=== PATIENT | female | born 1955 ===

== ENCOUNTER → 2020-06-01 11:09 | Outpatient (BNVA) | payer MEDICARE, SELFPAY | PROVIDERS: PCP Internal Medicine; Referring Provider Internal Medicine; Visit Provider Dietitian, Registered ==

== ENCOUNTER → 2020-08-31 10:45 | Outpatient (BNVA) | payer MEDICARE, SELFPAY | PROVIDERS: PCP Internal Medicine; Visit Provider Dietitian, Registered | DX: E11.9 Type 2 diabetes mellitus without complications (principal) | CPT/HCPCS: 97803 ==

== ENCOUNTER 2023-12-11 11:26 | Outpatient (REF) | payer MEDICARE, SELFPAY ==
--- NOTE | ~2023-12-11 | MM_ITS ---
EXAMINATION: MM SCREENING DIGITAL BREAST TOMOSYNTHESIS, BILATERAL CLINICAL INFORMATION: Screening. Asymptomatic. COMPARISON: Mammography: This study is compared with prior exams dating back to 2020. TECHNIQUE: Digital breast tomosynthesis is performed in both the craniocaudal and mediolateral oblique views along with computer-aided detection (CAD). Synthesized 2D images are generated from the tomosynthesis. FINDINGS: The breasts are almost entirely fatty (ACR BI-RADS breast composition Category a). There are no significant masses, abnormal calcifications, or other abnormalities. MM/MM tomosynthesis screening BI IMPRESSION: No mammographic evidence of malignancy. ASSESSMENT: BI-RADS BI-RADS 1 - Negative RECOMMENDATION: Routine annual mammography screening. 1 year F/U This examination should not preclude the clinical evaluation of a suspicious palpable abnormality. This patient's information was entered into a reminder system with a target due date for their next mammogram.
== END 2023-12-11 11:27 | disposition home or self-care (01) ==
LOC: HO.MAMMO 11:26
PROVIDERS: Visit Provider Physician Assistant
DX: Z12.31 Encounter for screening mammogram for malignant neoplasm of breast (principal)
CPT/HCPCS: 77063; 77067

== ENCOUNTER → 2023-12-11 11:45 | Outpatient (BNV) | payer MEDICARE, SELFPAY | PROVIDERS: Visit Provider Radiology Diagnostic Radiology | DX: Z12.31 Encounter for screening mammogram for malignant neoplasm of breast (principal) | CPT/HCPCS: 77063; 77067 ==

== ENCOUNTER 2024-01-14 12:58 | Outpatient (AMB) | payer MEDICARE, SELFPAY ==
--- NOTE | 2024-01-14 13:07 | A.OFFPC_ITS ---
Vital Signs 01/14/24 13:19 Height 5 ft 1.61 in Weight 187 lb 2 oz BMI 34.7 BP 122/76 Blood Pressure Location Lt brachial Position Sitting Respiration 14 Pulse 72 Pulse Source Pulse Oximeter Temp 98.4 F Temp Source Oral Pulse Oximetry (%) 96 Oxygen Delivery Method Room Air Intake Visit Reasons: Diabetes followup Intake Note: New patient visit. Had a heart ultrasound at [place] and never got results. Needs refill on all medications. Lineman A Class Required: No Allergies penicillin V Allergy (Unknown, Verified 01/14/24 13:10) Unknown Penicillins [PENICILLINS] Allergy (Unknown, Verified 01/14/24 13:10) HIVES seafood Allergy (Unknown, Verified 01/14/24 13:10) Rash SEAFOOD Allergy (Severe, Uncoded 01/14/24 13:10) THROAT SWELLING AND HIVES flu vaccine Allergy (Unknown, Uncoded 01/14/24 13:10) Rash shellfish Allergy (Unknown, Uncoded 01/14/24 13:10) Unknown Medication List - Last Reconciled 01/14/24 by Christal Robison PA-C albuterol sulfate 90 mcg/actuation 2 puffs inhalation QID aspirin 81 mg PO DAILY blood sugar diagnostic (OneTouch Ultra Test strips) As directed blood-glucose meter (OneTouch Ultra2 Meter) As directed calcium carb,lactat-vitamin D3 200 mg-6.25 mcg (250 unit) tabs PO fluticasone propion-salmeterol 250-50 mcg/dose (Wixela Inhub) 1 ea inhalation BID lancets (OneTouch Delica Plus Lancet) As directed loratadine (Claritin) 10 mg PO DAILY meclizine 25 mg PO TID PRN meclizine 25 mg PO DAILY PRN metformin ER 500 mg PO TID simvastatin 20 mg PO BEDTIME valsartan 80 mg PO DAILY Tobacco use date assessed: 01/14/24 Fall risk assessment: No Falls in past year Last assessed Fall Risk: 01/14/24 Dental Screening Dental Screen Date: 01/14/24 HPI Diabetes followup HPI Details Patient is a 68-year-old female with a significant past medical history of type 2 diabetes, hypertension, hyperlipidemia, obesity, asthma, joint pains, fibromyalgia, PVD, rheumatoid lung, abnormal echo and vertigo presenting today to [facility] care. She is transferring from [place]. Lineman A Class: Genevieve Trena [id number] Endo: She is currently on metformin 500 mg 3 times a day. She was diagnosed with diabetes around 2019. She has had diabetic Education. She is followed with a manager servicing. Her A1c today 7. -She states most of her family has t2dm. -denies hyper/hypoglycemic events -last eye exam was 6 months ago and she states she has cataracts. -she is on an Arb and a statin. CV: Blood pressure today in the office is 122/76. She is currently on valsartan 80 mg. Cholesterol is managed with simvastatin 20 mg. She had an echo Pulm: has a hx of asthma but recent PFTs from apr 2022 (scanned in) were normal. Mammogram: UTD, November 2023 Colonoscopy: due this year Bone density: overdue Pap: needs new referral to [facility] Family History (Updated 07/30/22 @ 16:37 by Maisha Chavez RN) Mother Asthma Anemia Diabetes HTN (hypertension) Glaucoma Father Stroke Sister Diabetes HTN (hypertension) Asthma Myocardial infarct Stroke Brother Diabetes Glaucoma Asthma Social History (Updated 07/30/22 @ 16:34 by Maisha Chavez RN) Housing: House Alcohol intake: never Patient Tobacco Use Status: Never used Tobacco e-Cigarette/Vaping Use: Never Used service: No Current occupational status: retired Cognitive needs: No Hearing needs: No Vision needs: Yes (cataracts) Physical exam (Primary Care) Vital Signs: Last Vital Signs Temp 98.4 F 01/14/24 13:19 Pulse 72 01/14/24 13:19 Resp 14 01/14/24 13:19 BP 122/76 01/14/24 13:19 Pulse Ox 96 01/14/24 13:19 Oxygen Delivery Method Room Air 01/14/24 13:19 BMI result Body Mass Index 34.7 Tobacco/Smoking Status: Tobacco use Status Tobacco use date assessed 01/14/24 01/14/24 13:22 Patient Tobacco Use Status Never used Tobacco 01/14/24 13:09 e-Cigarette/Vaping Use Never Used 01/14/24 13:09 Const Orientation/consciousness: patient oriented x3 HENMT Ears: hearing grossly normal bilaterally Neck Thyroid: Thyroid normal Lymphatic: no lymphadenopathy noted Resp Auscultation: clear to auscultation bilaterally Cardio Rate: regular rate Rhythm: regular rhythm Heart sounds: S1 normal heart sound present and S2 normal heart sound present GI Inspection: Yes normal to inspection Palpation (GI): Soft to palpation and Other GI palpation findings present (nontender, no cva tenderness) Auscultation: normoactive bowel sounds Rectal Exam - Female: deferred Skin General skin exam: no rashes or lesions noted Neuro General: patient oriented x3, gait normal and no focal motor deficits Assessment and Plan Assessment & Plan (1) T2DM (type 2 diabetes mellitus): Code(s): E11.9 - Type 2 diabetes mellitus without complications Plan: Currently controlled. Continue current regimen. Testing supplies ordered. (2) Hypertension: Code(s): I10 - Essential (primary) hypertension Plan: Blood pressure WNL. Continue current regimen (3) Hyperlipidemia: Code(s): E78.5 - Hyperlipidemia, unspecified Plan: Refilled simvastatin today. Continue this. Lipids and LFTs ordered. (4) PVD (peripheral vascular disease): Code(s): I73.9 - Peripheral vascular disease, unspecified Plan: following [facility] Dempsey (5) Murmur: Code(s): R01.1 - Cardiac murmur, unspecified Plan: States she had an echo and was supposed to see cardiology because it was abnormal. We will refer to Cardiology Plan Referral to children's aide Bone density ordered Labs ordered Referral to GI Orders: Orders TSH reflex Free T4 Today E11.9 - Type 2 diabetes mellitus without complications, E78.5 - Hyperlipidemia, unspecified, I10 - Essential (primary) hypertension Microalbumin, Random (w Creat) Today E11.9 - Type 2 diabetes mellitus without complications, E78.5 - Hyperlipidemia, unspecified, I10 - Essential (primary) hypertension XR DEXA axial skeleton Today Z13.820 - Encounter for screening for osteoporosis B Type Natriuretic Peptide Today I73.9 - Peripheral vascular disease, unspecified, R01.1 - Cardiac murmur, unspecified Comprehensive [place]. Panel Fast Today E11.9 - Type 2 diabetes mellitus without complications, E78.5 - Hyperlipidemia, unspecified, I10 - Essential (primary) hypertension Complete Blood Count Auto Diff Today E11.9 - Type 2 diabetes mellitus without complications, E78.5 - Hyperlipidemia, unspecified, I10 - Essential (primary) hypertension Lipid Panel Today E11.9 - Type 2 diabetes mellitus without complications, E78.5 - Hyperlipidemia, unspecified, I10 - Essential (primary) hypertension Referrals Gastroenterology Referral Z12.11 - Encounter for screening for malignant neoplasm of colon BIOMETRY TEACHER Referral Z12.89 - Encounter for screening for malignant neoplasm of other sites Cardiology Referral I10 - Essential (primary) hypertension, R01.1 - Cardiac murmur, unspecified Medications: New simvastatin 20 mg PO BEDTIME 90 tabs 3RF Changed From blood sugar diagnostic (OneTouch Ultra Test strips) As directed 10 ea To blood sugar diagnostic (OneTouch Ultra Test strips) Use daily As directed to check blood glucose 100 ea 3RF Coding Level of Care Code New Pt Level 4 (87088) Complex EM visit Add On G2211 Diagnoses T2DM (type 2 diabetes mellitus) E11.9 Hypertension I10 Hyperlipidemia E78.5 PVD (peripheral vascular disease) I73.9 Murmur R01.1
[2024-01-14 13:19] VITALS: BP 122/76; PULSE 72; RESP 14; TEMP 36.9; O2SAT 96; BMI 34.7
== END 2024-01-14 13:58 | disposition home or self-care (01) ==
PROVIDERS: Visit Provider Physician Assistant
DX: E11.9 Type 2 diabetes mellitus without complications (principal); I10 Essential (primary) hypertension; E78.5 Hyperlipidemia, unspecified; I73.9 Peripheral vascular disease, unspecified; R01.1 Cardiac murmur, unspecified

== ENCOUNTER → 2024-01-14 12:58 | Outpatient (BNVA) | payer MEDICARE, SELFPAY | PROVIDERS: Visit Provider Physician Assistant | DX: E11.9 Type 2 diabetes mellitus without complications (principal); E78.5 Hyperlipidemia, unspecified; I10 Essential (primary) hypertension; I73.9 Peripheral vascular disease, unspecified; R01.1 Cardiac murmur, unspecified | CPT/HCPCS: 83036; 99202 ==

== ENCOUNTER 2024-01-21 10:37 | Outpatient (REF) | payer MEDICARE, SELFPAY ==
[2024-01-21 10:59] LABS: MANUAL DIFF FLAG NO
[2024-01-21 12:24] LABS: Basophils Absolute Auto 0.1 X10*3/uL (0.0-0.2); Basophils Percent Auto 1.5 % (0-2); Eosinophils Absolute Auto 0.1 X10*3/uL (0.0-0.4); Eosinophils Percent Auto 3.3 % (0-4); Hematocrit 36.6 % (37.0-47.0); Imm Gran Abs Auto 0.02 X10*3/uL (0.00-0.03); Imm Gran Pct Auto 0.5 % (0.0-0.4); Lymphocytes Absolute Auto 1.2 X10*3/uL (1.2-4.9); Lymphocytes Percent Auto 30.3 % (20-40); Mean Corpuscular HGB Conc 30.1 g/dl (31.0-35.0); Mean Corpuscular Hemoglobin 23.3 pg (27.0-33.0); Mean Corpuscular Volume 77.5 fL (80.0-98.0); Mean Platelet Volume 9.8 fL (9.4-12.3); Monocytes Absolute Auto 0.3 X10*3/uL (0.1-1.2); Neutrophils Absolute Auto 2.3 x10*3/uL (2.0-8.3); Neutrophils Percent Auto 57.4 % (45-73); Platelet Count 276 X10*3/uL (160-400); Red Blood Count 4.72 X10*6/uL (4.20-5.50); Red Cell Distribution Width 15.2 % (11.0-16.0)
[2024-01-21 12:55] LABS: B Type Natriuretic Peptide 51 pg/mL (<100)
[2024-01-21 12:59] LABS: Alanine Aminotransferase 14 U/L (0-31); Alkaline Phosphatase 55 U/L (39-117); Anion Gap 11 (12-20); Aspartate Amino Transferase 15 U/L (5-31); Bilirubin Total 0.5 mg/dL (0.0-1.0); Blood Urea Nitrogen 13 mg/dL (9-16); Calcium 9.6 mg/dL (8.4-10.2); Carbon Dioxide 29 mmol/L (22-29); Chloride 106 mmol/L (96-108); Cholesterol 209 mg/dL (<200); Estimated Glomerular Filt Rate > 60; Glucose Fasting 124 mg/dL (60-99); HDL Cholesterol 71 mg/dL (>40); LDL Cholesterol Calculated 122 mg/dL (<100); Sodium 142 mmol/L (135-145); Triglycerides 80 mg/dL (<150)
[2024-01-21 13:00] LABS: Creatinine Urine 60.37 mg/dL; Microalbumin Urine < 5.0 mg/L
[2024-01-21 13:17] LABS: TSH reflex Free T4 4.63 uIU/mL (0.32-4.0)
[2024-01-21 13:54] LABS: Free T4 (Free Thyroxine) 0.77 ng/dL (0.71-1.85)
== END 2024-01-21 10:38 | disposition home or self-care (01) ==
LOC: HO.LAB 10:37
PROVIDERS: PCP Physician Assistant; Visit Provider Physician Assistant
DX: R01.1 Cardiac murmur, unspecified (principal); E78.5 Hyperlipidemia, unspecified; I10 Essential (primary) hypertension; E11.9 Type 2 diabetes mellitus without complications; I73.9 Peripheral vascular disease, unspecified
CPT/HCPCS: 36415; 80053; 80061; 82570; 83880; 84439; 84443; 85025

== ENCOUNTER 2024-01-27 14:24 | Outpatient (AMB) | payer MEDICARE, SELFPAY ==
--- NOTE | 2024-01-27 14:50 | MHC.OFFVIS ---
Intake Visit Reasons: telehealth follow up on labs Allergies penicillin V Allergy (Unknown, Verified 01/14/24 13:10) Unknown Penicillins [PENICILLINS] Allergy (Unknown, Verified 01/14/24 13:10) HIVES seafood Allergy (Unknown, Verified 01/14/24 13:10) Rash SEAFOOD Allergy (Severe, Uncoded 01/14/24 13:10) THROAT SWELLING AND HIVES flu vaccine Allergy (Unknown, Uncoded 01/14/24 13:10) Rash shellfish Allergy (Unknown, Uncoded 01/14/24 13:10) Unknown Medication List - Last Reconciled 01/27/24 by Christal Robison PA-C albuterol sulfate 90 mcg/actuation 2 puffs inhalation QID aspirin 81 mg PO DAILY blood sugar diagnostic ([employer] Ultra Test strips) Use daily As directed to check blood glucose blood-glucose meter (NovaTorque Ultra2 Meter) As directed calcium carb,lactat-vitamin D3 200 mg-6.25 mcg (250 unit) tabs PO fluticasone propion-salmeterol 250-50 mcg/dose (Wixela Inhub) 1 ea inhalation BID lancets ([employer] Delica Plus Lancet) As directed levothyroxine 25 mcg PO DAILY loratadine (Claritin) 10 mg PO DAILY meclizine 25 mg PO TID PRN meclizine 25 mg PO DAILY PRN metformin ER 500 mg PO TID simvastatin 20 mg PO BEDTIME valsartan 80 mg PO DAILY HPI HPI telehealth follow up on labs: Details: Patient is a 68-year-old female with a significant past medical history of type 2 diabetes, hypertension, hyperlipidemia, obesity, asthma, joint pains, fibromyalgia, PVD, rheumatoid lung, abnormal echo and vertigo Endo: She is currently on metformin 500 mg 3 times a day. She was diagnosed with diabetes around 2019. She has had diabetic Education. She is followed with a finance consultant. Her A1c today 7. Her recent TSH was elevated. She states her brother has hypothyroid. She does feel tired and would like to treat this. -She states most of her family has t2dm. -denies hyper/hypoglycemic events -last eye exam was 6 months ago and she states she has cataracts. -she is on an Arb and a statin. CV: Blood pressure is well controlled. She is currently on valsartan 80 mg. Cholesterol is managed with simvastatin 20 mg. Her last lipids were elevated and she states she was not taking the simvastatin. She had an echo Pulm: has a hx of asthma but recent PFTs from apr 2022 (scanned in) were normal. Mammogram: UTD, November 2023 Colonoscopy: due this year Bone density: overdue Pap: needs new referral to [facility] Family History (Updated 07/30/22 @ 16:37 by Maisha Chavez RN) Mother Asthma Anemia Diabetes HTN (hypertension) Glaucoma Father Stroke Sister Diabetes HTN (hypertension) Asthma Myocardial infarct Stroke Brother Diabetes Glaucoma Asthma Social History (Updated 07/30/22 @ 16:34 by Maisha Chavez RN) Housing: House Alcohol intake: never Patient Tobacco Use Status: Never used Tobacco e-Cigarette/Vaping Use: Never Used service: No Current occupational status: retired Cognitive needs: No Hearing needs: No Vision needs: Yes (cataracts) Telehealth Telehealth Telehealth Platform: Telephone Location of provider rendering services: practice address Location of patient: address on file Patient Identification confirmed using: Name, : Yes Telehealth method: voice only Patient verbally consented to treatment: Yes Patient verbally consented to billing insurance company: Yes Patient informed of any privacy concerns related to visit: Yes Minutes spent on Phone/Video with Pt.: 17 Results Reviewed Results Reviewed: Laboratory Tests 01/21/24 01/21/24 10:57 10:58 WBC 4.0 L Hgb 11.0 L Hct 36.6 L MCV 77.5 L MCH 23.3 L MCHC 30.1 L Plt Count 276 Sodium 142 Potassium 4.0 Chloride 106 Carbon Dioxide 29 Anion Gap 11 L BUN 13 Creatinine 0.82 Estimated GFR > 60 AST 15 ALT 14 Alkaline Phosphatase 55 B-Natriuretic Peptide 51 Triglycerides 80 Cholesterol 209 H LDL Cholesterol, Calc 122 H HDL Cholesterol 71 TSH 4.63 H Free T4 0.77 Urine Creatinine 60.37 Assessment & Plan Assessment & Plan (1) Anemia: Code(s): D64.9 - Anemia, unspecified Category: Medical Plan: has been referred to GI. will recheck cbc, iron and b12 (2) Hypothyroid: Code(s): E03.9 - Hypothyroidism, unspecified Category: Medical Plan: will start levothyroxine. discussed risks and benefits and adverse effects. will recheck tsh in 6 weeks. (3) Hyperlipidemia: Code(s): E78.5 - Hyperlipidemia, unspecified Category: Medical Plan: will start taking simvastatin again. States she is going to be better with her diet. Orders: Orders Vitamin B12 and Folate Today D64.9 - Anemia, unspecified Complete Blood Count Auto Diff Today D64.9 - Anemia, unspecified IRON PROFILE Today D64.9 - Anemia, unspecified Ferritin Today D64.9 - Anemia, unspecified TSH reflex Free T4 6 Weeks E03.9 - Hypothyroidism, unspecified Medications: New levothyroxine 25 mcg PO DAILY 90 tabs 3RF Coding Level of Care Code Est Pt Level 3 (04937) Diagnoses Anemia D64.9 Hypothyroid E03.9 Hyperlipidemia E78.5
== END 2024-01-27 15:06 | disposition home or self-care (01) ==
LOC: HO.HMCFM 14:24
PROVIDERS: PCP Physician Assistant; Visit Provider Physician Assistant
DX: D64.9 Anemia, unspecified (principal); E03.9 Hypothyroidism, unspecified; E78.5 Hyperlipidemia, unspecified

== ENCOUNTER → 2024-01-27 14:24 | Outpatient (BNVA) | payer MEDICARE, SELFPAY | PROVIDERS: PCP Physician Assistant; Visit Provider Physician Assistant | DX: D64.9 Anemia, unspecified (principal); E03.9 Hypothyroidism, unspecified; E78.5 Hyperlipidemia, unspecified | CPT/HCPCS: 99212 ==

== ENCOUNTER 2024-02-09 08:56 | Outpatient (REF) | payer MEDICARE, SELFPAY ==
[2024-02-09 09:13] LABS: MANUAL DIFF FLAG NO
[2024-02-09 09:27] LABS: Basophils Absolute Auto 0.1 X10*3/uL (0.0-0.2); Basophils Percent Auto 1.6 % (0-2); Eosinophils Absolute Auto 0.2 X10*3/uL (0.0-0.4); Eosinophils Percent Auto 4.8 % (0-4); Hematocrit 35.7 % (37.0-47.0); Hemoglobin 10.8 g/dl (12.0-16.0); Imm Gran Abs Auto 0.04 X10*3/uL (0.00-0.03); Imm Gran Pct Auto 0.8 % (0.0-0.4); Lymphocytes Absolute Auto 1.5 X10*3/uL (1.2-4.9); Mean Corpuscular HGB Conc 30.3 g/dl (31.0-35.0); Mean Corpuscular Hemoglobin 23.4 pg (27.0-33.0); Mean Corpuscular Volume 77.4 fL (80.0-98.0); Mean Platelet Volume 9.2 fL (9.4-12.3); Monocytes Absolute Auto 0.5 X10*3/uL (0.1-1.2); Monocytes Percent Auto 10.5 % (2-11); Neutrophils Absolute Auto 2.7 x10*3/uL (2.0-8.3); Neutrophils Percent Auto 53.3 % (45-73); Platelet Count 260 X10*3/uL (160-400); Red Blood Count 4.61 X10*6/uL (4.20-5.50)
[2024-02-09 10:20] LABS: Iron 58 mcg/dL (30-160); Percent Iron Saturation 22 % (15-50); Total Iron Binding Capacity 261 mcg/dL (228-428); Unsaturated Iron Binding 203 ug/dL
[2024-02-09 10:36] LABS: Ferritin 207 ng/mL (10-250); TSH reflex Free T4 7.34 uIU/mL (0.32-4.0)
[2024-02-09 10:48] LABS: Folate 11.5 ng/mL (> or = 4.0); Vitamin B12 573 pg/mL (200-900)
[2024-02-09 11:32] LABS: Free T4 (Free Thyroxine) 0.89 ng/dL (0.71-1.85)
== END 2024-02-09 08:57 | disposition home or self-care (01) ==
LOC: HO.LAB 08:56
PROVIDERS: PCP Physician Assistant; Visit Provider Physician Assistant
DX: D64.9 Anemia, unspecified (principal); E03.9 Hypothyroidism, unspecified
CPT/HCPCS: 36415; 82607; 82728; 82746; 83540; 84439; 84443; 85025

== ENCOUNTER 2024-02-10 10:23 | Outpatient (AMB) | payer MEDICARE, SELFPAY ==
--- NOTE | 2024-02-10 10:29 | A.OFFVIS_ITS ---
Vital Signs 02/10/24 10:30 Height 5 ft 6 in Weight 184 lb BMI 29.7 BP 128/70 Blood Pressure Location Lt brachial Position Sitting Pulse 84 Pulse Source Pulse Oximeter Pulse Oximetry (%) 98 Oxygen Delivery Method Room Air Intake Visit Reasons: Asthma Waiter/Waitress Required: No Allergies penicillin V Allergy (Unknown, Verified 02/10/24 10:33) Unknown Penicillins [PENICILLINS] Allergy (Unknown, Verified 02/10/24 10:33) HIVES seafood Allergy (Unknown, Verified 02/10/24 10:33) Rash SEAFOOD Allergy (Severe, Uncoded 02/10/24 10:33) THROAT SWELLING AND HIVES flu vaccine Allergy (Unknown, Uncoded 02/10/24 10:33) Rash shellfish Allergy (Unknown, Uncoded 02/10/24 10:33) Unknown HPI Comments Details: The patient is here for pulmonary evaluation. The patient is a 68 year with a history of asthma in addition to underlying interstitial lung disease. Apparently back in [address] scan of the chest that was done at [facility]. It demonstrated areas of ground-glass opacities. The patient is referred to Pulmonary. She underwent pulmonary function studies demonstrating a restrictive ventilatory defect consistent with restrictive lung disease. She was placed on respiratory inhalers. The patient also was found to have a positive RA and because of the pneumonitis and ongoing joint discomfort she was sent to a reinsurance analyst. I do not have all those results. At this time the patient does complaint of dyspnea on exertion. [id number] severity. She also has a cough. She at this point stopped using the Wixela and is only been using her rescue inhaler. She does get partial relief from it. At this point I do believe that she needs additional medications to improve her respiratory symptoms. On exam the patient does have diminished breath sounds. She has a murmur. She was referred to Cardiology for that murmur recently. Will go ahead and request additional blood work to assess him pneumonitis and also repeat CT scans to assess the level of the interstitial lung disease. [facility] Medical History (Updated 02/10/24 @ 18:32 by Victor Hugo Love MD) Chronic restrictive lung disease Pneumonitis Family History (Updated 07/30/22 @ 16:37 by Maisha Chavez RN) Mother Asthma Anemia Diabetes HTN (hypertension) Glaucoma Father Stroke Sister Diabetes HTN (hypertension) Asthma Myocardial infarct Stroke Brother Diabetes Glaucoma Asthma Social History (Updated 07/30/22 @ 16:34 by Maisha Chavez RN) Housing: House Alcohol intake: never Patient Tobacco Use Status: Never used Tobacco e-Cigarette/Vaping Use: Never Used service: No Current occupational status: retired Cognitive needs: No Hearing needs: No Vision needs: Yes (cataracts) Review of Systems Const Reports body aches, Denies fever(s) and Denies headache(s) Eyes Reports no additional complaints ENT Denies headache(s) Card Denies chest pain and Reports dyspnea on exertion Resp Reports cough, Reports dyspnea on exertion and Denies wheezing GI Reports no additional complaints Musc Reports myalgias and Reports arthralgias Skin/Breast Denies rash Neuro Denies headache(s) [place]/Lymph Reports no additional complaints Aller/Immun Denies wheezing Physical Exam Vital Signs: Last Vital Signs Pulse 84 02/10/24 10:30 BP 128/70 02/10/24 10:30 Pulse Ox 98 02/10/24 10:30 Oxygen Delivery Method Room Air 02/10/24 10:30 BMI result Body Mass Index 29.7 Const General: comfortable HEENT Head: Yes normocephalic Neck Neck: Yes supple Chest Chest palpation & inspection: normal inspection of the chest Resp Effort & Inspection: normal respiratory effort Auscultation: diminished lung sounds Cardio Heart sounds: S1 normal heart sound present, S2 normal heart sound present and Murmur heart sound present systolic II/ GI Palpation (GI): Soft to palpation Skin General skin exam: no rashes or lesions noted Extrem General: Yes no clubbing, cyanosis or edema Assessment & Plan Assessment & Plan (1) Pneumonitis: Code(s): J98.4 - Other disorders of lung Category: Medical (2) Asthma: Code(s): J45.909 - Unspecified asthma, uncomplicated Category: Medical Qualifiers: Asthma severity: moderate Asthma persistence: persistent Asthma complication type: uncomplicated Qualified Code(s): J45.40 - Moderate persistent asthma, uncomplicated (3) Chronic restrictive lung disease: Code(s): J98.4 - Other disorders of lung Category: Medical Plan start Breztri ALMA as needed PFTs CT chest bloodwork F/U 2-3 months Orders: Orders Basic Metabolic Panel Today J98.4 - Other disorders of lung SARABJIT Reflex Titer and Pattern Today J98.4 - Other disorders of lung Hypersensitive Pneumonitis Prf Today J98.4 - Other disorders of lung, R91.8 - Other nonspecific abnormal finding of lung field Cyclic Citrullinated Peptide Today J98.4 - Other disorders of lung CT chest wo IV con Today J98.4 - Other disorders of lung Complete Blood Count Auto Diff Today J98.4 - Other disorders of lung Immunoglobulin E Today J98.4 - Other disorders of lung Resp Allergy Profile Region I Today J98.4 - Other disorders of lung, R91.1 - Solitary pulmonary nodule Erythrocyte Sedimentation Rate Today J98.4 - Other disorders of lung Medications: New ttfhbymczt-esbiovhi-clymxlijnq 160-9-4.8 mcg/actuation (Breztri Aerosphere) 2 inhalations inhalation BID 10.7 grams 6RF 30 days albuterol-budesonide 90-80 mcg/actuation (Airsupra) 2 inhalations inhalation BID PRN 10.7 grams 11RF shortness of breath 30 days Coding Level of Care Code New Pt Level 4 (79629) Diagnoses Pneumonitis J98.4 Moderate persistent asthma without complication J45.40 Asthma severity: moderate Asthma persistence: persistent Asthma complication type: uncomplicated Chronic restrictive lung disease J98.4 Time Spent (min) 35
[2024-02-10 10:30] VITALS: BP 128/70; PULSE 84; O2SAT 98; BMI 29.7
== END 2024-02-10 11:07 | disposition home or self-care (01) ==
PROVIDERS: PCP Internal Medicine; Visit Provider Hospitalist
DX: J98.4 Other disorders of lung (principal); J45.40 Moderate persistent asthma, uncomplicated
CPT/HCPCS: 99204

== ENCOUNTER → 2024-02-10 10:23 | Outpatient (BNVA) | payer MEDICARE, SELFPAY | PROVIDERS: PCP Internal Medicine; Visit Provider Hospitalist | DX: J45.40 Moderate persistent asthma, uncomplicated (principal); J98.4 Other disorders of lung | CPT/HCPCS: 99202 ==

== ENCOUNTER 2024-02-11 10:51 | Outpatient (AMB) | payer MEDICARE, SELFPAY ==
--- NOTE | 2024-02-11 11:15 | A.OFFPC_ITS ---
Vital Signs 02/11/24 11:18 Height 5 ft 6 in Weight 191 lb BMI 30.8 BP 128/82 Blood Pressure Location Rt brachial Position Sitting Respiration 14 Pulse 71 Pulse Source Pulse Oximeter Pulse Oximetry (%) 96 Oxygen Delivery Method Room Air Intake Visit Reasons: 1 Month Intake Note: One month follow up. Allergies penicillin V Allergy (Unknown, Verified 02/11/24 11:18) Unknown Penicillins [PENICILLINS] Allergy (Unknown, Verified 02/11/24 11:18) HIVES seafood Allergy (Unknown, Verified 02/11/24 11:18) Rash SEAFOOD Allergy (Severe, Uncoded 02/11/24 11:18) THROAT SWELLING AND HIVES flu vaccine Allergy (Unknown, Uncoded 02/11/24 11:18) Rash shellfish Allergy (Unknown, Uncoded 02/11/24 11:18) Unknown Medication List - Last Reconciled 02/11/24 by Christal Robison PA-C albuterol sulfate 90 mcg/actuation 2 puffs inhalation QID albuterol-budesonide 90-80 mcg/actuation (Airsupra) 2 inhalations inhalation BID PRN 30 days aspirin 81 mg PO DAILY blood sugar diagnostic ([employer] Ultra Test strips) Use daily As directed to check blood glucose blood-glucose meter ([employer] Ultra2 Meter) As directed twkckxanot-qlgnrhav-shqqukqxgm 160-9-4.8 mcg/actuation (Breztri Aerosphere) 2 inhalations inhalation BID 30 days calcium carb,lactat-vitamin D3 200 mg-6.25 mcg (250 unit) tabs PO fluticasone propion-salmeterol 250-50 mcg/dose (Wixela Inhub) 1 ea inhalation BID lancets (Sush.ioTouch Delica Plus Lancet) As directed levothyroxine 25 mcg PO DAILY loratadine (Claritin) 10 mg PO DAILY meclizine 25 mg PO DAILY PRN metformin ER 500 mg PO TID simvastatin 20 mg PO BEDTIME valsartan 80 mg PO DAILY Tobacco use date assessed: 01/14/24 Dental Screening Dental Screen Date: 01/14/24 HPI 1 Month HPI Details Patient is a 68-year-old female with a significant past medical history of type 2 diabetes, hypertension, hyperlipidemia, obesity, asthma, joint pains, fibromyalgia, PVD, rheumatoid lung, abnormal echo and vertigo Endo: She is currently on metformin 500 mg 3 times a day. States that she needs a new glucometer. She was diagnosed with diabetes around 2020. She has had diabetic Education. She is followed with a inpatient coder. Her A1c today 7. Her recent TSH was elevated. She was started on levothyroxine and states that she is tolerating this well. -She states most of her family has t2dm. -denies hyper/hypoglycemic events -last eye exam was 6 months ago and she states she has cataracts. -she is on an Arb and a statin. CV: Blood pressure is well controlled. She is currently on valsartan 80 mg. Cholesterol is managed with simvastatin 20 mg. Her last lipids were elevated and she states she was not taking the simvastatin. She has booked with Cardiology for her murmur and history of abnormal echo from [place]. Pulm: has a hx of asthma but recent PFTs from apr 2022 (scanned in) were normal. Followed with pulmonology. Heme: Persistent anemia. States that she has a history of this in the past needed iron but has not been on any supplements. Overdue colonoscopy. Mammogram: UTD, November 2023 Colonoscopy: due this year-was referred Bone density: Not due until 2024 upon review from [place] records. Pap: Was referred [facility] Medical History (Updated 02/11/24 @ 11:53 by Christal Robison PA-C) Chronic restrictive lung disease Pneumonitis Family History (Updated 07/30/22 @ 16:37 by Maisha Chavez RN) Mother Asthma Anemia Diabetes HTN (hypertension) Glaucoma Father Stroke Sister Diabetes HTN (hypertension) Asthma Myocardial infarct Stroke Brother Diabetes Glaucoma Asthma Social History (Updated 07/30/22 @ 16:34 by Maisha Chavez RN) Housing: House Alcohol intake: never Patient Tobacco Use Status: Never used Tobacco e-Cigarette/Vaping Use: Never Used service: No Current occupational status: retired Cognitive needs: No Hearing needs: No Vision needs: Yes (cataracts) Questionnaire PHQ-9 Over the last 2 weeks, how often have you been bothered by any of the following problems? 1. Little interest or pleasure in doing things: nearly every day 2. Feeling down, depressed, or hopeless: nearly every day 3. Trouble falling or staying asleep, or sleeping too much: not at all 4. Feeling tired or having little energy: several days 5. Poor appetite or overeating: several days 6. Feeling bad about yourself - or that you are a failure or have let yourself or your family down: not at all 7. Trouble concentrating on things, such as reading the newspaper or watching television: not at all 8. Moving or speaking so slowly that other people could have noticed. Or the opposite - being so fidgety or restless that you have been moving around a lot more than usual: several days 9. Thoughts that you would be better off or of hurting yourself in some way: not at all Total score: 9 Source: Developed by Drs. Jamin Hillman, Latonya Boone, Jasvir Zuniga and colleagues, with an educational federico from [employer]. Thrive Questionnaire I am a: Patient What is your living situation today?: I have a steady place to live Within the past 12 months, did the food you bought not last and you didn't have the money to get more?: Never true Within the past 12 months, did you worry whether your food would run out before you got money to buy more?: I choose not to answer this question Do you have trouble paying for medicines?: No Do you have trouble getting transportation to medical appointments?: No Do you have trouble paying your heating and electricity bill?: No Do you have trouble taking care of your child, family member or friend?: No Do you have trouble with day-to-day activities such as bathing, preparing meals, shopping, managing finances, etc.?: No Are you currently unemployed and looking for a job?: No Are you interested in more education?: No Please select the resources that you would like help with: None Currently or been in a relationship where the following occur: No concerns reported THRIVE Score: 0 AUDIT C Alcohol Use Questionnaire (AUDIT-C) 1. How often do you have a drink containing alcohol?: Never Total Score: 0 DEA-7 AMB Questionnaire DEA-7 Feeling nervous, anxious, or on edge: 0 = Not at all Not being able to stop or control worryin = Not at all Worrying too much about different things: 0 = Not at all Trouble relaxin = Not at all Being so restless that it is hard to sit still: 0 = Not at all Becoming easily annoyed or irritable: 0 = Not at all Feeling afraid as if something awful might happen: 0 = Not at all Total DEA-7 score (0-4 normal; 5-9 mild; 10-14 moderate; 15-21 severe): 0 Source: Developed by Drs. Jamin Hillman, Latonya Boone, Jasvir Zuniga and colleagues, with an educational federico from [employer]. Physical exam (Primary Care) Vital Signs: Last Vital Signs Pulse 71 02/11/24 11:18 Resp 14 02/11/24 11:18 BP 128/82 02/11/24 11:18 Pulse Ox 96 02/11/24 11:18 Oxygen Delivery Method Room Air 02/11/24 11:18 BMI result Body Mass Index 30.8 Tobacco/Smoking Status: Tobacco use Status Tobacco use date assessed 01/14/24 02/11/24 11:20 Patient Tobacco Use Status Never used Tobacco 02/11/24 11:20 e-Cigarette/Vaping Use Never Used 02/11/24 11:20 PHQ-9: PHQ-9 Score PHQ-9: Total score 9 02/11/24 11:20 Currently or been in a relationship where the following occur: No concerns reported Const Orientation/consciousness: patient oriented x3 HENMT Ears: hearing grossly normal bilaterally Neck Thyroid: Thyroid normal Lymphatic: no lymphadenopathy noted Resp Auscultation: clear to auscultation bilaterally Cardio Rate: regular rate Rhythm: regular rhythm Heart sounds: S1 normal heart sound present and S2 normal heart sound present GI Inspection: Yes normal to inspection Palpation (GI): Soft to palpation and Other GI palpation findings present (nontender, no cva tenderness) Auscultation: normoactive bowel sounds Rectal Exam - Female: deferred Skin General skin exam: no rashes or lesions noted Neuro General: patient oriented x3, gait normal and no focal motor deficits Results Reviewed Results Reviewed: Laboratory Tests 02/09/24 09:12 WBC 5.0 RBC 4.61 Hgb 10.8 L Hct 35.7 L Iron 58 TIBC 261 % Saturation 22 Unsat Iron Binding 203 Ferritin 207 Vitamin B12 573 Folate 11.5 Coding Level of Care Code Est Pt Level 4 (14205) Complex EM visit Add On G2211 Diagnoses Anemia, unspecified type D64.9 Anemia type: unspecified type Hypothyroid E03.9 Type 2 diabetes mellitus without complication, without long-term current use of insulin E11.9 Diabetes mellitus senior care insulin use: without senior care use Diabetes mellitus complication status: without complication Assessment & Plan Assessment & Plan (1) Anemia: Code(s): D64.9 - Anemia, unspecified Category: Medical Qualifiers: Anemia type: unspecified type Qualified Code(s): D64.9 - Anemia, unspecified Plan: Referral to Hematology (2) Hypothyroid: Code(s): E03.9 - Hypothyroidism, unspecified Category: Medical Plan: Continue levothyroxine. We will recheck in 6 weeks. (3) T2DM (type 2 diabetes mellitus): Code(s): E11.9 - Type 2 diabetes mellitus without complications Category: Medical Qualifiers: Diabetes mellitus assessment rn insulin use: without senior care use Diabetes mellitus complication status: without complication Qualified Code(s): E11.9 - Type 2 diabetes mellitus without complications Plan: Continue metformin. We will start Trulicity. We discussed risks and benefits and adverse effects of this medication including nausea, vomiting, increased risk of pancreatitis. Testing supplies ordered. Follow up in 3 months. Sooner if needed. Patient understands and agrees with the plan. Orders: Orders TSH reflex Free T4 6 Weeks E03.9 - Hypothyroidism, unspecified Referrals Hematology & Oncology Referral D64.9 - Anemia, unspecified Medications: New valsartan 80 mg PO DAILY 90 tabs 3RF loratadine (Claritin) 10 mg PO DAILY 90 tabs 3RF dulaglutide (Trulicity) 0.75 mg (0.5 mL) subcut QWEEK 2 mL 4RF Changed From blood-glucose meter (OneTouch Ultra2 Meter) As directed 1 ea diabetes mellitus To blood-glucose meter (OneTouch Ultra2 Meter) Use daily As directed 1 ea 0RF diabetes mellitus From metformin ER 500 mg PO TID To metformin ER 500 mg PO TID 90 days 270 tabs 1RF
[2024-02-11 11:18] VITALS: BP 128/82; PULSE 71; RESP 14; O2SAT 96; BMI 30.8
== END 2024-02-11 11:43 | disposition home or self-care (01) ==
PROVIDERS: Visit Provider Physician Assistant
DX: D64.9 Anemia, unspecified (principal); E03.9 Hypothyroidism, unspecified; E11.9 Type 2 diabetes mellitus without complications

== ENCOUNTER → 2024-02-11 10:51 | Outpatient (BNVA) | payer MEDICARE, SELFPAY | PROVIDERS: Visit Provider Physician Assistant | DX: D64.9 Anemia, unspecified (principal); E03.9 Hypothyroidism, unspecified; E11.9 Type 2 diabetes mellitus without complications; Z79.84 Long term (current) use of oral hypoglycemic drugs; Z79.899 Other long term (current) drug therapy | CPT/HCPCS: 96127; 99212 ==

== ENCOUNTER 2024-02-16 14:22 | Outpatient (AMB) | payer MEDICARE, SELFPAY ==
[2024-02-16 14:24] VITALS: BMI 30.8
--- NOTE | 2024-02-16 14:24 | A.OFFVIS_ITS ---
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 She was originally a [facility] patient. She is changed providers secondary to insurance changes. She had been worked up and treated in the past. She had a venous ablation back in 2013. She had been routinely surveilled in terms of her arterial status. At the current time she complains of some cramping and discomfort in bilateral lower extremities left more so the right. She reports she can walk about a block with no significant difficulties. She does have occasional random cramping which she does not associated with ambulation. She now presents for routine vascular evaluation. She was seen by [facility] [place] back on 04/13/2023. Of note she is a nonsmoker but is a diabetic. She is being maintained on an aspirin and statin. Patient reports prior left small saphenous vein EVLT 2013 Patient denies any history of DVT/ PE. Patient denies any history of phlebitis. Trial of compression includes - [id number] They now present for vascular evaluation regarding their varicose veins. FORMERLY [facility], [facility] Medical History Chronic restrictive lung disease Pneumonitis Family History Mother Asthma Anemia Diabetes HTN (hypertension) Glaucoma Father Stroke Sister Diabetes HTN (hypertension) Asthma Myocardial infarct Stroke Brother Diabetes Glaucoma Asthma Social History Housing: House Alcohol intake: never Patient Tobacco Use Status: Never used Tobacco e-Cigarette/Vaping Use: Never Used service: No Current occupational status: retired Cognitive needs: No Hearing needs: No Vision needs: Yes (cataracts) Review of Systems Const All systems reviewed & are unremarkable except as noted in HPI and below Reports no additional complaints ENT Reports Normal hearing present Card Denies chest pain, Denies chest pain at rest, Denies chest pain with activity and Denies pedal edema Resp Denies cough GI Denies abdominal pain Musc Denies abnormal gait, Denies muscle cramps and Denies radiating pain into limb Skin/Breast Denies skin ulcer and Denies wounds Neuro Reports Normal hearing present and Denies abnormal gait Psych Reports no additional complaints Physical Exam Vital Signs: BMI result Body Mass Index 30.8 Const General: cooperative, healthy appearing and comfortable Orientation/consciousness: oriented to person, oriented to place and oriented to time HEENT Head: Yes normal to inspection Neck Neck: Yes normal visual inspection Carotids: no bruits Chest Chest palpation & inspection: normal inspection of the chest Resp Effort & Inspection: normal respiratory effort and able to speak in complete sentences Auscultation: clear to auscultation bilaterally, no crackles, no rales, no rhonchi and no wheezes Cardio Other: Palpable bilateral dorsalis pedis pulses Rate: regular rate Rhythm: regular rhythm Heart sounds: S1 normal heart sound present and S2 normal heart sound present Bruits: no carotid bruits Peripheral pulses: Peripheral pulses 2+ throughout GI Inspection: Yes normal to inspection Skin Wounds: no wounds Hair: normal Neuro General: oriented to person, oriented to place and oriented to time Cranial nerves: Yes CN's II-XII intact bilaterally and Yes Normal hearing present Cognition (Neuro): normal cognition Motor exam (neuro): 5/5 motor strength present throughout Extrem Other: venous exam: No significant superficial varicosities or spider telangiectasias, minimal edema General: No clubbing, No cyanosis and No edema Psych Appearance: grossly normal Mental Status: mental status grossly normal Speech and movement: Normal speech and movement present Results Reviewed Results Reviewed: Written reports of testing from [facility] demonstrates: Arterial testing 03/13/2023 demonstrates ILA on the right of 0.89 and on the left of 0.72 Venous insufficiency testing dated 08/08/2021 was negative for any additional reflux. Assessment & Plan Assessment & Plan (1) PAD (peripheral artery disease): Code(s): I73.9 - Peripheral vascular disease, unspecified Category: Medical Plan: At the current time I do not believe she has any significant arterial vascular disease. She does have palpable pulses and is able to walk about a block with no significant difficulty. In addition her cramping is not associated with ambulation. We did discuss routine risk factor modification. We will further work her up for her venous disease. Thank you for allowing us to assist in her care. (2) Varicose veins of left lower extremity with inflammation: Comment: 2013 - left small saphenous vein EVLT Code(s): I83.12 - Varicose veins of left lower extremity with inflammation Category: Medical Plan: Patient does have prior history of venous insufficiency. She does have some swelling and discomfort. There are also some visible or varicosities. I have taken the liberty of ordering repeat venous insufficiency testing as the last 1 I could see was done back in 2021. She will follow up with us after testing. Thank you for allowing us to assist in her care. There are any questions or concerns please do not hesitate to contact us Orders: Orders US venous duplex LE BI 1 Week I83.12 - Varicose veins of left lower extremity with inflammation Coding Level of Care Code New Pt Level 4 (06052) Complex EM visit Add On G2211 Diagnoses PAD (peripheral artery disease) I73.9 Varicose veins of left lower extremity with inflammation I83.12
== END 2024-02-16 14:45 | disposition home or self-care (01) ==
PROVIDERS: PCP Internal Medicine; Visit Provider Surgery Vascular Surgery
DX: I73.9 Peripheral vascular disease, unspecified (principal); I83.12 Varicose veins of left lower extremity with inflammation
CPT/HCPCS: 99204; G2211

== ENCOUNTER → 2024-02-16 14:22 | Outpatient (BNVA) | payer MEDICARE, SELFPAY | PROVIDERS: PCP Internal Medicine; Visit Provider Surgery Vascular Surgery | DX: I73.9 Peripheral vascular disease, unspecified (principal); I83.12 Varicose veins of left lower extremity with inflammation; E11.9 Type 2 diabetes mellitus without complications | CPT/HCPCS: 99202 ==

== ENCOUNTER 2024-02-24 10:24 | Outpatient (REF) | payer MEDICARE, SELFPAY ==
--- NOTE | ~2024-02-24 | US_ITS ---
EXAMINATION: US LOWER EXTREMITY VENOUS (REFLUX EXAM), BILATERAL CLINICAL INDICATION: Chronic venous insufficiency with lower extremity varicose veins with inflammation COMPARISON: None. TECHNIQUE: Color flow triplex imaging and compression Doppler was performed to evaluate both the deep and the superficial systems bilaterally. To evaluate the superficial system, the examination was performed in the upright position. Color-flow Doppler ultrasound and compression ultrasound were utilized. In addition, maneuvers were utilized to demonstrate reflux. FINDINGS: 1. DEEP VENOUS ULTRASOUND OF THE RIGHT LOWER EXTREMITY: Common Femoral Vein: Compressible, normal respiratory variation and augmented flow. Femoral Vein: Compressible, normal color flow and augmentation. Popliteal Vein: Compressible, normal augmentation. Deep Reflux: There is no evidence of reflux in the deep system in either the common femoral vein, superficial femoral or the popliteal vein. There is no evidence of a Martinez's cyst. 2. SUPERFICIAL ULTRASOUND WITH DOPPLER OF RIGHT LOWER EXTREMITY: GREAT SAPHENOUS VEIN: Saphenofemoral Junction: 0.8 cm; Reflux: 0 ms Proximal Thigh: 0.5 cm; Reflux: 0 ms Mid Thigh: 0.4 cm; Reflux: 0 ms Above Knee: 0.3 cm; Reflux: 0 ms At Knee: 0.2 cm; Reflux: 2956 ms Below Knee: 0.1 cm; Reflux: 1296 ms Mid Calf: 0.1 cm; Reflux: 0 ms Ankle: 0.1 cm; Reflux: 3124 ms DUPLICATED MEDIAL GREAT SAPHENOUS VEIN: Diameter: None imaged Reflux: NA DUPLICATED LATERAL GREAT SAPHENOUS VEIN: Diameter: None imaged Reflux: NA SMALL SAPHENOUS VEIN: Saphenopopliteal Junction: 0.2 cm; Reflux: 0 ms Proximal: 0.1 cm; Reflux: 0 ms Distal: 0.2 cm; Reflux: 0 ms VEIN OF GIACOMINI: Size: 0.4 cm Reflux: None PERFORATORS: Location: None significant Size: NA Reflux: NA VARICOSITIES: Location: None significant Size: NA Reflux: NA 3. DEEP VENOUS ULTRASOUND OF THE LEFT LOWER EXTREMITY: Common Femoral Vein: Compressible, normal respiratory variation and augmented flow. Femoral Vein: Compressible, normal color flow and augmentation. Popliteal Vein: Compressible, normal augmentation. Deep Reflux: There is no evidence of reflux in the deep system in either the common femoral vein, superficial femoral or the popliteal vein. There is no evidence of a Martinez's cyst. 4. SUPERFICIAL ULTRASOUND WITH DOPPLER OF LEFT LOWER EXTREMITY: GREAT SAPHENOUS VEIN: Saphenofemoral Junction: 0.8 cm; Reflux: 0 ms Proximal Thigh: 0.5 cm; Reflux: 0 ms Mid Thigh: 0.3 cm; Reflux: 0 ms Above Knee: 0.2 cm; Reflux: 0 ms At Knee: 0.2 cm; Reflux: 0 ms Below Knee: 0.2 cm; Reflux: 0 ms Mid Calf: 0.1 cm; Reflux: 0 ms Ankle: 0.1 cm; Reflux: 0 ms DUPLICATED MEDIAL GREAT SAPHENOUS VEIN: Diameter: 0.5 cm Reflux: None DUPLICATED LATERAL GREAT SAPHENOUS VEIN: Diameter: None imaged Reflux: NA SMALL SAPHENOUS VEIN: Saphenopopliteal Junction: 0.2 cm; Reflux: 0 ms Mid: 0.1 cm; occluded Distal: 0.1 cm; Reflux: 0 ms VEIN OF GIACOMINI: Size: NA Reflux: NA PERFORATORS: Location: Mid calf Size: 0.4 cm Reflux: None VARICOSITIES: Location: None significant Size: NA Reflux: NA US/US venous duplex LE BI IMPRESSION: 1. Right: Focal reflux in the great saphenous vein at the level of the knee and ankle. No significant reflux in the small saphenous vein. 2. Left: No significant reflux in the great saphenous vein. The small saphenous vein is occluded in the mid calf. Electronically signed by: Paxton Caldwell MD 03/09/2024 03:19 PM [facility]
== END 2024-02-24 10:25 | disposition home or self-care (01) ==
LOC: HO.US 10:24
PROVIDERS: PCP Physician Assistant; Visit Provider Surgery Vascular Surgery
DX: I83.12 Varicose veins of left lower extremity with inflammation (principal)
CPT/HCPCS: 93970

== ENCOUNTER 2024-03-07 08:36 | Outpatient (REF) | payer MEDICARE, SELFPAY ==
[2024-03-07 09:10] LABS: MANUAL DIFF FLAG NO
[2024-03-07 09:49] LABS: Basophils Absolute Auto 0.1 X10*3/uL (0.0-0.2); Basophils Percent Auto 1.5 % (0-2); Eosinophils Absolute Auto 0.2 X10*3/uL (0.0-0.4); Eosinophils Percent Auto 4.2 % (0-4); Hematocrit 34.1 % (37.0-47.0); Hemoglobin 10.6 g/dl (12.0-16.0); Imm Gran Abs Auto 0.02 X10*3/uL (0.00-0.03); Imm Gran Pct Auto 0.4 % (0.0-0.4); Lymphocytes Absolute Auto 1.6 X10*3/uL (1.2-4.9); Lymphocytes Percent Auto 34.4 % (20-40); Mean Corpuscular HGB Conc 31.1 g/dl (31.0-35.0); Mean Corpuscular Hemoglobin 23.6 pg (27.0-33.0); Mean Corpuscular Volume 75.8 fL (80.0-98.0); Mean Platelet Volume 9.4 fL (9.4-12.3); Monocytes Absolute Auto 0.3 X10*3/uL (0.1-1.2); Monocytes Percent Auto 7.5 % (2-11); Neutrophils Absolute Auto 2.4 x10*3/uL (2.0-8.3); Platelet Count 261 X10*3/uL (160-400); Red Cell Distribution Width 14.4 % (11.0-16.0); White Blood Count 4.6 X10*3/uL (4.8-10.8)
[2024-03-07 10:27] LABS: Erythrocyte Sedimentation Rate 20 MM/HR (0-20)
[2024-03-07 10:28] LABS: Anion Gap 10 (12-20); Blood Urea Nitrogen 10 mg/dL (9-16); Calcium 8.9 mg/dL (8.4-10.2); Carbon Dioxide 29 mmol/L (22-29); Chloride 106 mmol/L (96-108); Estimated Glomerular Filt Rate > 60; Glucose Random 103 mg/dL (60-115); Potassium 3.9 mmol/L (3.3-5.1); Sodium 141 mmol/L (135-145)
[2024-03-08 19:53] LABS: Cyclic Citrullinated Peptide <16 UNITS
[2024-03-09 01:28] LABS: Class Alternaria alternata 0; Class Aspergillus fumigatus 0; Class Bermuda Grass 0; Class Birch 0; Class Cat Dander 2; Class Cladosporium herbarum 0; Class Cockroach 2; Class Common Ragweed 0; Class Cottonwood 0; Class Derm. pterony 2; Class Dermatophagoides farinae 2; Class Dog Dander 0/1; Class Elm 0; Class Maple Box Elder 0; Class Mountain Cedar 1; Class Mouse Urine Protein 0; Class Mugwort 0/1; Class Oak 0/1; Class Penicillium crysogenum 0; Class Rough Pigweed 0/1; Class Sheep Sorrel 0; Class Sycamore 0; Class Timothy Grass 0/1; Class Walnut Tree 0/1; Class White Ash 0; Class White Mulberry 0; D001 IgE D pteronyssinus 1.14 kU/L; D002 - IgE D farinae 1.57 kU/L; E005 - IgE Dog Dander 0.14 kU/L; E072-IgE Mouse Urine <0.10 kU/L; G002 IgE Bermuda Grass <0.10 kU/L; G006 - IgE Timothy Grass 0.12 kU/L; I006-IgE Cockroach, German 1.57 kU/L; Immunoglobulin E 229 kU/L (<OR=114); M001 IgE Penicillium chrysogen <0.10 kU/L; M002 - IgE Cladosporium herbar <0.10 kU/L; M003 - IgE Aspergillus fumigat <0.10 kU/L; M006 - IgE Alternaria alternat <0.10 kU/L; T001 IgE Maple/Box Elder <0.10 kU/L; T003 IgE Common Silver Birch <0.10 kU/L; T006 - IgE Cedar, Mountain 0.49 kU/L; T007 - IgE Oak, White 0.17 kU/L; T008 IgE Elm, American <0.10 kU/L; T010 - IgE Walnut 0.18 kU/L; T011 - IgE Maple Leaf Sycamore <0.10 kU/L; T014 - IgE Cottonwood <0.10 kU/L; T015 - IgE Ash, White <0.10 kU/L; T070 - IgE White Mulberry <0.10 kU/L; W001 - IgE Ragweed, Short <0.10 kU/L; W006 - IgE Mugwort 0.16 kU/L; W014 IgE Pigweed, Common 0.27 kU/L; W018 IgE Sheep Sorrel <0.10 kU/L
[2024-03-11 11:48] LABS: Anti Nuclear Antibody Screen POSITIVE (NEGATIVE); Anti Nuclear Antibody Titer 1:40 titer
[2024-03-29 11:54] LABS: Asperg fumigatus Precip Abs NEGATIVE; Micropoly faeni Abs NEGATIVE
[2024-03-29 11:55] LABS: Pigeon serum Abs NEGATIVE; Thermo candidus Abs NEGATIVE; Thermoa vulgaris #1 NEGATIVE
[2024-03-29 11:56] LABS: Saccharo pora viridis Abs NEGATIVE
== END 2024-03-07 08:37 | disposition home or self-care (01) ==
LOC: HO.LAB 08:36
PROVIDERS: PCP Physician Assistant; Visit Provider Hospitalist
DX: J98.4 Other disorders of lung (principal); R91.1 Solitary pulmonary nodule; R91.8 Other nonspecific abnormal finding of lung field; Z91.09 Other allergy status, other than to drugs and biological substances
CPT/HCPCS: 36415; 80048; 82785; 85025; 85652; 86003; 86038; 86039; 86200; 86331; 86606; 86609

== ENCOUNTER 2024-03-08 13:47 | Outpatient (AMB) | payer MEDICARE, SELFPAY ==
[2024-03-08 13:56] VITALS: BP 136/74; BMI 30.8
--- NOTE | 2024-03-08 13:56 | MHC.OFFVIS ---
Vital Signs 03/08/24 13:56 Height 5 ft 6 in Weight 191 lb BMI 30.8 BP 136/74 Blood Pressure Location Rt brachial Position Sitting Intake Visit Reasons: follow up s/p 02/24/24 Intake Note: Viv is a 68 year old female who presents to the office today for a follow up s/p US 02/24/24. Pt states she is overall feeling well. Pt states she notices her legs getting tired after walking short distances. Allergies penicillin V Allergy (Unknown, Verified 03/08/24 13:57) Unknown Penicillins [PENICILLINS] Allergy (Unknown, Verified 03/08/24 13:57) HIVES seafood Allergy (Unknown, Verified 03/08/24 13:57) Rash SEAFOOD Allergy (Severe, Uncoded 03/08/24 13:57) THROAT SWELLING AND HIVES flu vaccine Allergy (Unknown, Uncoded 03/08/24 13:57) Rash shellfish Allergy (Unknown, Uncoded 03/08/24 13:57) Unknown HPI HPI follow up s/p 02/24/24: Details: Very pleasant 68-year-old female presents for follow-up regarding venous disease. She had some lower extremity swelling and was originally treated by us back in 2013. She complains of some lower extremity swelling. She now presents for follow-up with venous insufficiency testing. 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 She now presents for routine follow-up. [facility] Medical History Chronic restrictive lung disease Pneumonitis Family History Mother Asthma Anemia Diabetes HTN (hypertension) Glaucoma Father Stroke Sister Diabetes HTN (hypertension) Asthma Myocardial infarct Stroke Brother Diabetes Glaucoma Asthma Social History Housing: House Alcohol intake: never Patient Tobacco Use Status: Never used Tobacco e-Cigarette/Vaping Use: Never Used service: No Current occupational status: retired Cognitive needs: No Hearing needs: No Vision needs: Yes (cataracts) Review of Systems Const All systems reviewed & are unremarkable except as noted in HPI and below Reports no additional complaints ENT Reports Normal hearing present Card Denies chest pain, Denies chest pain at rest, Denies chest pain with activity and Denies pedal edema Resp Denies cough GI Denies abdominal pain Musc Denies abnormal gait, Denies muscle cramps and Denies radiating pain into limb Skin/Breast Denies skin ulcer and Denies wounds Neuro Reports Normal hearing present and Denies abnormal gait Psych Reports no additional complaints Physical Exam Vital Signs: Last Vital Signs BP 136/74 03/08/24 13:56 BMI result Body Mass Index 30.8 Const General: cooperative, healthy appearing and comfortable Orientation/consciousness: oriented to person, oriented to place and oriented to time HEENT Head: Yes normal to inspection Neck Neck: Yes normal visual inspection Carotids: no bruits Chest Chest palpation & inspection: normal inspection of the chest Resp Effort & Inspection: normal respiratory effort and able to speak in complete sentences Auscultation: clear to auscultation bilaterally, no crackles, no rales, no rhonchi and no wheezes Cardio Rate: regular rate Rhythm: regular rhythm Heart sounds: S1 normal heart sound present and S2 normal heart sound present Bruits: no carotid bruits Peripheral pulses: Peripheral pulses 2+ throughout GI Inspection: Yes normal to inspection Skin Wounds: no wounds Hair: normal Neuro General: oriented to person, oriented to place and oriented to time Cranial nerves: Yes CN's II-XII intact bilaterally and Yes Normal hearing present Cognition (Neuro): normal cognition Motor exam (neuro): 5/5 motor strength present throughout Extrem Other: venous exam: +1 edema General: No clubbing, No cyanosis and Yes edema Psych Appearance: grossly normal Mental Status: mental status grossly normal Speech and movement: Normal speech and movement present Results Reviewed Results Reviewed: Brief summary of venous insufficiency testing is as follows: right great saphenous vein: Focally positive at calf but vein small in caliber right small saphenous vein: negative right accessory vein: none present left great saphenous vein: negative left small saphenous vein: negative left accessory vein: none present Please note there is no evidence of any venous aneurysms or significant tortuosity Assessment & Plan Assessment & Plan (1) Varicose veins of left lower extremity with inflammation: Comment: 2013 - left small saphenous vein EVLT Code(s): I83.12 - Varicose veins of left lower extremity with inflammation Category: Medical Plan: In short patient is negative for any significant venous insufficiency. I did have an extensive discussion with her regarding conservative measures including compression elevation and exercise. We also did give her some compression stockings that had been done needed to us. She will follow up with us on an as-needed basis. Thank you for allowing us to assist in her care. If there are any questions or concerns please do not hesitate to contact us. Coding Level of Care Code Est Pt Level 4 (39138) Diagnoses Varicose veins of left lower extremity with inflammation I83.12
== END 2024-03-08 14:25 | disposition home or self-care (01) ==
PROVIDERS: PCP Physician Assistant; Visit Provider Surgery Vascular Surgery
DX: I83.12 Varicose veins of left lower extremity with inflammation (principal)
CPT/HCPCS: 99214

== ENCOUNTER → 2024-03-08 13:47 | Outpatient (BNVA) | payer MEDICARE, SELFPAY | PROVIDERS: PCP Physician Assistant; Visit Provider Surgery Vascular Surgery | DX: I83.12 Varicose veins of left lower extremity with inflammation (principal) | CPT/HCPCS: 99212 ==

== ENCOUNTER 2024-03-18 14:52 | Outpatient (REF) | payer MEDICARE, SELFPAY ==
--- NOTE | ~2024-03-18 | CT_ITS ---
EXAMINATION: CT CHEST WITHOUT CONTRAST CLINICAL INFORMATION: Pneumonitis. COMPARISON: None available. TECHNIQUE: Multidetector volumetric CT imaging of the chest was done. Axial MIP volume rendering provided. Sagittal and coronal reformatted images were obtained. This CT examination was performed using dose optimization techniques as appropriate, variously including the following: *Automated exposure control *Adjustment of mA and/or kV according to patient size (this includes techniques or standardized protocols for targeted exams where dose is matched to indication/reason for exam; i.e. extremities or head) *Use of iterative reconstruction technique DLP: 159 mGy-cm FINDINGS: LUNGS: No suspicious pulmonary nodule. No subpleural reticular changes or interlobular septal thickening. No groundglass opacities or bronchiectasis. Central airways are patent. MEDIASTINUM: Imaged thyroid gland is unremarkable. No mediastinal or hilar lymphadenopathy. Great vessels are of normal caliber. Heart size is normal. No pericardial effusion. CORONARY ARTERY CALCIFICATION: Moderate. PLEURA: No pleural effusion. AXILLA: No axillary lymphadenopathy. UPPER ABDOMEN: Small hiatal hernia. Status post cholecystectomy. OSSEOUS STRUCTURES: No destructive bone lesions. CT/CT chest wo IV con IMPRESSION: No suspicious pulmonary nodule. No acute intrathoracic abnormality. Fleischner guidelines were followed. Electronically signed by: Quinten Gaytan MD 03/21/2024 11:29 AM JAMIE
== END 2024-03-18 14:53 | disposition home or self-care (01) ==
LOC: HO.CT 14:52
PROVIDERS: PCP Physician Assistant; Visit Provider Hospitalist
DX: J98.4 Other disorders of lung (principal)
CPT/HCPCS: 71250

== ENCOUNTER 2024-03-23 09:28 | Outpatient (REF) | payer MEDICARE, SELFPAY ==
[2024-03-23 11:46] LABS: TSH reflex Free T4 3.89 uIU/mL (0.32-4.0)
[2024-03-25 13:42] LABS: Immunoglobulin E 233 kU/L (<OR=114)
== END 2024-03-23 09:29 | disposition home or self-care (01) ==
LOC: HO.LAB 09:28
PROVIDERS: Hospitalist; PCP Physician Assistant; Visit Provider Physician Assistant
DX: J98.4 Other disorders of lung (principal); E03.9 Hypothyroidism, unspecified
CPT/HCPCS: 36415; 82785; 84443

== ENCOUNTER 2024-03-31 10:19 | Outpatient (AMB) | payer MEDICARE, SELFPAY ==
--- NOTE | 2024-03-31 10:41 | A.OFFVIS_ITS ---
Vital Signs 03/31/24 10:42 Height 5 ft 6 in Weight 194 lb 0.108 oz BMI 31.3 BP 118/72 Blood Pressure Location Rt brachial Position Sitting Pulse 79 Pulse Source Pulse Oximeter Pulse Oximetry (%) 98 Oxygen Delivery Method Room Air Intake Visit Reasons: asthma Allergies cinnamon Allergy (Intermediate, Verified 03/31/24 10:46) Swelling penicillin V Allergy (Unknown, Verified 03/31/24 10:45) Unknown Penicillins [PENICILLINS] Allergy (Unknown, Verified 03/31/24 10:45) HIVES seafood Allergy (Unknown, Verified 03/31/24 10:45) Rash SEAFOOD Allergy (Severe, Uncoded 03/31/24 10:45) THROAT SWELLING AND HIVES flu vaccine Allergy (Unknown, Uncoded 03/31/24 10:45) Rash shellfish Allergy (Unknown, Uncoded 03/31/24 10:45) Unknown HPI Comments Details: The patient is a 68 year with a history of asthma in addition to underlying interstitial lung disease. Apparently back in [address] scan of the chest that was done at [facility]. It demonstrated areas of ground-glass opacities. The patient is referred to Pulmonary. She underwent pulmonary function studies demonstrating a restrictive ventilatory defect consistent with restrictive lung disease. She was placed on respiratory inhalers. 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 I do not have all those results. At this time the patient does complaint of dyspnea on exertion. Fvis-no-afjvphva severity. She also has a cough. She at this point stopped using the Wixela and is only been using her rescue inhaler. She does get partial relief from it. At this point I do believe that she needs additional medications to improve her respiratory symptoms. On exam the patient does have diminished breath sounds. She has a murmur. She was referred to Cardiology for that murmur recently. Will go ahead and request additional blood work to assess him pneumonitis and also repeat CT scans to assess the level of the interstitial lung disease. 03/31/2024 the patient is here for a pulmonary follow-up visit. Overall she is doing okay. She did take the rescue inhaler. However, his expensive. She meantime as the rescue inhaler. She has been using that couple times a week. She feels that is sufficient for now. She did have a CT scan of the chest which we personally reviewed. Her lung windows are reassuring without any evidence of any interstitial lung disease or pneumonitis. Dyspnea symptoms have improved. The patient does have blood work done. Also has significant anemia. The patient will follow-up with Hematology regarding the anemia. She has a trip coming [place]. [facility] Medical History Chronic restrictive lung disease Pneumonitis Family History Mother Asthma Anemia Diabetes HTN (hypertension) Glaucoma Father Stroke Sister Diabetes HTN (hypertension) Asthma Myocardial infarct Stroke Brother Diabetes Glaucoma Asthma Social History Housing: House Alcohol intake: never Patient Tobacco Use Status: Never used Tobacco e-Cigarette/Vaping Use: Never Used service: No Current occupational status: retired Cognitive needs: No Hearing needs: No Vision needs: Yes (cataracts) Review of Systems Const Denies fever(s) and Denies headache(s) Eyes Reports no additional complaints ENT Denies headache(s) Card Denies chest pain and Reports dyspnea on exertion Resp Reports cough, Reports dyspnea on exertion and Denies wheezing GI Reports no additional complaints Musc Reports myalgias and Reports arthralgias Skin/Breast Denies rash Neuro Denies headache(s) Vernon/Lymph Reports no additional complaints Aller/Immun Denies wheezing Physical Exam Vital Signs: Last Vital Signs Pulse 79 03/31/24 10:42 BP 118/72 03/31/24 10:42 Pulse Ox 98 03/31/24 10:42 Oxygen Delivery Method Room Air 03/31/24 10:42 BMI result Body Mass Index 31.3 Const General: comfortable HEENT Head: Yes normocephalic Neck Neck: Yes supple Chest Chest palpation & inspection: normal inspection of the chest Resp Effort & Inspection: normal respiratory effort Auscultation: diminished lung sounds Cardio Heart sounds: S1 normal heart sound present, S2 normal heart sound present and Murmur heart sound present systolic II/ GI Palpation (GI): Soft to palpation Skin General skin exam: no rashes or lesions noted Extrem General: Yes no clubbing, cyanosis or edema Results Reviewed Results Reviewed: [address] [address] [address] Scan Report Signed Patient: Viv Pham I MR#: [id number] : 1955 Acct:[id number] Age/Sex: 68 / F ADM Date: 03/18/24 Loc: .CT Attending Dr: Victor Hugo Love MD Ordering Physician: Victor Hugo Love MD Date of Service: 03/18/24 Procedure(s): CT chest wo IV con Accession Number(s): [id number] cc: Christal Robison; Victor Hugo Love MD~ EXAMINATION: CT CHEST WITHOUT CONTRAST CLINICAL INFORMATION: Pneumonitis. COMPARISON: None available. TECHNIQUE: Multidetector volumetric CT imaging of the chest was done. Axial MIP volume rendering provided. Sagittal and coronal reformatted images were obtained. This CT examination was performed using dose optimization techniques as appropriate, variously including the following: *Automated exposure control *Adjustment of mA and/or kV according to patient size (this includes techniques or standardized protocols for targeted exams where dose is matched to indication/reason for exam; i.e. extremities or head) *Use of iterative reconstruction technique DLP: 159 mGy-cm FINDINGS: LUNGS: No suspicious pulmonary nodule. No subpleural reticular changes or interlobular septal thickening. No groundglass opacities or bronchiectasis. Central airways are patent. MEDIASTINUM: Imaged thyroid gland is unremarkable. No mediastinal or hilar lymphadenopathy. Great vessels are of normal caliber. Heart size is normal. No pericardial effusion. CORONARY ARTERY CALCIFICATION: Moderate. PLEURA: No pleural effusion. AXILLA: No axillary lymphadenopathy. UPPER ABDOMEN: Small hiatal hernia. Status post cholecystectomy. OSSEOUS STRUCTURES: No destructive bone lesions. CT/CT chest wo IV con IMPRESSION: No suspicious pulmonary nodule. No acute intrathoracic abnormality. Fleischner guidelines were followed. Electronically signed by: Quinten Gaytan MD 03/21/2024 11:29 AM [facility] Dictated By: Nadeen Gaytan MD Signed By: <Electronically signed by Nadeen Gaytan MD in OV> 03/21/24 1304 DD/ 1454 TD/TT: 03/18/24 1510 Slot Manager: Assessment & Plan Assessment & Plan (1) Pneumonitis: Code(s): J98.4 - Other disorders of lung Category: Medical (2) Asthma: Code(s): J45.909 - Unspecified asthma, uncomplicated Category: Medical Qualifiers: Asthma complication type: uncomplicated Asthma persistence: persistent Asthma severity: moderate Qualified Code(s): J45.40 - Moderate persistent asthma, uncomplicated (3) Chronic restrictive lung disease: Code(s): J98.4 - Other disorders of lung Category: Medical (4) Anemia: Code(s): D64.9 - Anemia, unspecified Category: Medical Qualifiers: Anemia type: unspecified type Qualified Code(s): D64.9 - Anemia, unspecified Plan CT chest reassuring stop Breztri for now ALMA as needed F/U with Hematology F/U 6 months Coding Level of Care Code Est Pt Level 4 (83442) Diagnoses Pneumonitis J98.4 Moderate persistent asthma without complication J45.40 Asthma complication type: uncomplicated Asthma persistence: persistent Asthma severity: moderate Chronic restrictive lung disease J98.4 Anemia, unspecified type D64.9 Anemia type: unspecified type Time Spent (min) 17
[2024-03-31 10:42] VITALS: BP 118/72; PULSE 79; O2SAT 98; BMI 31.3
--- OUTSIDE RECORDS SUMMARY | 2024-04-06 01:33 | XMS_ITS ---
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 Generated for Printi ng/Faxing/eTransmitting on:?04/06/2024 01:33 AM EST
--- OUTSIDE RECORDS SUMMARY | 2024-04-06 01:33 | XMS_ITS | Patient Health Record ---
Author Organization [facility] Address [address] [place] [address] Care Team Providers Care Floorwalker Name Role Phone Christal Robison Primary Care Provider Kurt Cunha [phone] Allergies Allergen (clinical drug ingredient) Drug/Non Drug Allergy documented on EMR Reaction Allergy Type Onset Date Status cinnamon bark Cinnamon Unknown Drug Allergy Act raven Shrimp Flavor Unknown Drug Allergy Act raven Latex Latex Unknown Allergy Active Penicillin Unknown Drug Allergy Active Reason For Referral No Information Social History Tobacco Use: Social History Observation Description Date Details (start date - stop date) Never Smoker NA - NA Tobacco use other than smoking: Question Answer Notes Are you an other tobacco user? No Tobacco Control (Standard) Question Answer Notes Tobacco use: Nonsmoker Additional Findings: Tobacco non-user Current no nsmoker AUDIT-C (Standard) Question Answer Notes Did you have a drink containing alcohol in the p ast year? No Points 0 Interpretation Negative Encounters Encounter Location Date Provider Diagnosis [facility] [address] [place] [address] 03/30/2024 Kurt Rodriguez Plan Of Treatment Next Appt Details Provider Name:Kurt Rodriguez, 04/14/2024 10:30:00 AM, [address] [facility], [place], [address], Insurance Providers Payer Name Payer Address Payer Phone Subscriber Number Group Number Insured Name Patient Relationship to Insured Coverage Start Date Coverage End Date [facility]-[address] [address] [address] [place] [address] [id number] Viv Pham Self - patient is the insured Medical (General) History Medical History History ICD Code Anemia asthma Diabetic High Blood Pressure thyroid Surgical History Surgery Date(Month/Year) 1981/1983/1986
== END 2024-03-31 11:15 | disposition home or self-care (01) ==
PROVIDERS: PCP Physician Assistant; Visit Provider Hospitalist
DX: J98.4 Other disorders of lung (principal); J45.40 Moderate persistent asthma, uncomplicated; D64.9 Anemia, unspecified
CPT/HCPCS: 99214

== ENCOUNTER → 2024-03-31 10:19 | Outpatient (BNVA) | payer MEDICARE, SELFPAY | PROVIDERS: PCP Physician Assistant; Visit Provider Hospitalist | DX: J45.40 Moderate persistent asthma, uncomplicated (principal); J98.4 Other disorders of lung; D64.9 Anemia, unspecified; Z79.899 Other long term (current) drug therapy | CPT/HCPCS: 99212 ==

== ENCOUNTER → 2024-04-01 13:13 | Outpatient (BNV) | payer MEDICARE, SELFPAY | PROVIDERS: PCP Physician Assistant; Referring Provider Physician Assistant; Visit Provider Internal Medicine | DX: D50.9 Iron deficiency anemia, unspecified (principal) | CPT/HCPCS: 99204 ==

== ENCOUNTER 2024-04-07 10:37 | Outpatient (REF) | payer MEDICARE, SELFPAY ==
--- OUTSIDE RECORDS SUMMARY | 2024-04-07 10:42 | XMS_ITS ---
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 Generated for Printi ng/Faxing/eTransmitting on:?04/07/2024 10:41 AM EST
--- OUTSIDE RECORDS SUMMARY | 2024-04-07 10:42 | XMS_ITS | Patient Health Record ---
Author Organization [facility] Address [address] [place] [address] Care Team Providers Care Baker Bench Name Role Phone Christal Robison Primary Care Provider Kurt Cunha [phone] Allergies Allergen (clinical drug ingredient) Drug/Non Drug [...] Negative Encounters Encounter Location Date Provider Diagnosis [facility] [address] [place] [address] 03/30/2024 Kurt Rodriguez Plan Of Treatment Next Appt Details Provider Name:Kurt Rodriguez, 04/14/2024 10:30:00 AM, [address] [facility], [place], [address], Insurance Providers Payer Name Payer Address Payer Phone Subscriber Number Group Number Insured Name Patient Relationship to Insured Coverage Start Date Coverage End Date [facility]-[id number] [address] [address] [place] [address] [phone] [id number] Viv Pham Self - patient is the insured Medical (General) History Medical History History ICD Code Anemia asthma Diabetic High Blood Pressure thyroid Surgical History Surgery Date(Month/Year) 1981/1983/1986
[2024-04-07 12:03] LABS: Immature Retic Fraction 20.1 % (3.0-15.9); Retic HGB Equivalent 25.8 pg (30.0-35.0); Reticulocyte Percent 1.8 % (0.5-1.8)
[2024-04-07 12:10] LABS: Lactate Dehydrogenase 206 U/L (122-220)
[2024-04-07 12:12] LABS: Haptoglobin 124 mg/dL (63-273)
[2024-04-07 12:57] LABS: Folate 14.1 ng/mL (> or = 4.0); Vitamin B12 632 pg/mL (200-900)
[2024-04-09 18:47] LABS: Copper, plasma 93 mcg/dL (70-175)
[2024-04-11 23:32] LABS: IgA 123 mg/dL (70-320); IgG 1079 mg/dL (600-1540); IgM 73 mg/dL (50-300)
== END 2024-04-07 10:38 | disposition home or self-care (01) ==
LOC: HO.LAB 10:37
PROVIDERS: PCP Physician Assistant; Visit Provider Internal Medicine
DX: D64.9 Anemia, unspecified (principal)
CPT/HCPCS: 36415; 82525; 82607; 82746; 82784; 83010; 83615; 85045; 86334

== ENCOUNTER 2024-04-22 09:24 | Outpatient (REF) | payer MEDICARE, SELFPAY ==
--- OUTSIDE RECORDS SUMMARY | 2024-04-22 13:24 | XMS_ITS ---
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 Generated for Printi ng/Faalmag/eTransmitting on:?04/22/2024 01:23 PM EST
--- OUTSIDE RECORDS SUMMARY | 2024-04-22 13:24 | XMS_ITS ---
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 Name Role Phone Ricki Christal Primary Care Provider Kurt Cunha [phone] Allergies Allergen (clinical drug ingredient) Drug/Non Drug Allergy documented on EMR Reaction Allergy Type Onset Date Status cinnamon bark Cinnamon Unknown Drug Allergy Act raven Shrimp Flavor Unknown Drug Allergy Act raven Latex Latex Unknown Allergy Active Penicillin Unknown Drug Allergy Active REASON FOR VISIT At Risk Footcare, Painful Nail(s) aggravated by shoes and causing difficulty standing/walking Medications Medication SIG (Take, Route, Frequency, Duration) Notes Start Date End Date Status Levothyroxine Sodium Active Breztri Aerosphere N ot-Taking Trulicity 0.75 MG/0.5ML as directed Subcutaneous Active Simvastatin Active metFORMIN HCl Active Loratadine Active Albuterol Active Valsartan Active Meclizine HCl Active Social History Tobacco Use: Social History Observation [...] ast year? No Points 0 Interpretation Negative Problems Problem Type SNOMED Code ICD Code Onset Dates Problem Status W/U Status Risk Notes Problem Type 2 diabetes mellitus with peripheral angiopathy (847039016) Type 2 diabetes mellitus with diabetic peripheral angiopathy without gangrene (E11.51) Active confirmed Q7(A), Q8(2B), Q9(1B,2C) Vital Signs Height 5ft 6in in 04/14/2024 Weight 191 lbs 04/14/2024 BMI 30.82 kg/m2 04/14/2024 Blood pressure systolic 120 mm Hg 04/14/20 24 Blood pressure diastolic 62 mm Hg 024 Procedures Procedure Date Ordered Date Performed Result Body Sit e 94782-ODBQDIP NAIL, 1-5 04/14/2024 N/A D3385-SROWKFPS DYSTROPHIC NAILS ANY # 04/14/2024 N/A Encounters Encounter Location Date Provider Diagnosis [facility] [address] 04/14/2024 Kurt Rodriguez Type 2 diabetes mellitus with diabetic peripheral angiopathy without gangrene E11.51 ; Tinea unguium B35.1 ; Pain in right toe(s) M79.674 and Pain in left toe(s) M79.675 Assessments Encounter Date Diagnosis (ICD Code) Assessment Notes Treatment Notes Treatment Clinical Notes Section Notes 04/14/2024 Type 2 diabetes mellitus with diabetic peripheral angiopathy without gangrene (ICD-10 - E11.51) Q7(A), Q8(2B), Q9(1B,2C) 04/14/2024 Tinea unguium (ICD-10 - B35.1) 04/14/2024 Pain in right toe(s) (ICD-10 - M79.674) 04/14/2024 Pain in left toe(s) (ICD-10 - M79.675) Plan Of Treatment Pending Test Test Name Order Date 24501-TXCPPZB NAIL, 1-5 04/14/2024 G7938-BPEWXASM DYSTROPHIC NAILS ANY # Next Appt Details Follow Up: 3 Months, Reason: Provider Name:Kurt Rodriguez, 07/14/2024 11:00:00 AM, [address] [facility], [place], [address], Procedure Notes * Category Sub-Category Detail Notes Debride Nails 1-5 Procedure: Due to the cli nical pathology outlined in the exam findings, performance of this nail treatment is medically necessary as its management by an unskilled/untrained nonprofessional would put this patients foot and overall health at risk. Therefore, debridement to affected nail(s), as described in exam TA, T5 was performed exclusively by the physician of record to reduce/remove overall nail length, girth, thickness, subungual debris, and necrotic tissue, by manual and/or electrical means through the use of a nail nipper and/or dremel stylegrinder, to a more viable healthy nail plate or bed tissue 5 nails or fewer in number. Silver nitrate was used for any petechial bleeding as necessary. Definitive antifungal treatment options, both pharmaceutical and surgical, have been reviewed and discussed with the patient. The patient solely prefers the use of intermittent/as needed professional debridement services for their nail condition and understands that additional periodic treatments may be required as necessary to maintain effective symptomatic relief - 56273 Nail Reduction Nail Reduction (-27) Trimming o f all dystrophic nails - Due to the at risk nature of the patients medical condition as documented in the exam findings, performance of this nail treatment is medically necessary as its management by an unskilled/untrained nonprofessional would put this patients foot and overall health at risk. Therefore, the dystrophic nails, in locations as stated and described in the exam 2-5 digits B/L were debrided by the phisician of record to reduce/remove overall nail length and girth, by manual and electrical means with use of a nail nipper and/or dremel, to more viable healthy nail plate or bed tissue - G0127 Q8 Progress Notes * Viv LOCKWOOD LDOB:1955 (68 yo F)Acc No.[id number]:04/14/2024 Progress Notes Patient:?Viv LOCKWOOD L Provider:?Kurt Rodriguez D.P.M. :1955???Age:68 Y???Sex:Female D ate:04/14/2024 [address] [place] Pcp:Christal Robison Subjective: * Chief Complaints: * ???At Risk FootcarePainful N ail(s) aggravated by shoes and causing difficulty standing/walking * HPI: ???At Risk footcare:?Pt States Last PCP Visit:?Date?12/09/2023 ???Painful Nails:?Nature:?aching, tender, dull.?Location:?Hallux B/L.?Duration:?1 year or more.?Onset/Cause:?unknown.?Course:?worse.?Aggravated by:?shoegear causing difficulty standing/walking.?Treatments:?Debridement by Dr Minor.?Severity/Quality:?Moderate.? * ROS:?General/Constitutional:?Nausea?denies.?Vomiting?denies.?Hunger Thirst?denies.?Loss appetite?denies.?Chills?denies.?Fatigue?denies.?Fever?denies.?Night Sweats?denies.?Unexplained weight loss?denies.?Unexplained weight gain?denies.?HEENTM:?Dentures?denies.?Dizziness?denies.?Glasses/contacts?admits.?Retinopathy?den ies.?Blurred/double vision?denies.?TMJ?denies.?Discharge/drainage?denies.?Implants?denies.?Sore throat?denies.?Dental implants?denies.?Hard of hearing ?denies.?Difficulty chewing/swallowing/speaking?denies.?Nose bleeds?denies.?Sore mouth?denies.?Respiratory:?On O xygen?denies.?Pneumonia/pleurisy?denies.?Bronchitis?denies.?Emphysema?denies.?Co ughing?denies.?Cough blood?denies.?Shortness of breath?denies.?Wheezing?denies.?Cardiovascular:?Pacemaker?denies.?MVP?denies.?WPW?denies.?CHF?denies.?Heart attack?denies.?Septal defect?denies.?Rapid beat?denies.?Chest pain ?denies.?Atrial Fib.?denies.?Murmur/Palpitations?denies.?Gastrointestinal:?Hemorrhoids?denies.?Stomach/Abdominal pain?denies.?Dark blood stool?denies.?Irritable bowel ?denies.?Constipation?denies.?Diarrhea?denies.?Hematology:?Swelling?admits.?Clots?denies.?Varicose Veins?denies.?Bruising?denies.?Bleeding problem?denies.?Genitourinary:?Blood urine?denies.?Frequent/Painfu/urination/bladder control?denies.?Kidney stones?denies.?Infection (UTI)?denies.?Nephropathy?denies.?sex trans dis (STD)?denies.?Prostate?denies.?Musculoskeletal:?Hammertoes?denies.?Bunions?denies.?Back Pain?denies.?Muscle Cramps/ Resting?admits.?Muscle cramps / walking?denies.?Generalized aches and pains?denies.?Weakness?denies.?Integ.:?Escoto?denies.?Scars?denies.?Corns/calluses?denies.?Ingrown nails?denies.?Painful nails?admits.?Open Sores?denies.?Rashes?denies.?Neurologic:?Difficulty sleeping?denies.?Brain disorder?denies.?Numbness?admits.?Balance t rouble?denies.?Confusion?denies.?Fainting/blackouts?denies.?Tingling?admits.?Loki mors?denies.? * Medical History:? * Surgical History:? 1981/1983/1986 * Hospitalization/Major Diagno stic Procedure:?Denies Past Hospitalization * Family History:?Mother: dece ased.?Father: .?Daughter(s): diagnosed with Diabetic - NIDDM, Unspecified essential hypertension, Family history of arthritis.? * Social History:?Tobacco Use:?Tobacco use other than smoking?Are you an other tobacco user??No ?Tobacco Control (Standard)?Tobacco use:?Nonsmoker ?Additional Findings: Tobacco non-user?Current nonsmoker ???Drugs/Alcohol:?Drugs?Have you used drugs other than those for medical reasons in the past 12 months??No ???Miscellaneous:?Caffeine: yes. ?Children: yes, 3. ?Exercise: no. ?Marital status: . ?Occupation: Retired. ???Drug/Alcohol:?AUDIT-C (Standard)?Did you have a drink containing alcohol in the past year??No ?Points?0 ?Interpretation?Negative * Medications:?TakingTrulicity 0.75 MG/0.5ML Solution Auto-injector as directed Subcutaneous metFORMIN HCl Simvastatin Valsartan Albuterol Meclizine HCl Loratadine Levothyroxine Sodium Taking Trulicity 0.75 MG/0.5ML Solution Auto-injector as directed Subcutaneous Taking metFORMIN HCl Taking Simvastatin Taking Valsartan Taking Albuterol Taking Meclizine HCl Taking Loratadine Taking Levothyroxine Sodium Not-Taking/PRNBreztri Aerosphere Medication List reviewed and reconciled with the patientNot-Taking/PRN Breztri Aerosphere Medication List reviewed and reconciled with the patient * Allergies:?PenicillinShrimp FlavorLatexCinnamonyes[Allergies Verified] Objective: * Vitals:?Ht: 5ft 6in, Wt:191, BMI:30.82, Shoe size: 11-10.5, BP:120/62mm Hg, BS: 134, Ht-cm: 167.64 cm, Wt-k.64 kg. * ???Past Orders: ???Lab:HEMOGLOBIN A1C (GLYCO HEMOGLOBIN) (Order Date - 01/19/2024) (Collection Date & Time - 01/19/2024 10:49 AM) ? Value Reference Range ?TOTAL HEMOGLOBIN (HGBA1C) 7.0 * Examination: ???Ophthalmology Referral: ?DIABETES EYE EXAM?Vascular: ?DP PULSES (B):? 0/4, B/L.?PT PULSES (B):? 0/4, B/L.?CAPILLARY FILL TIME:? delayed, all digits, B/L.?TROPHIC CONDITION-TEXTURE/ELASTICITY/TURGOR/HAIR GROWTH (B):? decreased, fragile, thin, shiny, with sparse to absent hair growth, B/L.?TEMPERTURE GRADIENT (C):? decreased, cool to cool, proximal to distal, B/L.?PIGMENTATION:?normal, B/L.?EDEMA (C):?absent, B/L.?CLAUDICATION (C):?denies, B/L.?REST PAIN:?denies, B/L.?PARESTHESIA (C):?absent, B/L.?BURNING (C):?absent, B/L.?Nails: ?NAILS are:?Elongated, overgrown, dystrophic, lytic, greater than 3mm thick, discolored and friable with crumbly malodorous subungual debris, with pain on palpation hallux B/L, all other nails not described with characteristics as possessing mycosis are elongated, overgrown, and dystrophic 2-5 digits B/L.?Neurological: ?SENSORY:?Neurological exam reveals intact sensorium, pain sensation normal, vibration sensation intact, pinprick sensation is normal in the lower extremities, 5.07 monofilament test performed at plantar aspects of 5 varied sites per foot shows sensation, normal, B/L, Pt denies, anesthesia, burning, paresthesia, tingling, B/L.?Orthopedic: ?MUSCLE STRENGTH:?5/5 all groups in a symmetrical fashion, B/L.?General Examination: ?GENERAL APPEARANCE:?Reveals a pleasant, alert, well nourished, well- developed, well hydrated individual, who demonstrates proper attention to hygiene/body habitus, and is in no acute distress, Pt serves as own historian for office visit today.?ORIENTED:?person, place, and time.? Assessment: * Assessment: 1.?Type 2 diabetes mellitus with diabetic peripheral angiopathy without gangrene - E11.51 (Primary)???Notes :Q7(A), Q8(2B), Q9(1B,2C)???2.?Tinea unguium - B35.1???3.?Pain in right toe(s) - M79.674???4.?Pain in left toe(s) - M79.675??? Plan: * Treatment: 2.?Tinea unguium?Procedure: 34498-YVBNOBP NAIL, 1-5 * Procedures:?Debride Nails 1-5:?Procedure:?Due to the clinical pathology outlined in the exam findings, performance of this nail treatment is medically necessary as its management by an unskilled/untrained nonprofessional would put this patients foot and overall health at risk. Therefore, debridement to affected nail(s), as described in exam TA, T5?was performed exclusively by the physician of record to reduce/remove overall nail length, girth, thickness, subungual debris, and necrotic tissue, by manual and/or electrical means through the use of a nail nipper and/or dremel stylegrinder, to a more viable healthy nail plate or bed tissue 5 nails or fewer in number. Silver nitrate was used for any petechial bleeding as necessary. Definitive antifungal treatment options, both pharmaceutical and surgical, have been reviewed and discussed with the patient. The patient solely prefers the use of intermittent/as needed professional debridement services for their nail condition and understands that additional periodic treatments may be required as necessary to maintain effective symptomatic relief - 25942.?Nail Reduction:?Nail Reduction?(-27) Trimming of all dystrophic nails - Due to the at risk nature of the patients medical condition as documented in the exam findings, performance of this nail treatment is medically necessary as its management by an unskilled/untrained nonprofessional would put this patients foot and overall health at risk. Therefore, the dystrophic nails, in locations as stated and described in the exam 2-5 digits B/L were debrided by the phisician of record to reduce/remove overall nail length and girth, by manual and electrical means with use of a nail nipper and/or dremel, to more viable healthy nail plate or bed tissue - G0127 Q8.? * Procedure Codes:?07394 DEBRI DE NAIL, 1-5, Modifiers: XS G0127 TRIMMING DYSTROPHIC NAILS ANY #, Modifiers: XS , Q8 * Preventive Medicine:? ??Counseling:?Discussion:?-03: Office or other outpatient visit for the evaluation and management of a new patient, which required a medically appropriate history and/or examination and LOW level of DECISION MAKING for: 1 STABLE ACUTE UNCOMPLICATED PROBLEM, 2 OR MORE MINOR PROBLEMS, OR 1 STABLE CHRONIC PROBLEM, THAT POSE(S) A LOW RISK FOR MORBIDITY/MORTALITY. The visit on the day of the encounter encompassed interpreting the data and educating the patient as to the nature of their condition, treatment options available according to their individual PMH, meds, allergies, and overall health/living conditions, as well as any potential risks or complications that may occur from a failure to adhere to, and participate in, the recommended course of therapy. The discussion included a complete verbal, and/or written explanation of the examination results, any x-rays taken, the proposed diagnosis, and outline of the treatment plan. A schedule for future care needs was also explained. The patient verbalized an understanding of the instructions at this time and agreed to be an active participant in their treatment. If the patient should think of any questions or concerns after the visit, I have encouraged the patient to call the office.?Diabetic Footcare:?The patient was advised against future self nail/callus care due to inherent risks for infection, loss of limb/life given diabetes, peripheral vascular disease.? * Follow Up:?3 Months * Images: * Sign off status: Completed true * Provider:?Kurt Rodriguez D.P.M. Date:?03/27 Generated for Geraldoi charlie/Yajaira/eTransmitting on:?04/22/2024 01:23 PM EST History and Physical Notes * HPI (History of Present Illness) Category Sub-Category Detail Notes Category Not es Painful Nails Aggravated by: shoegear causing difficulty standing/walking Onset/Cause: unknown Course: worse Duration: 1 year or more Location: Hallux B/L Nature: aching, tender, dull Treatments: Debridement by Dr Ryann dodd Severity/Quality: Moderate At Risk footcare Pt States Last PCP Visit: Date: Examination Category Sub-Category Detail Notes Category Not es Neurological SENSORY: Neurological exa m reveals intact sensorium, pain sensation normal, vibration sensation intact, pinprick sensation is normal in the lower extremities, 5.07 monofilament test performed at plantar aspects of 5 varied sites per foot shows sensation, normal, B/L, Pt denies, anesthesia, burning, paresthesia, tingling, B/L Orthopedic MUSCLE STRENGTH: 5/5 all groups in a symmetrical fashion, B/L General Examination GENERAL APPEARANCE: Reveals a pleasant, alert, well nourished, well-developed, well hydrated individual, who demonstrates proper attention to hygiene/body habitus, and is in no acute distress, Pt serves as own historian for office visit today ORIENTED: person, place, and t elsy Ophthalmology Referral DIABETES EYE EXAM Procedure Perform ed:: Yes ?Date of Exam Performed: 02/01/2024 Diabetic Retinopathy Screening:: Yes Findings of Diabetic Eye Exam:: no retin opathy Vascular DP PULSES (B): 0/4, B/L PT PULSES (B): 0/4, B/L CAPILLARY FILL TIME: delayed, all digits , B/L TEMPERTURE GRADIENT (C): decreased, cool to cool, proximal to distal, B/L TROPHIC CONDITION-TEXTURE/ELASTICITY/TURGOR/HAIR GROWTH (B): decreased, fragile, thin, shiny, with sp arse to absent hair growth, B/L EDEMA (C): absent, B/L ELEV. PALOR: CLAUDICATION (C): denies, B/L REST PAIN: denies, B/L PIGMENTATION: normal, B/L PARESTHESIA (C): absent, B/L BURNING (C): absent, B/L Nails NAILS are: Elongated, overg rown, dystrophic, lytic, greater than 3mm thick, discolored and friable with crumbly malodorous subungual debris, with pain on palpation hallux B/L, all other nails not described with characteristics as possessing mycosis are elongated, overgrown, and dystrophic 2-5 digits B/L
--- OUTSIDE RECORDS SUMMARY | 2024-04-22 13:24 | XMS_ITS | Patient Health Record ---
Author Organization [facility] Address [address] [place] [address] Care Team Providers Care Attorney Recruiter Name Role Phone Christal Robison Primary Care Provider Kurt Cunha [phone] Allergies Allergen (clinical drug ingredient) Drug/Non Drug Allergy documented on EMR Reaction Allergy Type Onset Date Status cinnamon bark Cinnamon Unknown Drug Allergy Act raven Shrimp Flavor Unknown Drug Allergy Act raven Latex Latex Unknown Allergy Active Penicillin Unknown Drug Allergy Active Results Component Value Reference Range Notes HEMOGLOBIN A1C (GLYCOHEMOGLO BIN) Reviewed date:04/14/2024 10:51:10 AM Interpretation: Performing Lab: Notes/Report: TOTAL HEMOGLOBIN (HGBA1C) 7.0 Reason For Referral No Information Medications Medication SIG (Take, Route, Frequency, Duration) Notes Start Date End Date Status Levothyroxine Sodium Active Loratadine Active Breztri Aerosphere N ot-Taking Trulicity 0.75 MG/0.5ML as directed Subcutaneous Active Simvastatin Active metFORMIN HCl Active Albuterol Active Valsartan Active Meclizine HCl [...] Type 2 diabetes mellitus with peripheral angiopathy (585523821) Type 2 diabetes mellitus with diabetic peripheral angiopathy without gangrene (E11.51) Active confirmed Q7(A), Q8(2B), Q9(1B,2C) Vital Signs Blood pressure diastolic 62 mm Hg 04/14/2024 Height 5ft 6in in 04/14/2024 Blood pressure systolic 120 mm Hg 04/14/2024 Weight 191 lbs 04/14/2024 BMI 30.82 kg/m2 04/14/2024 Procedures Procedure Date Ordered Date Performed Result Body Sit e 71026-GHDAENC NAIL, 1-5 04/14/2024 N/A C5918-LZVVJTHA DYSTROPHIC NAILS ANY # 04/14/2024 N/A Encounters Encounter Location Date [facility] [address] [place] [address] 04/14/2024 Kurt Rodriguez Type 2 diabetes mellitus with diabetic peripheral angiopathy without gangrene E11.51 ; Tinea unguium B35.1 ; Pain in right toe(s) M79.674 and Pain in left toe(s) M79.675 [facility] [address] [place] [address] 03/30/2024 Kurt Rodriguez Assessments Encounter Date Diagnosis (ICD Code) Assessment Notes Treatment Notes Treatment Clinical Notes Section Notes 04/14/2024 Type 2 diabetes mellitus with diabetic peripheral angiopathy without gangrene (ICD-10 - E11.51) Q7(A), Q8(2B), Q9(1B,2C) 04/14/2024 Tinea unguium (ICD-10 - B35.1) 04/14/2024 Pain in right toe(s) (ICD-10 - M79.674) 04/14/2024 Pain in left toe(s) (ICD-10 - M79.675) Plan Of Treatment Pending Test Test Name Order Date 35421-YEZRKGM NAIL, 1-5 04/14/2024 B0838-IELBCOTN DYSTROPHIC NAILS ANY # Next Appt Details Provider Name:Kurt Rodriguez, 07/14/2024 11:00:00 AM, [address], [place], [address], Insurance Providers Payer Name Payer Address Payer Phone Subscriber Number Group Number Insured Name Patient Relationship to Insured Coverage Start Date Coverage End Date [facility] [id number] [address] [address] [place] [address] [id number] Viv Pham Self - patient is the insured Medical (General) History Medical History History ICD Code Anemia asthma Diabetic High Blood Pressure thyroid Surgical History Surgery Date(Month/Year) 1981/1983/1986
[2024-04-22 13:55] LABS: Influenza A PCR NEGATIVE (Negative); Influenza B PCR NEGATIVE (Negative); Resp Syncy Virus RNA Qual PCR POSITIVE (Negative); SARS COV2 PCR INHOUSE NEGATIVE (Negative)
== END 2024-04-22 09:25 | disposition home or self-care (01) ==
LOC: HO.LNP 09:24
PROVIDERS: PCP Physician Assistant; Visit Provider Physician Assistant
DX: J40 Bronchitis, not specified as acute or chronic (principal); B97.4 Respiratory syncytial virus as the cause of diseases classified elsewhere
CPT/HCPCS: 0241U; 99212

== ENCOUNTER 2024-04-22 09:24 | Outpatient (AMB) | payer MEDICARE, SELFPAY ==
--- NOTE | 2024-04-22 11:08 | AM.OFFWIN_ITS ---
Intake Vital Signs 04/22/24 11:16 Weight 86.636 kg BP 110/74 Blood Pressure Location Lt brachial Position Sitting Pulse 92 Pulse Source Pulse Oximeter Temp 98.9 F Temp Source Oral Pulse Oximetry (%) 98 Oxygen Delivery Method Room Air Intake Visit Reasons: EP-severe cough, headaches Intake Note: Patient here for cough and head aches that started Thursday. Patient Tobacco Use Status: Never used Tobacco Allergies cinnamon Allergy (Intermediate, Verified 04/22/24 11:16) Swelling penicillin V Allergy (Unknown, Verified 04/22/24 11:16) Unknown Penicillins [PENICILLINS] Allergy (Unknown, Verified 04/22/24 11:16) HIVES seafood Allergy (Unknown, Verified 04/22/24 11:16) Rash SEAFOOD Allergy (Severe, Uncoded 04/01/24 13:23) THROAT SWELLING AND HIVES flu vaccine Allergy (Unknown, Uncoded 04/01/24 13:23) Rash shellfish Allergy (Unknown, Uncoded 04/01/24 13:23) Unknown Do you need a note to return to daycare/school/sports/work: No HPI HPI Comments History of Present Illness Details 1127 68 year old female hx of hypothyroid, an emia, pvd, lung disease, HLD, HTN, DM presenting w/ fatigue, malaise, myalgias, productive cough, headache, weakness X 6-7 days worsening. No sick contacts. Denies CP, sob, nausea, vomiting, abd pain, vision changes, dizziness, weakness. No head trauma. NIHSS-0 PE diminished bs b/l w/ expiratory wheezing b/l Hx and pe concerning for viral illness vs bronchitits ( most likley due to length of sx ). Unlikley pna, pe, acs, ARDS. Plan- atbx, prednisione, viral testing. [facility] Medical History Chronic restrictive lung disease Pneumonitis Family History Mother Asthma Anemia Diabetes HTN (hypertension) Glaucoma Father Stroke Sister Diabetes HTN (hypertension) Asthma Myocardial infarct Stroke Brother Diabetes Glaucoma Asthma Social History (Updated 04/01/24 @ 13:30 by Deejay Rose) Household Members: Spouse and Family Housing: House Alcohol intake: never Patient Tobacco Use Status: Never used Tobacco e-Cigarette/Vaping Use: Never Used service: No Current occupational status: retired Gender identity: Female Cognitive needs: No Hearing needs: No Vision needs: Yes (cataracts) Review of Systems Const All systems reviewed & are unremarkable except as noted in HPI and below Physical Exam Vital Signs: Last Vital Signs Temp 98.9 F 04/22/24 11:16 Pulse 92 04/22/24 11:16 BP 110/74 04/22/24 11:16 Pulse Ox 98 04/22/24 11:16 Oxygen Delivery Method Room Air 04/22/24 11:16 vss Appearance: Alert.? Oriented X3.? No acute distress.? Head: Normocephalic, atraumatic, no step-offs or deformities Eyes: Pupils equal, round and reactive to light.? CVS: Normal heart rate and rhythm.? Pulses normal.? Respiratory: No respiratory distress.? Breath sounds diminished b/l w/ expiratory wheezing .? Abdomen: Soft and nontender.? Skin: Skin warm and dry.? Normal skin color.? Normal skin turgor.? Extremities: No lower extremity edema.? No calf ttp. 5/5 strength to bilateral upper and lower extremities Back: No midline tenderness, no C-spine tenderness, full range of motion, no CVA tenderness bilaterally Neuro: Oriented X 3.? No motor deficit.? No sensory deficit. CN 2-12 intact Assessment & Plan Assessment & Plan (1) Viral infection: Code(s): B34.9 - Viral infection, unspecified (2) Bronchitis: Code(s): J40 - Bronchitis, not specified as acute or chronic Plan Take your medications as prescribed. If you were prescribed antibiotics today, it is important that you take your medication to their entirety, do not skip any doses, do not finish them early. Follow-up with your primary care provider this week. Return to the emergency department with new or worsening symptoms. In case of emergency call 911 Orders: Orders SARS-CoV2/FLU/RSV Today B34.9 - Viral infection, unspecified Medications: New albuterol sulfate 90 mcg/actuation 2 puffs inhalation Q6H PRN 6.7 grams 0RF shortness of breath or wheezing benzonatate 100 mg PO BID PRN 14 caps 0RF cough doxycycline hyclate 100 mg PO BID 14 caps 0RF 7 days prednisone 40 mg (2 x 20 mg) PO DAILY 10 tabs 0RF 5 days Coding Level of Care Code Est Pt Level 3 (65275) Diagnoses Viral infection B34.9 Bronchitis J40
[2024-04-22 11:16] VITALS: BP 110/74; PULSE 92; TEMP 37.2; O2SAT 98
== END 2024-04-22 12:01 | disposition home or self-care (01) ==
PROVIDERS: PCP Physician Assistant; Visit Provider Physician Assistant
DX: B34.9 Viral infection, unspecified (principal); J40 Bronchitis, not specified as acute or chronic

== ENCOUNTER 2024-05-25 10:48 | Outpatient (AMB) | payer MEDICARE, SELFPAY ==
[2024-05-25 10:53] VITALS: BP 144/62; PULSE 74; O2SAT 96; BMI 30.9
--- NOTE | 2024-05-25 10:53 | MHC.OFFVIS ---
Vital Signs 05/25/24 10:53 Height 5 ft 6 in Weight 191 lb 5.78 oz BMI 30.9 BP 144/62 H Blood Pressure Location Rt brachial Pulse 74 Pulse Source Pulse Oximeter Pulse Oximetry (%) 96 Oxygen Delivery Method Room Air Intake Visit Reasons: Colonoscopy Screening Intake Note: NEW PATIENT for recall 3rd colo screening. Prior hx of colo/egd? 2014 via [facility] Chief Complaint; Operations Supervisor Required: Yes Operations Supervisor Services: Operations Supervisor Offered & Declined Operations Supervisor Name: Ebony Meeks Information Interpreted: clinical only Accompanied by: Self / Same As Patient Allergies seafood Allergy (Severe, Verified 05/25/24 11:14) Anaphylaxis cinnamon Allergy (Intermediate, Verified 05/25/24 11:14) Swelling Penicillins [PENICILLINS] Allergy (Unknown, Verified 05/25/24 11:14) HIVES flu vaccine Allergy (Unknown, Uncoded 05/25/24 11:14) Rash HPI HPI Colonoscopy Screening: Details: 68 year old? female with past medical history of diabetes, hypercholesteremia, hypertension, hypothyroidism is here today for pre colonoscopy screening.? Patient was sent to us by her PCP.? Last colonoscopy in 2013. Patient denies any gastrointestinal symptoms in the past or at present.? Denies any personal or family history of gastrointestinal disease, colon polyps, or CRC.? Denies history of difficulty with sedation or anesthesia in the past.? Negative for history of sleep apnea.? Denies any history of cardiac, renal, pulmonary, or hepatic disease.?? No history of infectious? diseases like hepatitis A, B, C, HIV or tuberculosis.? [facility] is not on any [facility]agulation [facility] Medical History Chronic restrictive lung disease Pneumonitis Surgical History H/O colonoscopy (~2013) Family History Mother Asthma Anemia Diabetes HTN (hypertension) Glaucoma Father Stroke Sister Diabetes HTN (hypertension) Asthma Myocardial infarct Stroke Breast cancer Brother Diabetes Glaucoma Asthma Cancer Social History Household Members: Spouse and Family Housing: House Alcohol intake: never Patient Tobacco Use Status: Never used Tobacco e-Cigarette/Vaping Use: Never Used service: No Current occupational status: retired Gender identity: Female Cognitive needs: No Hearing needs: No Vision needs: Yes (cataracts) Review of Systems Const Denies weight gain and Denies weight loss ENT Reports no additional complaints, Denies dysphagia and Denies odynophagia Card Reports no additional complaints Resp Reports no additional complaints GI Denies abdominal pain, Denies belching, Denies melena, Denies bloating, Denies change in bowel habits, Denies dysphagia, Denies excessive flatus, Denies dyspepsia, Denies heartburn, Denies diarrhea, Denies loose stools, Denies nausea, Denies odynophagia and Denies vomiting Musc Reports no additional complaints Neuro Reports no additional complaints Psych Reports no additional complaints Endo Reports no additional complaints Physical Exam Vital Signs: Last Vital Signs Pulse 74 05/25/24 10:53 BP 144/62 H 05/25/24 10:53 Pulse Ox 96 05/25/24 10:53 Oxygen Delivery Method Room Air 05/25/24 10:53 BMI result Body Mass Index 30.9 Const General: healthy appearing and no acute distress Nutritional Appearance: well nourished and obese Orientation/consciousness: patient oriented x3 Resp Effort & Inspection: normal respiratory effort, able to speak in complete sentences, no tracheal deviation and symmetric chest movement Auscultation: clear to auscultation bilaterally Cardio Rate: regular rate GI Inspection: Yes normal to inspection, No distended and Yes obesity Palpation (GI): Soft to palpation, not firm, nontender and No hepatosplenomegaly present Auscultation: normal bowel sounds General: Yes no CVA tenderness Back/Spine/Pelvis Back: no CVA tenderness Skin General skin exam: elasticity normal, turgor normal and dry skin Neuro General: patient oriented x3 Psych Appearance: grossly normal Mental Status: mental status grossly normal Assessment & Plan Assessment & Plan (1) Screen for colon cancer: Code(s): Z12.11 - Encounter for screening for malignant neoplasm of colon Plan Patient denies any GI, cardiac or respiratory symptoms.? Denies any issues with anesthesia in the past.? Denies any history of sleep apnea.? No history infectious diseases in the past or present.? Not on any anticoagulation therapy.? No family or personal history of colon cancer or polyps.? Patient denies melena, hematochezia, unintentional weight loss or ribbon like stools.? Discussed at length the pre-procedure,? prep, diet & medications as well as what to expect prior, during and after the procedure.?? Stressed the importance of good bowel prep.? Patient was on Trulicity, however she states that she is no longer going to take it because it is too expensive. Patient will speak to her PCP about different option. Recommended the use of Vaseline or Calmoseptine OTC & baby wipes with bowel movements to promote comfort.? ?Patient verbalizes understanding and agrees to plan of care.? She was given the opportunity to ask questions and all questions answered.? We will see her after the procedure.? Medications: New bisacodyl (Dulcolax (bisacodyl)) take 4 tabs at noon the day before your colonoscopy 20 mg (4 x 5 mg) PO ONCE 4 tabs 0RF 1 day Z12.11 - Encounter for screening for malignant neoplasm of colon polyethylene glycol 3350 (Miralax) As directed by gastroenterology department at [facility] 238 grams PO ONCE 238 grams 0RF Z12.11 - Encounter for screening for malignant neoplasm of colon Discontinued benzonatate Discontinued Reason: Patient Completed Course 100 mg PO BID PRN 14 caps 0RF cough doxycycline hyclate Discontinued Reason: Patient Completed Course 100 mg PO BID 7 days 14 caps 0RF prednisone Discontinued Reason: Patient Completed Course 40 mg (2 x 20 mg) PO DAILY 5 days 10 tabs 0RF Coding Level of Care Code New Pt Level 3 (82763) Diagnoses Screen for colon cancer Z12.11 Time Spent (min) 40 Comment 30 minutes spent with patient and additional 10 minutes spent reviewing her records
--- OUTSIDE RECORDS SUMMARY | 2024-05-25 12:54 | XMS_ITS | Clinical Summary ---
Author Organization [employer] Address [address] [facility] 7t [place] [address] Care Team Providers Care Radio Frequency Design Engineer Name Role Phone Unavailable Primary Care Provider Unavailabl e Allergies Active Allergy Reactions Criticality Noted Date Comments Influenza Virus Vaccine 11/20/2023 Latex 06/30/2017 Penicillin G 06/30/2017 Shellfish-Derived Products Rash Low 3 Medications albuterol (ProAir HFA) 108 (90 Base) MCG/ACT inhaler Inhale 2 puffs every 4 (four) hours. Active amitriptyline (Elavil) 25 MG tablet Take 1 tablet by mouth at bed time. Active aspirin 81 MG EC tablet Take 1 tablet by mouth at bed time. Active Calcium Carbonate-Vitam in D 600-5 MG-MCG capsule Activ e candesartan (Atacand) 4 MG tablet Take 1 tablet by mouth every 12 (twelve) hours. Active Diclofenac Sodium 1 % gel apply (2G) by topical route 4 times every day to the affected area(s) Active loratadine (Claritin) 10 MG tablet Take 1 tablet by mouth at bed time. Active meclizine (Antivert) 25 MG tablet Take 1 tablet by mouth every 8 (eight) hours. Active metFORMIN (Glucophage) 500 MG tablet Take 1 tablet by mouth every 12 (twelve) hours. Active simvastatin (Zocor) 10 MG tablet Take 1 tablet by mouth at bed time. Active valsartan (Diovan) 80 MG tablet Take 1 tablet by mouth in the morning. 11/23/2023 Active Active Problems Problem Noted Date Diagnosed Date Arthralgia of multiple joints 12/06/2023 Overview (12/15/2023): Last Assessment & Plan: She has arthralgias in multiple areas without warm or swollen joints. Her pain is worse with prolonged activity more consistent with osteoarthritis. She does not appear to have rheumatoid arthritis. I will send her for additional labs to reevaluate the rheumatoid factor and the CCP. She can continue with Tylenol 650 mg as needed. History of periodontal disease 05/29/2023 Localized secondary occlusal trauma 12/10/2022 Localized gingival recession 11/19/2022 Excessive attrition of teeth, limited to enamel 11/18/2022 Periodontal disease 05/21/2022 Dental calculus 05/21/2022 Social History Tobacco Use Types Packs/Day Years Used Date Smoking Tobacco: Never Passive Smoke Exposure: Never Smokeless Tobacco: Never Tobacco Cessation:Counseling Given: Not Answered Alcohol Use Standard Drinks/Week Comments Never 0 (1 standard drink = 0.6 oz pur e alcohol) Comments Unknown Sex and Gender Information Value Date Recorded Sex Assigned at Female 02/24/2022 10:33 AM EDT Legal Sex Female 10:33 AM EDT Gender Identity Female 02/24/2022 10:33 AM EDT Sexual Orientation Straight 02/24/2022 10 :33 AM EDT Last Filed Vital Signs Vital Sign Reading Time Taken Comments Blood Pressure 136/82 01/07/2024 10:10 AM EDT Pulse 69 01/07/2024 10:10 AM EDT Temperature - - Respiratory Rate - - Oxygen Saturation - - Inhaled Oxygen Concentration - - Weight - - Height - - Body Mass Index - - Plan of Treatment Upcoming Encounters Date Type Department Care Team (Late st Contact Info) Description 06/22/2024 1:00 PM EST Office Visit [facility] [address] [place] [address] Jeanette Piedra [address] [place] [address] Health Maintenance Due Date Last Done Comments CT Colonography 1955 Colonoscopy 1955 Colorectal Cancer Screening 1954 Depression Screening 1955 FIT DNA/Cologuard 1954 FIT 1955 FOBT 1955 SDOH Screening 1955 Sigmoidoscopy 1954 Alcohol/Substance Use Screening 1966 Hepatitis C Screening 1972 Mammogram 1994 Zoster Vaccines (2 of 3) 06/20/2015 04/25/2015 Pneumococcal Vaccine: 50+ Years (2 of 2 - PCV) 11/29/2021 11/29/2020, 03/30/2014 COVID-19 Vaccine (4 - 2023-2 5 season) 2023 05/22/2021, 09/05/2020, 08/08/2020 Influenza Vaccine (#1) 2023 Dental Oral Exam 06/17/2024 12/15/2023, 05/29/2023, 11/18/2022 Dental Prophylaxis 06/20/2024 12/18/2023, 05/29/2023, 11/19/2022 Dental X-Ray: Bitewings 12/15/2024 12/15/19, 05/29/2023, 11/18/2022 Tobacco Screening 01/06/2025 01/07/2024 Dental X-Ray: Full Mouth 05/30/2026 024, 06/30/2017 RSV Patients and Patients Aged 60 years or older (1 - 1-dose 75+ series) 2029 DTaP/Tdap/Td Vaccines (3 - T d or Tdap) 10/06/2032 10/06/2022, 10/04/2012, 06/06/2005 Hepatitis B Vaccines Completed 03/30/2001, 11/06/2000, 10/07/2000 Hepatitis A Vaccines Aged Out 05/02/2019 No long er eligible based on patient's age to complete this topic HIB Vaccines Aged Out No longer eligi ble based on patient's age to complete this topic HPV Vaccines Aged Out No longer eligi ble based on patient's age to complete this topic IPV Vaccines Aged Out No longer eligi ble based on patient's age to complete this topic Meningococcal Vaccine Aged Out No abdoul sandra eligible based on patient's age to complete this topic RSV under 20 months Aged Out No longe r eligible based on patient's age to complete this topic Rotavirus Vaccines Aged Out No longer eligible based on patient's age to complete this topic Procedures Procedure Name Priority Date/Time Associated Diagnosis Comments PROPHYLAXIS - ADULT Routine 12/18/2023 1 :00 PM EDT Dental calculus BITEWINGS - 4 RADIOGRAPHIC IMAGES Routine 12/15/2023 1:30 PM EDT Encounter for dental examination Dental caries Dental plaque PERIODIC ORAL EVALUATION - ESTABLISHED PATIENT Routine 12/15/2023 1:30 PM EDT Encounter for dental examination Dental caries Dental plaque DIAGNOSTIC - DIAGNOSTIC IMAGING - INTRAORAL - COMPREHENSIVE SERIES OF RADIOGRAPHIC IMAGES Routine 05/29/2023 1:00 PM EST History of periodontal disease Localized gingival recession Encounter for dental examination from Last 3 Months or Most Recently Relevant to Health Maintenance Insurance DENTAL - [facility] PPO
--- OUTSIDE RECORDS SUMMARY | 2024-05-25 12:54 | XMS_ITS | Patient Health Record ---
Author Organization [facility] Address [address] [place] [address] Care Team Providers Care Manager Voice Name Role Phone Christal Robison Primary Care Provider Kurt Cunha [phone] Allergies Allergen (clinical drug ingredient) Drug/Non Drug [...] Type 2 diabetes mellitus with peripheral angiopathy (651100947) Type 2 diabetes mellitus with diabetic peripheral angiopathy without gangrene (E11.51) Active confirmed Q7(A), Q8(2B), Q9(1B,2C) Vital Signs Blood pressure diastolic 62 mm Hg 04/14/2024 Height 5ft 6in in 04/14/2024 Blood pressure systolic 120 mm Hg 04/14/2024 Weight 191 lbs 04/14/2024 BMI 30.82 kg/m2 04/14/2024 Procedures Procedure Date Ordered Date Performed Result Body Sit e 65431-UBUOGYT NAIL, 1-5 04/14/2024 N/A [id number]-[id number] DYSTROPHIC NAILS ANY # 04/14/2024 N/A Encounters Encounter Location Date [facility] [address] [place] [address] 04/14/2024 Kurt Rodriguez Type 2 diabetes mellitus with diabetic peripheral angiopathy without gangrene E11.51 ; Tinea unguium B35.1 ; Pain in right toe(s) M79.674 and Pain in left toe(s) M79.675 [facility] [address] [place] [address] 03/30/2024 Kurt Rodriguez Assessments Encounter Date Diagnosis [...] Treatment Pending Test Test Name Order Date 64280-PGJPFGI NAIL, 1-5 04/14/2024 [id number] DYSTROPHIC NAILS ANY # Next Appt Details Provider Name:Kurt Rodriguez, 07/14/2024 11:00:00 AM, [address], [place], [address], Insurance Providers Payer Name Payer Address Payer Phone Subscriber Number Group Number Insured Name Patient Relationship to Insured Coverage Start Date Coverage End Date [facility] [id number] [address] [address] [place] [address] [id number] Viv Pham Self - patient is the insured Medical (General) History Medical History History ICD Code Anemia asthma Diabetic High Blood Pressure thyroid Surgical History Surgery Date(Month/Year) 1981/1983/1986
--- OUTSIDE RECORDS SUMMARY | 2024-05-25 12:55 | XMS_ITS | Encounter Summary ---
Author Organization [employer] Address [address] [facility] [address]t [place] [address] Care Team Providers Care Supervisor Fishing Name Role Phone Unavailable Primary Care Provider Unavailabl e Encounter Details Date Type Department Care Team (Latest Contact Info) Description 02/12/2022 Abstract [facility] CONVERSIONS Dental, Provider, DDS Social History Tobacco Use Types Packs/Day Years Used Date Smoking Tobacco: Never Assessed Comments Unknown Sex and Gender Information Value Date Recorded Sex Assigned at Female 02/24/2022 10:33 AM EDT Legal Sex Female 10:33 AM EDT Gender Identity Female 02/24/2022 10:33 AM EDT Sexual Orientation Straight 02/24/2022 10 :33 AM EDT documented as of this encounter Plan of Treatment Upcoming Encounters Date Type Department Care Team (Late st Contact Info) Description 06/22/2024 1:00 PM EST Office Visit [facility]ULT [facility] [address] [place] [address] Jeanette Piedra [address] [place] [address] documented as of this encounter Visit Diagnoses Not on filedocumented in this encounter
--- OUTSIDE RECORDS SUMMARY | 2024-05-25 12:55 | XMS_ITS | Encounter Summary ---
Author Organization [employer] [facility] Address [address] [place] [address] 7t [place] [address] Care Team Providers Care Restaurant Crew Member Name Role Phone Unavailable Primary Care Provider Unavailabl e Reason for Referral * Consultation - Closed Specialty Diagnoses / Procedures Referred By Radha james Referred To Contact Dentistry Diagnoses completed Procedures LR PERIODONTAL SCALING AND ROOT PLANING - 1 TO 3 TEETH PER [facility] [address] [place] [address] Phone: tel: fax: [facility] [address] [place] [address] Phone: tel: fax: Referral ID Status Reason Start Date Expiration Date Visits Re quested Visits Authorized [id number] Closed 03/26/2022 09/22/2022 1 1 * Consultation - Closed Specialty Diagnoses / Procedures Referred By Radha james Referred To Contact Dentistry Diagnoses completed Procedures UR PERIODONTAL SCALING AND ROOT PLANING - 1 TO 3 TEETH PER [facility] [address] [place] [address] Phone: tel: fax: [facility] [address] [place] [address] Phone: tel: fax: Referral ID Status Reason Start Date Expiration Date Visits Re quested Visits Authorized [id number] Closed 03/26/2022 09/22/2022 1 1 Encounter Details Date Type Department Care Team (Late st Contact Info) Description 03/26/2022 Abstract [facility] [address] [place] [address] Dental, Provider, DDS Social History Tobacco Use [...] Description 06/22/2024 1:00 PM EST Office Visit [facility] [address] [place] [address] Jeanette Piedra [address] [place] [address] documented as of this encounter Procedures Procedure Name Priority Date/Time Associated Diagnosis Comments 28 B(V) COMPOSITE FILLING Routine 03/26/2022 12:00 AM EST 29 B(V) COMPOSITE FILLING Routine 03/26/2022 12:00 AM EST 24 F(V) COMPOSITE FILLING Routine 03/26/2022 12:00 AM EST 21 B(V) COMPOSITE FILLING Routine 03/26/2022 12:00 AM EST 20 B(V) COMPOSITE FILLING Routine 03/26/2022 12:00 AM EST 11 F(V) COMPOSITE FILLING Routine 03/26/2022 12:00 AM EST 6 F(V) COMPOSITE FILLING Routine 12:00 AM EST 5 B(V) COMPOSITE FILLING Routine 12:00 AM EST 4 B(V) COMPOSITE FILLING Routine 12:00 AM EST 3 B(V) COMPOSITE FILLING Routine 12:00 AM EST 31 O AMALGAM FILLING Routine 03/26/2022 12:00 AM EST 18 O AMALGAM FILLING Routine 03/26/2022 12:00 AM EST 19 O AMALGAM FILLING Routine 03/26/2022 12:00 AM EST 20 MO AMALGAM FILLING Routine 03/26/2022 12:00 AM EST 13 MO AMALGAM FILLING Routine 03/26/2022 12:00 AM EST 30 O AMALGAM FILLING Routine 03/26/2022 12:00 AM EST 32 EXTRACTION Routine 03/26/2022 12:00 AM EST 17 EXTRACTION Routine 03/26/2022 12:00 AM EST 16 EXTRACTION Routine 03/26/2022 12:00 AM EST 12 EXTRACTION Routine 03/26/2022 12:00 AM EST 1 EXTRACTION Routine 03/26/2022 12:00 AM EST 8 ROOT CANAL Routine 03/26/2022 12:00 AM EST 8 PFM CROWN Routine 03/26/2022 12:00 AM EST documented in this encounter Visit Diagnoses Not on filedocumented in this encounter
--- OUTSIDE RECORDS SUMMARY | 2024-05-25 12:55 | XMS_ITS ---
Author Organization [facility] Address [address] [place] [address] Care Team Providers Care Sports Health Club Membership Advisors Name Role Phone Christal Robison Primary Care Provider Kurt Cunha [phone] REASON FOR VISIT [employer] CARET[employer] [facility]WK Entered Encounters Encounter Location Date Provider Diagnosis [facility] [address] [place] [address] 03/30/2024 Kurt Rodriguez Plan Of Treatment Next Appt Details Provider Name:Kurt Rodriguez, 07/14/2024 11:00:00 AM, [address] [facility], [place], [address], Progress Notes * Viv LOCKWOOD LDOB:1955 (68 yo F)Acc No.[id number]:03/30/2024 Patient:?Viv LOCKWOOD :1955???Age:68 Y???Sex:Female Address:[place] [address] * true * Date:? Generated for Printi ng/Faxing/eTransmitting on:?05/25/2024 12:54 PM EST
--- OUTSIDE RECORDS SUMMARY | 2024-05-25 12:55 | XMS_ITS | Encounter Summary ---
Author Organization [employer] Address [address] [place] [address] Care Team Providers Care Childcare Teacher Name Role Phone Unavailable Primary Care Provider Unavailabl e Encounter Details Date Type Department Care Team (Latest Contact Info) Description 11/22/2018 Abstract [facility] CONVERSIONS Dental, Provider, DDS Social History [...] Description 06/22/2024 1:00 PM EST Office Visit [facility]ULT [facility] [address] [place] [address] Jeanette Piedra [address] [place] [address] documented as of this encounter Visit Diagnoses Not on filedocumented in this encounter
--- OUTSIDE RECORDS SUMMARY | 2024-05-25 12:55 | XMS_ITS ---
Author Organization [facility] Address [address] [facility] [address] Care Team Providers Care Business Management Analyst Name Role Phone Ricki Christal Primary Care Provider Kurt Cunha [phone] Allergies Allergen (clinical drug ingredient) Drug/Non Drug [...] Type 2 diabetes mellitus with peripheral angiopathy (348946849) Type 2 diabetes mellitus with diabetic peripheral angiopathy without gangrene (E11.51) Active confirmed Q7(A), Q8(2B), Q9(1B,2C) Vital Signs Height 5ft 6in in 04/14/2024 Weight 191 lbs 04/14/2024 BMI 30.82 kg/m2 04/14/2024 Blood pressure systolic 120 mm Hg 04/14/20 24 Blood pressure diastolic 62 mm Hg 024 Procedures Procedure Date Ordered Date Performed Result Body Sit e 10938-NJZQEFV NAIL, 1-5 04/14/2024 N/A [id number] DYSTROPHIC NAILS ANY # 04/14/2024 N/A Encounters Encounter Location Date Provider Diagnosis [facility] [address] 04/14/2024 Kurt Rodriguez Type 2 diabetes mellitus [...] Treatment Pending Test Test Name Order Date [id number] NAIL, 1-5 04/14/2024 [id number] DYSTROPHIC NAILS ANY # Next Appt Details Follow Up: 3 Months, Reason: Provider Name:Kurt Rodriguez, 07/14/2024 11:00:00 AM, [address] [facility], [place], [address], Procedure Notes * Category Sub-Category Detail Notes [...] necessary to maintain effective symptomatic relief - 72096 Nail Reduction Nail Reduction (-27) Trimming o [...] * Viv LOCKWOOD LDOB:1955 (68 yo F)Acc No.[id number]:04/14/2024 Progress Notes Patient:?Viv LOCKWOOD L Provider:?Kurt Rodriguez D.P.M. :1955???Age:68 Y???Sex:Female D ate:04/14/2024 [address]: [address] [place], [place] Pcp:Christal Robison Subjective: * Chief Complaints: * [...] - M79.675??? Plan: * Treatment: 2.?Tinea unguium?Procedure: 22033-UFJSDHW NAIL, 1-5 * Procedures:?Debride Nails 1-5:?Procedure:?Due to [...] necessary to maintain effective symptomatic relief - 22414.?Nail Reduction:?Nail Reduction?(-27) Trimming of all dystrophic nails [...] bed tissue - G0127 Q8.? * Procedure Codes:?53064 DEBRI DE NAIL, 1-5, Modifiers: XS G0127 [...] Rodriguez D.P.M. Date:?03/27 Generated for Geraldoi charlie/Yajaira/eTransmitting on:?05/25/2024 12:55 PM EST History and Physical Notes * [...]
== END 2024-05-25 11:39 | disposition home or self-care (01) ==
PROVIDERS: PCP Physician Assistant; Visit Provider Nurse Practitioner Family
DX: Z01.818 Encounter for other preprocedural examination (principal); Z12.11 Encounter for screening for malignant neoplasm of colon
CPT/HCPCS: 99024

== ENCOUNTER → 2024-05-25 10:48 | Outpatient (BNVA) | payer MEDICARE, SELFPAY | PROVIDERS: PCP Physician Assistant; Visit Provider Nurse Practitioner Family | DX: Z01.818 Encounter for other preprocedural examination (principal) | CPT/HCPCS: 99212 ==

== ENCOUNTER 2024-05-26 12:41 | Outpatient (AMB) | payer MEDICARE, SELFPAY ==
--- NOTE | 2024-05-26 12:47 | MHC.PC.OV ---
Vital Signs 05/26/24 12:48 Height 5 ft 6 in Weight 198 lb BMI 32.0 BP 118/74 Blood Pressure Location Rt brachial Position Sitting Respiration 14 Pulse 72 Pulse Source Pulse Oximeter Pulse Oximetry (%) 98 Oxygen Delivery Method Room Air Intake Visit Reasons: dm, htn Allergies seafood Allergy (Severe, Verified 05/25/24 11:14) Anaphylaxis cinnamon Allergy (Intermediate, Verified 05/25/24 11:14) Swelling Penicillins [PENICILLINS] Allergy (Unknown, Verified 05/25/24 11:14) HIVES flu vaccine Allergy (Unknown, Uncoded 05/25/24 11:14) Rash Medication List - Last Reconciled 05/26/24 by Christal Robison PA-C albuterol-budesonide 90-80 mcg/actuation (Airsupra) 2 inhalations inhalation BID PRN 30 days bisacodyl (Dulcolax (bisacodyl)) 20 mg (4 x 5 mg) PO ONCE 1 day blood sugar diagnostic (Bazaarvoiceuch Ultra Test strips) Use daily As directed to check blood glucose blood-glucose meter (Bazaarvoiceuch Ultra2 Meter) Use daily As directed fsbmitlwth-isfkecup-mahvquawhv 160-9-4.8 mcg/actuation (Breztri Aerosphere) 2 inhalations inhalation BID 30 days calcium carb,lactat-vitamin D3 200 mg-6.25 mcg (250 unit) 200 tabs PO DAILY fluticasone propion-salmeterol 250-50 mcg/dose (Wixela Inhub) 1 ea inhalation BID lancets (uShipTouch Delica Plus Lancet) As directed levalbuterol tartrate 45 mcg/actuation 1 puff inhalation Q6H levothyroxine 25 mcg PO DAILY loratadine (Claritin) 10 mg PO DAILY metformin ER 1,000 mg (2 x 500 mg) PO BID 90 days polyethylene glycol 3350 (Miralax) 238 grams PO ONCE simvastatin 20 mg PO BEDTIME valsartan 80 mg PO DAILY Tobacco use date assessed: 01/14/24 Dental Screening Dental Screen Date: 01/14/24 HPI dm, htn HPI Details Patient is a 68-year-old female with a significant past medical history of type 2 diabetes, hypertension, hyperlipidemia, obesity, asthma, joint pains, fibromyalgia, PVD, rheumatoid lung, abnormal echo and vertigo Endo: She is currently on metformin 500 mg 3 times a day. States that she needs a new glucometer. She was diagnosed with diabetes around 2019. She has had diabetic Education. 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 Her A1c today 7. Her recent TSH was normal. Doing well with the levothyroxine. -She states most of her family has t2dm. -denies hyper/hypoglycemic events -last eye exam was 6 months ago and she states she has cataracts. -she is on an Arb and a statin. CV: Blood pressure is well controlled. She is currently on valsartan 80 mg. Cholesterol is managed with simvastatin 20 mg. Her last lipids were elevated and she states she was not taking the simvastatin she has since restarted this. She has booked with Cardiology for her murmur and history of abnormal echo from [facility]. Pulm: has a hx of asthma but recent PFTs from apr 2022 (scanned in) were normal. Followed with pulmonology. Heme: Persistent anemia. Following with Hematology.. Overdue colonoscopy but is scheduled. Mammogram: NYD, November 2023 Colonoscopy: due this year-was referred Bone density: Not due until 2024 upon review from [facility] records. Pap: [facility] Medical History Chronic restrictive lung disease Pneumonitis Surgical History H/O colonoscopy (~2013) Family History Mother Asthma Anemia Diabetes HTN (hypertension) Glaucoma Father Stroke Sister Diabetes HTN (hypertension) Asthma Myocardial infarct Stroke Breast cancer Brother Diabetes Glaucoma Asthma Cancer Social History Household Members: Spouse and Family Housing: House Alcohol intake: never Patient Tobacco Use Status: Never used Tobacco e-Cigarette/Vaping Use: Never Used service: No Current occupational status: retired Gender identity: Female Cognitive needs: No Hearing needs: No Vision needs: Yes (cataracts) Questionnaire PHQ-9 Over the last 2 weeks, how often have you been bothered by any of the following problems? 1. Little interest or pleasure in doing things: not at all 3. Trouble falling or staying asleep, or sleeping too much: not at all 4. Feeling tired or having little energy: not at all 5. Poor appetite or overeating: not at all 6. Feeling bad about yourself - or that you are a failure or have let yourself or your family down: not at all 7. Trouble concentrating on things, such as reading the newspaper or watching television: not at all 8. Moving or speaking so slowly that other people could have noticed. Or the opposite - being so fidgety or restless that you have been moving around a lot more than usual: not at all 9. Thoughts that you would be better off or of hurting yourself in some way: not at all Source: Developed by Drs. Jamin Hillman, Latonya Boone, Jasvir Zuniga and colleagues, with an educational federico from [employer]. Thrive Questionnaire Date Thrive assessed: 05/26/24 I am a: Patient What is your living situation today?: I have a steady place to live THRIVE Score: 0 Physical exam (Primary Care) Vital Signs: Last Vital Signs Pulse 72 05/26/24 12:48 Resp 14 05/26/24 12:48 BP 118/74 05/26/24 12:48 Pulse Ox 98 05/26/24 12:48 Oxygen Delivery Method Room Air 05/26/24 12:48 BMI result Body Mass Index 32.0 Tobacco/Smoking Status: Tobacco use Status Tobacco use date assessed 01/14/24 05/26/24 12:53 Patient Tobacco Use Status Never used Tobacco 05/26/24 12:53 e-Cigarette/Vaping Use Never Used 05/26/24 12:53 Thrive Assessment: Date of Thrive Assessment Date Thrive assessed 05/26/24 05/26/24 12:53 Const Orientation/consciousness: patient oriented x3 HENMT Ears: hearing grossly normal bilaterally Neck Thyroid: Thyroid normal Lymphatic: no lymphadenopathy noted Resp Auscultation: clear to auscultation bilaterally Cardio Rate: regular rate Rhythm: regular rhythm Heart sounds: S1 normal heart sound present and S2 normal heart sound present GI Inspection: Yes normal to inspection Palpation (GI): Soft to palpation and Other GI palpation findings present (nontender, no cva tenderness) Auscultation: normoactive bowel sounds Rectal Exam - Female: deferred Skin General skin exam: no rashes or lesions noted Neuro General: patient oriented x3, gait normal and no focal motor deficits Results Reviewed Results Reviewed: Laboratory Tests 01/14/24 01/21/24 03/07/24 16:37 10:58 09:07 Sodium 141 Potassium 3.9 Chloride 106 Carbon Dioxide 29 Anion Gap 10 L BUN 10 Creatinine 0.72 Estimated GFR > 60 Random Glucose 103 Hgb A1c (Clinic) 7.0 H Triglycerides 80 Cholesterol 209 H LDL Cholesterol, Calc 122 H HDL Cholesterol 71 TSH 03/23/24 09:54 Sodium Potassium Chloride Carbon Dioxide Anion Gap BUN Creatinine Estimated GFR Random Glucose Hgb A1c (Clinic) Triglycerides Cholesterol LDL Cholesterol, Calc HDL Cholesterol TSH 3.89 Coding Level of Care Code Est Pt Level 4 (79666) Complex EM visit Add On G2211 Diagnoses Type 2 diabetes mellitus without complication, without long-term current use of insulin E11.9 Diabetes mellitus terminal operations manager insulin use: without usp use Diabetes mellitus complication status: without complication Hypertension I10 Hyperlipidemia E78.5 Anemia, unspecified type D64.9 Anemia type: unspecified type Hypothyroid E03.9 Assessment & Plan Assessment & Plan (1) T2DM (type 2 diabetes mellitus): Code(s): E11.9 - Type 2 diabetes mellitus without complications Category: Medical Qualifiers: Diabetes mellitus terminal operations manager insulin use: without terminal operations manager use Diabetes mellitus complication status: without complication Qualified Code(s): E11.9 - Type 2 diabetes mellitus without complications Plan: Continue current regimen. States that blood sugars are normal around 120. Diabetic labs ordered today. Does not want to take any additional medications for this in his really motivated to work on weight loss and exercise. (2) Hypertension: Code(s): I10 - Essential (primary) hypertension Category: Medical Plan: WNL. Continue current regimen (3) Hyperlipidemia: Code(s): E78.5 - Hyperlipidemia, unspecified Category: Medical Plan: On simvastatin 20 mg. We will check lipids and LFTs. (4) Anemia: Code(s): D64.9 - Anemia, unspecified Category: Medical Qualifiers: Anemia type: unspecified type Qualified Code(s): D64.9 - Anemia, unspecified Plan: Following with Heme-Onc (5) Hypothyroid: Code(s): E03.9 - Hypothyroidism, unspecified Category: Medical Plan: Last TSH WNL. Continue levothyroxine. We will monitor. Orders: Orders Comprehensive [place]. Panel Fast Today D64.9 - Anemia, unspecified, E03.9 - Hypothyroidism, unspecified, E11.9 - Type 2 diabetes mellitus without complications, E78.5 - Hyperlipidemia, unspecified, I10 - Essential (primary) hypertension Lipid Panel Today D64.9 - Anemia, unspecified, E03.9 - Hypothyroidism, unspecified, E11.9 - Type 2 diabetes mellitus without complications, E78.5 - Hyperlipidemia, unspecified, I10 - Essential (primary) hypertension TSH reflex Free T4 Today D64.9 - Anemia, unspecified, E03.9 - Hypothyroidism, unspecified, E11.9 - Type 2 diabetes mellitus without complications, E78.5 - Hyperlipidemia, unspecified, I10 - Essential (primary) hypertension Microalbumin, Random (w Creat) Today D64.9 - Anemia, unspecified, E03.9 - Hypothyroidism, unspecified, E11.9 - Type 2 diabetes mellitus without complications, E78.5 - Hyperlipidemia, unspecified, I10 - Essential (primary) hypertension
[2024-05-26 12:48] VITALS: BP 118/74; PULSE 72; RESP 14; O2SAT 98; BMI 32.0
--- OUTSIDE RECORDS SUMMARY | 2024-05-26 16:29 | XMS_ITS | Clinical Summary ---
Author Organization [employer] Address [address] [facility] 7t [place] [address] Care Team Providers Care General Ledger Accountant Name Role Phone Unavailable Primary Care Provider [...] 11/18/2022 Periodontal disease 05/21/2022 Dental calculus 05/21/2022 Encounters Date Type Department Care Team Description 05/25/2024 Telephone [facility] MEDICINE [address], [place] [phone] Federico Daniels MD from Last 3 Months Social History Tobacco Use Types Packs/Day Years [...] Description 06/22/2024 1:00 PM EST Office Visit [facility] ADULT DENTAL [address], [place] [phone] Dorothea, Jeanette [address] [place] [address] Health Maintenance Due Date Last Done Comments [...] 12/18/2023, 05/29/2023, 11/19/2022 Dental X-Ray: [facility] 12/15/2024 12/15/19 24, 05/29/2023, 11/18/2022 Tobacco Screening 01/06/2025 01/07/2024 Dental [...] Relevant to Health Maintenance Insurance DENTAL - [facility] [place] [address]
--- OUTSIDE RECORDS SUMMARY | 2024-05-26 16:29 | XMS_ITS | Patient Health Record ---
Author Organization [facility] Address [address] [facility] [place] [address] Care Team Providers Care Booster Plant Operator Name Role Phone Christal Robison Primary Care Provider Kurt Cunha [phone] Allergies Allergen (clinical drug ingredient) Drug/Non Drug [...] Type 2 diabetes mellitus with peripheral angiopathy ([id number]) Type 2 diabetes mellitus with diabetic peripheral angiopathy without gangrene (E11.51) Active confirmed Q7(A), Q8(2B), Q9(1B,2C) Vital Signs Blood pressure diastolic 62 mm Hg 04/14/2024 Height 5ft 6in in 04/14/2024 Blood pressure systolic 120 mm Hg 04/14/2024 Weight 191 lbs 04/14/2024 BMI 30.82 kg/m2 04/14/2024 Procedures Procedure Date Ordered Date Performed Result Body Sit e 40918-JUXTDMW NAIL, 1-5 04/14/2024 N/A [id number] DYSTROPHIC NAILS ANY # 04/14/2024 N/A Encounters Encounter Location Date Provider [facility] [address] [place] [address] 04/14/2024 Kurt Rodriguez Type 2 diabetes mellitus with diabetic peripheral angiopathy without gangrene E11.51 ; Tinea unguium B35.1 ; Pain in right toe(s) M79.674 and Pain in left toe(s) M79.675 [facility] [address] [place] [address] 03/30/2024 Kurt Rodriguez Assessments Encounter Date Diagnosis [...] Treatment Pending Test Test Name Order Date 71629-NRCFVPM NAIL, 1-5 04/14/2024 [id number] DYSTROPHIC NAILS ANY # Next Appt Details Provider Name:Kurt Rodriguez, 07/14/2024 11:00:00 AM, [address], [place], [address], Insurance Providers Payer Name Payer Address Payer Phone Subscriber Number Group Number Insured Name Patient Relationship to Insured Coverage Start Date Coverage End Date [facility] [id number] [address] [address] [place] [address] [id number] Viv Pham Self - patient is the insured Medical (General) History Medical History History ICD Code Anemia asthma Diabetic High Blood Pressure thyroid Surgical History Surgery Date(Month/Year) 1981/1983/1986
--- OUTSIDE RECORDS SUMMARY | 2024-05-26 16:30 | XMS_ITS | Encounter Summary ---
Author Organization [employer] Address [address] [facility] 7t [place] [address] Care Team Providers Care Welder 2Nd Shift Name Role Phone Unavailable Primary Care Provider Unavailabl e Encounter Details Date Type Department Care Team (Latest Contact Info) Description 02/12/2022 Abstract [facility] CONVERSIONS Dental, Provider, DDS Social History [...] Description 06/22/2024 1:00 PM EST Office Visit [facility] ADULT DENTAL [address] [place] [address] Jeanette Piedra [address] [place] [address] documented as of this encounter Visit Diagnoses Not on filedocumented in this encounter
--- OUTSIDE RECORDS SUMMARY | 2024-05-26 16:30 | XMS_ITS ---
Author Organization [facility] Address [address] [place] [address] Care Team Providers Care Fire Coordinator Name Role Phone Christal Robison Primary Care Provider Kurt Cunha [phone] REASON FOR VISIT LEADED GLASS INSTALLER PPWK Entered Encounters Encounter Location Date Provider Diagnosis [facility] [address] [place] [address] 03/30/2024 Kurt Rodriguez Plan Of Treatment Next Appt Details Provider Name:Kurt Rodriguez, 07/14/2024 11:00:00 AM, [address] [facility], [place], [address], Progress Notes * Viv LOCKWOOD LDOB:1955 (68 yo F)Acc No.[id number]:03/30/2024 Patient:?Viv LOCKWOOD :1955???Age:68 Y???Sex:Female Address:[place] [address] * true * Date:? Generated for Printi ng/Faxing/eTransmitting on:?05/26/2024 04:29 PM EST
--- OUTSIDE RECORDS SUMMARY | 2024-05-26 16:30 | XMS_ITS ---
Author Organization [facility] Address [address] [place] [address] Care Team Providers Care Oven Heater Helper Name Role Phone Ricki Christal Primary Care Provider Kurt Cunha [phone] Allergies Allergen (clinical drug ingredient) Drug/Non Drug [...] Type 2 diabetes mellitus with peripheral angiopathy ([id number]) Type 2 diabetes mellitus with diabetic peripheral angiopathy without gangrene (E11.51) Active confirmed Q7(A), Q8(2B), Q9(1B,2C) Vital Signs Height 5ft 6in in 04/14/2024 Weight 191 lbs 04/14/2024 BMI 30.82 kg/m2 04/14/2024 Blood pressure systolic 120 mm Hg 04/14/20 24 Blood pressure diastolic 62 mm Hg 024 Procedures Procedure Date Ordered Date Performed Result Body Sit e 83170-FVFQMHS NAIL, 1-5 04/14/2024 N/A [id number] DYSTROPHIC NAILS ANY # 04/14/2024 N/A Encounters Encounter Location Date Provider Diagnosis [facility] [address] 04/14/2024 Kurt Rodriguez Type 2 diabetes mellitus [...] Treatment Pending Test Test Name Order Date 26530-WHAVGOW NAIL, 1-5 04/14/2024 [id number] DYSTROPHIC NAILS ANY # Next Appt Details Follow Up: 3 Months, Reason: Provider Name:Kurt Rodriguez, 07/14/2024 11:00:00 AM, [address] [facility], [place], [address], Procedure Notes * Category Sub-Category Detail Notes [...] necessary to maintain effective symptomatic relief - 43302 Nail Reduction Nail Reduction (-27) Trimming o [...] * Viv LOCKWOOD LDOB:1955 (68 yo F)Acc No.[id number]:04/14/2024 Progress Notes Patient:?Viv LOCKWOOD L Provider:?Kurt Rodriguez D.P.M. :1955???Age:68 Y???Sex:Female D ate:04/14/2024 [address]: [address] [place] [place] Pcp:Christal Robison Subjective: * Chief Complaints: * [...] - M79.675??? Plan: * Treatment: 2.?Tinea unguium?Procedure: 73174-HXLXBDK NAIL, 1-5 * Procedures:?Debride Nails 1-5:?Procedure:?Due to [...] necessary to maintain effective symptomatic relief - 73771.?Nail Reduction:?Nail Reduction?(-27) Trimming of all dystrophic nails [...] bed tissue - G0127 Q8.? * Procedure Codes:?17953 DEBRI DE NAIL, 1-5, Modifiers: XS G0127 [...] Rodriguez D.P.M. Date:?03/27 Generated for Geraldoi charlie/Yajaira/eTransmitting on:?05/26/2024 04:29 PM EST History and Physical Notes * [...]
--- OUTSIDE RECORDS SUMMARY | 2024-05-26 16:30 | XMS_ITS | Encounter Summary ---
Author Organization [employer] Address [address] [facility] 7t [place] [address] Care Team Providers Care House Director Name Role Phone Unavailable Primary Care Provider Unavailabl e Encounter Details Date Type Department Care Team (Late Contact Info) Description 05/25/2024 Telephone [facility] MEDICINE [address] [place] [address] Federico Daniels MD [address] [place] [address] Social History Tobacco Use Types Packs/Day Years Used Date Smoking Tobacco: Never Passive Smoke Exposure: Never Smokeless Tobacco: Never Alcohol Use Standard Drinks/Week Comments Never 0 (1 standard drink = 0.6 oz pur e alcohol) Comments Unknown Sex and Gender Information Value Date Recorded Sex Assigned at Female 02/24/2022 10:33 AM EDT Legal Sex Female 10:33 AM EDT Gender Identity Female 02/24/2022 10:33 AM EDT Sexual Orientation Straight 02/24/2022 10 :33 AM EDT documented as of this encounter Miscellaneous Notes * Telephone Encounter - Iwona Santiago - 05/25/2024 2:55 PM EST Outgoing call to patient to book SUPERVISOR GELATIN PLANT appt. No Answer. Left Message. documented in this encounter Plan of Treatment Upcoming Encounters Date Type Department Care Team ([facility] Contact Info) Description 06/22/2024 1:00 PM EST Office Visit [facility] ADULT DENTAL [address] [place] [address] Jeanette Piedra [address] [place] [address] documented as of this encounter Visit Diagnoses Not on filedocumented in this encounter
--- OUTSIDE RECORDS SUMMARY | 2024-05-26 16:30 | XMS_ITS | Encounter Summary ---
Author Organization [employer] Address [address] [facility] 7t [place] [address] Care Team Providers Care Labor Training Manager Name Role Phone Unavailable Primary Care Provider Unavailabl e Encounter Details Date Type Department Care Team (Latest Contact Info) Description 11/22/2018 Abstract [facility] CONVERSIONS Dental, Provider, DDS Social History Tobacco [...] Description 06/22/2024 1:00 PM EST Office Visit [facility] ADULT DENTAL [address] [place] [address] Jeanette Piedra [address] [place] [address] documented as of this encounter Visit Diagnoses Not on filedocumented in this encounter
--- OUTSIDE RECORDS SUMMARY | 2024-05-26 16:30 | XMS_ITS | Encounter Summary ---
Author Organization [facility] Address [address] [place] [address] 7t [place] [address] Care Team Providers Care Emr Implementation Specialist Name Role Phone Unavailable Primary Care Provider Unavailabl e Reason for Referral * Consultation - Closed Specialty Diagnoses / Procedures Referred By Radha james Referred To Contact Dentistry Diagnoses completed Procedures LR PERIODONTAL SCALING AND ROOT PLANING - 1 TO 3 TEETH PER QUADRANT [facility] ADULT DENTAL [address] [place] [address] Phone: tel: fax: [facility] ADULT DENTAL [address] [place] [address] Phone: tel: fax: Referral ID Status Reason Start Date Expiration Date Visits Re quested Visits Authorized [id number] Closed 03/26/2022 09/22/2022 1 1 * Consultation - Closed Specialty Diagnoses / Procedures Referred By Radha james Referred To Contact Dentistry Diagnoses completed Procedures UR PERIODONTAL SCALING AND ROOT PLANING - 1 TO 3 TEETH PER [facility] ADULT DENTAL [address] [place] [address] Phone: tel: fax: [facility] ADULT DENTAL [address] [place] [address] Phone: tel: fax: Referral ID Status Reason Start Date Expiration Date Visits Re quested Visits Authorized [id number] Closed 03/26/2022 09/22/2022 1 1 Encounter Details Date Type Department Care Team (Late st Contact Info) Description 03/26/2022 Abstract [facility] ADULT DENTAL [address] [place] [address] Dental, Provider, DDS Social History Tobacco Use [...] Description 06/22/2024 1:00 PM EST Office Visit [facility] ADULT DENTAL [address] [place] [address] Jeanette Piedra [address] [place] [address] documented as of this encounter Procedures Procedure [...]
== END 2024-05-26 13:12 | disposition home or self-care (01) ==
PROVIDERS: PCP Physician Assistant; Visit Provider Physician Assistant
DX: E11.9 Type 2 diabetes mellitus without complications (principal); I10 Essential (primary) hypertension; E78.5 Hyperlipidemia, unspecified; D64.9 Anemia, unspecified; E03.9 Hypothyroidism, unspecified

== ENCOUNTER → 2024-05-26 12:41 | Outpatient (BNVA) | payer MEDICARE, SELFPAY | PROVIDERS: PCP Physician Assistant; Visit Provider Physician Assistant | DX: E11.9 Type 2 diabetes mellitus without complications (principal); I10 Essential (primary) hypertension; E78.5 Hyperlipidemia, unspecified; D64.9 Anemia, unspecified; E03.9 Hypothyroidism, unspecified | CPT/HCPCS: 99212 ==

== ENCOUNTER 2024-05-27 10:05 | Outpatient (REF) | payer MEDICARE, SELFPAY ==
--- OUTSIDE RECORDS SUMMARY | 2024-05-27 10:47 | XMS_ITS | Clinical Summary ---
Author Organization [employer] Address [address] [facility] 7t [place] [address] Care Team Providers Care Spotlight Operator Name Role Phone Unavailable Primary Care Provider [...] Type Department Care Team Description 05/25/2024 Telephone [facility] MEDICINE [address] [place], [place] [phone] Federico Daniels MD from Last 3 Months [...] Description 06/22/2024 1:00 PM EST Office Visit [facility] ADULT DENTAL [address] [place], [place] [phone] Dorothea, Jeanette [address] [place] [address] Health Maintenance Due Date Last Done Comments [...] Health Maintenance Insurance DENTAL - [facility] [place] [id number]
--- OUTSIDE RECORDS SUMMARY | 2024-05-27 10:47 | XMS_ITS | Encounter Summary ---
Author Organization [employer] Address [address] [facility] 7t [place] [address] Care Team Providers Care Sexual Assault Social Worker Name Role Phone Unavailable Primary Care Provider Unavailabl e Encounter Details Date Type Department Care Team (Latest Contact Info) Description 11/22/2018 Abstract [facility] CONVERSIONS Dental, Provider, DDS Social History [...] Description 06/22/2024 1:00 PM EST Office Visit [facility] ADULT DENTAL [address] [place] [address] Jeanette Piedra [address] [place] [address] documented as of this encounter Visit Diagnoses Not on filedocumented in this encounter
--- OUTSIDE RECORDS SUMMARY | 2024-05-27 10:47 | XMS_ITS | Encounter Summary ---
Author Organization [employer] Address [address] [facility] 7t [place] [address] Care Team Providers Care Broadcast Technician Name Role Phone Unavailable Primary Care Provider Unavailabl e Encounter Details Date Type Department Care Team (Late Contact Info) Description 05/25/2024 Telephone [facility] MEDICINE [address] [place] [address] Federico Daniels MD [address] [place] [address] Social History Tobacco Use Types Packs/Day Years [...] EST Outgoing call to patient to book SECOND GRADE TEACHER appt. No Answer. Left Message. documented in this encounter Plan of Treatment Upcoming Encounters Date Type Department Care Team ([facility] Contact Info) Description 06/22/2024 1:00 PM EST Office Visit [facility] ADULT DENTAL [address] [place] [address] Jeanette Piedra [address] [place] [address] documented as of this encounter Visit Diagnoses Not on filedocumented in this encounter
--- OUTSIDE RECORDS SUMMARY | 2024-05-27 10:48 | XMS_ITS | Encounter Summary ---
Author Organization [employer] Address [address] [facility] 7t [place] [address] Care Team Providers Care Sales And Customer Relations Rep Name Role Phone Unavailable Primary Care Provider Unavailabl e Encounter Details Date Type Department Care Team (Latest Contact Info) Description 02/12/2022 Abstract [facility] CONVERSIONS Dental, Provider, DDS Social History Tobacco [...] Description 06/22/2024 1:00 PM EST Office Visit [facility] ADULT DENTAL [address] [place] [address] Jeanette Piedra [address] [place] [address] documented as of this encounter Visit Diagnoses Not on filedocumented in this encounter
--- OUTSIDE RECORDS SUMMARY | 2024-05-27 10:48 | XMS_ITS | Encounter Summary ---
Author Organization [facility] Address [address] [place] [address] [address] [place] [address] Care Team Providers Care Director Of Sales Support Name Role Phone Unavailable Primary Care Provider Unavailabl e Reason for Referral * Consultation - Closed Specialty Diagnoses / Procedures Referred By Radha james Referred To Contact Dentistry Diagnoses completed Procedures LR PERIODONTAL SCALING AND ROOT PLANING - 1 TO 3 TEETH PER [facility] [address] [place] [address] Phone: tel: fax: [facility] [address] [place] [address] Phone: tel: fax: Referral ID Status Reason Start Date Expiration Date Visits Re quested Visits Authorized [id number] Closed 03/26/2022 09/22/2022 1 1 * Consultation - Closed Specialty Diagnoses / Procedures Referred By Radha james Referred To Contact Dentistry Diagnoses completed Procedures UR PERIODONTAL SCALING AND ROOT PLANING - 1 TO 3 TEETH PER [facility] [address] [place] [address] Phone: tel: fax: [facility] [address] [place] [address] Phone: tel: fax: Referral ID Status Reason Start Date Expiration Date Visits Re quested Visits Authorized [id number] Closed 03/26/2022 09/22/2022 1 1 Encounter Details Date Type Department Care Team (Late st Contact Info) Description 03/26/2022 Abstract [facility] [address] [place] [address] Dental, Provider, DDS Social History Tobacco Use [...] [facility] [address] [place] [address] Jeanette Piedra [address] [place] [address] documented as of this encounter Procedures Procedure [...]
[2024-05-27 11:20] LABS: Alanine Aminotransferase 17 U/L (0-31); Albumin Level 4.2 g/dL (3.5-5.0); Alkaline Phosphatase 52 U/L (39-117); Anion Gap 10 (12-20); Aspartate Amino Transferase 21 U/L (5-31); Bilirubin Total 0.7 mg/dL (0.0-1.0); Blood Urea Nitrogen 19 mg/dL (9-16); Carbon Dioxide 30 mmol/L (22-29); Chloride 105 mmol/L (96-108); Cholesterol 168 mg/dL (<200); Estimated Glomerular Filt Rate > 60; Glucose Fasting 104 mg/dL (60-99); HDL Cholesterol 63 mg/dL (>40); LDL Cholesterol Calculated 88 mg/dL (<100); Sodium 141 mmol/L (135-145); Total Protein 7.4 g/dL (6.5-8.0); Triglycerides 85 mg/dL (<150)
[2024-05-27 11:26] LABS: TSH reflex Free T4 3.81 uIU/mL (0.32-4.0)
[2024-05-27 11:27] LABS: Creatinine Urine 42.38 mg/dL; Microalbumin Urine < 5.0 mg/L
== END 2024-05-27 10:06 | disposition home or self-care (01) ==
LOC: HO.LAB 10:05
PROVIDERS: PCP Physician Assistant; Visit Provider Physician Assistant
DX: E11.9 Type 2 diabetes mellitus without complications (principal); I10 Essential (primary) hypertension; E78.5 Hyperlipidemia, unspecified; E03.9 Hypothyroidism, unspecified; D64.9 Anemia, unspecified
CPT/HCPCS: 36415; 80053; 80061; 82043; 82570; 84443

== ENCOUNTER 2024-06-07 10:38 | Outpatient (AMB) | payer MEDICARE, SELFPAY ==
[2024-06-07 10:46] VITALS: BP 154/60; PULSE 77; BMI 31.2
--- NOTE | 2024-06-07 10:46 | MHC.OFFVIS ---
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 Packing Line Operator Required: Yes Packing Line Operator Services: Packing Line Operator Present Packing Line Operator Name: Tim [id number] Accompanied by: Self / Same As Patient Allergies seafood Allergy (Severe, Verified 05/25/24 11:14) Anaphylaxis cinnamon Allergy (Intermediate, Verified 05/25/24 11:14) Swelling Penicillins [PENICILLINS] Allergy (Unknown, Verified 05/25/24 11:14) HIVES flu vaccine Allergy (Unknown, Uncoded 05/25/24 11:14) Rash Medication List - Last Reconciled 06/07/24 by Peter Salmon MD albuterol-budesonide 90-80 mcg/actuation (Airsupra) 2 inhalations inhalation BID PRN 30 days bisacodyl (Dulcolax (bisacodyl)) 20 mg (4 x 5 mg) PO ONCE 1 day blood sugar diagnostic ([employer] Ultra Test strips) Use daily As directed to check blood glucose blood-glucose meter ([employer] Ultra2 Meter) Use daily As directed kgrqyxkfqh-yakvnldr-psioloymaa 160-9-4.8 mcg/actuation (Breztri Aerosphere) 2 inhalations inhalation BID 30 days calcium carb,lactat-vitamin D3 200 mg-6.25 mcg (250 unit) 200 tabs PO DAILY lancets (OneTouch Delica Plus Lancet) As directed levalbuterol tartrate 45 mcg/actuation 1 puff inhalation Q6H levothyroxine 25 mcg PO DAILY loratadine (Claritin) 10 mg PO DAILY meclizine 25 mg PO DAILY PRN metformin ER 1,500 mg PO ONCE polyethylene glycol 3350 (Miralax) 238 grams PO ONCE simvastatin 20 mg PO BEDTIME valsartan 80 mg PO DAILY HPI Comments Details: Ada is here for consultation regarding a cardiac murmur. Multiple cardiovascular risk factors including diabetes, hypertension, dyslipidemia. She states she is fairly active without any limitations and does not get any symptoms like chest pains. She had an echocardiogram at [facility] last year and that had reported moderate diastolic dysfunction and aortic sclerosis. No hemodynamically significant valve disease. PFSH Medical History Chronic restrictive lung disease Pneumonitis Surgical History H/O colonoscopy (~2013) Family History Mother Asthma Anemia Diabetes HTN (hypertension) Glaucoma Father Stroke Sister Diabetes HTN (hypertension) Asthma Myocardial infarct Stroke Breast cancer Brother Diabetes Glaucoma Asthma Cancer Social History Household Members: Spouse and Family Housing: House Alcohol intake: never Patient Tobacco Use Status: Never used Tobacco e-Cigarette/Vaping Use: Never Used service: No Current occupational status: retired Gender identity: Female Cognitive needs: No Hearing needs: No Vision needs: Yes (cataracts) Review of Systems Const Denies chills, Denies daytime sleepiness, Denies fatigue, Denies fever(s), Denies poor appetite, Denies snoring, Denies stops breathing during sleep, Denies weakness, Denies weight gain and Denies weight loss Eyes Denies loss of vision ENT Denies dizziness and Denies hearing loss Card Denies chest pain, Denies irregular heart rhythm, Denies claudication, Denies leg edema, Denies lightheadedness, Denies palpitations, Denies dyspnea on exertion and Denies orthopnea Resp Denies cough, Denies excessive phlegm production, Denies dyspnea on exertion, Denies snoring and Denies wheezing GI Denies abdominal pain, Denies hematochezia, Denies change in bowel habits, Denies nausea and Denies vomiting Denies urinary frequency and Denies dysuria Musc Denies arthralgias, Denies muscle weakness, Denies numbness and Denies other Skin/Breast Denies nail changes and Denies rash Neuro Denies Abnormal speech present, Denies dizziness, Denies loss of vision, Denies memory loss, Denies numbness and Denies weakness Psych Denies depression and Denies memory loss Endo Denies fatigue and Denies palpitations [place]/Lymph Denies easy bruising Aller/Immun Denies wheezing Physical Exam Vital Signs: Last Vital Signs Pulse 77 06/07/24 10:46 BP 154/60 H 06/07/24 10:46 BMI result Body Mass Index 31.2 Const General: comfortable and no acute distress Orientation/consciousness: patient oriented x3 HEENT Other: Unremarkable Head: Yes normal to inspection Neck Neck: Yes normal visual inspection Chest Chest palpation & inspection: normal inspection of the chest Resp Auscultation: clear to auscultation bilaterally Cardio Palpation: normal PMI Heart sounds: S1 normal heart sound present, S2 normal heart sound present, no gallops, Murmur heart sound present systolic II/ and at the right sternal border and no rubs GI Palpation (GI): Soft to palpation Back/Spine/Pelvis Other: unremarkable Skin General skin exam: no rashes or lesions noted Neuro General: patient oriented x3 Speech: No Abnormal speech present Extrem General: Yes normal to inspection Psych Mental Status: mental status grossly normal Office Procedures EKG Details: EKG with underlying sinus rhythm at 77/Min; no significant ST-T changes and otherwise unremarkable[place] [id number], Complete Assessment & Plan Assessment & Plan (1) Atherosclerotic cardiovascular disease: Code(s): I25.10 - Atherosclerotic heart disease of [place] coronary artery without angina pectoris Category: Medical (2) Diastolic dysfunction: Code(s): I51.89 - Other ill-defined heart diseases Category: Medical (3) Aortic valve sclerosis: Code(s): I35.8 - Other nonrheumatic aortic valve disorders Category: Medical (4) T2DM (type 2 diabetes mellitus): Code(s): E11.9 - Type 2 diabetes mellitus without complications Category: Medical Qualifiers: Diabetes mellitus nursing home insulin use: without nursing home use Diabetes mellitus complication status: without complication Qualified Code(s): E11.9 - Type 2 diabetes mellitus without complications (5) Hypertension: Code(s): I10 - Essential (primary) hypertension Category: Medical (6) Hyperlipidemia: Code(s): E78.5 - Hyperlipidemia, unspecified Category: Medical Plan Pertinent data reviewed. Echocardiogram from [id number] 55-60%. Moderate diastolic dysfunction. Mild left atrial dilatation. Aortic valve sclerosis but no stenosis. Thickened mitral leaflets. Chest CT scan shows moderate coronary artery calcification. Overall, multiple cardiovascular risk factors, coronary calcification on CT scan, diastolic dysfunction and valvular sclerosis but no significant stenosis. Obtain exercise myocardial perfusion imaging study to assess ischemic burden. If this is unremarkable, then mainly aggressive risk factor modification. With regard to the valvular findings, recheck echo in 1 year. Plan discussed with patient and she agrees. Orders: Orders CA stress test Today Peter Salmon MD I25.10 - Atherosclerotic heart disease of [place] coronary artery without angina pectoris, R07.2 - Precordial pain NM cardiolite stress test Today Peter Salmon MD I25.10 - Atherosclerotic heart disease of [place] coronary artery without angina pectoris, R07.2 - Precordial pain CA echo transthoracic complete Today Peter Salmon MD I35.0 - Nonrheumatic aortic (valve) stenosis Medications: Changed From metformin ER 1,000 mg (2 x 500 mg) PO BID 90 days 360 tabs 1RF To metformin ER 1,500 mg PO ONCE Damian Rodas PA-C Coding Level of Care Code New Pt Level 4 (38958) Diagnoses Atherosclerotic cardiovascular disease I25.10 Diastolic dysfunction I51.89 Aortic valve sclerosis I35.8 Type 2 diabetes mellitus without complication, without long-term current use of insulin E11.9 Diabetes mellitus nursing home insulin use: without nursing home use Diabetes mellitus complication status: without complication Hypertension I10 Hyperlipidemia E78.5 CPT Codes EKG - CPT: 95760-Tnpqejxhesjyhylpt, Complete ([id number])
== END 2024-06-07 11:18 | disposition home or self-care (01) ==
PROVIDERS: PCP Physician Assistant; Visit Provider Internal Medicine
DX: I25.10 Atherosclerotic heart disease of native coronary artery without angina pectoris (principal); I51.89 Other ill-defined heart diseases; I35.8 Other nonrheumatic aortic valve disorders; E11.9 Type 2 diabetes mellitus without complications; I10 Essential (primary) hypertension; E78.5 Hyperlipidemia, unspecified
CPT/HCPCS: 93010; 99204

== ENCOUNTER → 2024-06-07 10:38 | Outpatient (BNVA) | payer MEDICARE, SELFPAY | PROVIDERS: PCP Physician Assistant; Visit Provider Internal Medicine | DX: I25.10 Atherosclerotic heart disease of native coronary artery without angina pectoris (principal); I35.8 Other nonrheumatic aortic valve disorders; I51.89 Other ill-defined heart diseases; I10 Essential (primary) hypertension; E78.5 Hyperlipidemia, unspecified; E11.9 Type 2 diabetes mellitus without complications | CPT/HCPCS: 93005; 99202 ==

== ENCOUNTER 2024-06-16 09:35 | Day surgery (SDC) | payer MEDICARE, SELFPAY ==
--- NOTE | 2024-06-16 10:51 | P.HPSUR_ITS ---
Pre-Procedural Eval Section A - 24 Hr Update-Section A only Date of Service: 06/16/24 Section B - Complete if H&P > 30 days Chief Complaint: Encounter for screening for malignant neoplasm of Relevant Family History (Specify if Yes): No Relevant Social History: None Present Medications: see Short Stay Collaborative assessment Medical History: Significant History (ronic restrictive lung disease Pneumonit is) History of Previous Operations: Relevant previous surgery/procedure and date(s) (H/O colonoscopy (~2013)) Allergies: Allergies Allergy/AdvReac Type Severity Reaction Status Date / Time seafood Allergy Severe Anaphylaxis Verified 06/16/24 10:19 cinnamon Allergy Intermediate Swelling Verified 06/16/24 10:19 latex Allergy Intermediate Rash Verified 06/16/24 10:19 Penicillins [PENICILLINS] Allergy Unknown HIVES Verified 06/16/24 10:19 flu vaccine Allergy Unknown Rash, skin Uncoded 06/16/24 10:20 peeling Ch Review of Systems Sugical H&P ROS: Negative: Constitution, Cardiovascular, Respiratory, Neurological, Psychiatric, Hem-Onc, Allergic/Immunologic, Gastrointestinal, Genitourinary, Musculoskeletal, Integumentary, Endocrine and Eyes/Ears/Nose/Throat Exam Surgical H&P Exam: Normal: HEENT, Normal: Heart, Normal: Lungs, Normal: Extremities, Normal: Abdomen, Normal: Skin and Normal: Neurological Plan Diagnosis/Plan: Unchanged I have reviewed the history and physical and performed a pertinent physical examination on my patient. No changes have occurred unless specified. Time Spent With Patient Time: Total time managing care of this patient today ____ minutes.
[2024-06-16 10:53] VITALS: BP 128/48; PULSE 79; RESP 16; TEMP 36.7; O2SAT 100
[2024-06-16 10:54] LABS: Glucose, Whole Blood 121 mg/dL (60-115)
--- NOTE | 2024-06-16 11:04 | HO.ANESPROP2 ---
HPI - Anesthesia Eval Consult details Narrative: for colonoscopy [facility] Active Problems Active Problems: All Active Problems Atherosclerotic cardiovascular disease (Acute) Aortic valve sclerosis (Acute) Diastolic dysfunction (Acute) Varicose veins of left lower extremity with inflammation (Acute) Chronic restrictive lung disease (Acute) Pneumonitis (Acute) Hypothyroid (Acute) Anemia (Chronic) Murmur (Acute) PVD (peripheral vascular disease) (Acute) Asthma (Acute) Right shoulder tendinitis (Acute) Obesity (Acute) Nonspecific reaction to tuberculin skin test without active tuberculosis (Acute) Low back pain (Acute) Allergic rhinitis (Acute) Hyperlipidemia (Acute) Hypertension (Acute) Fibromyalgia (Acute) BPPV (benign paroxysmal positional vertigo) (Acute) Primary osteoarthritis of left shoulder (Acute) Disuse syndrome of extremity (Acute) Pelvic pain (Acute) T2DM (type 2 diabetes mellitus) (Acute) Past Medical History Medical History Chronic restrictive lung disease Pneumonitis Narrative: Pt denies chest pain or SOB. Echo from [facility] fairly unremarkable per Jeanine Mariano. Family History Family History Mother Asthma Anemia Diabetes HTN (hypertension) Glaucoma Father Stroke Sister Diabetes HTN (hypertension) Asthma Myocardial infarct Stroke Breast cancer Brother Diabetes Glaucoma Asthma Cancer Family history of problems with anesthesia: No Surgical History Surgical History H/O colonoscopy (~2013) History of Problems with Anesthesia: No Social History Social History Household Members: Spouse and Family Housing: House Alcohol intake: never Patient Tobacco Use Status: Never used Tobacco e-Cigarette/Vaping Use: Never Used Use of substances other than those prescribed or required for medical reasons: No Advance Directives: No Advance Directives Information Provided: Yes service: No Current occupational status: retired Gender identity: Female Cognitive needs: No Hearing needs: No Vision needs: Yes (cataracts) Meds Allergies Allergy/AdvReac Type Severity Reaction Status Date / Time seafood Allergy Severe Anaphylaxis Verified 06/16/24 10:19 cinnamon Allergy Intermediate Swelling Verified 06/16/24 10:19 latex Allergy Intermediate Rash Verified 06/16/24 10:19 Penicillins [PENICILLINS] Allergy Unknown HIVES Verified 06/16/24 10:19 flu vaccine Allergy Unknown Rash, skin Uncoded 06/16/24 10:20 peeling Active Medications: Current Medications Lactated Ringer's (Lr) 1,000 mls @ 100 mls/hr IVCONT .Q10H JUDITH Home Medications ?Medication ?Instructions ?Recorded ?Confirmed ?Last Taken ?Type lancets 33 gauge (OneTouch Delica #100 ea 07/30/22 06/16/24 Unknown History Plus Lancet) calcium carb and lactate 200 200 tab PO DAILY 01/14/24 06/16/24 Unknown History mg-vitamin D3 6.25 mcg (250 unit) tablet levalbuterol tartrate 45 1 puff inhalation Q6H 05/25/24 06/16/24 Unknown History mcg/actuation aerosol inhaler meclizine 25 mg tablet 25 mg PO DAILY PRN Vertigo 06/07/24 06/16/24 Unknown History metformin 500 mg tablet,extended 1,500 mg PO ONCE 06/07/24 06/16/24 Unknown History release 24 hr Exam Height,Weight and Vital Signs: Height 5 ft 6 in Weight 84.368 kg Last Vital Signs Temp 98.0 F 06/16/24 10:53 Pulse 79 06/16/24 10:53 Resp 16 06/16/24 10:53 BP 128/48 L 06/16/24 10:53 Pulse Ox 100 06/16/24 10:53 O2 Del Method Room Air 06/16/24 10:53 Pertinent Lab Results Pertinent Lab Results: Laboratory Tests 06/16/24 10:48 POC Glucose 121 H Airway Mallampati Class: II TM Dist: <=3cm Neck ROM: Full Loose/Missing/Broken Teeth: No Heart: ok Lungs: ok Assessment and Plan Assessment Anesthesia Assessment: Anesthesia Plan Discussed and Chart Reviewed Final Anesthetic Review Family History of Problems with Anesthesia: No History of Problems with Anesthesia: No NPO: Yes ASA Class: III Final Preanesthetic Review: No Changes in Pt Med Stat, Meds/Allgs Chart Reviewed, Consent Obtained/Reviewed and Anes Risks/Benef Reviewed Patient Risk: Intermediate Procedure Risk: Low Anesthetic Plan Anesthetic Plan: MAC: and Agree w/ Assess. and Plan Disposition: Standard PACU
--- NOTE | 2024-06-16 11:24 | PC.NURSE ---
Upon intake, pt noted to be in bigeminy. Brought to the attention of head anesthesiologist, Dr. Varner, who advised to alert Dr. Yeboah and bolus patient if not contraindicated. No hx CHF or renal issues. IV started and bolus initiated. Reported off to OR nurse Luke Snow and Dr. Yeboah regarding pts rhythm.
--- NOTE | 2024-06-16 11:44 | P.OPN-COLO_ITS ---
Colonoscopy Operative Note Operative Note Date of Service: 06/16/24 Narrative: Operative Information Procedure Description: Colonoscopy Indication: screening Anesthesia: MAC COLONOSCOPY Instrument: Olympus variable stiffness pediatric scope 190L Colonoscopy Monitoring: Vital signs and clinical assessment, continuous EKG monitoring, Pulse oximetry, Carbon Dioxide monitoring and blood pressure monitoring were done throughout the procedure. Colon withdrawal time was 7 minutes. Procedure: The patient was placed in the left lateral decubitis position and pre-procedure medications were administered. After a digital rectal examination of the ano-rectum, the video colonoscope was inserted into the rectum and advanced through the colon to the cecum/TI. The colonoscope was slowly withdrawn in a retrograde panoramic fashion and the colon mucosa was carefully examined including a retroflexed view of the rectum. Findings and interventions are described below. Procedure Difficulty: moderate, looping, pressure applied Findings: Terminal Ileum-normal Cecum:normal Ascending Colon:8 mm sessile polyp removed with cold snare, not retrieved Transverse Colon - 8 mm sessile polyp removed with cold snare Descending Colon:normal Sigmoid Colon: normal Rectum: Retroflexion with small internal hemorrhoids seen, grade I Anorectum - normal Intervention: cold snare Colon preparation: [place] Bowel Preparation Scale Right colon; 2 Transverse colon: 2 Left colon; 2 (0 = Unprepared colon segment with mucosa not seen due to solid stool that cannot be cleared. 1 = Portion of mucosa of the colon segment seen, but other areas of the colon segment not well seen due to staining, residual stool and/or opaque liquid. 2 = Minor amount of residual staining, small fragments of stool and/or opaque liquid, but mucosa of colon segment seen well. 3 = Entire mucosa of colon segment seen well with no residual staining, small fragments of stool or opaque liquid) Impression and Post Procedure Diagnosis: colon polyps internal hemorrhoids Plan: High fiber diet leaflet Avoid straining at stool, epsom salts and sitz bath, anusol supps or cream Repeat Colonoscopy in 5 years or earlier if clinically indicated Above findings were reviewed with the patient and relevant handouts were provided if indicated.
[2024-06-16 11:51] VITALS: BP 126/59; PULSE 70; RESP 20; TEMP 36.9; O2SAT 94
[2024-06-16 12:08] VITALS: BP 134/60; PULSE 75; RESP 20; TEMP 36.7; O2SAT 99
== END 2024-06-16 12:34 | disposition home or self-care (01) ==
PROVIDERS: PCP Physician Assistant; Visit Provider Internal Medicine Gastroenterology
PROC: 0DJD8ZZ Inspection of Lower Intestinal Tract, Via Natural or Artificial Opening Endoscopic (ICD-10-PCS; CPT 45378; principal; 2024-06-16 12:20)
DX: Z12.11 Encounter for screening for malignant neoplasm of colon (principal); D12.3 Benign neoplasm of transverse colon; K64.0 First degree hemorrhoids; K56.2 Volvulus; E11.9 Type 2 diabetes mellitus without complications; I10 Essential (primary) hypertension; E78.00 Pure hypercholesterolemia, unspecified; E03.9 Hypothyroidism, unspecified; Z79.02 Long term (current) use of antithrombotics/antiplatelets; Z79.84 Long term (current) use of oral hypoglycemic drugs; Z79.899 Other long term (current) drug therapy
CPT/HCPCS: 45385; 82947; 88305; J2003; J2704

== ENCOUNTER → 2024-06-16 09:35 | Outpatient (BNV) | payer MEDICARE, SELFPAY | PROVIDERS: PCP Physician Assistant; Visit Provider Internal Medicine Gastroenterology | DX: Z12.11 Encounter for screening for malignant neoplasm of colon (principal); D12.3 Benign neoplasm of transverse colon; K64.0 First degree hemorrhoids | CPT/HCPCS: 45385 ==

== ENCOUNTER 2024-06-28 13:37 | Outpatient (AMB) | payer MEDICARE, SELFPAY ==
--- NOTE | 2024-06-28 13:38 | A.OFFVIS_ITS ---
Vital Signs 06/28/24 13:50 Height 5 ft 6 in Weight 188 lb 11.451 oz BMI 30.5 BP 120/60 Blood Pressure Location Rt brachial Position Sitting Pulse 86 Pulse Source Pulse Oximeter Pulse Oximetry (%) 96 Oxygen Delivery Method Room Air Intake Visit Reasons: s/p colo Goodrich Intake Note: EST PATIENT FOR s/p FUV. Chief Complaint; Pt denies any GI specific concerns; however, she does have a concern regarding new onset of headaches since colo. Pt states that they are generalized and do not affect any one area, typically worse in the mornings and late at night. 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 Denies any issues with anesthesia in the past.? Denies any history of sleep apnea.? No history infectious diseases in the past or present.? Not on any anticoagulation therapy.? No family or personal history of colon cancer or polyps.? Patient denies melena, hematochezia, unintentional weight loss or ribbon like stools.? Discussed at length the pre-procedure,? prep, diet & medications as well as what to expect prior, during and after the procedure.?? Stressed the importance of good bowel prep.? Patient was on Trulicity, however she states that she is no longer going to take it because it is too expensive. Patient will speak to her PCP about different option. Recommended the use of Vaseline or Calmoseptine OTC & baby wipes with bowel movements to promote comfort.? ?Patient verbalizes understanding and agrees to plan of care.? She was given the opportunity to ask questions and all questions answered.? We will see her after the procedure.? Medications New bisacodyl (Dulcolax (bisacodyl)) take 4 tabs at noon the day before your colonoscopy 20 mg (4 x 5 mg) PO ONCE 4 tabs 0RF 1 day Z12.11 polyethylene glycol 3350 (Miralax) As directed by gastroenterology department at [facility] 238 grams PO ONCE 238 grams 0RF Z12.11 Discontinued benzonatate Discontinued Reason: Patient Completed Course 100 mg PO BID PRN 14 caps 0RF cough doxycycline hyclate Discontinued Reason: Patient Completed Course 100 mg PO BID 7 days 14 caps 0RF prednisone Discontinued Reason: Patient Completed Course 40 mg (2 x 20 mg) PO DAILY 5 days 10 tabs 0RF COLONOSCOPY Findings: Terminal Ileum-normal Cecum:normal Ascending Colon:8 mm sessile polyp removed with cold snare, not retrieved Transverse Colon - 8 mm sessile polyp removed with cold snare Descending Colon:normal Sigmoid Colon: normal Rectum: Retroflexion with small internal hemorrhoids seen, grade I Anorectum - normal Intervention: cold snare Colon preparation: Bradshaw Bowel Preparation Scale Right colon; 2 Transverse colon: 2 Left colon; 2 (0 = Unprepared colon segment with mucosa not seen due to solid stool that cannot be cleared. 1 = Portion of mucosa of the colon segment seen, but other areas of the colon segment not well seen due to staining, residual stool and/or opaque liquid. 2 = Minor amount of residual staining, small fragments of stool and/or opaque liquid, but mucosa of colon segment seen well. 3 = Entire mucosa of colon segment seen well with no residual staining, small fragments of stool or opaque liquid) Impression and Post Procedure Diagnosis: colon polyps internal hemorrhoids Plan: High fiber diet leaflet Avoid straining at stool, epsom salts and sitz bath, anusol supps or cream Repeat Colonoscopy in 5 years or earlier if clinically indicated PATHOLOGY RESULTS Diagnosis Colon, transverse, polypectomy: Tubular adenoma; negative for high-grade dysplasia or carcinoma TODAY'S VISIT Patient is here today for follow-up and to discuss colonoscopy results. Patient denies any ill effects from the prep, anesthesia or procedure itself. Patient does reports to have headaches that started after the procedure. Patient admits that she is not drinking enough water. Reports that she is moving her bowels well without any issues. One tubular adenoma found without high-grade dysplasia or carcinoma. Internal hemorrhoids found as well. Patient reports that she is feeling fairly well. Denies melena, hematochezia, unintentional weight loss or ribbon like stools. Colonoscopy recommended in 5 years, sooner if clinically necessary. [facility] Medical History Chronic restrictive lung disease Pneumonitis Surgical History H/O colonoscopy (~2013) Family History Mother Asthma Anemia Diabetes HTN (hypertension) Glaucoma Father Stroke Sister Diabetes HTN (hypertension) Asthma Myocardial infarct Stroke Breast cancer Brother Diabetes Glaucoma Asthma Cancer Social History Household Members: Spouse and Family Housing: House Alcohol intake: never Patient Tobacco Use Status: Never used Tobacco e-Cigarette/Vaping Use: Never Used service: No Current occupational status: retired Gender identity: Female Cognitive needs: No Hearing needs: No Vision needs: Yes (cataracts) Review of Systems Const Denies weight gain and Denies weight loss ENT Reports no additional complaints, Denies dysphagia and Denies odynophagia Card Reports no additional complaints Resp Reports no additional complaints GI Denies abdominal pain, Denies belching, Denies melena, Denies bloating, Denies change in bowel habits, Denies dysphagia, Denies excessive flatus, Denies dyspepsia, Denies heartburn, Denies diarrhea, Denies loose stools, Denies nausea, Denies odynophagia and Denies vomiting Musc Reports no additional complaints Neuro Reports no additional complaints Psych Reports no additional complaints Endo Reports no additional complaints Physical Exam Vital Signs: Last Vital Signs Pulse 86 06/28/24 13:50 BP 120/60 06/28/24 13:50 Pulse Ox 96 06/28/24 13:50 Oxygen Delivery Method Room Air 06/28/24 13:50 BMI result Body Mass Index 30.5 Const General: healthy appearing and no acute distress Nutritional Appearance: well nourished and obese Orientation/consciousness: patient oriented x3 Resp Effort & Inspection: normal respiratory effort, able to speak in complete sentences, no tracheal deviation and symmetric chest movement Auscultation: clear to auscultation bilaterally Cardio Rate: regular rate GI Inspection: Yes normal to inspection, No distended and Yes obesity Palpation (GI): Soft to palpation, not firm, nontender and No hepatosplenomegaly present Auscultation: normal bowel sounds General: Yes no CVA tenderness Back/Spine/Pelvis Back: no CVA tenderness Skin General skin exam: elasticity normal, turgor normal and dry skin Neuro General: patient oriented x3 Psych Appearance: grossly normal Mental Status: mental status grossly normal Assessment & Plan Assessment & Plan (1) Status post colonoscopy: Code(s): Z98.890 - Other specified postprocedural states (2) Hemorrhoids without complication: Code(s): K64.9 - Unspecified hemorrhoids (3) Tubular adenoma of colon: Code(s): D12.6 - Benign neoplasm of colon, unspecified Plan Patient reports occasional burning after bowel movements. Diagnosed with internal hemorrhoids. Will send a script for Proctosol. Patient reports that she is moving her bowels well and feels like she empties completely. Recommendation was made for patient to try high-fiber diet. May take obhj-gva-bmbvkkj fiber supplements with pre and probiotics. Patient reports headache after colonoscopy. Patient was encouraged to increase fluid intake. Follow-up in 3 months to re-evaluate. Patient is agreeable to current plan of care and verbalizes understanding of instructions. She was given the opportunity to ask questions and all questions answered. Thank you for allowing me to participate in her care Medications: New hydrocortisone 2.5% (Proctosol HC) 1 appl TN BID-QID PRN 30 grams 2RF hemorrhoids K64.9 - Unspecified hemorrhoids Coding Level of Care Code Est Pt Level 3 (61822) Diagnoses Status post colonoscopy Z98.890 Hemorrhoids without complication K64.9 Tubular adenoma of colon D12.6 Time Spent (min) 30 Comment 20 minutes spent with patient and additional 15 minutes spent reviewing her records
[2024-06-28 13:50] VITALS: BP 120/60; PULSE 86; O2SAT 96; BMI 30.5
--- OUTSIDE RECORDS SUMMARY | 2024-06-28 17:08 | XMS_ITS | Clinical Summary ---
Author Organization [employer] Address [address] [place] [address] Care Team Providers Care Ferryboat Pilot Name Role Phone Unavailable Primary Care Provider [...] by mouth in the morning. 11/23/2023 Active benzonatate (Tessalon) 100 MG capsule TAKE 1 CAPSULE BY MOUTH TWICE DAILY NEEDED FOR COUGH 04/22/2024 Active Breztri Aerosphere 160-9-4.8 MCG/ACT aerosol Inhale 2 puffs 2 times daily. 02/10/2024 Active levothyroxine (Synthroid, Levoxyl) 25 MCG tablet Take 1 tablet by mouth Once per day. 04/22/2024 Active Active Problems Problem Noted Date Diagnosed [...] Encounters Date Type Department Care Team Description 06/22/2024 1:00 PM EST Office Visit [facility] ADULT DENTAL [address], [place] [phone] Jeanette Piedra Dental plaque (Primary Dx) 05/25/2024 Telephone [facility] MEDICINE [address], [place] [phone] Federico Daniels MD from Last 3 Months [...] Sign Reading Time Taken Comments Blood Pressure 138/80 06/22/2024 1:08 PM EST Pulse 69 01/07/2024 10:10 AM EDT Temperature - - Respiratory Rate - - Oxygen Saturation - - Inhaled Oxygen Concentration - - Weight - - Height - - Body Mass Index - - Plan of Treatment Upcoming Encounters Date Type Department Care Team (Zan st Contact Info) Description 12/28/2024 1:00 PM EDT Office Visit [facility] ADULT DENTAL [address] [place] [address] Dorothea, Jeanette [address] [place] [address] Health Maintenance Due Date Last Done Comments CT Colonography 1955 Colonoscopy 1955 Colorectal Cancer Screening 1955 Depression Screening 1955 FIT DNA/Cologuard 1955 FIT 1955 FOBT 1955 Lipid Panel 1955 SDOH Screening 1955 Sigmoidoscopy 1954 Alcohol/Substance Use Screening 1966 Hepatitis C Screening 1972 Mammogram 1994 Zoster Vaccines (2 of 3) 06/20/2015 04/25/2015 Pneumococcal Vaccine: 50+ Years (2 of 2 - PCV) 11/29/2021 11/29/2020, 03/30/2014 COVID-19 Vaccine ( - season) 2023 05/22/2021, 09/05/2020, 08/08/2020 Influenza Vaccine (#1) 2023 Dental Oral Exam 06/17/2024 12/15/2023, 05/2023, 11/18/2022 Dental X-Ray: Bitewings 12/15/2024 12/15/19 24, 05/29/2023, 11/18/2022 Dental Prophylaxis 12/21/2024 06/22/2024, 0 12/18/2023, 05/29/2023, Additional history exists Tobacco Screening 06/22/2025 06/22/2024 Dental X-Ray: Full Mouth 05/30/2026 05/29/2023, 03/0 09/2017 RSV Patients and Patients Aged 60 years or older (1 - 1-dose 75+ series) 2029 DTaP/Tdap/Td Vaccines (3 - Td or Tdap) 10/06/2032 10/06/2022, 10/04/2012, 06/06/2005 Hepatitis [...] Procedure Name Priority Date/Time Associated Diagnosis Comments ORAL HYGIENE INSTRUCTIONS Routine 06/22/2024 1:00 PM EST Dental plaque PROPHYLAXIS - ADULT Routine 06/22/2024 1 :00 PM EST Dental plaque BITEWINGS - 4 RADIOGRAPHIC IMAGES Routine 12/15/2023 1:30 PM EDT Encounter for dental examination Dental caries Dental plaque PERIODIC ORAL EVALUATION - ESTABLISHED PATIENT Routine 12/15/2023 1:30 PM EDT Encounter for dental examination Dental caries Dental plaque INTRAORAL - COMPLETE SERIES OF RADIOGRAPHIC IMAGES Routine 05/29/2023 1:00 PM EST History of periodontal disease Localized gingival recession Encounter for dental examination from Last 3 Months or Most Recently Relevant to Health Maintenance Insurance DENTAL - [facility] [place] [address]
--- OUTSIDE RECORDS SUMMARY | 2024-06-28 17:08 | XMS_ITS | Patient Health Record ---
Author Organization [facility] Address [address] [place] [address] Care Team Providers Care Computer Analyst Supervisor Name Role Phone Christal Robison Primary Care Provider Kurt Cunha [phone] Allergies Allergen (clinical drug ingredient) Drug/Non Drug [...] Type 2 diabetes mellitus with peripheral angiopathy ([id number]) Type 2 diabetes mellitus with diabetic peripheral angiopathy without gangrene (E11.51) Active confirmed Q7(A), Q8(2B), Q9(1B,2C) Vital Signs Blood pressure diastolic 62 mm Hg 04/14/2024 Height 5ft 6in in 04/14/2024 Blood pressure systolic 120 mm Hg 04/14/2024 Weight 191 lbs 04/14/2024 BMI 30.82 kg/m2 04/14/2024 Procedures Procedure Date Ordered Date Performed Result Body Sit e 66792-LGHRMAA NAIL, 1-5 04/14/2024 N/A B9326-KENLMPUC DYSTROPHIC NAILS ANY # 04/14/2024 N/A Encounters Encounter Location Date [facility] [address] [place] [address] 04/14/2024 Kurt Rodriguez Type 2 diabetes mellitus with diabetic peripheral angiopathy without gangrene E11.51 ; Tinea unguium B35.1 ; Pain in right toe(s) M79.674 and Pain in left toe(s) M79.675 [facility] [address] [place] [address] 03/30/2024 Kurt Rodriguez Assessments Encounter Date Diagnosis [...] Treatment Pending Test Test Name Order Date [id number]-[id number] NAIL, 1-5 04/14/2024 X0117-LDOBLDRY DYSTROPHIC NAILS ANY # Next Appt Details Provider Name:Kurt Rodriguez, 07/14/2024 11:00:00 AM, [address], [place], [address], Insurance Providers Payer Name Payer Address Payer Phone Subscriber Number Group Number Insured Name Patient Relationship to Insured Coverage Start Date Coverage End Date [facility] re-[id number] [address] [address] [place] [address] [id number] Viv Pham Self - patient is the insured Medical (General) History Medical History History ICD Code Anemia asthma Diabetic High Blood Pressure thyroid Surgical History Surgery Date(Month/Year) 1981/1983/1986
--- OUTSIDE RECORDS SUMMARY | 2024-06-28 17:09 | XMS_ITS | Encounter Summary ---
Author Organization [employer] [facility] Address [address] [place] [address] 7t [place] [address] Care Team Providers Care Marine Fitter Name Role Phone Unavailable Primary Care Provider Unavailabl e Reason for Referral * Consultation - Closed Specialty Diagnoses / Procedures Referred By Radha james Referred To Contact Dentistry Diagnoses completed Procedures LR PERIODONTAL SCALING AND ROOT PLANING - 1 TO 3 TEETH PER QUADRANT [facility] ADULT D[facility] [address] [place] [address] Phone: tel: fax: [facility] [address] [place] [address] Phone: tel: fax: Referral ID Status Reason Start Date Expiration Date Visits Re quested Visits Authorized [id number] Closed 03/26/2022 09/22/2022 1 1 * Consultation - Closed Specialty Diagnoses / Procedures Referred By Radha james Referred To Contact Dentistry Diagnoses completed Procedures UR PERIODONTAL SCALING AND ROOT PLANING - 1 TO 3 TEETH PER QUADRANT [facility] [address] [place] [address] Phone: tel: fax: [facility] [address] [place] [address] Phone: tel: fax: Referral ID Status Reason Start Date Expiration Date Visits Re quested Visits Authorized [id number] Closed 03/26/2022 09/22/2022 1 1 Encounter Details Date Type Department Care Team (Late st Contact Info) Description 03/26/2022 Abstract [facility] ADULT DENTAL [address] [place] [address] Dental, Provider, DDS Social History Tobacco Use [...] Encounters Date Type Department Care Team (Late Contact Info) Description 12/28/2024 1:00 PM EDT Office Visit [facility] ADULT DENTAL [address] [place] [address] Jeanette Piedra [address] [place] [address] documented as of this encounter Procedures Procedure [...]
--- OUTSIDE RECORDS SUMMARY | 2024-06-28 17:09 | XMS_ITS | Encounter Summary ---
Author Organization [employer] Address [address] [place] [address] 7t [place] [address] Care Team Providers Care Brilliandeer Lopper Name Role Phone Unavailable Primary Care Provider Unavailabl e Reason for Visit * Reason Comments Routine Cleaning Encounter Details Date Type Department Care Team (Late st Contact Info) Description 06/22/2024 1:00 PM EST Office Visit [facility] ADULT DENTAL [address] [place] [address] Jeanette Piedra [address] [place] [address] Dental plaque (Primary Dx) Social History Tobacco Use Types Packs/Day Years [...] AM EDT documented as of this encounter Last Filed Vital Signs Vital Sign Reading Time Taken Comments Blood Pressure 138/80 06/22/2024 1:08 PM EST Pulse - - Temperature - - Respiratory Rate - - Oxygen Saturation - - Inhaled Oxygen Concentration - - Weight - - Height - - Body Mass Index - - documented in this encounter Progress Notes * Jeanette Dorothea - 06/22/2024 1:00 PM EST 1 pm appoint for prophy Patient ID: Viv Pham is a 68 y.o. female. Time Out: Timeout Date: 06/22/24, Timeout Time: 1312 (prophy) Location: [facility] Tooth: Maxilla and Mandible Procedure: Prophylaxis Verified the above with patient, dyer assistant, and provider. Confirmed via patient's chart, intraorally and by radiographs. Supervisor Sewing Department: not applicable Medical Hx: Vitals: Blood pressure 138/80. Medications, Med Hx reviewed with patient and updated in chart Treatment Provided Dental procedures in this visit D1110 - PROPHYLAXIS - ADULT (Completed) Service provider: Jeanette Piedra Billing provider: Steffi Gary DDS D1330 - ORAL HYGIENE INSTRUCTIONS (Completed) Service provider: Jeanette Piedra Billing provider: Steffi Gary DDS Instruments Used: Ultrasonic Scalers and Prophy angle Fluoride: N/A Oral Cancer Screening: No lesions Head/Neck Exam: No Lesions Calculus: trace Plaque: Light Stain: Light Bleeding: trace Gingiva: Recession- localized and pink/magenta OH: Good Perio Chart: not due yet Oral hygiene instructions provided to patient including brushing technique and flossing. Recommendations: [place] two times daily, modified maxwell technique, Floss daily, Electric toothbrush, Soft bristle toothbrush, [place] Tongue, Anti-sensitivity toothpaste Recall Frequency: 6 mo NV: 6 months for P. Exam, x-rays, perio chart, prophy. Hygienist: Jeanette Piedra RDH * Steffi Gary DDS - 06/22/2024 1:00 PM EST I have reviewed the documentation and dental procedures made by the rendering provider, Jeanette Piedra RDH , and approve their chart entries for this visit. Steffi Gary DDS documented in this encounter Plan of Treatment Upcoming Encounters Date Type Department Care Team (Late st Contact Info) Description 12/28/2024 1:00 PM EDT Office Visit [facility] ADULT DENTAL [address] [place] [address] [place] [address] Scheduled Orders Name Type Priority Associated Diagnoses Orde r Schedule PERIODIC ORAL EVALUATION - ESTABLISHED PATIENT Dental Routine 1 Occurren tao starting 06/22/2024 BITEWINGS - 4 RADIOGRAPHIC IMAGES Dental Routine 1 Occurrence s starting 06/22/2024 INTRAORAL - PERIAPICAL FIRST RADIOGRAPHIC IMAGE Dental Routine 1 Occur rences starting 06/22/2024 INTRAORAL - PERIAPICAL EACH ADDITIONAL RADIOGRAPHIC IMAGE Dental Routine 1 Occurrences starting 06/22/2024 PROPHYLAXIS - ADULT Dental Routine 1 Occ urrences starting 06/22/2024 documented as of this encounter Procedures Procedure Name Priority Date/Time Associated Diagnosis Comments PROPHYLAXIS - ADULT Routine 06/22/2024 1 :00 PM EST Dental plaque ORAL HYGIENE INSTRUCTIONS Routine 2024 1:00 PM EST Dental plaque documented in this encounter Visit Diagnoses Diagnosis Dental plaque- Primary Accretions on teeth documented in this encounter
--- OUTSIDE RECORDS SUMMARY | 2024-06-28 17:09 | XMS_ITS | Encounter Summary ---
Author Organization [employer] Address [address] 7[address] [place] [address] Care Team Providers Care Internal Controls Consultant Name Role Phone Unavailable Primary Care Provider Unavailabl e Encounter Details Date Type Department Care Team (Latest Contact Info) Description 11/22/[address] [facility] CONVERSIONS Dental, Provider, DDS Social History Tobacco [...] Description 12/28/2024 1:00 PM EDT Office Visit [facility] ADULT DENTAL [address] [place] [address] Jeanette Piedra [address] [place] [address] documented as of this encounter Visit Diagnoses Not on filedocumented in this encounter
--- OUTSIDE RECORDS SUMMARY | 2024-06-28 17:09 | XMS_ITS | Encounter Summary ---
Author Organization [employer] Address [address] 7t [place] [address] Care Team Providers Care Pallet Stone Inserter Name Role Phone Unavailable Primary Care Provider Unavailabl e Encounter Details Date Type Department Care Team (Latest Contact Info) Description 02/12/2022 Abstract [facility] CONVERSIONS Dental, Provider, DDS Social History [...] Description 12/28/2024 1:00 PM EDT Office Visit [facility] ADULT DENTAL [address] [place] [address] Jeanette Piedra [address] [place] [address] documented as of this encounter Visit Diagnoses Not on filedocumented in this encounter
--- OUTSIDE RECORDS SUMMARY | 2024-06-28 17:09 | XMS_ITS ---
Author Organization [facility] Address [address] [place] [address] Care Team Providers Care Gastroenterology Teacher Name Role Phone Ricki Christal Primary Care Provider Kurt Cunha [phone] Allergies Allergen (clinical drug ingredient) Drug/Non Drug [...] Type 2 diabetes mellitus with peripheral angiopathy ([id number]) Type 2 diabetes mellitus with diabetic peripheral angiopathy without gangrene (E11.51) Active confirmed Q7(A), Q8(2B), Q9(1B,2C) Vital Signs Height 5ft 6in in 04/14/2024 Weight 191 lbs 04/14/2024 BMI 30.82 kg/m2 04/14/2024 Blood pressure systolic 120 mm Hg 04/14/20 24 Blood pressure diastolic 62 mm Hg 024 Procedures Procedure Date Ordered Date Performed Result Body Sit e 04594-HZYCMBB NAIL, 1-5 04/14/2024 N/A B9902-[id number] DYSTROPHIC NAILS ANY # 04/14/2024 N/A Encounters Encounter Location Date Provider Diagnosis [facility] [address] 04/14/2024 Kurt Rodriguez Type 2 diabetes mellitus [...] Treatment Pending Test Test Name Order Date [id number]-[id number] NAIL, 1-5 04/14/2024 [id number] DYSTROPHIC NAILS ANY # Next Appt Details Follow Up: 3 Months, Reason: Provider Name:Kurt Rodriguez, 07/14/2024 11:00:00 AM, [address], [place], [address], Procedure Notes * Category Sub-Category Detail Notes [...] necessary to maintain effective symptomatic relief - 09225 Nail Reduction Nail Reduction (-27) Trimming o [...] * Viv LOCKWOOD LDOB:1955 (68 yo F)Acc No.[id number]:04/14/2024 Progress Notes Patient:?Viv LOCKWOOD L Provider:?Kurt Rodriguez D.P.M. :1955???Age:68 Y???Sex:Female D ate:04/14/2024 [address] [place] [place] Pcp:Christal Robison Subjective: * Chief Complaints: * [...] 7.0 * Examination: ???Ophthalmology Referral: ?DIABETES EYE EXAM?Procedure Performed:?Yes ?Date of Exam Performed?02/01/2024 ?Diabetic Retinopathy Screening:?Yes ?Findings of Diabetic Eye Exam:?no retinopathy?Vascular: ?DP PULSES (B):? 0/4, B/L.?PT PULSES (B):? [...] - M79.675??? Plan: * Treatment: 2.?Tinea unguium?Procedure: 16296-PXZRWVJ NAIL, 1-5 * Procedures:?Debride Nails 1-5:?Procedure:?Due to [...] necessary to maintain effective symptomatic relief - 84520.?Nail Reduction:?Nail Reduction?(-27) Trimming of all dystrophic nails [...] bed tissue - G0127 Q8.? * Procedure Codes:?05018 DEBRI DE NAIL, 1-5, Modifiers: XS G0127 [...] * Provider:?Kurt Rodriguez D.P.M. Date:?03/27 Generated for Jeannette guerra/Yajaira/Nereyda on:?06/28/2024 05:08 PM EST History and Physical Notes * [...]
--- OUTSIDE RECORDS SUMMARY | 2024-06-28 17:09 | XMS_ITS ---
Author Organization [facility] Address [address] [place] [address] Care Team Providers Care Launch Commander [employer] Name Role Phone Christal Robison Primary Care Provider Kurt Cunha [phone] REASON FOR VISIT SPED TEACHER PPWK Entered Encounters Encounter Location Date Provider Diagnosis [facility] [address] [place] [address] 03/30/2024 Kurt Rodriguez Plan Of Treatment Next Appt Details Provider Name:Kurt Rodriguez, 07/14/2024 11:00:00 AM, [address] [facility], [place], [place], [address], Progress Notes * Viv LOCKWOOD LDOB:1955 (68 yo F)Acc No.[id number]:03/30/2024 Patient:?Viv LOCKWOOD :1955???Age:68 Y???Sex:Female Address:[place] [address] * true * Date:? Generated for Printi ng/Faalmag/eTransmitting on:?06/28/2024 05:08 PM EST
== END 2024-06-28 14:17 | disposition home or self-care (01) ==
PROVIDERS: PCP Physician Assistant; Visit Provider Nurse Practitioner Family
DX: Z98.890 Other specified postprocedural states (principal); K64.9 Unspecified hemorrhoids; D12.6 Benign neoplasm of colon, unspecified
CPT/HCPCS: 99213

== ENCOUNTER → 2024-06-28 13:37 | Outpatient (BNVA) | payer MEDICARE, SELFPAY | PROVIDERS: PCP Physician Assistant; Visit Provider Nurse Practitioner Family | DX: K64.9 Unspecified hemorrhoids (principal); D12.6 Benign neoplasm of colon, unspecified; Z98.890 Other specified postprocedural states | CPT/HCPCS: 99212 ==

== ENCOUNTER → 2024-07-08 09:40 | Outpatient (REF) | payer MEDICARE, SELFPAY ==
--- NOTE | 2024-07-08 09:43 | CA_ITS ---
Transthoracic Echocardiogram Patient (Last, First, Middle): Viv Pham I Gender: Female Date of : 1955 Age: 68 Procedure Date: 07/08/2024 Procedure Type: Transthoracic Echocardiogram Location: OP Height: 167.64 cm Weight: 87.54 kg BSA: 1.97 m2 Heart Rate: 73 bpm BP: 130 / 60 mmHg Doll Wig Maker Rooted Hair: SB Referring MD: Peter Salmon MD Symptoms: I35.0 - Nonrheumatic aortic (valve) stenosis Study Quality: Adequate ECG Rhythm: Sinus Conclusions: - The left ventricular systolic function is normal. The calculated ejection fraction is 64% by biplane method. - Aortic valve sclerosis without any significant stenosis. Findings Left Ventricle Normal left ventricular cavity size. There is mildly increased left ventricular wall thickness. The left ventricular systolic function is normal. The calculated ejection fraction is 64% by biplane method. There is no evidence of regional wall motion abnormalities. Evidence suggests grade I (mild) diastolic dysfunction. Right Ventricle Mildly increased right ventricular cavity size. There is normal right ventricular systolic function. Atria Both atria are normal in size. Aortic Valve There is a normal trileaflet aortic valve. There is mild calcification of the aortic valve. There is no aortic valve stenosis. There is no aortic valve regurgitation. No significant aortic stenosis. Mitral Valve The mitral valve appears normal. There is trace mitral valve regurgitation. There is no mitral valve stenosis. Pulmonic Valve The pulmonic valve is likely normal. Tricuspid Valve There is no tricuspid valve regurgitation. Tricuspid regurgitation envelope is inadequate for calculation of right ventricular systolic pressure. Great Vessels The asc aorta is normal in size. Venous The inferior vena cava is normal in size and collapses greater than 50% with inspiration. Pericardium/Pleural There is a trivial pericardial effusion. Prior Study Comparison No prior study available for comparison. Measurements 2D Linear Measurements IVSd: 1.16 0.6-0.9/0.6-1.0 cm LVIDd: 4.33 3.9-5.3/4.2-5.9 cm LVIDd Index: 2.20 2.4-3.2/2.2-3.1 cm/m2 LVIDs: 2.12 2.0-3.6 cm LVPWd: 1.11 0.7-1.1 cm LA Diam: 3.70 2.7-3.8/3.0-4.0 cm LAIDs Index: 1.88 1.5-2.3 cm/m2 LV Mass: 214.57 67-162/88-224 g LV Mass Index: 108.92 43-95/49-115 g/m2 LVOT Diam: 2.00 3.0+(-)1.3 cm 2D Systolic Function EF 4C: 64.20 >55% EF 2C: 63.50 >55% EF BiP: 63.80 >55% Mitral Valve MV VTI: 0.19 MV Pk Kem: 0.91 MV Mn Kem: 0.53 MV Pk Grad: 3.00 MV Mn Grad: 1.00 MV Pk E: 0.82 MV PK A: 0.99 MV Decel Time: 212.00 E/A: 0.80 E'Lateral: 4.57 E'Medial: 3.70 E/E' Med: 22.10 E/E' Lat: 17.90 PHT: 62.00 MVA PHT: 3.55 MVA Planim: 4.71 MVA Continuity: 3.67 Decel Sterling: 3.85 Aortic Valve AoV Pk Kem: 1.70 AoV Mn Kem: 1.20 AoV VTI: 0.37 AoV Pk Grad: 12.00 Aov Mn Grad: 6.00 KIMMY Cont.VTI: 1.89 LVOT LVOT Pk Kem: 0.94 LVOT Mn Kem: 0.67 LVOT VTI: 0.22 LVOT Pk Grad: 4.00 LVOT Mn Grad: 2.00 LVOT Diam: 2.00 LVOT Area: 3.14 Diastolic Function MV Pk E: 0.82 MV Pk A: 0.99 E/A: 0.80 E'Medial: 3.70 E/E' Med: 22.10 E' Laterial: 4.57 E/E' Lat: 17.90 Right Ventricle TAPSE (mm): 18.90 TVS' Kem: 11.70 Tricuspid Valve RA Press: 3.00 Great Vessels Aorta Sinus of Valsalva: 3.20 2.0-3.5 cm Ao Asc: 3.40 2.1-3.4 cm Pulmonary Veins Pulm Vein S/D 1.30 Pulmonary Valve PV Pk Kem: 0.89 Peak PV Grad: 3.00 Updated in Other Vendor System with Status of Final Peter Salmon MD electronically signed on 07/09/2024 12:16:05 PM with status of Final
--- OUTSIDE RECORDS SUMMARY | 2024-07-08 10:37 | XMS_ITS | Encounter Summary ---
Author Organization [employer] Address [address] [place] [address] 7t [place] [address] Care Team Providers Care Carpet Inspector Name Role Phone Unavailable Primary Care Provider Unavailabl e Reason for Visit * Reason Comments Routine Cleaning Encounter Details Date Type Department Care Team (Late st Contact Info) Description 06/22/2024 1:00 PM EST Office Visit [facility] ADULT DENTAL [address] [place] [address] Jeanette Piedra [address] [place] [address] Dental plaque (Primary Dx) Social History Tobacco [...] Date: 06/22/24, Timeout Time: 1312 (prophy) Location: [facility] Tooth: Maxilla and Mandible Procedure: Prophylaxis Verified the above with patient, assistant track coach, and provider. Confirmed via patient's chart, intraorally and by radiographs. Elementary Classroom Teacher: not applicable Medical Hx: Vitals: Blood pressure [...] patient including brushing technique and flossing. Recommendations: [place] two times daily, modified maxwell technique, Floss daily, Electric toothbrush, Soft bristle toothbrush, [place] Tongue, Anti-sensitivity toothpaste Recall Frequency: 6 mo [...] Description 12/28/2024 1:00 PM EDT Office Visit [facility] ADULT DENTAL [address] [place] [address] [place] [address] Scheduled Orders Name Type Priority Associated Diagnoses [...]
--- OUTSIDE RECORDS SUMMARY | 2024-07-08 10:37 | XMS_ITS | Clinical Summary ---
Author Organization [employer] Address [address] [facility] 7t [place] [address] Care Team Providers Care Well Testing Operator Name Role Phone Unavailable Primary Care [...] Description 06/22/2024 1:00 PM EST Office Visit [facility] ADULT DENTAL [address] [place], [place] [phone] Jeanette Piedra Dental plaque (Primary Dx) 05/25/2024 Telephone [facility] MEDICINE [address] [place], [place] [phone] Federico Daniels MD from Last 3 Months [...] Description 12/28/2024 1:00 PM EDT Office Visit [facility] ADULT DENTAL [address] [place] [address] [place], Jeanette [address] [place] [address] Health Maintenance Due Date Last Done Comments [...] 11/29/2021 11/29/2020, 03/30/2014 COVID-19 Vaccine (4 - season) 2023 05/22/2021, 09/05/2020, 08/08/2020 Influenza [...] Relevant to Health Maintenance Insurance DENTAL - [facility] PPO
--- OUTSIDE RECORDS SUMMARY | 2024-07-08 10:37 | XMS_ITS ---
Author Organization [facility] Address [address] [place] [address] Care Team Providers Care Abattoir Manager Name Role Phone Christal Robison Primary Care Provider Kurt Cunha [phone] REASON FOR VISIT RESIDENTIAL LEASING AGENT PPWK Entered Encounters Encounter Location Date Provider Diagnosis [facility] [address] [place] [address] 03/30/2024 Kurt Rodriguez Plan Of Treatment Next Appt Details Provider Name:Kurt Rodriguez, 07/14/2024 11:00:00 AM, [address] [facility], [place], [address], Progress Notes * Viv LOCKWOOD LDOB:1955 (68 yo F)Acc No.[id number]:03/30/2024 Patient:?Viv LOCKWOOD :1955???Age:68 Y???Sex:Female Address:[place] [address] * true * Date:? Generated for Printi ng/Faxing/eTransmitting on:?07/08/2024 10:37 AM EDT
--- OUTSIDE RECORDS SUMMARY | 2024-07-08 10:37 | XMS_ITS | Patient Health Record ---
Author Organization [facility] Address [address] [place] [address] Care Team Providers Care Plastic Parts Fabricator Name Role Phone Christal Robison Primary Care Provider Kurt Cunha [phone] Allergies Allergen (clinical drug ingredient) Drug/Non Drug [...] Type 2 diabetes mellitus with peripheral angiopathy (719964566) Type 2 diabetes mellitus with diabetic peripheral angiopathy without gangrene (E11.51) Active confirmed Q7(A), Q8(2B), Q9(1B,2C) Vital Signs Blood pressure diastolic 62 mm Hg 04/14/2024 Height 5ft 6in in 04/14/2024 Blood pressure systolic 120 mm Hg 04/14/2024 Weight 191 lbs 04/14/2024 BMI 30.82 kg/m2 04/14/2024 Procedures Procedure Date Ordered Date Performed Result Body Sit e 68270-CWYCEKT NAIL, 1-5 04/14/2024 N/A D5518-[id number] DYSTROPHIC NAILS ANY # 04/14/2024 N/A Encounters Encounter Location Date [facility] [address] [place] [address] 04/14/2024 Kurt Rodriguez Type 2 diabetes mellitus with diabetic peripheral angiopathy without gangrene E11.51 ; Tinea unguium B35.1 ; Pain in right toe(s) M79.674 and Pain in left toe(s) M79.[address] [facility] [address] [place] [address] 03/30/2024 Kurt Rodriguez Assessments Encounter Date Diagnosis [...] Treatment Pending Test Test Name Order Date 41286-BYHYLRH NAIL, 1-5 04/14/2024 X8502-[id number] DYSTROPHIC NAILS ANY # Next Appt Details Provider Name:Kurt Rodriguez, 07/14/2024 11:00:00 AM, [address], [place], [address], Insurance Providers Payer Name Payer Address Payer Phone Subscriber Number Group Number Insured Name Patient Relationship to Insured Coverage Start Date Coverage End Date [employer] [facility] [id number] [address] [address] [place] [address] [id number] Viv Pham Self - patient is the insured Medical (General) History Medical History History ICD Code Anemia asthma Diabetic High Blood Pressure thyroid Surgical History Surgery Date(Month/Year) 1981/1983/1986
--- OUTSIDE RECORDS SUMMARY | 2024-07-08 10:38 | XMS_ITS ---
Author Organization [facility] Address [address] [place] [address] Care Team Providers Care Choke Setter Name Role Phone Ricki Christal Primary Care Provider Kurt Cunha [phone] Allergies Allergen (clinical drug ingredient) Drug/Non Drug [...] Type 2 diabetes mellitus with peripheral angiopathy (050591201) Type 2 diabetes mellitus with diabetic peripheral angiopathy without gangrene (E11.51) Active confirmed Q7(A), Q8(2B), Q9(1B,2C) Vital Signs Height 5ft 6in in 04/14/2024 Weight 191 lbs 04/14/2024 BMI 30.82 kg/m2 04/14/2024 Blood pressure systolic 120 mm Hg 04/14/20 24 Blood pressure diastolic 62 mm Hg 024 Procedures Procedure Date Ordered Date Performed Result Body Sit e 00886-CZUBCCT NAIL, 1-5 04/14/2024 N/A A1777-JCWKZKIP DYSTROPHIC NAILS ANY # 04/14/2024 N/A Encounters Encounter Location Date Provider Diagnosis [facility] [address] 04/14/2024 Kurt Rodriguez Type 2 diabetes mellitus [...] Treatment Pending Test Test Name Order Date [id number]-[id number] NAIL, 1-5 04/14/2024 [id number] DYSTROPHIC NAILS ANY # Next Appt Details Follow Up: 3 Months, Reason: Provider Name:Kurt Rodriguez, 07/14/2024 11:00:00 AM, [address] [facility], [place], [address], Procedure Notes * Category Sub-Category Detail Notes [...] necessary to maintain effective symptomatic relief - 87501 Nail Reduction Nail Reduction (-27) Trimming o [...] * Viv LOCKWOOD LDOB:1955 (68 yo F)Acc No.[id number]:04/14/2024 Progress Notes Patient:?Viv LOCKWOOD L Provider:?Kurt Rodriguez D.P.M. :1955???Age:68 Y???Sex:Female D ate:04/14/2024 [address]: [address] [place] Pcp:Christal Robison Subjective: * Chief Complaints: * [...] - M79.675??? Plan: * Treatment: 2.?Tinea unguium?Procedure: 19922-WYEBCEG NAIL, 1-5 * Procedures:?Debride Nails 1-5:?Procedure:?Due to [...] necessary to maintain effective symptomatic relief - 62528.?Nail Reduction:?Nail Reduction?(-27) Trimming of all dystrophic nails [...] bed tissue - G0127 Q8.? * Procedure Codes:?72352 DEBRI DE NAIL, 1-5, Modifiers: XS G0127 [...] Rodriguez D.P.M. Date:?03/27 Generated for Jeannette guerra/Yajaira/Nereyda on:?07/08/2024 10:37 AM EDT History and Physical Notes * HPI (History [...]
--- OUTSIDE RECORDS SUMMARY | 2024-07-08 10:38 | XMS_ITS | Encounter Summary ---
Author Organization [employer] Address [address] [facility] 7t [place] [address] Care Team Providers Care Retail Sales Manager Name Role Phone Unavailable Primary Care Provider Unavailabl e Encounter Details Date Type Department Care Team (Latest Contact Info) Description 11/22/2018 Abstract [facility] CONVERSIONS Dental, Provider, DDS Social History [...] Description 12/28/2024 1:00 PM EDT Office Visit [facility] ADULT DENTAL [address] [place] [address] Jeanette Piedra [address] [place] [address] documented as of this encounter Visit Diagnoses Not on filedocumented in this encounter
--- OUTSIDE RECORDS SUMMARY | 2024-07-08 10:38 | XMS_ITS | Encounter Summary ---
Author Organization [employer] Address [address] [facility] 7t [place] [address] Care Team Providers Care Property Insurance Claims Examiner Name Role Phone Unavailable Primary Care Provider Unavailabl e Encounter Details Date Type Department Care Team (Latest Contact Info) Description 02/12/2022 Abstract [facility] CONVERSIONS Dental, Provider, DDS Social History [...] Description 12/28/2024 1:00 PM EDT Office Visit [facility] ADULT DENTAL [address] [place] [address] Jeanette Piedra [address] [place] [address] documented as of this encounter Visit Diagnoses Not on filedocumented in this encounter
--- OUTSIDE RECORDS SUMMARY | 2024-07-08 10:38 | XMS_ITS | Encounter Summary ---
Author Organization [employer] [facility] Address [address] [place] [address] [address] [place] [address] Care Team Providers Care Dock Loader Name Role Phone Unavailable Primary Care Provider Unavailabl e Reason for Referral * Consultation - Closed Specialty Diagnoses / Procedures Referred By Radha james Referred To Contact Dentistry Diagnoses completed Procedures LR PERIODONTAL SCALING AND ROOT PLANING - 1 TO 3 TEETH PER QUADRANT [facility] ADULT DENT[facility] [address] [place] [address] Phone: tel: fax: [facility] [address] [place] [address] Phone: tel: fax: Referral ID Status Reason Start Date Expiration Date Visits Re quested Visits Authorized [id number] Closed 03/26/2022 09/22/2022 1 1 * Consultation - Closed Specialty Diagnoses / Procedures Referred By Radha james Referred To Contact Dentistry Diagnoses completed Procedures UR PERIODONTAL SCALING AND ROOT PLANING - 1 TO 3 TEETH PER [facility] [address] [place] [address] Phone: tel: fax: [facility] [address] [place] [address] Phone: tel: fax: Referral ID Status Reason Start Date Expiration Date Visits Re quested Visits Authorized [id number] Closed 03/26/2022 09/22/2022 1 1 Encounter Details Date Type Department Care Team (Late st Contact Info) Description 03/26/2022 Abstract [facility] ADULT DENTAL [address] [place] [address] Dental, Provider, DDS Social History Tobacco Use [...] Description 12/28/2024 1:00 PM EDT Office Visit [facility] ADULT DENT[facility] [address] [place] [address] Jeanette Piedra [address] [place] [address] documented as of this encounter Procedures Procedure [...]
== END ==
LOC: HO.CARD 09:40
PROVIDERS: PCP Physician Assistant; Visit Provider Internal Medicine
DX: I35.0 Nonrheumatic aortic (valve) stenosis (principal)
CPT/HCPCS: 93306

== ENCOUNTER → 2024-07-08 09:43 | Outpatient (BNV) | payer MEDICARE, SELFPAY | PROVIDERS: PCP Physician Assistant; Visit Provider Internal Medicine | DX: I35.8 Other nonrheumatic aortic valve disorders (principal); I42.8 Other cardiomyopathies | CPT/HCPCS: 93306 ==

== ENCOUNTER → 2024-07-27 14:47 | Outpatient (BNVA) | payer MEDICARE, SELFPAY | PROVIDERS: PCP Physician Assistant; Visit Provider Advanced Practice Midwife ==

== ENCOUNTER 2024-09-08 10:54 | Outpatient (AMB) | payer MEDICARE, SELFPAY ==
--- NOTE | 2024-09-08 11:03 | A.OFFPC_ITS ---
Vital Signs 09/08/24 11:10 Height 5 ft 6 in Weight 190 lb BMI 30.7 BP 130/74 Blood Pressure Location Lt brachial Position Sitting Respiration 14 Pulse 72 Pulse Source Pulse Oximeter Pulse Oximetry (%) 97 Oxygen Delivery Method Room Air Intake Visit Reasons: dm and lab - see comments Intake Note: Follow up Allergies seafood Allergy (Severe, Verified 09/08/24 11:08) Anaphylaxis cinnamon Allergy (Intermediate, Verified 09/08/24 11:08) Swelling latex Allergy (Intermediate, Verified 09/08/24 11:08) Rash Penicillins [PENICILLINS] Allergy (Unknown, Verified 09/08/24 11:08) HIVES flu vaccine Allergy (Unknown, Uncoded 09/08/24 11:08) Rash, skin peeling Tobacco use date assessed: 09/08/24 Fall risk assessment: No Falls in past year Last assessed Fall Risk: 09/08/24 Dental Screening Dental Screen Date: 09/08/24 Did you have a dental visit in the last 12 months?: Yes Did you have a dental problem in the last 6 months where you did not have access to dental care?: No Was dental information given to patient?: Patient has dentist HPI dm and lab - see comments HPI Details Patient is a 68-year-old female with a significant past medical history of type 2 diabetes, hypertension, hyperlipidemia, obesity, asthma, joint pains, fibromyalgia, PVD, rheumatoid lung Endo: She is currently on metformin 500 mg 3 times a day. States that she needs a new glucometer. She was diagnosed with diabetes around 2019. She has had diabetic Education. She is followed with a medical chemist. Her last A1c was 7. Her recent TSH was normal. Doing well with the levothyroxine. -She states most of her family has t2dm. -denies hyper/hypoglycemic events -up-to-date with eye exams -she is on an Arb and a statin. CV: Blood pressure is well controlled. She is currently on valsartan 80 mg. Cholesterol is managed with simvastatin 20 mg. Stress test booked 09/16 Echo- just done Pulm: has a hx of asthma but recent PFTs from apr 2022 (scanned in) were normal. Followed with pulmonology and has an appointment 09/21. Heme: Persistent anemia. Following with Hematology. Mammogram: UTD, November 2023 Colonoscopy: UTD 2025, Repeat Colonoscopy in 5 years or earlier if clinically indicated Bone density: Not due until 2025 upon review from [facility] records. Pap: [facility] Medical History Chronic restrictive lung disease Pneumonitis Surgical History Hx of section Hx of cholecystectomy H/O colonoscopy (~2013) Family History Mother Asthma Anemia Diabetes HTN (hypertension) Glaucoma Father Stroke Sister Diabetes HTN (hypertension) Asthma Myocardial infarct Stroke Breast cancer Brother Diabetes Glaucoma Asthma Cancer Social History (Updated 09/08/24 @ 11:10 by Corrine Walker CMA) Household Members: Spouse and Family Housing: House Alcohol intake: never Patient Tobacco Use Status: Never used Tobacco e-Cigarette/Vaping Use: Never Used service: No Current occupational status: retired Gender identity: Female Cognitive needs: No Hearing needs: No Vision needs: Yes (cataracts) Questionnaire PHQ-9 Over the last 2 weeks, how often have you been bothered by any of the following problems? 1. Little interest or pleasure in doing things: not at all 2. Feeling down, depressed, or hopeless: not at all 3. Trouble falling or staying asleep, or sleeping too much: not at all 4. Feeling tired or having little energy: not at all 5. Poor appetite or overeating: not at all 6. Feeling bad about yourself - or that you are a failure or have let yourself or your family down: not at all 7. Trouble concentrating on things, such as reading the newspaper or watching television: not at all 8. Moving or speaking so slowly that other people could have noticed. Or the opposite - being so fidgety or restless that you have been moving around a lot more than usual: not at all 9. Thoughts that you would be better off or of hurting yourself in some way: not at all Total score: 0 Depression Screening Interpretation: Negative Depression Screening Done: Yes 87026 - PHQ-9 Billing: Yes Source: Developed by Drs. Jamin Hillman, Latonya Boone, Jasvir Zuniga and colleagues, with an educational federico from [employer]. Thrive Questionnaire Date Thrive assessed: 05/26/24 Within the past 12 months, did the food you bought not last and you didn't have the money to get more?: Never true Within the past 12 months, did you worry whether your food would run out before you got money to buy more?: Never true Do you have trouble paying for medicines?: No Do you have trouble getting transportation to medical appointments?: No Do you have trouble paying your heating and electricity bill?: No Do you have trouble taking care of your child, family member or friend?: No Do you have trouble with day-to-day activities such as bathing, preparing meals, shopping, managing finances, etc.?: No Are you currently unemployed and looking for a job?: No Are you interested in more education?: No Please select the resources that you would like help with: None Currently or been in a relationship where the following occur: No concerns reported THRIVE Score: 0 AUDIT C Alcohol Use Questionnaire (AUDIT-C) 1. How often do you have a drink containing alcohol?: Never Total Score: 0 DEA-7 AMB Questionnaire DEA-7 Date DEA - 7 assessed: 09/08/24 Feeling nervous, anxious, or on edge: 0 = Not at all Not being able to stop or control worryin = Not at all Worrying too much about different things: 0 = Not at all Trouble relaxin = Not at all Being so restless that it is hard to sit still: 0 = Not at all Becoming easily annoyed or irritable: 0 = Not at all Feeling afraid as if something awful might happen: 0 = Not at all Total DEA-7 score (0-4 normal; 5-9 mild; 10-14 moderate; 15-21 severe): 0 Source: Developed by Drs. Jamin Hillman, Latonya Boone, Jasvir Zuniga and colleagues, with an educational federico from [employer]. DEA-7 Assessment Billing DEA-7 Assessment Tool: DEA-7 Assessment 92233 Physical exam (Primary Care) Vital Signs: Last Vital Signs Pulse 72 09/08/24 11:10 Resp 14 09/08/24 11:10 BP 130/74 09/08/24 11:10 Pulse Ox 97 09/08/24 11:10 Oxygen Delivery Method Room Air 09/08/24 11:10 BMI result Body Mass Index 30.7 Tobacco/Smoking Status: Tobacco use Status Tobacco use date assessed 09/08/24 09/08/24 11:20 Patient Tobacco Use Status Never used Tobacco 09/08/24 11:10 e-Cigarette/Vaping Use Never Used 09/08/24 11:10 PHQ-9: PHQ-9 Score PHQ-9: Total score 0 09/08/24 11:22 Depression Screening Interpretation: Negative Thrive Assessment: Date of Thrive Assessment Date Thrive assessed 05/26/24 09/08/24 11:05 Currently or been in a relationship where the following occur: No concerns reported Const Orientation/consciousness: patient oriented x3 HENMT Ears: hearing grossly normal bilaterally Neck Thyroid: Thyroid normal Lymphatic: no lymphadenopathy noted Resp Auscultation: clear to auscultation bilaterally Cardio Rate: regular rate Rhythm: regular rhythm Heart sounds: S1 normal heart sound present and S2 normal heart sound present GI Inspection: Yes normal to inspection Palpation (GI): Soft to palpation and Other GI palpation findings present (nontender, no cva tenderness) Auscultation: normoactive bowel sounds Rectal Exam - Female: deferred Skin General skin exam: no rashes or lesions noted Neuro General: patient oriented x3, gait normal and no focal motor deficits Results Reviewed Results Reviewed: Laboratory Tests 05/27/24 05/27/24 06/16/24 10:11 10:16 10:48 Sodium 141 Potassium 4.0 Chloride 105 Carbon Dioxide 30 H Anion Gap 10 L BUN 19 H Creatinine 0.74 Estimated GFR > 60 POC Glucose 121 H Calcium 10.0 D Total Bilirubin 0.7 AST 21 ALT 17 Alkaline Phosphatase 52 Total Protein 7.4 Albumin 4.2 Triglycerides 85 Cholesterol 168 LDL Cholesterol, Calc 88 HDL Cholesterol 63 TSH 3.81 Urine Creatinine 42.38 Urine Microalbumin < 5.0 Microalb/Creat Ratio TNP Conclusions: - The left ventricular systolic function is normal. The calculated ejection fraction is 64% by biplane method. - Aortic valve sclerosis without any significant stenosis. Coding Level of Care Code Est Pt Level 4 (38445) Complex EM visit Add On G2211 Diagnoses Type 2 diabetes mellitus without complication, without long-term current use of insulin E11.9 Diabetes mellitus complication status: without complication Diabetes mellitus half-way insulin use: without half-way use Hypertension I10 Hyperlipidemia E78.5 Additional Codes DEA-7 Assessment Billing - DEA-7 Assessment Tool: DEA-7 Assessment 18969 ([id number]) PHQ-9 - 47474 - PHQ-9 Billing: Yes ([id number]) Assessment & Plan Assessment & Plan (1) T2DM (type 2 diabetes mellitus): Code(s): E11.9 - Type 2 diabetes mellitus without complications Category: Medical Qualifiers: Diabetes mellitus complication status: without complication Diabetes mellitus emt intermediate insulin use: without emt intermediate use Qualified Code(s): E11.9 - Type 2 diabetes mellitus without complications Plan: continue current plan labs ordered (2) Hypertension: Code(s): I10 - Essential (primary) hypertension Category: Medical Plan: wnl continue current plan (3) Hyperlipidemia: Code(s): E78.5 - Hyperlipidemia, unspecified Category: Medical Plan: continue simvastatin Plan labs today Orders: Orders Complete Blood Count Auto Diff Today E11.9 - Type 2 diabetes mellitus without complications, E78.5 - Hyperlipidemia, unspecified, I10 - Essential (primary) hypertension Hemoglobin A1c Today E11.9 - Type 2 diabetes mellitus without complications, E78.5 - Hyperlipidemia, unspecified, I10 - Essential (primary) hypertension, R73.01 - Impaired fasting glucose Comprehensive Met. Panel Today E11.9 - Type 2 diabetes mellitus without compl ications, E78.5 - Hyperlipidemia, unspecified, I10 - Essential (primary) hypertension Microalbumin, Random (w Creat) Today E11.9 - Type 2 diabetes mellitus without complications, E78.5 - Hyperlipidemia, unspecified, I10 - Essential (primary) hypertension Vitamin B12 and Folate Today E11.9 - Type 2 diabetes mellitus without complications, E78.5 - Hyperlipidemia, unspecified, I10 - Essential (primary) hypertension Magnesium Today E11.9 - Type 2 diabetes mellitus without complications, E78.5 - Hyperlipidemia, unspecified, I10 - Essential (primary) hypertension IRON PROFILE Today E11.9 - Type 2 diabetes mellitus without complications, E78.5 - Hyperlipidemia, unspecified, I10 - Essential (primary) hypertension TSH reflex Free T4 Today E11.9 - Type 2 diabetes mellitus without complications, E78.5 - Hyperlipidemia, unspecified, I10 - Essential (primary) hypertension Lipid Panel Today E78.5 - Hyperlipidemia, unspecified
[2024-09-08 11:10] VITALS: BP 130/74; PULSE 72; RESP 14; O2SAT 97; BMI 30.7
--- OUTSIDE RECORDS SUMMARY | 2024-09-08 12:03 | XMS_ITS ---
[facility] Organization [facility] jos[facility] manuel [place] Address [address] [address] Care Team Providers Care Technology Internship Name Role Phone Christal Robison Primary Care Provider Martha Cevallos Unavailable [phone] Kurt Rodriguez Unavailable [phone] Allergies Allergen (clinical drug ingredient) Drug/Non Drug [...] Duration) Notes Start Date End Date Status Breztri Aerosphere N ot-Taking Levothyroxine Sodium Active Trulicity 0.75 MG/0.5ML as directed Subcutaneous Active metFORMIN HCl Active Simvastatin Active Albuterol Active Meclizine HCl Active Loratadine Active Valsartan Active Social History Tobacco Use: Social History [...] ast year? No Points 0 Interpretation Negative Vital Signs Height 5ft 6in in 07/14/2024 Weight 195 lbs 07/14/2024 BMI 31.47 kg/m2 07/14/2024 Blood pressure systolic 120 mm Hg 07/15/19 25 Blood pressure diastolic 62 mm Hg 025 Procedures Procedure Date Ordered Date Performed Result Body Sit e 95454-VWDYKUO NAIL, 1-5 07/14/2024 N/A M4117-MZDAEAHS DYSTROPHIC NAILS ANY # 07/14/2024 N/A Encounters Encounter Location Date [facility] [address] [place] [address] 07/14/2024 Kurt Rodriguez Tinea unguium B35.1 ; Pain in right toe(s) M79.674 ; Pain in left toe(s) M79.675 and Type 2 diabetes mellitus with diabetic peripheral angiopathy without gangrene E11.51 Assessments Encounter Date Diagnosis (ICD Code) Assessment Notes Treatment Notes Treatment Clinical Notes Section Notes 07/14/2024 Tinea unguium (ICD-10 - B35.1) 07/14/2024 Pain in right toe(s) (ICD-10 - M79.674) 07/14/2024 Pain in left toe(s) (ICD-10 - M79.675) 07/14/2024 Type 2 diabetes mellitus with diabetic peripheral angiopathy without gangrene (ICD-10 - E11.51) Q7(A), Q8(2B), Q9(1B,2C) Plan Of Treatment Pending Test Test Name Order Date [id number] NAIL, 1-07/14/2024 S0678-[id number] DYSTROPHIC NAILS ANY # Next Appt Details Follow Up: 3 Months, Reason: Provider Name:Martha manzanares, 10/13/2024 11:00:00 AM, [address] [facility], [place], [address], Procedure Notes * Category Sub-Category Detail Notes [...] necessary to maintain effective symptomatic relief - 55757 Nail Reduction Nail Reduction (-27) Trimming o [...] as stated and described in the exam T1, T2, T3, T4, T6, T7, T8, T9, were debrided by the phisician of record to reduce/remove overall nail length and girth, by manual and electrical means with use of a nail nipper and/or dremel, to more viable healthy nail plate or bed tissue - G0127 Q8 Progress Notes * Viv LOCKWOOD LDOB:1955 (68 yo F)Acc No.[id number]:07/14/2024 Progress Note Patient:?Viv LOCKWOOD Provider:?Kurt Rodriguez D.P.M. :1955???Age:68 Y???Sex:Female D ate:07/14/2024 Address: [place], [place] Pcp:Christal Robison Subjective: * Chief Complaints: * ???At Risk FootcarePainful N ail(s) aggravated by shoes and causing difficulty standing/walking * HPI: ???At Risk footcare:?Pt States Last PCP Visit:?Date?05/11/2024 * ROS:?General/Constitutional:?Nausea?denies.?Vomiting?denies.?Hunger Thirst?denies.?Loss appetite?denies.?Chills?denies.?Fatigue?denies.?Fever?denies.?Night Sweats?denies.?Unexplained weight loss?denies.?Unexplained [...] Surgical History:? 1981/1983/1986 * Hospitalization/Major Diagno stic Procedure:?coloscopy 2024 * Family History:?Mother: dece ased.?Father: .?Daughter(s): diagnosed [...] FlavorLatexCinnamonyes[Allergies Verified] Objective: * Vitals:?Ht: 5ft 6in, Wt:195, BMI:31.47, Shoe size: 11-10.5, BP:120/62mm Hg, BS: 150, Ht-cm: 167.64 cm, Wt-k.45 kg. * ???Past Orders: ???Lab:HEMOGLOBIN A1C (GLYCO HEMOGLOBIN) (Order Date - 05/11/2024) (Collection Date & Time - 05/11/2024 10:53 AM) ? Value Reference Range ?HEMOGLOBIN A1C % (HH) 7.0 * Examination: ???Ophthalmology Referral: ?DIABETES EYE [...] malodorous subungual debris, with pain on palpation TA, T5, all other nails not described with characteristics as possessing mycosis are elongated, overgrown, and dystrophic, T1, T2, T3, T4, T6, T7, T8, T9.?Neurological: ?SENSORY:?Neurological exam reveals intact sensorium, pain sensation normal, vibration sensation intact, pinprick sensation is normal in the lower extremities, 5.07 monofilament test performed at plantar aspects of 5 varied sites per foot shows sensation, normal, B/L, Pt denies, anesthesia, burning, paresthesia, tingling, B/L.?Orthopedic: ?MUSCLE STRENGTH:?5/5 all groups in a symmetrical fashion, B/L.?FOOTWEAR:?Shoe gear were inspected and noted to be worn, but in good condition giving proper support at the present time.?General Examination: ?GENERAL APPEARANCE:?Reveals a pleasant, alert, well nourished, well- developed, well hydrated individual, who demonstrates proper attention to hygiene/body habitus, and is in no acute distress, Pt serves as own historian for office visit today.?ORIENTED:?person, place, and time.?FOOT EXAM:?Lower Extremity Neurological Exam performed:?Yes ?Visual exam of foot performed:?Yes ?Date?07/14/2024 ?Sensory testing performed:?sensations normal ?Sensory and motor testing performed:?sensations and strength normal ?Pedal pulse taking performed:?absent ?Footwear Evaluation?Footwear Evaluation performed:?Yes??? Assessment: * Assessment: 1.?Tinea unguium - B35.1 (Pr imary)???2.?Pain in right toe(s) - M79.674???3.?Pain in left toe(s) - M79.675???4.?Type 2 diabetes mellitus with diabetic peripheral angiopathy without gangrene - E11.51???Notes :Q7(A), Q8(2B), Q9(1B,2C)??? Plan: * Treatment: 2.?Type 2 diabetes mellitus with diabetic peripheral angiopathy without gangrene?Procedure: T0001-ZXGOLUYV DYSTROPHIC NAILS ANY # * Procedures:?Debride Nails 1-5:?Procedure:?Due to the clinical [...] necessary to maintain effective symptomatic relief - 69652.?Nail Reduction:?Nail Reduction?(-27) Trimming of all dystrophic nails - Due to the at risk nature of the patients medical condition as documented in the exam findings, performance of this nail treatment is medically necessary as its management by an unskilled/untrained nonprofessional would put this patients foot and overall health at risk. Therefore, the dystrophic nails, in locations as stated and described in the exam T1, T2, T3, T4, T6, T7, T8, T9, were debrided by the phisician of record to reduce/remove overall nail length and girth, by manual and electrical means with use of a nail nipper and/or dremel, to more viable healthy nail plate or bed tissue - G0127 Q8.? * Procedure Codes:?17301 ROHINIAdrian DIAZ NAIL, 1-5, Modifiers: XS G0127 TRIMMING DYSTROPHIC NAILS ANY #, Modifiers: XS , Q8 * Preventive Medicine:? ??Counseling:?Diabetic Footcare:?The patient was advised against future self nail/callus care due to inherent risks for infection, loss of limb/life given diabetic, peripheral vascular disease.? * Follow Up:?3 Months * Images: * Sign off status: Completed true * Provider:?Kurt Rodriguez D.P.M. Date:?06/26 Generated for Jeannette guerra/Yajaira/Nereyda on:?09/08/2024 12:03 PM EDT History and Physical Notes * HPI (History of Present Illness) Category Sub-Category Detail Notes Category Not es At Risk footcare Pt States Last PCP Visit: Date: 01/15/202 5 Examination Category Sub-Category Detail Notes Category Not es Neurological SENSORY: Neurological exa m reveals intact sensorium, pain sensation normal, vibration sensation intact, pinprick sensation is normal in the lower extremities, 5.07 monofilament test performed at plantar aspects of 5 varied sites per foot shows sensation, normal, B/L, Pt denies, anesthesia, burning, paresthesia, tingling, B/L Orthopedic FOOTWEAR EVALUATION: Shoe gear w ere inspected and noted to be worn, but in good condition giving proper support at the present time MUSCLE STRENGTH: 5/5 all groups in a symmetrical fashion, B/L General Examination GENERAL APPEARANCE: Reveals a pleasant, alert, well nourished, well-developed, well hydrated individual, who demonstrates proper attention to hygiene/body habitus, and is in no acute distress, Pt serves as own historian for office visit today FOOT EXAM: Lower Extremity Neurological Exa m performed:: Yes Visual exam of foot performed:: Yes Date: 07/14/2024 Sensory testing performed:: sensations n ormal Sensory and motor testing performed:: se nsations and strength normal Pedal pulse taking performed:: absent ORIENTED: person, place, and t elsy Footwear Evaluation Footwear Evaluation performe d:: Yes Ophthalmology Referral DIABETES EYE EXAM Procedure Perform [...] malodorous subungual debris, with pain on palpation TA, T5, all other nails not described with characteristics as possessing mycosis are elongated, overgrown, and dystrophic, T1, T2, T3, T4, T6, T7, T8, T9
--- OUTSIDE RECORDS SUMMARY | 2024-09-08 12:03 | XMS_ITS | Patient Health Record ---
Author Organization [facility] Address [address] [facility] [place] [address] Care Team Providers Care Clinical Review Specialist Name Role Phone Christal Robison Primary Care Provider Martha Cevallos Unavailable [phone] Kurt Rodriguez Unavailable [phone] Allergies Allergen (clinical drug ingredient) Drug/Non Drug Allergy documented on EMR Reaction Allergy Type Onset Date Status cinnamon bark Cinnamon Unknown Drug Allergy Act raven Shrimp Flavor Unknown Drug Allergy Act raven Latex Latex Unknown Allergy Active Penicillin Unknown Drug Allergy Active Results Component Value Reference Range Notes HEMOGLOBIN A1C (GLYCOHEMOGLO BIN) Reviewed date:07/14/2024 10:54:28 AM Interpretation: Performing Lab: Notes/Report: HEMOGLOBIN A1C % (HH) 7.0 HEMOGLOBIN A1C (GLYCOHEMOGLO BIN) Reviewed date:04/14/2024 10:51:10 AM Interpretation: Performing Lab: Notes/Report: TOTAL HEMOGLOBIN (HGBA1C) 7.0 Reason For Referral No Information Medications Medication SIG (Take, Route, Frequency, Duration) Notes Start Date End Date Status Breztri Aerosphere N ot-Taking Albuterol Active Meclizine HCl Active Loratadine Active Levothyroxine Sodium Active Trulicity 0.75 MG/0.5ML as directed Subcutaneous Active metFORMIN HCl Active Simvastatin Active Valsartan Active Social History Tobacco Use: [...] Type 2 diabetes mellitus with peripheral angiopathy ([id number]) Type 2 diabetes mellitus with diabetic peripheral angiopathy without gangrene (E11.51) Active confirmed Q7(A), Q8(2B), Q9(1B,2C) Vital Signs Blood pressure diastolic 62 mm Hg 07/14/2024 Height 5ft 6in in 07/14/2024 Blood pressure systolic 120 mm Hg 07/14/2024 Weight 195 lbs 07/14/2024 BMI 31.47 kg/m2 07/14/2024 Procedures Procedure Date Ordered Date Performed Result Body Sit e 95910-DCMDYFZ NAIL, 1-04/14/2024 N/A M9405-ZYTKQDEX DYSTROPHIC NAILS ANY # 04/14/2024 N/A 21519-PYQWCHM NAIL, 1-07/14/2024 N/A U0414-[id number] DYSTROPHIC NAILS ANY # 07/14/2024 N/A Encounters Encounter Location Date Provider [facility] [address] 04/14/2024 Kurt Rodriguez Type 2 diabetes mellitus with diabetic peripheral angiopathy without gangrene E11.51 ; Tinea unguium B35.1 ; Pain in right toe(s) M79.674 and Pain in left toe(s) M79.[address] [address] 07/14/2024 Kurt Rodriguez Tinea unguium B35.1 ; Pain in right toe(s) M79.674 ; Pain in left toe(s) M79.675 and Type 2 diabetes mellitus with diabetic peripheral angiopathy without gangrene E11.51 [facility] [address] [place] [address] 03/30/2024 Kurt Rodriguez Assessments Encounter Date Diagnosis (ICD Code) Assessment Notes Treatment Notes Treatment Clinical Notes Section Notes 04/14/2024 Type 2 diabetes mellitus with diabetic peripheral angiopathy without gangrene (ICD-10 - E11.51) Q7(A), Q8(2B), Q9(1B,2C) 04/14/2024 Tinea unguium (ICD-10 - B35.1) 07/14/2024 Tinea unguium (ICD-10 - B35.1) 07/14/2024 Pain in right toe(s) (ICD-10 - M79.674) 07/14/2024 Pain in left toe(s) (ICD-10 - M79.675) 04/14/2024 Pain in right toe(s) (ICD-10 - M79.674) 07/14/2024 Type 2 diabetes mellitus with diabetic peripheral angiopathy without gangrene (ICD-10 - E11.51) Q7(A), Q8(2B), Q9(1B,2C) 04/14/2024 Pain in left toe(s) (ICD-10 - M79.675) Plan Of Treatment Pending Test Test Name Order Date [id number] NAIL, 1-5 04/14/2024 13478-[id number] NAIL, 1-5 07/14/2024 B8131-CZOQOINN DYSTROPHIC NAILS ANY # K9196-[id number] DYSTROPHIC NAILS ANY # Next Appt Details Provider Name:Martha manzanares, 10/13/2024 11:00:00 AM, [address] [facility], [place], [address], Insurance Providers Payer Name Payer Address Payer Phone Subscriber Number Group Number Insured Name Patient Relationship to Insured Coverage Start Date Coverage End Date [employer] [id number] [address] [address] [place] [address] [phone] [id number] Viv Pham Self - patient is the insured Medical (General) History Medical History History ICD Code Anemia asthma Diabetic High Blood Pressure thyroid Surgical History Surgery Date(Month/Year) 1981/1983/1986 Hospitalization History Reason Date(Month/Year) coloscopy 2024
--- OUTSIDE RECORDS SUMMARY | 2024-09-08 12:03 | XMS_ITS | Clinical Summary ---
Author Organization [employer] Address [address] [facility] 7t [place] [address] Care Team Providers Care Rn Midwife Name Role Phone Unavailable Primary Care Provider [...] Description 06/22/2024 1:00 PM EST Office Visit [facility] [address] [place] [address] Jeanette Piedra Dental plaque (Primary Dx) from Last 3 Months Social History Tobacco [...] Description 12/28/2024 1:00 PM EDT Office Visit [facility] [address] [place] [address] Jeanette Piedra [address] [place] [address] Health Maintenance Due Date Last Done Comments [...] 06/22/2024 Dental X-Ray: Full Mouth 05/30/2026 05/29/2023, 09/2017 RSV Patients and Patients Aged 60 [...] patient's age to complete this topic Meningococcal B Vaccine Aged Out No l onger eligible based on patient's age to complete [...] Relevant to Health Maintenance Insurance DENTAL - [facility] [place] [address]
--- OUTSIDE RECORDS SUMMARY | 2024-09-08 12:04 | XMS_ITS | Encounter Summary ---
Author Organization [employer] Address [address] [facility] 7[address] [place] [address] Care Team Providers Care Program Attendant Name Role Phone Unavailable Primary Care Provider Unavailabl e Encounter Details Date Type Department Care Team (Latest Contact Info) Description 11/22/2018 Abstract [facility] Dental, Provider, DDS Social History [...] Description 12/28/2024 1:00 PM EDT Office Visit [facility] [address] [place] [address] Jeanette Piedra [address] [place] [address] documented as of this encounter Visit Diagnoses Not on filedocumented in this encounter
--- OUTSIDE RECORDS SUMMARY | 2024-09-08 12:04 | XMS_ITS | Clinical Summary ---
Author Organization [address] [place] [address] [place] [phone] Phone Care Team Providers Care Marketing Finance Manager Name Role Phone Marianela Parks MD Primary Care Prov ider Allergies Active Allergy Reactions Criticality Noted Date Comments Cinnamon Swelling,Wheezing High 09/07/2023 Flu Virus Vaccine Tv 2014- (18 Yr And Up),Recomb 03/25/2006 pt states she gets very sick Latex High 09/07/2023 Other Reaction(s): Rash/Dermatitis Other Wheezing High 05/04/2012 1.Seasonal 2. SEAFOOD: Other Reaction(s): Rash/Dermatitis Penicillin G Potassium 04/08/2005 Other Reaction(s): Hives/Urticaria Shellfish Containing Products Wheezing High 09/07/2023 Shellfish Allergy: Other Reaction(s): Rash/Dermatitis Medications metFORMIN XR (GLUCOPHAGE-XR ) 500 mg 24 hr tablet TAKE 3 TABLETS BY MOUTH DAILY 11/09/19 Active lancets (OneTouch Delica Plus Lancet) 33 gauge 1 Units by Subconjunctival route daily. USE TO CHECK BLOOD SUGAR EVERY DAY 08/10/19 Active OneTouch Ultra Test test strip USE TO CHECK BLOOD SUGAR EVERY DAY 08/10/19 Active meclizine (ANTIVERT) 25 mg tablet Take 1 Tablet by mouth 2 times daily as needed (vertigo). 08/10/19 24 Active valsartan (DIOVAN) 80 mg tablet Take 1 Tablet by mouth daily. 03/20/20 Active simvastatin (ZOCOR) 20 mg tablet Take 1 Tablet by mouth at bedtime for 180 days. 03/20/20 Active loratadine (CLARITIN) 10 mg tablet Take 1 Tablet by mouth daily. 03/20/20 23 Active blood-glucose meter kit Use to check blood sugar once daily 03/12/20 22 Active albuterol HFA (PROAIR HFA ; PROVENTIL HFA ; VENTOLIN HFA) 90 mcg/actuation inhaler Inhale 2 Puffs into the lungs 4 times daily as needed for Cough, Wheezing or Shortness of Breath. 07/04/19 22 Active acetaminophen (TYLENOL) 500 mg tablet Take 1 Tab by mouth every 6 hours as needed for Pain for up to 10 days. 05/31/19 21 Active UNABLE TO FIND Blood Glucose Calibration (OT ULTRA/FASTTK CNTRL SOLN) Solution: Use as needed 02/03/20 17 Active MULTIVITAMIN ORAL 1 tablet daily Activ e calcium carbonate/marina min D3 (CALCIUM 600 + D,3, ORAL) CALCIUM 600 + D OR: 1 tablet daily - Oral Active Active Problems Problem Noted Date Diagnosed Date PAD (peripheral artery disease) ([facility] V24) Pelvic pain 02/18/2021 Overview (01/25/2024): Last Assessment & Plan: I explained to Ada that her pain as described sounds more MSK to me given worsned with lifting or prolonged sitting and not really in the LLQ, but rather in the mid left adbaomen and radiating to her back. She has chronic back pain and fibromyalgia, which could be contributing. I explained there is no evidence of Developmental Training Counselor pathology from her CT scan either. I recommended she take anti-inflammatory medication such as ibuprofen for pain and to help her discomfort resolve with time. If not improving, I recommended she return to her PCP. She voiced understanding and agreed. Arm pain 05/24/2020 Overview (01/25/2024): Last Assessment & Plan: Encouraged patient to follow-up with PCP. 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 ([facility] V24, [facility] V28) 11/02/2019 Overview (01/25/2024): Burning sensation in feet see 10/31/2019 note BPPV (benign paroxysmal positional vertigo) 06/26 Fibromyalgia 07/04/2016 Essential hypertension 02/22/2013 Hyperlipidemia 06/23/2012 Overview (01/25/2024): High total chol, LDL <160, HDL >60 Allergic rhinitis 03/01/2012 Low back pain 03/17/2011 Pain in joint, shoulder region 07/21/2005 Nonspecific reaction to tube rculin skin test without active tuberculosis 07/21/2005 Overview (01/25/2024): IMO update Obesity 07/21/2005 Asthma 04/08/2005 Encounters Date Type Department Care Team Description 09/05/2024 Telephone [facility] [address] [place] [address] Marianela Parks MD Referral (Called patient to book new patient visit with the echocardiography radiology technologist. Patient stated she is no longer a [facility] patient and is now established with a echocardiography radiology technologist at [facility] due to her insurance. Christy Dwyer) from Last 3 Months Immunizations Name Administration Dates Next Due Hepatitis A Adult (Havrix; V aqta) 19yo and older 05/02/2019 Hepatitis B (Tewiiic-Z-Tuthz , Recombivax HB-Adult) 19yo and older 03/30/2001,11/06/2000,10/07/2000 Pneumococcal conjugate 20 va lent (Prevnar 20, PCV 20) 2mo and older 10/06/2022 Pneumococcal polysaccharide 23 valent (Pneumovax 23) 2yo and older 12/08/2020,03/30/2014 Td Tetanus diptheria (Tdvax) 7yo and older 06/06 Tdap Tetanus diptheria acell ular pertussis (Boostrix; Adacel) 7yo and older 10/06/2022,10/04/2012 Zoster Live 04/25/2015 Surgical History Surgery Date Site/Laterality Comments TUBAL LIGATION PROCEDURE: HISTORICAL TUBAL LIGATION CHOLECYSTECTOMY PROCEDURE: HISTORICAL CHOLECYSTECTOMY SECTION PROCEDURE: HISTORICAL COLONOSCOPY 10/21/2002 PROCEDURE: HISTORICAL COLONOSCOPY; COMMENT: normal OTHER SURGICAL HISTORY PROCEDURE: DUAL ENERGY X-RAY ABSORPTIOMETRY; COMMENT: Normal bone density 11/30 COLONOSCOPY 09/21/2013 PROCEDURE: HISTORICAL COLONOSCOPY; COMMENT: Normal screening examination. 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 07/21/2005 DX:Tube rculin test reaction Hypertension 02/22/2013 DX:Hypertension Controlled type 2 diabetes m ellitus without complication, without long-term current use of insulin ([facility] V24, [facility] V28) 02/02/2017 DX:Controlled type 2 diabet es mellitus without complication, without long-term current use of insulin ([facility]) PAD (peripheral artery disea se) ([facility] V24) 09/10/2023 DX:PAD (peripheral artery di sease) ([facility]) Family History Medical History Relation Name Comments No Known Problems Aunt Diabetes Brother 1 Glaucoma Brother 1 Asthma Brother 2 Stroke Father No Known Problems Maternal Grandfather No Known Problems Maternal Grandmother Anemia Mother Asthma Mother Diabetes Mother Glaucoma Mother Hypertension Mother No Known Problems Other No Known Problems Paternal Grandfather No Known Problems Paternal Grandmother Diabetes Sister 1 Hypertension Sister 2 Asthma Sister 3 Heart attack Sister 4 age 69 Stroke Sister 5 age 71 Other: ? brain aneurysm Sister 6 No Known Problems Uncle Autoimmune disease Neg Hx Blindness Neg Hx Breast cancer Neg Hx Cancer of Small Bowel Neg Hx Cataracts Neg Hx Colon cancer Neg Hx Kidney cancer Neg Hx Lung cancer Neg Hx Macular degeneration Neg Hx Ovarian cancer Neg Hx Pancreatic cancer Neg Hx Strabismus Neg Hx Uterine cancer Neg Hx Relation Name Status Comments Aunt Brother 1 Brother 2 Father ??? 11 sibs 1 d eceased from asthma Maternal Grandfather Maternal Grandmother Mother (Age 80's) asthma Other Paternal Grandfather Paternal Grandmother Sister 1 Sister 2 Sister 3 Sister 4 Sister 5 Sister 6 Uncle Social History Tobacco Use Types Packs/Day Years Used Date Smoking Tobacco: Never Smokeless Tobacco: Never Alcohol Use Standard Drinks/Week Comments No 0 (1 standard drink = 0.6 oz pur e alcohol) Comments Unknown Sex and Gender Information Value Date Recorded Sex Assigned at Not on file Legal Sex Female 1:45 AM EST Gender Identity Not on file Sexual Orientation Not on file Obstetrics History Last Filed Vital Signs Vital Sign Reading Time Taken Comments Blood Pressure 126/68 10/12/2023 1:13 PM EDT Pulse 76 10/12/2023 1:13 PM EDT Temperature - - Respiratory Rate - - Oxygen Saturation - - Inhaled Oxygen Concentration - - Weight 84.7 kg (186 lb 12.8 oz) 10/12/2023 1:13 PM EDT Height 167.6 cm (5' 6 ) 10/12/2023 1:13 PM EDT Body Mass Index 30.15 10/12/2023 1:13 PM EDT Plan of Treatment Health Maintenance Due Date Last Done Comments Diabetes: Annual Foot Exam 1964 RSV Immunization Adult Patients (1 - Risk 60-74 years 1-dose series) 2014 Zoster Vaccines (2 of 3) 06/20/2015 04/25/2015 Falls Risk Assessment 04/05/2022 Medicare Annual Wellness Visit 04/05/2022 Social Influencers of Health Screening 04/05/2022 Colorectal Cancer Screening: Colonoscopy 09/22/2023 09/21/2013 COVID-19 Vaccine ( season) 2023 05/22/2021, 09/05/2020, 08/08/2020 Diabetes: Blood Sugar Control Test (HGBA1C) 01/13/2024 07/13/2023 Diabetes: Annual Urine Albumin-Creatinine Ratio (uACR) 01/21/2024 01/20/2023 Diabetes: Annual Retina Eye Exam 02/13/2024 02/12/2023 Depression Screening 05/19/2024 05/19/2023 Breast Cancer Screening 12/01/2024 12/02/19 23, 11/29/2021, 11/27/2020, Additional history exists Diabetes: Annual GFR (Glomerular Filtration Rate) 12/03/2024 12/04/2023, 07/13/2023 Hypertension/CHF/CAD Annual BMP Blood Test 12/03/2024 12/04/2023, 07/13/2023 Influenza Vaccine (Season Ended) 2024 Cholesterol Screening (Lipid Panel) 07/12/2028 07/13/2023 DTaP,Tdap,and Td Vaccines (4 - Td or Tdap) 10/06/2032 10/06/2022, 10/04/2012, 06/06/2005 Osteoporosis Screening (Bone Density Screening) 01/01/2033 01/01/2023, 09/07/2020 Hepatitis B Vaccines Completed 03/30/2001, 11/06/2000, 10/07/2000 Hepatitis C Screening Completed 06/08/2008 Hepatitis A Vaccines Aged Out 05/02/2019 No long er eligible based on patient's age to complete this topic Pneumococcal Vaccine: 50+ Years Completed 10/06/2022, 12/08/2020, 03/30/2014 HIB Vaccines Aged Out No longer eligi ble based on patient's age to complete this topic HPV Vaccines Aged Out No longer eligi ble based on patient's age to complete this topic IPV Vaccines Aged Out No longer eligi ble based on patient's age to complete this topic MMR Vaccines Aged Out No longer eligi ble based on patient's age to complete this topic Meningococcal ACWY Vaccine Aged Out N o longer eligible based on patient's age to complete this topic Meningococcal B Vaccine Aged Out No l onger eligible based on patient's age to complete this topic RSV Immunization Patients Under 20 months Aged Out No longer eligible based on patient's age to complete this topic Varicella Vaccines Aged Out No longer eligible based on patient's age to complete this topic Procedures Procedure Name Priority Date/Time Associated Diagnosis Comments ANNUAL BMP BLOOD TEST Routine 07/13/2023 HEMOGLOBIN A1C Routine 07/13/2023 LIPID PANEL Routine 07/13/2023 DEPRESSION SCREENING Routine 05/19/2023 DIABETES EYE EXAM Routine 02/12/2023 URINE ALBUMIN CREATININE RATIO Routine 01/20/2023 DXA BONE DENSITY STUDY 1+ SITS AXIAL SKEL Routine 01/01/2023 10:18 AM EDT Encounter for screening for osteoporosis SCREENING MAMMOGRAPHY BI 2-VIEW BREAST INC CAD Routine 12/01/2022 2:55 PM EDT Encounter for screening mammogram for malignant neoplasm of breast HEPATITIS C SCREENING Routine 06/08/2008 from Last 3 Months or Most Recently Relevant to Health Maintenance Results * Annual BMP Blood Test (07/13/2023) [facility] Annual BMP Blood Test Abstracted Result [facility] Provider HEALTH MAINTENANCE Final Result * (ABNORMAL) Hemoglobin A1c (07/13/2023) [facility] Hemoglobin A1C 6.8(A) <=6.5 % Blood Venous blood specimen / Unknown Result [facility] Provider LAB BLOOD ORDERABLES Maira l Result * Lipid panel (07/13/2023) [facility] LDL/HDL Ratio 2 0 - 4 Triglycerides 72 0 - 150 mg/dL Cholesterol 170 0 - 200 mg/dL HDL 76 >=40 mg/dL LDL Cholesterol 80 0 - 100 mg/dL Blood Venous blood specimen / Unknown Result [facility] Provider LAB BLOOD ORDERABLES Maira l Result * Depression Screening (05/19/2023) [facility] Depression Screening Abstracted Result [facility] Provider HEALTH MAINTENANCE Final Result * Diabetes Eye Exam (02/12/2023) [facility] Diabetes: Annual Retina Eye Exam Abstracted Result [facility] Provider HEALTH MAINTENANCE Final Result * Urine Albumin Creatinine Ratio (01/20/2023) [facility] Urine Albumin Creatinine Ratio Abstracted Result [facility] Provider HEALTH MAINTENANCE Final Result * DXA BONE DENSITY STUDY 1+ SITS AXIAL SKEL (01/01/2023 10:18 AM EDT) Anatomical Region Laterality Modality Bone Densitometr y 10/06/2022 11:3 9 AM EDT Narrative 01/01/2023 6:53 PM EDT BONE DENSITY SCAN (DEXA) ? FINDINGS: Lumbar Spine T-score is 0.4. ?? (SD relative to 20-29 y/o adult) Z-score is 2.4. ??(SD relative to age matched peers) This is considered normal by WHO criteria. Left Hip T-score is -0.8. Z-score is 0.7. This is considered normal by WHO criteria. Comparison: 09/07/2020. ??No statistically significant change in bone mineral density. Lateral survey view of the thoracolumbar spine shows no significant compression deformities. IMPRESSION: IMPRESSION: Normal bone mineral density by WHO criteria. The [facility] Department of Internal Medicine recommends using National Osteoporosis Foundation (NOF) guidelines in treatment decisions related to osteoporosis. NOF guidelines suggest considering treatment for postmenopausal women and men aged 50 or older presenting with the following: History of hip or vertebral fracture. T-score = -2.5 (DXA) at the femoral neck, total hip, or spine, after appropriate evaluation to exclude secondary causes. Low bone mass (T-score between -1.0 and -2.5 at the femoral neck or spine) AND a 10-year probability of a hip fracture = 3% OR a 10-year probability of a major osteoporosis-related fracture = 20% based on the [place]-adapted WHO algorithm Please note that all treatment decisions require clinical judgment and consideration of individual patient factors, including patient preferences, co-morbidities, previous drug use, risk factors not captured in the FRAX model (e.g., frailty, falls, vitamin D deficiency, increased bone turnover, interval significant decline in bone density) and possible under- or over-estimation of fracture risk by FRAX. Optional alternative screening schedule based on dmitri Tadeo., [facility] May 15, 2011 for patients with osteopenia (based on hip BMD T-score) is as follows: * ??advanced osteopenia (T scores -2.00 to -2.49), BMD testing every year * ??moderate osteopenia (T scores -1.50 to -1.99), BMD testing every 5 years mild osteopenia or normal BMD (T scores -1.50 and higher), BMD testing every 15 years Procedure Note Ange Pierce MD - 06/02/2023 BONE DENSITY SCAN (DEXA) FINDINGS: Lumbar Spine T-score is 0.4. (SD relative to 20-29 y/o adult) Z-score is 2.4. (SD relative to age matched peers) This is considered normal by WHO criteria. Left Hip T-score is -0.8. Z-score is 0.7. This is considered normal by WHO criteria. Comparison: 09/07/2020. No statistically significant change in bonemineral density. Lateral survey view of the thoracolumbar spine shows no significantcompression deformities. IMPRESSION: IMPRESSION: Normal bone mineral density by WHO criteria. The [facility] Department of Internal Medicine recommendsusing National Osteoporosis Foundation (NOF) guidelines in treatment decisions related toosteoporosis. NOF guidelines suggest considering treatment for postmenopausal women and menaged 50 or older presenting with the following: History of hip or vertebral fracture. T-score = -2.5 (DXA) at the femoral neck, total hip, or spine, afterappropriate evaluation to exclude secondary causes. Low bone mass (T-score between -1.0 and -2.5 at the femoral neck or spine)AND a 10-year probability of a hip fracture = 3% OR a 10-year probability of a majorosteoporosis-related fracture = 20% based on the [place]-adapted WHO algorithm Please note that all treatment decisions require clinical judgment andconsideration of individual patient factors, including patient preferences, co- morbidities,previous drug use, risk factors not captured in the FRAX model (e.g., frailty, falls, vitaminD deficiency, increased bone turnover, interval significant decline in bone density) andpossible under- or over-estimation of fracture risk by FRAX. Optional alternative screening schedule based on dmitri Tadeo., NEJMJanuary 2011 for patients with osteopenia (based on hip BMD T-score) is as follows: * advanced osteopenia (T scores -2.00 to -2.49), BMD testing every year * moderate osteopenia (T scores -1.50 to -1.99), BMD testing every 5years mild osteopenia or normal BMD (T scores -1.50 and higher), BMD testingevery 15 years Marianela Parks MD IMG DXA PROCEDURES Final Result * SCREENING MAMMOGRAPHY BI 2-VIEW BREAST INC CAD (12/01/2022 2:55 PM EDT) Anatomical Region Laterality Modality Radiographic Claudia ging 11/29/2021 1:05 PM EDT Narrative 12/02/2022 6:19 PM EDT This is a summary report. The complete report is available in the patient's medical record. If you cannot access the medical record, please contact the sending organization for a detailed fax or copy. Exam: Screening mammogram Findings: Digital bilateral full-field screening mammography is performed with tomosynthesis and interpreted with the aid of computer-aided detection. ??Comparison is made with 11/29/2021 and as far back as 11/19/2018. Breast parenchyma is composed of scattered fibroglandular densities. ??No new suspicious mass, architectural distortion, or suspicious calcifications. Impression: No mammographic evidence of malignancy. BI-RADS 1 - negative Procedure Note Ange Pierce MD - 06/02/2023 This is a summary report. The complete report is available in thepatient's medical record. If you cannot access the medical record, pleasecontact the sending organization for a detailed fax or copy. Exam: Screening mammogram Findings: Digital bilateral full-field screening mammography is performedwith tomosynthesis and interpreted with the aid of computer-aideddetection. Comparison is made with 11/29/2021 and as far back as11/19/2018. Breast parenchyma is composed of scattered fibroglandular densities. Nonew suspicious mass, architectural distortion, or suspiciouscalcifications. Impression: No mammographic evidence of malignancy. BI-RADS 1 - negative Marianela Parks MD IMG XR PROCEDURES Final Result * Hepatitis C Screening (06/08/2008) [facility] Hepatitis C Screening Abstracted us Historical Provider HEALTH MAINTENANCE Final Result from Last 3 Months or Most Recently Relevant to Health Maintenance Insurance [employer]ARE Care Teams Marketing Finance Manager Relationship Specialty Start Date End Date Marianela Parks MD [address] [place] [phone] PCP - General Internal Medicine 11/02/21
--- OUTSIDE RECORDS SUMMARY | 2024-09-08 12:04 | XMS_ITS ---
Author Organization [facility]uel [place] Address [address] [facility] [place] [address] Care Team Providers Care Branch Maker Name Role Phone Christal Robison Primary Care Provider Martha Cevallos Unavailable [phone] Kurt Rodriguez Unavailable [phone] Allergies Allergen (clinical drug ingredient) Drug/Non Drug [...] Type 2 diabetes mellitus with peripheral angiopathy (267777912) Type 2 diabetes mellitus with diabetic peripheral angiopathy without gangrene (E11.51) Active confirmed Q7(A), Q8(2B), Q9(1B,2C) Vital Signs Height 5ft 6in in 04/14/2024 Weight 191 lbs 04/14/2024 BMI 30.82 kg/m2 04/14/2024 Blood pressure systolic 120 mm Hg 04/14/20 24 Blood pressure diastolic 62 mm Hg 024 Procedures Procedure Date Ordered Date Performed Result Body Sit e [id number] NAIL, 1-5 04/14/2024 N/A [id number] DYSTROPHIC NAILS ANY # 04/14/2024 N/A Encounters Encounter [facility] Date [facility] [address] [place] [address] 04/14/2024 Kurt Rodriguez Type 2 diabetes mellitus [...] Treatment Pending Test Test Name Order Date [id number] NAIL, 1-5 04/14/2024 [id number] DYSTROPHIC NAILS ANY # Next Appt Details Follow Up: 3 Months, Reason: Provider Name:Martha manzanares, 10/13/2024 11:00:00 AM, [address] [facility], [place], [address], Procedure Notes * Category Sub-Category Detail Notes [...] necessary to maintain effective symptomatic relief - 96671 Nail Reduction Nail Reduction (-27) Trimming o [...] * Viv LOCKWOOD LDOB:1955 (68 yo F)Acc No.[id number]:04/14/2024 Progress Notes Patient:?Viv LOCKWOOD L Provider:?Kurt Rodriguez D.P.M. :1955???Age:68 Y???Sex:Female D ate:04/14/2024 Address:[place], [id number] Pcp:Christal Robison Subjective: * Chief Complaints: * [...] - M79.675??? Plan: * Treatment: 2.?Tinea unguium?Procedure: [id number] NAIL, 1-5 * Procedures:?Debride Nails 1-5:?Procedure:?Due to [...] necessary to maintain effective symptomatic relief - 62602.?Nail Reduction:?Nail Reduction?(-27) Trimming of all dystrophic nails [...] bed tissue - G0127 Q8.? * Procedure Codes:?76807 DEBRI DE NAIL, 1-5, Modifiers: XS G0127 [...] Rodriguez D.P.M. Date:?03/27 Generated for Jeannette guerra/Yajaira/Nereyda on:?09/08/2024 12:03 PM [...] footcare Pt States Last PCP Visit: Date: 4 Examination Category Sub-Category Detail Notes Category Not [...]
--- OUTSIDE RECORDS SUMMARY | 2024-09-08 12:04 | XMS_ITS ---
Author Organization [facility] Address [address] [place] [address] Care Team Providers Care Live Study Manager Name Role Phone Christal Robison Primary Care Provider Martha Cevallos Unavailable [phone] Kurt Rodriguez [phone] REASON FOR VISIT TELEGRAPH EQUIPMENT MAINTAINER PPWK Entered Encounters Encounter Location Date Provider Diagnosis [facility] [address] [place] [address] 03/30/2024 Kurt Rodriguez Plan Of Treatment Next Appt Details Provider Name:Martha manzanares, 10/13/2024 11:00:00 AM, [address] [facility], [place], [address], Progress Notes * Viv LOCKWOOD LDOB:1955 (68 yo F)Acc No.[id number]:03/30/2024 Patient:?Viv LOCKWOOD :1955???Age:68 Y???Sex:Female Address:[place] [address] * true * Date:? Generated for Printi charlie/Yajaira/eTransmitting on:?09/08/2024 12:03 PM EDT
--- OUTSIDE RECORDS SUMMARY | 2024-09-08 12:04 | XMS_ITS | Encounter Summary ---
Author Organization [employer] Address [address] 7t [place] [address] Care Team Providers Care Pilot Steam Yacht Name Role Phone Unavailable Primary Care Provider Unavailabl e Reason for Referral * Consultation - Closed Specialty Diagnoses / Procedures Referred By Radha james Referred To Contact Dentistry Diagnoses completed Procedures LR PERIODONTAL SCALING AND ROOT PLANING - 1 TO 3 TEETH PER [facility] [address] [place] [address] Phone: tel: fax: [facility] [address] [place] [address] Phone: tel: fax: Referral ID Status Reason Start Date Expiration Date Visits Re quested Visits Authorized [id number] Closed 03/26/2022 09/22/2022 1 1 * Consultation - Closed Specialty Diagnoses / Procedures Referred By Radha james Referred To Contact Dentistry Diagnoses completed Procedures UR PERIODONTAL SCALING AND ROOT PLANING - 1 TO 3 TEETH PER [facility] [address] [place] [address] Phone: tel: fax: [facility] [address] [place] [address] Phone: tel: fax: Referral ID Status Reason Start Date Expiration Date Visits Re quested Visits Authorized [id number] Closed 03/26/2022 09/22/2022 1 1 Encounter Details Date Type Department Care Team (Late st Contact Info) Description 03/26/2022 Abstract [facility] [address] [place] [address] Dental, Provider, DDS Social History Tobacco Use [...] Description 12/28/2024 1:00 PM EDT Office Visit [facility] [address] [place] [address] Dorothea, Jeanette [address] [place] [address] documented as of this encounter Procedures Procedure [...]
--- OUTSIDE RECORDS SUMMARY | 2024-09-08 12:04 | XMS_ITS | Encounter Summary ---
Author Organization [employer] Address [address] [place] [address] Care Team Providers Care Open Shank Coverer Name Role Phone Marianela Parks MD Primary Care Prov ider Reason for Visit * Reason Onset Date Comments Referral 09/05/2024 Called patient t o book new patient visit with the acid tank liner. Patient stated she is no longer a [facility] patient and is now established with a acid tank liner at [facility] due to her insurance. Christy R Encounter Details Date Type Department Care Team (Late st Contact Info) Description 09/05/2024 Telephone [facility] Cardiology [facility] [address] [place] [address] Marianela Parks MD [address] [place] [address] [phone] Referral (Called patient to book new patient visit with the acid tank liner. Patient stated she is no longer a [facility] patient and is now established with a acid tank liner at [facility] due to her insurance. Christy R) Social History Tobacco Use Types Packs/Day Years Used Date Smoking Tobacco: Never Smokeless Tobacco: Never Alcohol Use Standard Drinks/Week Comments No 0 (1 standard drink = 0.6 oz pur e alcohol) Comments Unknown Sex and Gender Information Value Date Recorded Sex Assigned at Not on file Legal Sex Female 1:45 AM EST Gender Identity Not on file Sexual Orientation Not on file documented as of this encounter Progress Notes * Jojo Rowe - 09/05/2024 9:28 AM EDT Called patient to book new patient visit with the acid tank liner. Patient stated she is no longer a [facility] patient and is now established with a acid tank liner at [facility] due to her insurance. Christy Dwyer documented in this encounter Plan of Treatment Not on file documented as of this encounter Visit Diagnoses Not on filedocumented in this encounter Care Teams Open Shank Coverer Relationship Specialty Start Date End Date Marianela Parks MD [address] [place] [address] PCP - General Internal Medicine 11/02/21 documented as of this encounter
--- OUTSIDE RECORDS SUMMARY | 2024-09-08 12:04 | XMS_ITS | Encounter Summary ---
Author Organization [employer] Address [address] [facility] 7t [place] [address] Care Team Providers Care Manager Qa Name Role Phone Unavailable Primary Care Provider Unavailabl e Encounter Details Date Type Department Care Team (Latest Contact Info) Description 02/12/2022 Abstract [facility] CONVERSIONS Dental, Provider, DDS Social History [...] Description 12/28/2024 1:00 PM EDT Office Visit [facility] [address] [place] [address] Jeanette Piedra [address] [place] [address] documented as of this encounter Visit Diagnoses Not on filedocumented in this encounter
== END 2024-09-08 11:42 | disposition home or self-care (01) ==
LOC: HO.HMCFM 10:55
PROVIDERS: PCP Physician Assistant; Visit Provider Physician Assistant
DX: E11.9 Type 2 diabetes mellitus without complications (principal); I10 Essential (primary) hypertension; E78.5 Hyperlipidemia, unspecified

== ENCOUNTER → 2024-09-08 10:54 | Outpatient (BNVA) | payer MEDICARE, SELFPAY | PROVIDERS: PCP Physician Assistant; Visit Provider Physician Assistant | DX: E11.9 Type 2 diabetes mellitus without complications (principal); E78.5 Hyperlipidemia, unspecified; I10 Essential (primary) hypertension | CPT/HCPCS: 83036; 96127; 99212 ==

== ENCOUNTER 2024-09-15 08:42 | Outpatient (REF) | payer MEDICARE, SELFPAY ==
--- OUTSIDE RECORDS SUMMARY | 2024-09-15 08:53 | XMS_ITS ---
Author Organization [facility] [place] Address [address] [facility] [address] Care Team Providers Care Scale Installer Name Role Phone Christal Robison Primary Care Provider Martha Cevallos Unavailable [phone] Kurt Rodriguez Unavailable [phone] Allergies Allergen (clinical drug ingredient) Drug/Non Drug [...] Type 2 diabetes mellitus with peripheral angiopathy (539347117) Type 2 diabetes mellitus with diabetic peripheral angiopathy without gangrene (E11.51) Active confirmed Q7(A), Q8(2B), Q9(1B,2C) Vital Signs Height 5ft 6in in 04/14/2024 Weight 191 lbs 04/14/2024 BMI 30.82 kg/m2 04/14/2024 Blood pressure systolic 120 mm Hg 04/14/20 24 Blood pressure diastolic 62 mm Hg 024 Procedures Procedure Date Ordered Date Performed Result Body Sit e 93093-EDHJLFJ NAIL, 1-5 04/14/2024 N/A E2867-LHKCXJIK DYSTROPHIC NAILS ANY # 04/14/2024 N/A Encounters Encounter Location Date Provider Diagnosis [facility] [address] [place] [address] 04/14/2024 Kurt Rodriguez Type 2 diabetes mellitus [...] Treatment Pending Test Test Name Order Date 56748-OQMTJUE NAIL, 1-5 04/14/2024 D1650-KYLNCUOR DYSTROPHIC NAILS ANY # Next Appt Details Follow Up: 3 Months, Reason: Provider Name:Martha manzanares, 10/13/2024 11:00:00 AM, [address] [facility], [place], [address], Procedure Notes * Category Sub-Category Detail Notes [...] necessary to maintain effective symptomatic relief - 76706 Nail Reduction Nail Reduction (-27) Trimming o [...] * Viv LOCKWOOD LDOB:1955 (68 yo F)Acc No.[id number]:04/14/2024 Progress Notes Patient:?Viv LOCKWOOD L Provider:?Kurt Rodriguez D.P.M. :1955???Age:68 Y???Sex:Female D ate:04/14/2024 Address:[place], [place] Pcp:Christal Robison Subjective: * Chief Complaints: * [...] - M79.675??? Plan: * Treatment: 2.?Tinea unguium?Procedure: 63419-MMHVGRM NAIL, 1-5 * Procedures:?Debride Nails 1-5:?Procedure:?Due to [...] necessary to maintain effective symptomatic relief - 71926.?Nail Reduction:?Nail Reduction?(-27) Trimming of all dystrophic nails [...] bed tissue - G0127 Q8.? * Procedure Codes:?52904 DEBRI DE NAIL, 1-5, Modifiers: XS G0127 [...] Rodriguez D.P.M. Date:?03/27 Generated for Jeannette guerra/Yajaira/Nereyda on:?09/15/2024 08:53 AM EDT History and Physical Notes * [...]
--- OUTSIDE RECORDS SUMMARY | 2024-09-15 08:53 | XMS_ITS | Encounter Summary ---
Author Organization [employer] Address [address] [facility] 7t [place] [address] Care Team Providers Care Estimator Binding Name Role Phone Unavailable Primary Care Provider Unavailabl e Encounter Details Date Type Department Care Team (Latest Contact Info) Description 02/12/2022 Abstract [facility] CONVERSIONS Dental, Provider, DDS Social History Tobacco [...] Upcoming Encounters Date Type Department Care Team ( st Contact Info) Description 12/28/2024 1:00 PM EDT Office Visit [facility] [address] [place] [address] Jeanette Piedra [address] [place] [address] documented as of this encounter Visit Diagnoses Not on filedocumented in this encounter
--- OUTSIDE RECORDS SUMMARY | 2024-09-15 08:53 | XMS_ITS ---
Author Organization [facility] [place] Address [address] [facility] [place] [address] Care Team Providers Care Bioengineer Name Role Phone Christal Robison Primary Care Provider Martha Cevallos Unavailable [phone] Kurt Rodriguez Unavailable [phone] Allergies Allergen (clinical drug ingredient) Drug/Non Drug [...] Ordered Date Performed Result Body Sit e 95477-QFGODEP NAIL, 1-5 07/14/2024 N/A A1422-LMALJXPS DYSTROPHIC NAILS ANY # 07/14/2024 N/A Encounters Encounter Location Date Provider Diagnosis [facility] [address] [place] [address] 07/14/2024 Kurt Rodriguez Tinea unguium B35.1 ; [...] Treatment Pending Test Test Name Order Date 65501-CWRAMJX NAIL, 1-07/14/2024 J3086-JBEAWUVF DYSTROPHIC NAILS ANY # Next Appt Details Follow Up: 3 Months, Reason: Provider Name:Martha manzanares, 10/13/2024 11:00:00 AM, [address] [facility], [place], [address], Procedure Notes * Category Sub-Category Detail Notes [...] necessary to maintain effective symptomatic relief - 36366 Nail Reduction Nail Reduction (-27) Trimming o [...] * Viv LOCKWOOD LDOB:1955 (68 yo F)Acc No.[id number]:07/14/2024 Progress Note Patient:?Viv LOCKWOOD Provider:?Kurt Rodriguez D.P.M. :1955???Age:68 Y???Sex:Female D ate:07/14/2024 Address: [place], [place] Pcp:Christal Robison Subjective: * Chief Complaints: * [...] mellitus with diabetic peripheral angiopathy without gangrene?Procedure: A6084-DUBDDOKY DYSTROPHIC NAILS ANY # * Procedures:?Debride Nails [...] necessary to maintain effective symptomatic relief - 48593.?Nail Reduction:?Nail Reduction?(-27) Trimming of all dystrophic nails [...] bed tissue - G0127 Q8.? * Procedure Codes:?53816 ROHINIAdrian DAIZ NAIL, 1-5, Modifiers: XS G0127 TRIMMING DYSTROPHIC NAILS ANY #, Modifiers: XS , Q8 * Preventive Medicine:? ??Counseling:?Diabetic Footcare:?The patient was advised against future self nail/callus care due to inherent risks for infection, loss of limb/life given diabetic, peripheral vascular disease.? * Follow Up:?3 Months * Images: * Sign off status: Completed true * Provider:?Kurt Rodriguez D.P.M. Date:?06/26 Generated for Jeannette guerra/Yajaira/Nereyda on:?09/15/2024 08:52 AM EDT History and Physical Notes * [...]
--- OUTSIDE RECORDS SUMMARY | 2024-09-15 08:53 | XMS_ITS | Clinical Summary ---
Author Organization [employer] Address [address] [facility] 7t [place] [address] Care Team Providers Care Paraprofessional Education Assistant Name Role Phone Unavailable Primary Care Provider [...] Description 06/22/2024 1:00 PM EST Office Visit [facility] [address] [place] [address] Jeanette Piedra Dental plaque (Primary Dx) from [...] Description 12/28/2024 1:00 PM EDT Office Visit [facility] [address] [place] [address] Jeanette Piedra [address] [place] [address] Health Maintenance Due Date Last Done Comments [...] 06/22/2024 Dental X-Ray: Full Mouth 05/30/2026 05/29/2023, 0309/2017 RSV Patients and Patients Aged 60 years [...] Relevant to Health Maintenance Insurance DENTAL - [facility] P[facility]
--- OUTSIDE RECORDS SUMMARY | 2024-09-15 08:53 | XMS_ITS | Patient Health Record ---
Author Organization [facility] Address [address] [facility] [place] [address] Care Team Providers Care Glaze Grinder Name Role Phone Christal Robison Primary Care Provider Martha Cevallos Unavailable [phone] Kurt Rodriguez Unavailable [phone] Allergies Allergen (clinical drug ingredient) Drug/Non Drug [...] Performing Lab: Notes/Report: TOTAL HEMOGLOBIN (HGBA1C) 7.0 HEMOGLOBIN A1C (GLYCOHEMOGLO BIN) Reviewed date:07/14/2024 10:54:28 AM Interpretation: Performing Lab: Notes/Report: HEMOGLOBIN A1C % (HH) 7.0 Reason For Referral No Information Medications [...] Type 2 diabetes mellitus with peripheral angiopathy (431770618) Type 2 diabetes mellitus with diabetic peripheral angiopathy without gangrene (E11.51) Active confirmed Q7(A), Q8(2B), Q9(1B,2C) Vital Signs Blood pressure diastolic 62 mm Hg 07/14/2024 Height 5ft 6in in 07/14/2024 Blood pressure systolic 120 mm Hg 07/14/2024 Weight 195 lbs 07/14/2024 BMI 31.47 kg/m2 07/14/2024 Procedures Procedure Date Ordered Date Performed Result Body Sit e 35992-AFMDCUE NAIL, 1-04/14/2024 N/A B7072-JIERWYLN DYSTROPHIC NAILS ANY # 04/14/2024 N/A 98375-CHFHXXN NAIL, 1-07/14/2024 N/A I4006-ZOUBRHGQ DYSTROPHIC NAILS ANY # 07/14/2024 N/A Encounters Encounter Location Date Provider [facility] [address] 04/14/2024 Kurt Rodriguez Type 2 diabetes mellitus with diabetic peripheral angiopathy without gangrene E11.51 ; Tinea unguium B35.1 ; Pain in right toe(s) M79.674 and Pain in left toe(s) M79.[address] [address] 07/14/2024 Kurt Rodriguez Tinea unguium B35.1 ; Pain in right toe(s) M79.674 ; Pain in left toe(s) M79.675 and Type 2 diabetes mellitus with diabetic peripheral angiopathy without gangrene E11.51 [facility] [address] [place] [address] 03/30/2024 Kurt Rodriguez Assessments Encounter Date Diagnosis [...] Treatment Pending Test Test Name Order Date 10357-PLEAPXC NAIL, 1-5 04/14/2024 40544-VRYJCBK NAIL, 1-5 07/14/2024 J0925-YOSOZPGT DYSTROPHIC NAILS ANY # A2246-ZPVYEULW DYSTROPHIC NAILS ANY # Next Appt Details Provider Name:Martha manzanares, 10/13/2024 11:00:00 AM, [address] [facility], [place], [address], Insurance Providers Payer Name Payer Address Payer Phone Subscriber Number Group Number Insured Name Patient Relationship to Insured Coverage Start Date Coverage End Date [facility] [id number] [address] [address] [place] [address] [id number] Viv Pham Self - patient is the insured Medical (General) History Medical History History ICD Code Anemia asthma Diabetic High Blood Pressure thyroid Surgical History Surgery Date(Month/Year) 1981/1983/1986 Hospitalization History Reason Date(Month/Year) coloscopy 2024
--- OUTSIDE RECORDS SUMMARY | 2024-09-15 08:53 | XMS_ITS | Encounter Summary ---
Author Organization [employer] [facility] Address [address] [place] [address] 7 [place] [address] Care Team Providers Care Double Ending Machine Operator Name Role Phone Unavailable Primary Care Provider Unavailabl e Reason for Referral * Consultation - Closed Specialty Diagnoses / Procedures Referred By Radha james Referred To Contact Dentistry Diagnoses completed Procedures LR PERIODONTAL SCALING AND ROOT PLANING - 1 TO [address] [facility] [address] [place] [address] Phone: tel: fax: [facility] [address] [place] [address] Phone: tel: fax: Referral ID Status Reason Start Date Expiration Date Visits Re quested Visits Authorized [id number] Closed 03/26/2022 09/22/2022 1 1 * Consultation - Closed Specialty Diagnoses / Procedures Referred By Radha james Referred To Contact Dentistry Diagnoses completed Procedures UR PERIODONTAL SCALING AND ROOT PLANING - 1 TO [address] [facility] [address] [place] [address] Phone: tel: fax: [facility] [address] [place] [address] Phone: tel: fax: Referral ID Status Reason Start Date Expiration Date Visits Re quested Visits Authorized [id number] Closed 03/26/2022 09/22/2022 1 1 Encounter Details Date Type Department Care Team (Late st Contact Info) Description 03/26/[address] [facility] [address] [place] [address] Dental, Provider, DDS Social History Tobacco Use [...] 12/28/2024 1:00 PM EDT Office Visit [facility] [address] [place] [address] Jeanette Piedra [address] [place] [address] documented as of this encounter Procedures Procedure [...]
--- OUTSIDE RECORDS SUMMARY | 2024-09-15 08:53 | XMS_ITS | Encounter Summary ---
Author Organization [employer] Address [address] [facility] 7t [place] [address] Care Team Providers Care Slot Ambassador Name Role Phone Unavailable Primary Care Provider Unavailabl e Encounter Details Date Type Department Care Team (Latest Contact Info) Description 11/22/2018 Abstract [facility] CONVERSIONS Dental, Provider, DDS Social [...] Description 12/28/2024 1:00 PM EDT Office Visit [facility]ULT [facility] [address] [place] [address] Jeanette Piedra [address] [place] [address] documented as of this encounter Visit Diagnoses Not on filedocumented in this encounter
--- OUTSIDE RECORDS SUMMARY | 2024-09-15 08:53 | XMS_ITS ---
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 Generated for Print[employer] charlie/Yajaira/eTransmitting on:?09/15/2024 08:53 AM EDT
--- OUTSIDE RECORDS SUMMARY | 2024-09-15 08:53 | XMS_ITS | Clinical Summary ---
Author Organization [address] [place] [address] [place] [address] Phone Care Team Providers Care Stiff Leg Derrick Operator Name Role Phone Marianela Parks MD Primary [...] TO CHECK BLOOD SUGAR EVERY DAY 08/10/19 24 Active meclizine (ANTIVERT) 25 mg tablet Take [...] Date Diagnosed Date PAD (peripheral artery disease) ([facility] V24) Pelvic pain 02/18/2021 Overview (01/25/2024): Last [...] I explained there is no evidence of Pricing Actuary pathology from her CT scan either. I [...] 2 diabetes mellitus wit h neurological manifestation ([facility] V24, [facility] V28) 11/02/2019 Overview (01/25/2024): Burning sensation in [...] Type Department Care Team Description 09/05/2024 Telephone [facility] [address] [facility] [address] [place] [address] Marianela Parks MD Referral (Called patient to book new patient visit with the resident program specialist. Patient stated she is no longer a [facility] patient and is now established with a resident program specialist at [facility] due to her insurance. Christy Dwyer) from Last 3 Months Immunizations Name Administration Dates Next Due Hepatitis A Adult (Havrix; V aqta) 19yo and older 05/02/2019 Hepatitis B (Ptfctia-E-Ovcnq , Recombivax HB-Adult) 19yo and older 03/30/2001,11/06/2000,10/07/2000 [...] complication, without long-term current use of insulin ([facility] V24, [facility] V28) 02/02/2017 DX:Controlled type 2 diabet es mellitus without complication, without long-term current use of insulin ([facility]) PAD (peripheral artery disea se) ([facility] V24) 09/10/2023 DX:PAD (peripheral artery di sease) ([facility]) Family History Medical History Relation Name Comments [...] Results * Annual BMP Blood Test (07/13/2023) [facility] Annual BMP Blood Test Abstracted Result [facility] Provider HEALTH MAINTENANCE Final Result * (ABNORMAL) Hemoglobin A1c (07/13/2023) [facility] Hemoglobin A1C 6.8(A) <=6.5 % Blood Venous blood specimen / Unknown Result [facility] Provider LAB BLOOD ORDERABLES Maira l Result * Lipid panel (07/13/2023) [facility] LDL/HDL Ratio 2 0 - 4 Triglycerides 72 0 - 150 mg/dL Cholesterol 170 0 - 200 mg/dL HDL 76 >=40 mg/dL LDL Cholesterol 80 0 - 100 mg/dL Blood Venous blood specimen / Unknown Result [facility] Provider LAB BLOOD ORDERABLES Maira l Result * Depression Screening (05/19/2023) [facility] Depression Screening Abstracted Result [facility] Provider HEALTH MAINTENANCE Final Result * Diabetes Eye Exam (02/12/2023) [facility] Diabetes: Annual Retina Eye Exam Abstracted Result [facility] Provider HEALTH MAINTENANCE Final Result * Urine Albumin Creatinine Ratio (01/20/2023) [facility] Urine Albumin Creatinine Ratio Abstracted Result [facility] Provider HEALTH MAINTENANCE Final Result * [...] bone mineral density by WHO criteria. [facility] Department of Internal Medicine recommends using National [...] alternative screening schedule based on dmitri Tadeo., [facility] May 15, 2011 for patients with osteopenia [...] bone mineral density by WHO criteria. [facility] Department of Internal Medicine recommendsusing National Osteoporosis [...] Maintenance Insurance [employer] MEDICARE Care Teams Stiff Leg Derrick Operator Relationship Specialty Start Date End Date Marianela Parks MD [address] [place] [phone] PCP - General Internal Medicine 11/02/21
[2024-09-15 09:06] LABS: MANUAL DIFF FLAG NO
[2024-09-15 09:18] LABS: Basophils Absolute Auto 0.1 X10*3/uL (0.0-0.2); Basophils Percent Auto 1.5 % (0-2); Eosinophils Absolute Auto 0.2 X10*3/uL (0.0-0.4); Eosinophils Percent Auto 4.2 % (0-4); Hematocrit 35.6 % (37.0-47.0); Imm Gran Abs Auto 0.03 X10*3/uL (0.00-0.03); Imm Gran Pct Auto 0.6 % (0.0-0.4); Lymphocytes Absolute Auto 1.7 X10*3/uL (1.2-4.9); Lymphocytes Percent Auto 34.4 % (20-40); Mean Corpuscular HGB Conc 30.9 g/dl (31.0-35.0); Mean Corpuscular Hemoglobin 23.8 pg (27.0-33.0); Mean Corpuscular Volume 77.1 fL (80.0-98.0); Mean Platelet Volume 9.4 fL (9.4-12.3); Monocytes Absolute Auto 0.4 X10*3/uL (0.1-1.2); Monocytes Percent Auto 7.5 % (2-11); Neutrophils Absolute Auto 2.5 x10*3/uL (2.0-8.3); Neutrophils Percent Auto 51.8 % (45-73); Platelet Count 254 X10*3/uL (160-400); Red Blood Count 4.62 X10*6/uL (4.20-5.50); Red Cell Distribution Width 14.5 % (11.0-16.0); White Blood Count 4.8 X10*3/uL (4.8-10.8)
[2024-09-15 09:44] LABS: Estimated Average Glucose 148 mg/dL; Hemoglobin A1C 150.0424 umol/L; Hemoglobin A1c % 6.8 % (<6.0)
[2024-09-15 11:05] LABS: Creatinine Urine 87.21 mg/dL; Microalbum/Creatinine Ratio Ur 10.3 ug/mg cr (<30)
[2024-09-15 11:42] LABS: Alanine Aminotransferase 18 U/L (0-31); Albumin Level 4.1 g/dL (3.5-5.0); Alkaline Phosphatase 52 U/L (39-117); Anion Gap 10 (12-20); Aspartate Amino Transferase 20 U/L (5-31); Bilirubin Total 0.6 mg/dL (0.0-1.0); Blood Urea Nitrogen 14 mg/dL (9-16); Calcium 9.6 mg/dL (8.4-10.2); Carbon Dioxide 28 mmol/L (22-29); Chloride 108 mmol/L (96-108); Cholesterol 201 mg/dL (<200); Estimated Glomerular Filt Rate > 60; Glucose Random 144 mg/dL (60-115); HDL Cholesterol 70 mg/dL (>40); Iron 76 mcg/dL (30-160); LDL Cholesterol Calculated 114 mg/dL (<100); Percent Iron Saturation 31 % (15-50); Potassium 4.3 mmol/L (3.3-5.1); Sodium 142 mmol/L (135-145); TSH reflex Free T4 4.27 uIU/mL (0.32-4.0); Total Iron Binding Capacity 249 mcg/dL (228-428); Total Protein 6.7 g/dL (6.5-8.0); Triglycerides 88 mg/dL (<150); Unsaturated Iron Binding 173 ug/dL
[2024-09-15 11:50] LABS: Vitamin B12 631 pg/mL (200-900)
[2024-09-15 12:13] LABS: Free T4 (Free Thyroxine) 0.92 ng/dL (0.71-1.85)
== END 2024-09-15 08:43 | disposition home or self-care (01) ==
LOC: HO.LAB 08:42
PROVIDERS: PCP Physician Assistant; Visit Provider Physician Assistant
DX: I10 Essential (primary) hypertension (principal); E78.5 Hyperlipidemia, unspecified; E11.9 Type 2 diabetes mellitus without complications
CPT/HCPCS: 36415; 80053; 80061; 82043; 82570; 82607; 82746; 83036; 83540; 83735; 84439; 84443; 85025

== ENCOUNTER → 2024-09-16 08:02 | Outpatient (REF) | payer MEDICARE, SELFPAY ==
--- NOTE | ~2024-09-16 | NM_ITS ---
EXERCISE MYOCARDIAL PERFUSION STUDY INDICATION: Precordial chest pain to evaluate for myocardial ischemia TECHNIQUE: The patient was brought in for an exercise perfusion study on September 16, 2024. Patient performed exercise as per Marlo protocol and was injected 30 mCi of sestamibi once target heart rate was achieved. Images were obtained using the SPECT gamma camera interlaced with the gating device. Images were obtained in supine position. Resting perfusion study was performed on September 20, 2024. Patient was administered 30 mCi of sestamibi intravenously at rest. Images were then obtained in supine position. Images obtained without without CT attenuation. Total DLP 188 mGy-cm. Images were processed with the software and compared side to side in short axis, horizontal long axis and vertical long axis views. FINDINGS: Raw images were reviewed The stress perfusion study showed nonattenuated images show some thinning of the distal lateral wall of the LV myocardium and mildly reduced uptake in the apex as well as the basal lateral wall of the LV myocardium. Attenuated corrected images show mildly reduced uptake in the apex of the LV myocardium. The gated study shows normal LV systolic function with calculated LVEF of 73%. LV cavity is normal in size. The gated study shows normal systolic wall thickening and contraction of segments. Resting study shows no significant change in perfusion pattern compared to stress perfusion study. Gating at rest reveals normal systolic wall motion with ejection fraction at 70%. The findings are consistent with normal myocardial perfusion. NM/NM cardiolite stress test IMPRESSION: 1. Myocardial perfusion imaging study shows normal myocardial perfusion. 2. Gated LVEF is 70%. 3. Transient ischemic dilatation not present. EKG revealed negative for ischemia. Electronically signed by: Kenny Garcia MD 09/20/2024 04:49 PM EDT
--- NOTE | 2024-09-16 08:04 | CA_ITS ---
Acquisition Time: 2024-09-16 08:21:40 Total Exercise Time: 00:05:00 Test Indications: CP Medications: SEE H&P Protocol: NELSON Max HR: 136 BPM 90% of Pred: 150 BPM Max BP: 168/70 mmHG Max Work Load: 5.0 METS Exercise stress test with exercise 5 mins of Nelson Protocol, held at Steage 1 with increased incline to 12%, achieving 87% MPHR, with reports of SOB and leg tiredness, no chest pain, with isolated PVCs, frequent PACS with brief atrial runs- 6 beats max, with normotenbive response to exercise. Without EKG changes meeting criteria for ischemia. In recovery, breathing returned to baseline. Nuclear images pending. Test reviewed with Dr. Miller. Referred By: Peter Salmon Electronically Signed By: Aris Aponte
--- OUTSIDE RECORDS SUMMARY | 2024-09-16 08:04 | XMS_ITS | Patient Health Record ---
Author Organization [facility] Address [address] [facility] [place] [address] Care Team Providers Care Lead Teller Name Role Phone Christal Robison Primary Care Provider Martah Cevallos Unavailable [phone] Kurt Rodriguez Unavailable [phone] Allergies Allergen (clinical drug ingredient) Drug/Non Drug [...] Type 2 diabetes mellitus with peripheral angiopathy ([id number]) Type 2 diabetes mellitus with diabetic peripheral angiopathy without gangrene (E11.51) Active confirmed Q7(A), Q8(2B), Q9(1B,2C) Vital Signs Blood pressure diastolic 62 mm Hg 07/14/2024 Height 5ft 6in in 07/14/2024 Blood pressure systolic 120 mm Hg 07/14/2024 Weight 195 lbs 07/14/2024 BMI 31.47 kg/m2 07/14/2024 Procedures Procedure Date Ordered Date Performed Result Body Sit e L5315-ITEQUGPB DYSTROPHIC NAILS ANY # 07/14/2024 N/A 78777-[id number] NAIL, 1-5 07/14/2024 N/A E0859-[id number] DYSTROPHIC NAILS ANY # 04/14/2024 N/A 48462-[id number] NAIL, 1-5 04/14/2024 N/A Encounters [facility]counter [facility] Date [facility] [address] 04/14/2024 Kutr Rodriguez Type 2 diabetes mellitus with diabetic peripheral angiopathy without gangrene E11.51 ; Tinea unguium B35.1 ; Pain in right toe(s) M79.674 and Pain in left toe(s) M79.[address] [address] 07/14/2024 Kurt Rodriguez Tinea unguium B35.1 ; Pain in right toe(s) M79.674 ; Pain in left toe(s) M79.675 and Type 2 diabetes mellitus with diabetic peripheral angiopathy without gangrene E11.51 [facility] [address] [place] [address] 03/30/2024 Kurt Rodriguez Assessments Encounter Date Diagnosis [...] Treatment Pending Test Test Name Order Date 06315-[id number] NAIL, 1-5 04/14/2024 [id number] NAIL, 1-5 07/14/2024 [id number]-[id number] DYSTROPHIC NAILS ANY # R8830-HCDALXOF DYSTROPHIC NAILS ANY # Next Appt Details Provider Name:Martha manzanares, 10/13/2024 11:00:00 AM, [address] [facility], [place], [address], Insurance Providers Payer Name Payer Address Payer Phone Subscriber Number Group Number Insured Name Patient Relationship to Insured Coverage Start Date Coverage End Date [facility] re-[id number] [address] [address] [place] [address] [id number] Viv Pham Self - patient is the insured Medical (General) History Medical History History ICD Code Anemia asthma Diabetic High Blood Pressure thyroid Surgical History Surgery Date(Month/Year) 1981/1983/1986 Hospitalization History Reason Date(Month/Year) coloscopy 2024
== END ==
LOC: HO.CARD 08:02
PROVIDERS: PCP Physician Assistant; Visit Provider Internal Medicine
DX: R07.2 Precordial pain (principal); I25.10 Atherosclerotic heart disease of native coronary artery without angina pectoris
CPT/HCPCS: 78452; 93017; A9500

== ENCOUNTER → 2024-09-16 08:04 | Outpatient (BNV) | payer MEDICARE, SELFPAY | PROVIDERS: PCP Physician Assistant | DX: R06.02 Shortness of breath (principal); I49.3 Ventricular premature depolarization; I49.1 Atrial premature depolarization | CPT/HCPCS: 78452; 93016; 93018 ==

== ENCOUNTER 2024-09-21 11:00 | Outpatient (AMB) | payer MEDICARE, SELFPAY ==
[2024-09-21 11:16] VITALS: BP 130/62; PULSE 70; O2SAT 98; BMI 30.8
--- NOTE | 2024-09-21 11:16 | A.OFFVIS_ITS ---
Vital Signs 09/21/24 11:16 Height 5 ft 6 in Weight 190 lb 11.198 oz BMI 30.8 BP 130/62 Blood Pressure Location Lt brachial Position Sitting Pulse 70 Pulse Source Pulse Oximeter Pulse Oximetry (%) 98 Oxygen Delivery Method Room Air Intake Visit Reasons: Asthma Allergies seafood Allergy (Severe, Verified 09/21/24 11:19) Anaphylaxis cinnamon Allergy (Intermediate, Verified 09/21/24 11:19) Swelling latex Allergy (Intermediate, Verified 09/21/24 11:19) Rash Penicillins [PENICILLINS] Allergy (Unknown, Verified 09/21/24 11:19) HIVES flu vaccine Allergy (Unknown, Uncoded 09/08/24 11:08) Rash, skin peeling HPI Comments Details: The patient is a 69 year with a history of asthma in addition to underlying interstitial lung disease. Apparently back in [address] scan of the chest that was done at [facility]. It demonstrated areas of ground-glass opacities. The patient is referred to Pulmonary. She underwent pulmonary function studies demonstrating a restrictive ventilatory defect consistent with restrictive lung disease. She was placed on respiratory inhalers. 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 I do not have all those results. At this time the patient does complaint of dyspnea on exertion. Dvif-th-zpcmmwix severity. She also has a cough. She at this point stopped using the Wixela and is only been using her rescue inhaler. She does get partial relief from it. At this point I do believe that she needs additional medications to improve her respiratory symptoms. On exam the patient does have diminished breath sounds. She has a murmur. She was referred to Cardiology for that murmur recently. Will go ahead and request additional blood work to assess him pneumonitis and also repeat CT scans to assess the level of the interstitial lung disease. 03/31/2024 the patient is here for a pulmonary follow-up visit. Overall she is doing okay. She did take the rescue inhaler. However, his expensive. She meantime as the rescue inhaler. She has been using that couple times a week. She feels that is sufficient for now. She did have a CT scan of the chest which we personally reviewed. Her lung windows are reassuring without any evidence of any interstitial lung disease or pneumonitis. Dyspnea symptoms have improved. The patient does have blood work done. Also has significant anemia. The patient will follow-up with Hematology regarding the anemia. She has a trip coming up [place] and [facility]. 09/21/2024 the patient is here for pulmonary follow-up visit. Overall she is feeling better. She has recovered completely. She does have a rescue inhaler, leave albuterol that she uses as needed. Typically only once or twice a month. She is no longer taking a maintenance inhaler. In that is perfectly fine. We did review her chest x-ray was fairly clear and also the patient had some blood work. She did have some anemia although that is getting better. She is working closely with her diet and also with the net programmer analyst. Therefore this time she is going to continue current respiratory therapy will follow-up in a year's time. If she has any issues prior to this she will call for an earlier assessment. [facility] Medical History Chronic restrictive lung disease Pneumonitis Surgical History Hx of section Hx of cholecystectomy H/O colonoscopy (~2013) Family History Mother Asthma Anemia Diabetes HTN (hypertension) Glaucoma Father Stroke Sister Diabetes HTN (hypertension) Asthma Myocardial infarct Stroke Breast cancer Brother Diabetes Glaucoma Asthma Cancer Social History Household Members: Spouse and Family Housing: House Alcohol intake: never Patient Tobacco Use Status: Never used Tobacco e-Cigarette/Vaping Use: Never Used service: No Current occupational status: retired Gender identity: Female Cognitive needs: No Hearing needs: No Vision needs: Yes (cataracts) Review of Systems Const Denies fever(s) and Denies headache(s) Eyes Reports no additional complaints ENT Denies headache(s) Card Denies chest pain and Reports dyspnea on exertion Resp Reports cough, Reports dyspnea on exertion and Denies wheezing GI Reports no additional complaints Musc Reports myalgias and Reports arthralgias Skin/Breast Denies rash Neuro Denies headache(s) Vernon/Lymph Reports no additional complaints Aller/Immun Denies wheezing Physical Exam Vital Signs: Last Vital Signs Pulse 70 09/21/24 11:16 BP 130/62 09/21/24 11:16 Pulse Ox 98 09/21/24 11:16 Oxygen Delivery Method Room Air 09/21/24 11:16 BMI result Body Mass Index 30.8 Const General: comfortable HEENT Head: Yes normocephalic Neck Neck: Yes supple Chest Chest palpation & inspection: normal inspection of the chest Resp Effort & Inspection: normal respiratory effort Auscultation: clear to auscultation bilaterally Cardio Heart sounds: S1 normal heart sound present, S2 normal heart sound present and Murmur heart sound present systolic II/ GI Palpation (GI): Soft to palpation Skin General skin exam: no rashes or lesions noted Extrem General: Yes no clubbing, cyanosis or edema Assessment & Plan Assessment & Plan (1) Pneumonitis: Code(s): J98.4 - Other disorders of lung Category: Medical (2) Asthma: Code(s): J45.909 - Unspecified asthma, uncomplicated Category: Medical Qualifiers: Asthma complication type: uncomplicated Asthma persistence: persistent Asthma severity: moderate Qualified Code(s): J45.40 - Moderate persistent asthma, uncomplicated (3) Chronic restrictive lung disease: Code(s): J98.4 - Other disorders of lung Category: Medical (4) Anemia: Code(s): D64.9 - Anemia, unspecified Category: Medical Qualifiers: Anemia type: unspecified type Qualified Code(s): D64.9 - Anemia, unspecified Plan CT chest reassuring ALMA as needed F/U with Hematology F/U 6 months Medications: Changed From levalbuterol tartrate 45 mcg/actuation 2 puffs inhalation Q6H To levalbuterol tartrate 45 mcg/actuation 2 puffs inhalation Q6H 15 grams 11RF 30 days Discontinued uukvmietgv-xgbeszbd-faneurhlfc 160-9-4.8 mcg/actuation (Breztri Aerosphere) Discontinued Reason: Doctor's Order 2 inhalations inhalation BID 30 days 10.7 grams 6RF Coding Level of Care Code Est Pt Level 4 (86852) Diagnoses Pneumonitis J98.4 Moderate persistent asthma without complication J45.40 Asthma complication type: uncomplicated Asthma persistence: persistent Asthma severity: moderate Chronic restrictive lung disease J98.4 Anemia, unspecified type D64.9 Anemia type: unspecified type Time Spent (min) 15
--- OUTSIDE RECORDS SUMMARY | 2024-09-21 12:04 | XMS_ITS | Patient Health Record ---
Author Organization [facility] Address [address] [facility] [place] [address] Care Team Providers Care Piano Assembler Name Role Phone Christal Robison Primary Care Provider Martha Cevallos Unavailable [phone] Kurt Rodriguez Unavailable [phone] Allergies Allergen (clinical drug ingredient) Drug/Non Drug [...] Type 2 diabetes mellitus with peripheral angiopathy ([id number]) Type 2 diabetes mellitus with diabetic peripheral angiopathy without gangrene (E11.51) Active confirmed Q7(A), Q8(2B), Q9(1B,2C) Vital Signs Blood pressure diastolic 62 mm Hg 07/14/2024 Height 5ft 6in in 07/14/2024 Blood pressure systolic 120 mm Hg 07/14/2024 Weight 195 lbs 07/14/2024 BMI 31.47 kg/m2 07/14/2024 Procedures Procedure Date Ordered Date Performed Result Body Sit e 35355-[id number] NAIL, 1-04/14/2024 N/A V9928-BOINYCBL DYSTROPHIC NAILS ANY # 04/14/2024 N/A 13595-NTZLOJD NAIL, 1-07/14/2024 N/A X9648-[id number] DYSTROPHIC NAILS ANY # 07/14/2024 N/A Encounters Encounter [facility] Date [facility] [address] 04/14/2024 Kurt Rodriguez Type 2 diabetes mellitus with diabetic peripheral angiopathy without gangrene E11.51 ; Tinea unguium B35.1 ; Pain in right toe(s) M79.674 and Pain in left toe(s) M79.[address] [address] 07/14/2024 Kurt Rodriguez Tinea unguium B35.1 ; Pain in right toe(s) M79.674 ; Pain in left toe(s) M79.675 and Type 2 diabetes mellitus with diabetic peripheral angiopathy without gangrene E11.51 [facility] [address] [place] [address] 03/30/2024 Kurt Rodriguez Assessments Encounter Date Diagnosis [...] Treatment Pending Test Test Name Order Date [id number] NAIL, 1-5 04/14/2024 25932-[id number] NAIL, 1-5 07/14/2024 W4543-XTURDALN DYSTROPHIC NAILS ANY # [id number] DYSTROPHIC NAILS ANY # Next Appt Details Provider Name:Martha manzanares, 10/13/2024 11:00:00 AM, [address] [facility], [place], [address], Insurance Providers Payer Name Payer Address Payer Phone Subscriber Number Group Number Insured Name Patient Relationship to Insured Coverage Start Date Coverage End Date [facility] re-[id number] [address] [address] [place] [address] [id number] Viv Pham Self - patient is the insured Medical (General) History Medical History History ICD Code Anemia asthma Diabetic High Blood Pressure thyroid Surgical History Surgery Date(Month/Year) 1981/1983/1986 Hospitalization History Reason Date(Month/Year) coloscopy 2024
== END 2024-09-21 12:14 | disposition home or self-care (01) ==
LOC: HO.HPS 11:01
PROVIDERS: PCP Physician Assistant; Visit Provider Hospitalist
DX: J98.4 Other disorders of lung (principal); J45.40 Moderate persistent asthma, uncomplicated; D64.9 Anemia, unspecified
CPT/HCPCS: 99214

== ENCOUNTER → 2024-09-21 11:00 | Outpatient (BNVA) | payer MEDICARE, SELFPAY | PROVIDERS: PCP Physician Assistant; Visit Provider Hospitalist | DX: J98.4 Other disorders of lung (principal); J45.40 Moderate persistent asthma, uncomplicated; D64.9 Anemia, unspecified | CPT/HCPCS: 99212 ==

== ENCOUNTER 2024-09-22 10:23 | Outpatient (AMB) | payer MEDICARE, SELFPAY ==
--- NOTE | 2024-09-22 10:29 | MHC.PC.OV ---
Vital Signs 09/22/24 10:33 Height 5 ft 6 in Weight 191 lb 2 oz BMI 30.8 BP 134/66 Blood Pressure Location Lt brachial Position Sitting Respiration 14 Pulse 77 Pulse Source Pulse Oximeter Pulse Oximetry (%) 97 Oxygen Delivery Method Room Air Intake Visit Reasons: Physical - see comments Intake Note: Physical Allergies seafood Allergy (Severe, Verified 09/22/24 10:30) Anaphylaxis cinnamon Allergy (Intermediate, Verified 09/22/24 10:30) Swelling latex Allergy (Intermediate, Verified 09/22/24 10:30) Rash Penicillins [PENICILLINS] Allergy (Unknown, Verified 09/22/24 10:30) HIVES flu vaccine Allergy (Unknown, Uncoded 09/22/24 10:30) Rash, skin peeling Medication List - Last Reconciled 09/22/24 by Christal Robison PA-C blood sugar diagnostic (Double R GroupTouch Ultra Test strips) Use daily As directed to check blood glucose blood-glucose meter (Double R GroupTouch Ultra2 Meter) Use daily As directed calcium carb,lactat-vitamin D3 200 mg-6.25 mcg (250 unit) 200 tabs PO DAILY hydrocortisone 2.5% (Proctosol HC) 1 appl [place] BID-QID PRN lancets (OneTouch Delica Plus Lancet) As directed levalbuterol tartrate 45 mcg/actuation 2 puffs inhalation Q6H 30 days levothyroxine 50 mcg PO DAILY loratadine (Claritin) 10 mg PO DAILY meclizine 25 mg PO DAILY PRN metformin ER 1,500 mg PO ONCE multivitamin with iron 1 tab PO DAILY simvastatin 40 mg PO BEDTIME valsartan 80 mg PO DAILY Tobacco use date assessed: 09/22/24 Fall risk assessment: No Falls in past year Last assessed Fall Risk: 09/22/24 Dental Screening Dental Screen Date: 09/08/24 Did you have a dental visit in the last 12 months?: Yes Did you have a dental problem in the last 6 months where you did not have access to dental care?: No Was dental information given to patient?: Patient has dentist HPI Physical - see comments HPI Details Patient is a 69-year-old female with a significant past medical history of type 2 diabetes, hypertension, hyperlipidemia, obesity, asthma, joint pains, fibromyalgia, PVD, rheumatoid lung presenting today for a physical exam Endo: She is currently on metformin 500 mg 3 times a day. She was diagnosed with diabetes around 2019. She has had diabetic Education. She is followed with a footwear machinery instructor. Her last A1c was 6.8. trulicity was too expensive Her recent TSH was elevated, levothyroxine was increased to 50 mcg. -has not yet started the higher dose -She states most of her family has t2dm. -denies hyper/hypoglycemic events -up-to-date with eye exams -she is on an Arb and a statin. CV: Blood pressure is well controlled. She is currently on valsartan 80 mg. Cholesterol was previously managed with simvastatin 20 mg but recent lipids were above goal. Given the coronary artery calcification seen on chest CT I did increase the dosage to 40 mg. Stress test- no ischemia Echo- just done following annually with cardiology Pulm: has a hx of asthma but recent PFTs from apr 2022 (scanned in) were normal. Followed with pulmonology. Heme: Persistent anemia. Following with Hematology. Mammogram: UTD, November 2023 Colonoscopy: UTD 2024, Repeat Colonoscopy in 5 years or earlier if clinically indicated Bone density: Not due until 2025 upon review from [place] records. Pap: Was referred- booked in January Eyes: booked 01.31.26 [facility] Medical History Chronic restrictive lung disease Pneumonitis Surgical History Hx of section Hx of cholecystectomy H/O colonoscopy (~2013) Family History Mother Asthma Anemia Diabetes HTN (hypertension) Glaucoma Father Stroke Sister Diabetes HTN (hypertension) Asthma Myocardial infarct Stroke Breast cancer Brother Diabetes Glaucoma Asthma Cancer Social History (Updated 09/22/24 @ 10:38 by Corrine Walker CMA) Household Members: Spouse and Family Housing: House Alcohol intake: never Patient Tobacco Use Status: Never used Tobacco e-Cigarette/Vaping Use: Never Used Second Hand Smoke Exposure: No service: No Current occupational status: retired Gender identity: Female Cognitive needs: No Hearing needs: No Vision needs: Yes (cataracts) Questionnaire Thrive Questionnaire Date Thrive assessed: 05/26/24 I am a: Patient What is your living situation today?: I have a steady place to live Within the past 12 months, did the food you bought not last and you didn't have the money to get more?: Never true Within the past 12 months, did you worry whether your food would run out before you got money to buy more?: Never true Do you have trouble paying for medicines?: No Do you have trouble getting transportation to medical appointments?: No Do you have trouble paying your heating and electricity bill?: No Do you have trouble taking care of your child, family member or friend?: No Do you have trouble with day-to-day activities such as bathing, preparing meals, shopping, managing finances, etc.?: No Are you currently unemployed and looking for a job?: No Are you interested in more education?: No Please select the resources that you would like help with: None Currently or been in a relationship where the following occur: No concerns reported THRIVE Score: 0 AUDIT C Alcohol Use Questionnaire (AUDIT-C) 1. How often do you have a drink containing alcohol?: Never 3. How often do you have six or more drinks on one occasion?: Never Total Score: 0 DEA-7 AMB Questionnaire DEA-7 Date DEA - 7 assessed: 09/08/24 Source: Developed by Drs. Jamin Hillman, Latonya Boone, Jasvir Zuniga and colleagues, with an educational federico from [employer]. Physical exam (Primary Care) Vital Signs: Last Vital Signs Pulse 77 09/22/24 10:33 Resp 14 09/22/24 10:33 BP 134/66 09/22/24 10:33 Pulse Ox 97 09/22/24 10:33 Oxygen Delivery Method Room Air 09/22/24 10:33 BMI result Body Mass Index 30.8 Tobacco/Smoking Status: Tobacco use Status Tobacco use date assessed 09/22/24 09/22/24 10:38 Patient Tobacco Use Status Never used Tobacco 09/22/24 10:38 e-Cigarette/Vaping Use Never Used 09/22/24 10:38 Thrive Assessment: Date of Thrive Assessment Date Thrive assessed 05/26/24 09/22/24 10:38 Currently or been in a relationship where the following occur: No concerns reported Const Orientation/consciousness: patient oriented x3 HENMT Ears: hearing grossly normal bilaterally and TM's normal bilaterally General nose exam: No nasal polyps present Face and sinus: Yes sinuses nontender Mouth: Normal oral and palatal mucosa present Eyes Pupils: Equal, round and reactive pupils present EOM: EOMs intact bilaterally Neck Neck: Yes full ROM and Yes no lymphadenopathy Thyroid: Thyroid normal Chest Chest palpation & inspection: normal inspection of the chest Resp Auscultation: clear to auscultation bilaterally Cardio Rate: regular rate Rhythm: regular rhythm Heart sounds: S1 normal heart sound present and S2 normal heart sound present Peripheral pulses: Peripheral pulses 2+ throughout GI Other: Soft, nontender Auscultation: normal bowel sounds Rectal Exam - Female: deferred General: Yes no CVA tenderness Back/Spine/Pelvis Other: Nontender Back: no CVA tenderness Skin General skin exam: no rashes or lesions noted Neuro General: patient oriented x3, gait normal, CN's II-XI intact bilaterally and deep tendon reflexes 2+ bilaterally Cranial nerves: Yes Equal, round and reactive pupils present Motor exam (neuro): 5/5 motor strength present throughout Sensory Exam: double simultaneous stimulation for sensation normal Coordination: [id number]-uw-[id number] test normal and Romberg test negative Extrem General: Yes normal to inspection and Yes full ROM Psych Affect: normal affect Attitude: cooperative Thought process: Normal thought process present Thought content: Normal thought content present Insight: Good insight present (Psych) Judgement: Good judgement present (Psych) Results Reviewed Results Reviewed: Laboratory Tests 09/15/24 09/15/24 09:03 09:04 WBC 4.8 RBC 4.62 Hgb 11.0 L Hct 35.6 L Plt Count 254 Sodium 142 Potassium 4.3 Chloride 108 Carbon Dioxide 28 Anion Gap 10 L BUN 14 Creatinine 0.72 Estimated GFR > 60 Random Glucose 144 H Hemoglobin A1c % 6.8 H AST 20 ALT 18 Alkaline Phosphatase 52 Total Protein 6.7 Albumin 4.1 Triglycerides 88 Cholesterol 201 H LDL Cholesterol, Calc 114 H HDL Cholesterol 70 TSH 4.27 H Urine Creatinine 87.21 Urine Microalbumin 9.0 Microalb/Creat Ratio 10.3 NM/NM cardiolite stress test IMPRESSION: 1. Myocardial perfusion imaging study shows normal myocardial perfusion. 2. Gated LVEF is 70%. 3. Transient ischemic dilatation not present. Coding Level of Care Code Est Pt Prev Care >65y(59881) Diagnoses Routine general medical examination at a health care facility Z00.00 Type 2 diabetes mellitus without complication, without long-term current use of insulin E11.9 Diabetes mellitus oysterman insulin use: without oysterman use Diabetes mellitus complication status: without complication Hypertension I10 Hyperlipidemia E78.5 Hypothyroid E03.9 Assessment & Plan Assessment & Plan (1) Routine general medical examination at a health care facility: Code(s): Z00.00 - Encounter for general adult medical examination without abnormal findings Plan: Health maintenance reviewed. Labs ordered today. (2) T2DM (type 2 diabetes mellitus): Code(s): E11.9 - Type 2 diabetes mellitus without complications Category: Medical Qualifiers: Diabetes mellitus senior living insulin use: without senior living use Diabetes mellitus complication status: without complication Qualified Code(s): E11.9 - Type 2 diabetes mellitus without complications Plan: Continue metformin We will start Jardiance. We discussed risks and benefits and adverse effects of this medication. We will check kidney function in 2 weeks (3) Hypertension: Code(s): I10 - Essential (primary) hypertension Category: Medical Plan: WNL. Continue current regimen (4) Hyperlipidemia: Code(s): E78.5 - Hyperlipidemia, unspecified Category: Medical Plan: Increase simvastatin to 40 mg Recheck labs in 2 months (5) Hypothyroid: Code(s): E03.9 - Hypothyroidism, unspecified Category: Medical Plan: Increase levothyroxine to 50 mcg Recheck labs in 2 months Medications: New diclofenac sodium 1% (Voltaren Arthritis Pain) apply to single knee, ankle, foot; for foot includes sole/toes/top of foot 4 grams topical QID 100 grams 4RF empagliflozin (Jardiance) 10 mg PO QAM 90 tabs 0RF Patient Instructions: increase simvastatin from 20 mg to 40 mg - recheck labs in 2 months, call me if muscle aches happen increase levothyroxine from 25 mcg to 50 mcg daily- recheck labs in 2 months start jardiance 10 mg daily- call me if any urinary side effects or yeast infections. we will recheck labs. do not pick it up if it is too expensive, call me
[2024-09-22 10:33] VITALS: BP 134/66; PULSE 77; RESP 14; O2SAT 97; BMI 30.8
--- OUTSIDE RECORDS SUMMARY | 2024-09-22 10:50 | XMS_ITS | Patient Health Record ---
[facility] Address [address] [facility] [place] [address] Care Team Providers Care Penology Professor Name Role Phone Christal Robison Primary Care Provider Martha Cevallos Unavailable [phone] Kurt Rodriguez Unavailable [phone] Allergies Allergen (clinical drug ingredient) Drug/Non Drug [...] Type 2 diabetes mellitus with peripheral angiopathy (773296557) Type 2 diabetes mellitus with diabetic peripheral angiopathy without gangrene (E11.51) Active confirmed Q7(A), Q8(2B), Q9(1B,2C) Vital Signs Blood pressure diastolic 62 mm Hg 07/14/2024 Height 5ft 6in in 07/14/2024 Blood pressure systolic 120 mm Hg 07/14/2024 Weight 195 lbs 07/14/2024 BMI 31.47 kg/m2 07/14/2024 Procedures Procedure Date Ordered Date Performed Result Body Sit e 70099-VLKOGXY NAIL, 1-04/14/2024 N/A [id number] DYSTROPHIC NAILS ANY # 04/14/2024 N/A [id number]-[id number] NAIL, 1-07/14/2024 N/A [id number] DYSTROPHIC NAILS ANY # 07/14/2024 N/A Encounters Encounter [facility] Date [facility] [address] [facility]/14/2024 Kurt Rodriguez Type 2 diabetes mellitus with diabetic peripheral angiopathy without gangrene E11.51 ; Tinea unguium B35.1 ; Pain in right toe(s) M79.674 and Pain in left toe(s) M79.[address] [address] 07/14/2024 Kurt Rodriguez Tinea unguium B35.1 ; Pain in right toe(s) M79.674 ; Pain in left toe(s) M79.675 and Type 2 diabetes mellitus with diabetic peripheral angiopathy without gangrene E11.51 [facility] [address] [place] [address] 03/30/2024 Kurt Rodriguez Assessments Encounter Date Diagnosis [...] Treatment Pending Test Test Name Order Date [id number] NAIL, 1-5 04/14/2024 [id number] NAIL, 1-5 07/14/2024 E3694-[id number] DYSTROPHIC NAILS ANY # [id number] DYSTROPHIC NAILS ANY # Next Appt Details Provider Name:Martha manzanares, 10/13/2024 11:00:00 AM, [address] [facility], [place], [address], Insurance Providers Payer Name Payer Address Payer Phone Subscriber Number Group Number Insured Name Patient Relationship to Insured Coverage Start Date Coverage End Date [facility] [id number] [address] [address] [place] [address] [id number] Viv Pham Self - patient is the insured Medical (General) History Medical History History ICD Code Anemia asthma Diabetic High Blood Pressure thyroid Surgical History Surgery Date(Month/Year) 1981/1983/1986 Hospitalization History Reason Date(Month/Year) coloscopy 2024
== END 2024-09-22 11:10 | disposition home or self-care (01) ==
LOC: HO.HMCFM 10:24
PROVIDERS: PCP Physician Assistant; Visit Provider Physician Assistant
DX: Z00.00 Encounter for general adult medical examination without abnormal findings (principal); E11.9 Type 2 diabetes mellitus without complications; I10 Essential (primary) hypertension; E78.5 Hyperlipidemia, unspecified; E03.9 Hypothyroidism, unspecified

== ENCOUNTER → 2024-09-22 10:23 | Outpatient (BNVA) | payer MEDICARE, SELFPAY | PROVIDERS: PCP Physician Assistant; Visit Provider Physician Assistant | DX: Z00.00 Encounter for general adult medical examination without abnormal findings (principal); E11.9 Type 2 diabetes mellitus without complications; E78.5 Hyperlipidemia, unspecified; E03.9 Hypothyroidism, unspecified; I10 Essential (primary) hypertension | CPT/HCPCS: 99397 ==

== ENCOUNTER 2024-11-16 09:14 | Outpatient (REF) | payer MEDICARE, SELFPAY ==
--- OUTSIDE RECORDS SUMMARY | 2024-11-16 09:45 | XMS_ITS | Patient Health Record ---
[facility] Address [address] [place] [address] Care Team Providers Care Shot Dropper Name Role Phone Chirstal Robison Primary Care Provider Martha Cevallos Unavailable [phone] Kurt Rodriguez Unavailable [phone] Allergies Allergen (clinical drug ingredient) Drug/Non Drug Allergy documented on EMR Reaction Allergy Type Onset Date Status cinnamon bark Cinnamon Unknown Drug Allergy Act raven Shrimp Flavor Unknown Drug Allergy Act raven Influenza H5N1 Split Adjuvanted Unknown Drug Allergy Active Latex Latex Unknown Allergy Active Penicillin Unknown Drug Allergy Active Results Component Value Reference Range Notes HEMOGLOBIN A1C (GLYCOHEMOGLO BIN) Reviewed date:04/14/2024 10:51:10 AM Interpretation: Performing Lab: Notes/Report: TOTAL HEMOGLOBIN (HGBA1C) 7.0 HEMOGLOBIN A1C (GLYCOHEMOGLO BIN) Reviewed date:07/14/2024 10:54:28 AM Interpretation: Performing Lab: Notes/Report: HEMOGLOBIN A1C % (HH) 7.0 HEMOGLOBIN A1C (GLYCOHEMOGLO BIN) Reviewed date:10/13/2024 10:44:28 AM Interpretation: Performing Lab: Notes/Report: HEMOGLOBIN A1C % (HH) 6.0 Reason For Referral No Information Medications Medication SIG (Take, Route, Frequency, Duration) Notes Start Date End Date Status Loratadine Active Levothyroxine Sodium 50 MCG 1 capsule in the morning on an empty stomach Orally Once a day Active Albuterol Active Meclizine HCl Active Trulicity 0.75 MG/0.5ML as directed Subcutaneous Not-Taking Breztri Aerosphere N ot-Taking Valsartan Active metFORMIN HCl Active Simvastatin 40 MG/5ML 5 mL in the evenin g Orally Once a day Active Immunizations Vaccine Route Administration Date Status Comme nts Influenza Unknown 10/13/2024 Refused Social History Tobacco Use: Social History Observation [...] Type 2 diabetes mellitus with peripheral angiopathy (965033598) Type 2 diabetes mellitus with diabetic peripheral angiopathy without gangrene (E11.51) Active confirmed Q7(A), Q8(2B), Q9(1B,2C ) Problem Polyneuropathy due to type 2 diabetes mellitus (918438073) 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) Active confirmed Vital Signs Blood pressure diastolic 62 mm Hg 10/13/2024 Height 5ft 6in in 10/13/2024 Blood pressure systolic 120 mm Hg 10/13/2024 Weight 195 lbs 10/13/2024 BMI 31.47 kg/m2 10/13/2024 Procedures Procedure Date Ordered Date Performed Result Body Sit e 80275-QWDNJJF NAIL, 1-5 04/14/2024 N/A I5974-[id number] DYSTROPHIC NAILS ANY # 04/14/2024 N/A 18143-[id number] NAIL, 1-5 07/14/2024 N/A [id number] DYSTROPHIC NAILS ANY # 07/14/2024 N/A Encounters Encounter Location Date Provider Diagnosis [address] [place] [address] 04/14/2024 Kurt Rodriguez Type 2 diabetes mellitus with diabetic peripheral angiopathy without gangrene E11.51 ; Tinea unguium B35.1 ; Pain in right toe(s) M79.674 and Pain in left toe(s) M79.675 [facility] [facility] [place] [address] 07/14/2024 Kurt Rodriguez Tinea unguium B35.1 ; Pain in right toe(s) M79.674 ; Pain in left toe(s) M79.675 and Type 2 diabetes mellitus with diabetic peripheral angiopathy without gangrene E11.51 [facility] [address] [address] 10/13/2024 Martha Harrison Tinea unguium B35.1 ; Achilles tendinitis of right lower extremity M76.61 ; Type 2 diabetes mellitus with diabetic peripheral angiopathy without gangrene E11.51 ; Pain of right heel M79.671 ; Short Achilles tendon (acquired), right ankle M67.01 ; DM type 2 with diabetic peripheral neuropathy E11.42 and Calcaneal spur, right M77.31 [facility] [address] [address] 03/30/2024 Kurt Rodriguez Assessments Encounter Date Diagnosis (ICD Code) Assessment Notes Treatment Notes Treatment Clinical Notes Section Notes 04/14/2024 Type 2 diabetes mellitus with diabetic peripheral angiopathy without gangrene (ICD-10 - E11.51) Q7(A), Q8(2B), Q9(1B,2C) 04/14/2024 Tinea unguium (ICD-10 - B35.1) 07/14/2024 Tinea unguium (ICD-10 - B35.1) 07/14/2024 Pain in right toe(s) (ICD-10 - M79.674) 10/13/2024 Tinea unguium (ICD-10 - B35.1) 10/13/2024 Achilles tendinitis of right lower extremity (ICD-10 - M76.61) Patient Educated with: HEEL CORD STRETCHES.pdf (HEEL CORD STRETCHES.pdf) Patient Educated with: RICE THERAPY.pdf (RICE THERAPY.pdf) 10/13/2024 Type 2 diabetes mellitus with diabetic peripheral angiopathy without gangrene (ICD-10 - E11.51) Q7(A), Q8(2B), Q9(1B,2C) 07/14/2024 Pain in left toe(s) (ICD-10 - M79.675) 04/14/2024 Pain in right toe(s) (ICD-10 - M79.674) 07/14/2024 Type 2 diabetes mellitus with diabetic peripheral angiopathy without gangrene (ICD-10 - E11.51) Q7(A), Q8(2B), Q9(1B,2C) 04/14/2024 Pain in left toe(s) (ICD-10 - M79.675) 10/13/2024 Pain of right heel (ICD-10 - M79.671) 10/13/2024 Short Achilles tendon (acquired), right ankle (ICD-10 - M67.01) 10/13/2024 DM type 2 with diabetic peripheral neuropathy (ICD-10 - E11.42) 10/13/2024 Calcaneal spur, right (ICD-10 - M77.31) Plan Of Treatment Pending Test Test Name Order Date X ray : Foot, right 3V 10/13/2024 [id number] NAIL, 1-5 04/14/2024 [id number] NAIL, 1-5 07/14/2024 [id number] DYSTROPHIC NAILS ANY # [id number] DYSTROPHIC NAILS ANY # Next Appt Details Provider Name:Martha manzanares, 01/16/2025 11:15:00 AM, [address] [facility], [place], [address], Insurance Providers Payer Name Payer Address Payer Phone Subscriber Number Group Number Insured Name Patient Relationship to Insured Coverage Start Date Coverage End Date [facility] re-[address]23 [address] [address] [place] [address] [phone] [id number] Viv Pham Self - patient is the insured Medical (General) History Medical History History ICD Code Anemia asthma Diabetic High Blood Pressure thyroid Surgical History Surgery Date(Month/Year) 1981/1983/1986 Hospitalization History Reason Date(Month/Year) coloscopy 2024
--- OUTSIDE RECORDS SUMMARY | 2024-11-16 09:46 | XMS_ITS | Clinical Summary ---
Author Organization [address] [place] [address] [place] [phone] Phone Care Team Providers Care Caustic Pump Operator Name Role Phone Marianela Parks MD [...] Allergy: Other Reaction(s): Rash/Dermatitis Medications metFORMIN XR (GLUCOPHAGE-XR) 500 mg 24 hr tablet TAKE 3 TABLETS BY MOUTH DAILY 4 Active OneTouch Ultra Test test strip USE TO CHECK BLOOD SUGAR EVERY DAY 4 Active meclizine (ANTIVERT) 25 mg tablet Take 1 Tablet by mouth 2 times daily as needed (vertigo). 4 Active valsartan (DIOVAN) 80 mg tablet Take 1 Tablet by mouth daily. 3 Active simvastatin (ZOCOR) 20 mg tablet Take 1 Tablet by mouth at bedtime for 180 days. 3 Active loratadine (CLARITIN) 10 mg tablet Take 1 Tablet by mouth daily. 3 Active blood-glucose meter kit Use to check blood sugar once daily 2 Active albuterol HFA (PROAIR HFA ; PROVENTIL HFA ; VENTOLIN HFA) 90 mcg/actuation inhaler Inhale 2 Puffs into the lungs 4 times daily as needed for Cough, Wheezing or Shortness of Breath. 2 Active acetaminophen (TYLENOL) 500 mg tablet Take 1 Tab by mouth every 6 hours as needed for Pain for up to 10 days. 1 Active UNABLE TO FIND Blood Glucose Calibration (OT ULTRA/FASTTK CNTRL SOLN) Solution: Use as needed 7 Active MULTIVITAMIN ORAL 1 tablet daily Activ e calcium carbonate/vitam in D3 (CALCIUM 600 + D,3, ORAL) CALCIUM 600 + D OR: 1 tablet daily - Oral Active lancets (OneTouch Delica Plus Lancet) 33 gauge TEST BLOOD SUGAR EVERY DAY 100 each 1 5 Active Active Problems Problem Noted Date Diagnosed Date PAD (peripheral artery disease) ([facility] V24) Pelvic pain 02/18/2021 Overview (01/25/2024): Last [...] I explained there is no evidence of Travel Registered Nurse Nicu pathology from her CT scan either. I [...] 2 diabetes mellitus wit h neurological manifestation ([facility] V24, [facility] V28) 11/02/2019 Overview (01/25/2024): Burning sensation in [...] Type Department Care Team Description 09/05/2024 Telephone [facility] [address] [place] [address] Marianela Parks MD Referral (Called patient to book new patient visit with the cso. Patient stated she is no longer a [facility] patient and is now established with a cso at [facility] due to her insurance. Christy Dwyer) from Last 3 Months Immunizations Name Administration Dates Next Due Hepatitis A Adult (Havrix; V aqta) 19yo and older 05/02/2019 Hepatitis B (Rizmvtj-S-Sklmi , Recombivax HB-Adult) 19yo and older 03/30/2001,11/06/2000,10/07/2000 [...] Medical History Date Comments Iron deficiency anemia sunita traceyy to blood loss (chronic) 07/21/2005 DX:Iron deficiency [...] complication, without long-term current use of insulin ([facility] V24, [facility] V28) 02/02/2017 DX:Controlled type 2 diabet es mellitus without complication, without long-term current use of insulin ([facility]) PAD (peripheral artery disea se) ([facility] V24) 09/10/2023 DX:PAD (peripheral artery di sease) ([facility]) Family History Medical History Relation Name Comments [...] Retina Eye Exam 02/13/2024 02/12/2023 Depression Screening 04/27/2024 05/19/2023 Breast Cancer Screening 12/01/2024 12/02/19 23, 11/29/2021, 11/27/2020, Additional history exists Diabetes: Annual GFR (Glomerular Filtration Rate) 12/03/2024 12/04/2023, 07/13/2023 Hypertension/CHF/CAD Annual BMP Blood Test 12/03/2024 12/04/2023, 07/13/2023 Influenza Vaccine (#1) 2024 Cholesterol Screening (Lipid Panel) 07/12/2028 07/13/2023 [...] Results * Annual BMP Blood Test (07/13/2023) [facility] Annual BMP Blood Test Abstracted Result [facility] Provider HEALTH MAINTENANCE Final Result * (ABNORMAL) Hemoglobin A1c (07/13/2023) [facility] Hemoglobin A1C 6.8(A) <=6.5 % Blood Venous blood specimen / Unknown Result [facility] Provider LAB BLOOD ORDERABLES Maira l Result * Lipid panel (07/13/2023) [facility] LDL/HDL Ratio 2 0 - 4 Triglycerides 72 0 - 150 mg/dL Cholesterol 170 0 - 200 mg/dL HDL 76 >=40 mg/dL LDL Cholesterol 80 0 - 100 mg/dL Blood Venous blood specimen / Unknown Result [facility] Provider LAB BLOOD ORDERABLES Maira l Result * Depression Screening (05/19/2023) [facility] Depression Screening Abstracted Result [facility] Provider HEALTH MAINTENANCE Final Result * Diabetes Eye Exam (02/12/2023) [facility] Diabetes: Annual Retina Eye Exam Abstracted Result [facility] Provider HEALTH MAINTENANCE Final Result * Urine Albumin Creatinine Ratio (01/20/2023) [facility] Urine Albumin Creatinine Ratio Abstracted Result [facility] Provider HEALTH MAINTENANCE Final Result * DXA BONE DENSITY STUDY 1+ SITS AXIAL SKEL (01/01/2023 10:18 AM EDT) Anatomical Region Laterality Modality Bone Densitometr y 10/06/2022 11:3 9 AM EDT Narrative 01/01/2023 6:53 PM EDT BONE DENSITY SCAN (DEXA) FINDINGS: Lumbar Spine T-score is 0.4. (SD relative to 20-29 y/o adult) Z-score is 2.4. (SD relative to age matched peers) This is considered normal by WHO criteria. Left Hip T-score is -0.8. Z-score is 0.7. This is considered normal by WHO criteria. Comparison: 09/07/2020. No statistically significant change in bone mineral density. Lateral survey view of the thoracolumbar spine shows no significant compression deformities. IMPRESSION: IMPRESSION: Normal bone mineral density by WHO criteria. The [facility] Department of Internal Medicine recommends using National [...] alternative screening schedule based on dmitri Tadeo., [facility] May 15, 2011 for patients with osteopenia [...] bone mineral density by WHO criteria. The [facility] Department of Internal Medicine recommendsusing National Osteoporosis [...] FRAX. Optional alternative screening schedule based on theodore Tadeo al., NEJMJanuary 2011 for patients with osteopenia (based on hip BMD T-score) is as follows: * advanced osteopenia (T scores -2.00 to -2.49), BMD testing every year * moderate osteopenia (T scores -1.50 to -1.99), BMD testing every 5years mild osteopenia or normal BMD (T scores -1.50 and higher), BMD testingevery 15 years us Marianela Parks MD IM DXA PROCEDURES Final Result * SCREENING MAMMOGRAPHY [...] interpreted with the aid of computer-aided detection. Comparison is made with 11/29/2021 and as far back as 11/19/2018. Breast parenchyma is composed of scattered fibroglandular densities. No new suspicious mass, architectural distortion, or suspicious [...] Final Result * Hepatitis C Screening (06/08/2008) Hepatitis C Screening Abstracted Historical Provider HEALTH MAINTENANCE Final Result from Last 3 Months or Most Recently Relevant [place] [id number] [employer] MEDICARE Care Teams Caustic Pump Operator Relationship Specialty Start Date End Date Marianela Praks MD [address] [place] [address] [phone] PCP - General Internal Medicine 11/02/21
--- OUTSIDE RECORDS SUMMARY | 2024-11-16 09:46 | XMS_ITS | Clinical Summary ---
Author Organization [facility] Address [address] [address] Phone Care Team Providers Care Demurrage Worker Name Role Phone Petra Garcia MD Primary Care Provider [phone] Allergies Active Allergy Reactions Criticality Noted Date Comments Influenza Virus Vac. Tri-Split 11/19 Latex 06/30/2017 Penicillins 11/20/2023 Fish Derived 11/20/2023 Medications metFORMIN (GLUCOPHAGE-XR) 500 MG 24 hr tablet Take 3 tablets by mouth every morning. 11/09/2023 Active albuterol 90 mcg/actuation inhaler Inhale 2 puffs into the lungs every 4 (four) hours. Active meclizine (ANTIVERT) 25 mg tablet Take 12.5 mg by mouth every 8 (eight) hours. Active simvastatin (ZOCOR) 20 MG tablet Take 20 mg by mouth nightly at bedtime. at bedtime. Active valsartan (DIOVAN) 80 MG tablet Take 1 tablet by mouth every morning. 11/23/2023 Active Active Problems Problem Noted Date Diagnosed Date Arthralgia of multiple joints 12/06/2023 Assessment & Plan (12/06/2023 5:57 PM EDT): She has arthralgias in multiple areas without warm or swollen joints. Her pain is worse with prolonged activity more consistent with osteoarthritis. She does not appear to have rheumatoid arthritis. I will send her for additional labs to reevaluate the rheumatoid factor and the CCP. She can continue with Tylenol 650 mg as needed. Social History Tobacco Use Types Packs/Day Years Used Date Smoking Tobacco: Never Smokeless Tobacco: Never Tobacco Cessation:Counseling Given: Not Answered Alcohol Use Standard Drinks/Week Comments Never 0 (1 standard drink = 0.6 oz pur e alcohol) Education Answer Date Recorded Are you interested in more education? Not on hugo e 07/13/2023 Are you concerned about learning? Not on file 07/13/2023 No 07/13/2023 No 07/13/2023 Digital Access Answer Date Recorded No 07/13/2023 No 07/13/2023 Reliable internet access at home? Not on file 07/13/2023 Device with a working camera? Not on file Comments Unknown Sex and Gender Information Value Date Recorded Sex Assigned at Not on file Legal Sex Female 10:55 AM EST Gender Identity Not on file Sexual Orientation Not on file Last Filed Vital Signs Vital Sign Reading Time Taken Comments Blood Pressure 122/54 12/04/2023 9:47 AM EDT Pulse 76 12/04/2023 9:47 AM EDT Temperature - - Respiratory Rate - - Oxygen Saturation 98% 12/04/2023 9:47 AM EDT Inhaled Oxygen Concentration - - Weight 84.4 kg (186 lb) 12/04/2023 9:47 AM EDT Height 167.6 cm (5' 6 ) 12/04/2023 9:47 AM EDT Body Mass Index 30.02 12/04/2023 9:47 AM EDT Plan of Treatment Health Maintenance Due Date Last Done Comments LIPID PANEL 1954 DEPRESSION SCREENING 1966 HEPATITIS C SCREENING 1972 MAMMOGRAM 1994 COLOGUARD 08/08/1999 COLONOSCOPY 08/08/1999 COLORECTAL CANCER SCREENING 08/08/1999 FIT TEST 08/08/1999 FOBT 08/08/1999 SIGMOIDOSCOPY 08/08/1999 VIRTUAL COLONOSCOPY 08/08/1999 ZOSTER VACCINES (2 of 3) 06/20/2015 04/25/2015 OSTEOPOROSIS SCREENING INITI AL (ONE-TIME) 08/08/2019 PNEUMOCOCCAL VACCINES (50+ years) (2 of 2 - PCV) 11/29/2021 11/29/2020, 03/30/2014 COVID-19 VACCINE (4 - 2023-2 5 season) 2023 05/22/2021, 09/05/2020, 08/08/2020 CREATININE LEVEL 12/03/2024 12/04/2023 POTASSIUM LEVEL 12/03/2024 12/04/2023 RSV VACCINE (1 - 1-dose 75+ series) 2029 Adult Td,Tdap Booster 10/06/2032 10/06/2022 , 10/04/2012, 06/06/2005 HEPATITIS A VACCINES Aged Out 05/02/2019 No long er eligible based on patient's age to complete this topic SMOKING STATUS SCREENING (On ce After 26 Yrs) Completed 12/04/2023 HIB VACCINES Aged Out No longer eligi ble based on patient's age to complete this topic MENINGOCOCCAL VACCINES (ACWY) Aged Out No longer eligible based on patient's age to complete this topic MENINGOCOCCAL VACCINES (B) Aged Out N o longer eligible based on patient's age to complete this topic Medical Devices Not on file Procedures Procedure Name Priority Date/Time Associated Diagnosis Comments COMPREHENSIVE METABOLIC PANEL Routine 12/04/2023 10:40 AM EDT Arthralgia of multiple joints from Last 3 Months or Most Recently Relevant to Health Maintenance Results * (ABNORMAL) Comprehensive metabolic panel (12/04/2023 10:40 AM EDT) SODIUM 141 133 - 146 mmol/L [facility] POTASSIUM 4.4 3.3 - 5.1 mmol/L [facility] CHLORIDE 103 96 - 108 mmol/L [facility] CO2 29 21 - 35 mmol/L [facility] BUN 14 6 - 19 mg/dL [facility] CREATININE 0.70 0.5 - 1.5 mg/dL [facility] GLUCOSE 118(H) 70 - 99 mg/dL [facility] ALBUMIN 4.2 3.9 - 4.8 g/dL [facility] TOTAL PROTEIN 7.5 6.5 - 8.0 g/dL [facility] CALCIUM 9.7 8.4 - 10.3 mg/dL [facility] ALKALINE PHOSPHATASE 56 39 - 117 U/L [facility] TOTAL BILIRUBIN 0.4 0.0 - 1.2 mg/dL [facility] AST 19 0 - 37 U/L [facility] ALT 11 0 - 40 U/L [facility] GLOBULIN 3.3 1 - 4.8 g/dL [facility] EGFR 94 >59 mL/min/1.7 3m2 [facility] Comment:Estimated glomerular filtration rate calculated using the CKD-EPI refit equation. ANION GAP 13 10 - 20 mmol/L [facility] Blood 12/04/2023 10:4 0 AM EDT 12/04/2023 10:42 AM EDT Jaylen Evans MD LAB BLOOD ORDERABLES nal Result [facility] [address] [place] [address] from Last 3 Months or Most Recently Relevant to Health Maintenance Insurance [facility] MEDICARE REPLACEMENT [facility] MEDICARE REPLACEMENT [place] [id number] [facility] MEDICARE [facility]PLACEMENT [facility] MEDICARE REPLACEMENT [facility] MEDICARE REPLACEMENT [facility] MEDICARE REPLACEMENT [facility] MEDICARE REPLACEMENT [facility] MEDICARE REPLACEMENT [facility] MEDICARE REPLACEMENT [place] [id number] Care Teams Demurrage Worker Relationship Specialty Start Date End Date Petra Garcia MD [address] [place] [address] PCP - General Internal Medicine 03/29/21 Additional Source Comments The information contained in this document represents components of the legal health record. It is not the complete legal health record.[facility]
[2024-11-16 10:26] LABS: Hemoglobin A1C 153.5415 umol/L; Total Hemoglobin (HGBA1C) 2865.1644 umol/L
[2024-11-16 11:29] LABS: Alanine Aminotransferase 19 U/L (0-31); Albumin Level 4.2 g/dL (3.5-5.0); Alkaline Phosphatase 50 U/L (39-117); Anion Gap 10 (12-20); Aspartate Amino Transferase 20 U/L (5-31); Blood Urea Nitrogen 13 mg/dL (9-16); Calcium 9.4 mg/dL (8.4-10.2); Carbon Dioxide 32 mmol/L (22-29); Chloride 103 mmol/L (96-108); Cholesterol 190 mg/dL (<200); Estimated Glomerular Filt Rate > 60; HDL Cholesterol 66 mg/dL (>40); Potassium 4.4 mmol/L (3.3-5.1); Sodium 141 mmol/L (135-145); Total Protein 6.7 g/dL (6.5-8.0); Triglycerides 102 mg/dL (<150)
== END 2024-11-16 09:15 | disposition home or self-care (01) ==
LOC: HO.LAB 09:14
PROVIDERS: PCP Physician Assistant; Visit Provider Physician Assistant
DX: K64.8 Other hemorrhoids (principal); D12.6 Benign neoplasm of colon, unspecified; R51.9 Headache, unspecified; E11.9 Type 2 diabetes mellitus without complications; E78.5 Hyperlipidemia, unspecified; E03.9 Hypothyroidism, unspecified
CPT/HCPCS: 36415; 80053; 80061; 83036; 84443; 99212

== ENCOUNTER 2024-11-16 16:09 | Outpatient (AMB) | payer MEDICARE, SELFPAY ==
--- NOTE | 2024-11-16 16:10 | A.OFFVIS_ITS ---
Vital Signs 11/16/24 16:21 Height 5 ft 6 in Weight 190 lb BMI 30.7 BP 146/72 H Blood Pressure Location Rt brachial Position Sitting Pulse 86 Pulse Source Pulse Oximeter Pulse Oximetry (%) 97 Oxygen Delivery Method Room Air Intake Visit Reasons: 3 mo Intake Note: Est pt for mgmt of hemorrhoids. Rediscuss colo. CC; Pt denies any GI sx or concerns at this time. Television Equipment Operator Required: Yes Television Equipment Operator Services: Television Equipment Operator Offered & Declined Accompanied by: Self / Same As Patient Allergies seafood Allergy (Severe, Verified 11/16/24 16:15) Anaphylaxis cinnamon Allergy (Intermediate, Verified 11/16/24 16:15) Swelling latex Allergy (Intermediate, Verified 11/16/24 16:15) Rash Penicillins (PENICILLINS) Allergy (Unknown, Verified 11/16/24 16:15) HIVES flu vaccine Allergy (Unknown, Uncoded 11/16/24 16:15) Rash, skin peeling HPI HPI 3 mo: Details: LAST VISIT: Status post colonoscopy Hemorrhoids without complication Tubular adenoma of colon Plan Patient reports occasional burning after bowel movements. Diagnosed with internal hemorrhoids. Will send a script for Proctosol. Patient reports that she is moving her bowels well and feels like she empties completely. Recommendation was made for patient to try high-fiber diet. May take [id number] fiber supplements with pre and probiotics. Patient reports headache after colonoscopy. Patient was encouraged to increase fluid intake. Follow-up in 3 months to re- evaluate. Patient is agreeable to current plan of care and verbalizes understanding of instructions. She was given the opportunity to ask questions and all questions answered. ? Thank you for allowing me to participate in her care New hydrocortisone 2.5% (Proctosol HC) 1 appl [place] BID-QID PRN 30 grams 2RF hemorrhoids K64.9 TODAY'S VISIT Patient is here today for follow-up. Patient reports that she has been doing well since last visit. Patient denies any melena, hematochezia, unintentional weight loss or ribbon like stools. Patient reports that she is moving her bowels well. Changed some of her diet. Patient is drinking plenty fluids. Denies any dyspepsia, dysphagia or odynophagia. Currently not on any PPI or H2 johnathan. Patient reports that her blood sugars are fairly well controlled. Patient denies any nausea or vomiting. Reports to have a good appetite. Patient denies any melena, hematochezia, unintentional weight loss or ribbon like stools. PFSH Medical History Chronic restrictive lung disease Pneumonitis Surgical History Hx of section Hx of cholecystectomy H/O colonoscopy (~2013) Family History Mother Asthma Anemia Diabetes HTN (hypertension) Glaucoma Father Stroke Sister Diabetes HTN (hypertension) Asthma Myocardial infarct Stroke Breast cancer Brother Diabetes Glaucoma Asthma Cancer Social History Household Members: Spouse and Family Housing: House Alcohol intake: never Patient Tobacco Use Status: Never used Tobacco e-Cigarette/Vaping Use: Never Used Second Hand Smoke Exposure: No service: No Current occupational status: retired Gender identity: Female Cognitive needs: No Hearing needs: No Vision needs: Yes (cataracts) Review of Systems Const Denies weight gain and Denies weight loss ENT Reports no additional complaints, Denies dysphagia and Denies odynophagia Card Reports no additional complaints Resp Reports no additional complaints GI Denies abdominal pain, Denies belching, Denies melena, Denies bloating, Denies change in bowel habits, Denies dysphagia, Denies excessive flatus, Denies dyspepsia, Denies heartburn, Denies diarrhea, Denies loose stools, Denies nausea, Denies odynophagia and Denies vomiting Musc Reports no additional complaints Neuro Reports no additional complaints Psych Reports no additional complaints Endo Reports no additional complaints Physical Exam Vital Signs: Last Vital Signs Pulse 86 11/16/24 16:21 BP 146/72 H 11/16/24 16:21 Pulse Ox 97 11/16/24 16:21 Oxygen Delivery Method Room Air 11/16/24 16:21 BMI result Body Mass Index 30.7 Const General: healthy appearing and no acute distress Nutritional Appearance: well nourished and obese Orientation/consciousness: patient oriented x3 Resp Effort & Inspection: normal respiratory effort, able to speak in complete sentences, no tracheal deviation and symmetric chest movement Auscultation: clear to auscultation bilaterally Cardio Rate: regular rate GI Inspection: Yes normal to inspection, No distended and Yes obesity Palpation (GI): Soft to palpation, not firm, nontender and No hepatosplenomegaly present Auscultation: normal bowel sounds General: Yes no CVA tenderness Back/Spine/Pelvis Back: no CVA tenderness Skin General skin exam: elasticity normal, turgor normal and dry skin Neuro General: patient oriented x3 Psych Appearance: grossly normal Mental Status: mental status grossly normal Assessment & Plan Assessment & Plan (1) Hemorrhoids without complication: Code(s): K64.9 - Unspecified hemorrhoids (2) Tubular adenoma of colon: Code(s): D12.6 - Benign neoplasm of colon, unspecified Plan Continue current bowel regimen. Increase fluid intake and activity to promote better bowel motility. Avoid dietary triggers in late night snacking. Staying upright for minimum 3 hours after meals discussed with patient. Follow-up in 6 months, sooner on as needed basis. Colonoscopy will 5 years sooner if clinically necessary. Patient is agreeable to plan of care and verbalizes understanding of instructions. She was given the opportunity to ask questions and all questions answered. Thank you for allowing me to participate in her care Coding Level of Care Code Est Pt Level 3 (82691) Diagnoses Hemorrhoids without complication K64.9 Tubular adenoma of colon D12.6 Time Spent (min) 25 Comment 15 minutes spent with patient and additional 10 minutes spent reviewing her records
[2024-11-16 16:21] VITALS: BP 146/72; PULSE 86; O2SAT 97; BMI 30.7
== END 2024-11-16 16:32 | disposition home or self-care (01) ==
PROVIDERS: PCP Physician Assistant; Visit Provider Nurse Practitioner Family
DX: K64.9 Unspecified hemorrhoids (principal); D12.6 Benign neoplasm of colon, unspecified
CPT/HCPCS: 99213

== ENCOUNTER 2024-11-24 10:53 | Outpatient (AMB) | payer MEDICARE, SELFPAY ==
--- NOTE | 2024-11-24 11:06 | MHC.PC.OV ---
Vital Signs 11/24/24 11:08 Height 5 ft 6 in Weight 192 lb 6 oz BMI 31.0 BP 132/82 Blood Pressure Location Rt brachial Position Sitting Respiration 12 Pulse 70 Pulse Source Pulse Oximeter Temp 98.1 F Temp Source Oral Pulse Oximetry (%) 98 Oxygen Delivery Method Room Air Intake Visit Reasons: dm and tsh Intake Note: Diabetes follow up. Insurance will only cover accu-check. Needs machine and supplies sent to pharmacy. Conveyor Belt Installer Required: No Allergies seafood Allergy (Severe, Verified 11/24/24 11:07) Anaphylaxis cinnamon Allergy (Intermediate, Verified 11/24/24 11:07) Swelling latex Allergy (Intermediate, Verified 11/24/24 11:07) Rash Penicillins (PENICILLINS) Allergy (Unknown, Verified 11/24/24 11:07) HIVES flu vaccine Allergy (Unknown, Uncoded 11/24/24 11:07) Rash, skin peeling Medication List - Last Reconciled 11/24/24 by Christal Robison PA-C calcium carb,lactat-vitamin D3 200 mg-6.25 mcg (250 unit) 200 tabs PO DAILY diclofenac sodium 1% (Voltaren Arthritis Pain) 4 grams topical QID folic acid 1 mg PO DAILY hydrocortisone 2.5% (Proctosol HC) 1 appl OH BID-QID PRN levalbuterol tartrate 45 mcg/actuation 2 puffs inhalation Q6H 30 days levothyroxine 50 mcg PO DAILY loratadine (Claritin) 10 mg PO DAILY meclizine 25 mg PO DAILY PRN metformin ER 1,500 mg PO ONCE multivitamin with iron 1 tab PO DAILY simvastatin 40 mg PO BEDTIME valsartan 80 mg PO DAILY Tobacco use date assessed: 11/24/24 Fall risk assessment: No Falls in past year Last assessed Fall Risk: 11/24/24 Dental Screening Dental Screen Date: 09/08/24 HPI dm and tsh HPI Details Patient is a 69-year-old female with a significant past medical history of type 2 diabetes, hypertension, hyperlipidemia, obesity, asthma, joint pains, fibromyalgia, PVD, rheumatoid lung presenting today for a follow up. Endo: She is currently on metformin 500 mg 3 times a day. She was diagnosed with diabetes around 2020. She has had diabetic Education. She is followed with a airplane pilot. Her last A1c was 7.1 but she states she was eating more foods in [facility]. trulicity was too expensive, Jardiance too expensive Her recent TSH was normal. She is taking the levothyroxine 50 mcg daily. -She states most of her family has t2dm. -denies hyper/hypoglycemic events -up-to-date with eye exams -she is on an Arb and a statin. CV: Blood pressure is well controlled. She is currently on valsartan 80 mg. Cholesterol was previously managed with simvastatin 20 mg but recent lipids were above goal. Given the coronary artery calcification seen on chest CT I did increase the dosage to 40 mg. Stress test- no ischemia following annually with cardiology Pulm: has a hx of asthma but recent PFTs from apr 2022 (scanned in) were normal. Followed with pulmonology. Heme: Persistent anemia. Following with Hematology. Mammogram: UTD, November 2023 Colonoscopy: UTD 2024, Repeat Colonoscopy in 5 years or earlier if clinically indicated Bone density: Not due until 2025 upon review from [place] records. Pap: Was referred- booked in January Eyes: booked 01.31.26 [facility] Medical History Chronic restrictive lung disease Pneumonitis Surgical History Hx of section Hx of cholecystectomy H/O colonoscopy (~2013) Family History Mother Asthma Anemia Diabetes HTN (hypertension) Glaucoma Father Stroke Sister Diabetes HTN (hypertension) Asthma Myocardial infarct Stroke Breast cancer Brother Diabetes Glaucoma Asthma Cancer Social History (Updated 11/24/24 @ 11:18 by Corrine Walker CMA) Household Members: Spouse and Family Housing: House Alcohol intake: never Patient Tobacco Use Status: Never used Tobacco e-Cigarette/Vaping Use: Never Used Second Hand Smoke Exposure: No service: No Current occupational status: retired Gender identity: Female Cognitive needs: No Hearing needs: No Vision needs: Yes (cataracts) Questionnaire Thrive Questionnaire Date Thrive assessed: 05/26/24 I am a: Patient What is your living situation today?: I have a steady place to live Within the past 12 months, did the food you bought not last and you didn't have the money to get more?: Never true Within the past 12 months, did you worry whether your food would run out before you got money to buy more?: Never true Do you have trouble paying for medicines?: No Do you have trouble getting transportation to medical appointments?: No Do you have trouble paying your heating and electricity bill?: No Do you have trouble taking care of your child, family member or friend?: No Do you have trouble with day-to-day activities such as bathing, preparing meals, shopping, managing finances, etc.?: No Are you currently unemployed and looking for a job?: No Are you interested in more education?: No Please select the resources that you would like help with: None Currently or been in a relationship where the following occur: No concerns reported THRIVE Score: 0 DEA-7 AMB Questionnaire DEA-7 Date DEA - 7 assessed: 09/08/24 Source: Developed by Drs. Jamin Hillman, Latonya Boone, Jasvir Zuniga and colleagues, with an educational federico from [employer]. Physical exam (Primary Care) Vital Signs: Last Vital Signs Temp 98.1 F 11/24/24 11:08 Pulse 70 11/24/24 11:08 Resp 12 11/24/24 11:08 BP 132/82 11/24/24 11:08 Pulse Ox 98 11/24/24 11:08 Oxygen Delivery Method Room Air 11/24/24 11:08 BMI result Body Mass Index 31.0 Tobacco/Smoking Status: Tobacco use Status Tobacco use date assessed 11/24/24 11/24/24 11:13 Patient Tobacco Use Status Never used Tobacco 11/24/24 11:18 e-Cigarette/Vaping Use Never Used 11/24/24 11:18 Thrive Assessment: Date of Thrive Assessment Date Thrive assessed 05/26/24 11/24/24 11:13 Currently or been in a relationship where the following occur: No concerns reported Const Orientation/consciousness: patient oriented x3 HENMT Ears: hearing grossly normal bilaterally Neck Thyroid: Thyroid normal Lymphatic: no lymphadenopathy noted Resp Auscultation: clear to auscultation bilaterally Cardio Rate: regular rate Rhythm: regular rhythm Heart sounds: S1 normal heart sound present and S2 normal heart sound present GI Inspection: Yes normal to inspection Palpation (GI): Soft to palpation and Other GI palpation findings present (nontender, no cva tenderness) Auscultation: normoactive bowel sounds Rectal Exam - Female: deferred Skin General skin exam: no rashes or lesions noted Neuro General: patient oriented x3, gait normal and no focal motor deficits Coding Level of Care Code Est Pt Level 4 (69370) Complex EM visit Add On G2211 Diagnoses Type 2 diabetes mellitus without complication, without long-term current use of insulin E11.9 Diabetes mellitus complication status: without complication Diabetes mellitus penitentiary insulin use: without penitentiary use Hypertension I10 Anemia, unspecified type D64.9 Anemia type: unspecified type Assessment & Plan Assessment & Plan (1) T2DM (type 2 diabetes mellitus): Code(s): E11.9 - Type 2 diabetes mellitus without complications Category: Medical Qualifiers: Diabetes mellitus complication status: without complication Diabetes mellitus penitentiary insulin use: without petroleum terminal plant operator use Qualified Code(s): E11.9 - Type 2 diabetes mellitus without complications Plan: continue metformin. does not want to make any adjustments will recheck labs in 3 months f/u in 3 months advised diet changes (2) Hypertension: Code(s): I10 - Essential (primary) hypertension Category: Medical Plan: wnl continue current plan (3) Anemia: Code(s): D64.9 - Anemia, unspecified Category: Medical Qualifiers: Anemia type: unspecified type Qualified Code(s): D64.9 - Anemia, unspecified Plan: We will monitor. She will continue following with Hematology Orders: Orders Complete Blood Count Auto Diff 11/24/24 D64.9 - Anemia, unspecified, E11.9 - Type 2 diabetes mellitus without complications, I10 - Essential (primary) hypertension TSH reflex Free T4 11/24/24 D64.9 - Anemia, unspecified, E11.9 - Type 2 diabetes mellitus without complications, I10 - Essential (primary) hypertension Comprehensive Met. Panel 11/24/24 D64.9 - Anemia, unspecified, E11.9 - Type 2 diabetes mellitus without complications, I10 - Essential (primary) hypertension Hemoglobin A1c 11/24/24 D64.9 - Anemia, unspecified, E11.9 - Type 2 diabetes mellitus without complications, I10 - Essential (primary) hypertension, R73.01 - Impaired fasting glucose
[2024-11-24 11:08] VITALS: BP 132/82; PULSE 70; RESP 12; TEMP 36.7; O2SAT 98; BMI 31.0
--- OUTSIDE RECORDS SUMMARY | 2024-11-24 11:44 | XMS_ITS | Clinical Summary ---
Author Organization [facility] Address [address] [address] Phone Care Team Providers Care Software Testing Specialist Name Role Phone Petra Garcia MD Primary Care Provider [phone] Allergies Active Allergy Reactions Criticality Noted Date [...] EDT) SODIUM 141 133 - 146 mmol/L [facility] POTASSIUM 4.4 3.3 - 5.1 mmol/L [facility] CHLORIDE 103 96 - 108 mmol/L [facility] CO2 29 21 - 35 mmol/L [facility] BUN 14 6 - 19 mg/dL [facility] CREATININE 0.70 0.5 - 1.5 mg/dL [facility] GLUCOSE 118(H) 70 - 99 mg/dL [facility] ALBUMIN 4.2 3.9 - 4.8 g/dL [facility] TOTAL PROTEIN 7.5 6.5 - 8.0 g/dL [facility] CALCIUM 9.7 8.4 - 10.3 mg/dL [facility] ALKALINE PHOSPHATASE 56 39 - 117 U/L [facility] TOTAL BILIRUBIN 0.4 0.0 - 1.2 mg/dL [facility] AST 19 0 - 37 U/L [facility] ALT 11 0 - 40 U/L [facility] GLOBULIN 3.3 1 - 4.8 g/dL [facility] EGFR 94 >59 mL/min/1.7 3m2 [facility] Comment:Estimated glomerular filtration rate calculated using the CKD-EPI refit equation. ANION GAP 13 10 - 20 mmol/L [facility] Blood 12/04/2023 10:4 0 AM EDT 12/04/2023 10:42 AM EDT Jaylen Evans MD LAB BLOOD ORDERABLES nal Result [facility] [address] [place] [address] from Last 3 Months or Most Recently Relevant to Health Maintenance Insurance [facility] MEDICARE REPLACEMENT [facility] MEDIC[facility] REPLACEMENT [place] [id number] [facility] REPL[facility]EMENT [facility] MED[facility] REPLACEMENT [facility] MEDICARE REPLACEMENT [facility] REPLACEMENT [facility] MEDICARE REPLACEMENT [facility] MEDICARE REPLACEMENT [facility] MEDICARE REPLACEMENT [place] [id number] Care Teams Software Testing Specialist Relationship Specialty Start Date End Date Petra Garcia MD [address] [place] [address] PCP - General Internal Medicine 03/29/21 Additional Source Comments The information contained in this document represents components of the legal health record. It is not the complete legal health record.[facility]
--- OUTSIDE RECORDS SUMMARY | 2024-11-24 11:44 | XMS_ITS | Clinical Summary ---
Author Organization [address] [place] [address] [place] [phone] Phone Care Team Providers Care Rod Filler Name Role Phone Marianela Parks MD Primary [...] Date Diagnosed Date PAD (peripheral artery disease) ([facility] V24) Pelvic pain 02/18/2021 Overview (01/25/2024): Last [...] I explained there is no evidence of Health Safety Engineer pathology from her CT scan either. I [...] 2 diabetes mellitus wit h neurological manifestation ([facility] V24, [facility] V28) 11/02/2019 Overview (01/25/2024): Burning sensation in [...] Type Department Care Team Description 09/05/2024 Telephone [facility] [address] [place] [address] Marianela Parks MD Referral (Called patient to book new patient visit with the lean manufacturing engineer. Patient stated she is no longer a [facility] patient and is now established with a lean manufacturing engineer at [facility] due to her insurance. Christy Dwyer) from Last 3 Months Immunizations Name Administration Dates Next Due Hepatitis A Adult (Havrix; V aqta) 19yo and older 05/02/2019 Hepatitis B (Jzfjoxx-Z-Hhmdk , Recombivax HB-Adult) 19yo and older 03/30/2001,11/06/2000,10/07/2000 [...] complication, without long-term current use of insulin ([facility] V24, [facility] V28) 02/02/2017 DX:Controlled type 2 diabet es mellitus without complication, without long-term current use of insulin ([facility]) PAD (peripheral artery disea se) ([facility] V24) 09/10/2023 DX:PAD (peripheral artery di sease) ([facility]) Family History Medical History Relation Name Comments [...] Results * Annual BMP Blood Test (07/13/2023) [facility] Annual BMP Blood Test Abstracted Result [facility] Provider HEALTH MAINTENANCE Final Result * (ABNORMAL) Hemoglobin A1c (07/13/2023) [facility] Hemoglobin A1C 6.8(A) <=6.5 % Blood Venous blood specimen / Unknown Result [facility] Provider LAB BLOOD ORDERABLES Maira l Result * Lipid panel (07/13/2023) [facility] LDL/HDL Ratio 2 0 - 4 Triglycerides 72 0 - 150 mg/dL Cholesterol 170 0 - 200 mg/dL HDL 76 >=40 mg/dL LDL Cholesterol 80 0 - 100 mg/dL Blood Venous blood specimen / Unknown Result [facility] Provider LAB BLOOD ORDERABLES Maira l Result * Depression Screening (05/19/2023) [facility] Depression Screening Abstracted Result [facility] Provider HEALTH MAINTENANCE Final Result * Diabetes Eye Exam (02/12/2023) [facility] Diabetes: Annual Retina Eye Exam Abstracted Result [facility] Provider HEALTH MAINTENANCE Final Result * Urine Albumin Creatinine Ratio (01/20/2023) [facility] Urine Albumin Creatinine Ratio Abstracted Result [facility] Provider HEALTH MAINTENANCE Final Result * [...] bone mineral density by WHO criteria. [facility] Department of Internal Medicine recommends using [...] screening schedule based on dmitri Tadeo., [facility] May 15, 2011 for patients with osteopenia [...] bone mineral density by WHO criteria. [facility] Department of Internal Medicine recommendsusing National [...] Recently Relevant [place] [id number] [employer] MEDICARE Care Teams Rod Filler Relationship Specialty Start Date End Date Marianela Parks MD [address] [place] [address] [phone] PCP - General Internal Medicine 11/02/21
--- OUTSIDE RECORDS SUMMARY | 2024-11-24 11:44 | XMS_ITS | Patient Health Record ---
Author Organization [facility] Address [address] [facility] [address] Care Team Providers Care Herbicide Sprayer Name Role Phone Christal Robison Primary Care Provider Martha Cevallos Unavailable [phone] Kurt Rodriguez Unavailable [phone] Allergies Allergen (clinical drug ingredient) Drug/Non Drug [...] Type 2 diabetes mellitus with peripheral angiopathy (644057817) Type 2 diabetes mellitus with diabetic peripheral angiopathy without gangrene (E11.51) Active confirmed Q7(A), Q8(2B), Q9(1B,2C ) Problem Polyneuropathy due to type 2 diabetes mellitus (303623553) 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) Active confirmed Vital Signs Blood pressure diastolic 62 mm Hg 10/13/2024 Height 5ft 6in in 10/13/2024 Blood pressure systolic 120 mm Hg 10/13/2024 Weight 195 lbs 10/13/2024 BMI 31.47 kg/m2 10/13/2024 Procedures Procedure Date Ordered Date Performed Result Body Sit e 21304-PSISKNO NAIL, 1-5 04/14/2024 N/A Z5516-EORKEYUQ DYSTROPHIC NAILS ANY # 04/14/2024 N/A 21085-IPAMFES NAIL, 1-5 07/14/2024 N/A D4904-XJCRTVWY DYSTROPHIC NAILS ANY # 07/14/2024 N/A Encounters Encounter Location Date Provider Diagnosis [address] [place] [address] 04/14/2024 Kurt Rodriguez Type 2 diabetes mellitus with diabetic peripheral angiopathy without gangrene E11.51 ; Tinea unguium B35.1 ; Pain in right toe(s) M79.674 and Pain in left toe(s) M79.[address] [facility] [facility] [place] [address] 07/14/2024 Kurt Rodriguez Tinea unguium B35.1 ; Pain in right toe(s) M79.674 ; Pain in left toe(s) M79.675 and Type 2 diabetes mellitus with diabetic peripheral angiopathy without gangrene E11.[address] [facility] [address] [address] 10/13/2024 Martha Harrison Tinea unguium B35.1 ; Achilles tendinitis of right lower extremity M76.61 ; Type 2 diabetes mellitus with diabetic peripheral angiopathy without gangrene E11.51 ; Pain of right heel M79.671 ; Short Achilles tendon (acquired), right ankle M67.01 ; DM type 2 with diabetic peripheral neuropathy E11.42 and Calcaneal spur, right M77.31 [facility] [address] [address] 03/30/2024 Kurt Rodriguez Assessments Encounter Date Diagnosis [...] X ray : Foot, right 3V 10/13/2024 20508-GPLBZVR NAIL, 1-5 04/14/2024 62551-ABZOFIH NAIL, 1-5 07/14/2024 O0533-LHKBRFQD DYSTROPHIC NAILS ANY # U5336-SFPQOTYQ DYSTROPHIC NAILS ANY # Next Appt Details Provider Name:Martha manzanares, 01/16/2025 11:15:00 AM, [address] [facility], [place], [address], Insurance Providers Payer Name Payer Address Payer Phone Subscriber Number Group Number Insured Name Patient Relationship to Insured Coverage Start Date Coverage End Date [facility] [id number] [address] [address] [place] [address] [id number] Viv Pham Self - patient is the insured Medical (General) History Medical History History ICD Code Anemia asthma Diabetic High Blood Pressure thyroid Surgical History Surgery Date(Month/Year) 1981/1983/1986 Hospitalization History Reason Date(Month/Year) coloscopy 2024
--- OUTSIDE RECORDS SUMMARY | 2024-11-24 11:44 | XMS_ITS | Clinical Summary ---
Author Organization [employer] Address [address] [facility] [address] [place] [address] Care Team Providers Care Piercer Name Role Phone Unavailable Primary Care Provider [...] Description 12/28/2024 1:00 PM EDT Office Visit [facility] [address] [place] [address] [place] [address] Health Maintenance Due Date Last Done Comments [...] (4 - season) 2023 05/22/2021, 09/05/2020, 08/08/2020 Dental Oral Exam 06/17/2024 12/15/2023, 05/2023, 11/18/2022 Dental X-Ray: Bitewings 12/15/2024 12/15/19 24, 05/29/2023, 11/18/2022 Dental Prophylaxis 12/21/2024 06/22/2024, 0 12/18/2023, 05/29/2023, Additional history exists Influenza Vaccine (#1) 2024 Tobacco Screening 06/22/2025 06/22/2024 Dental X-Ray: Full Mouth 05/30/2026 05/29/2023, 03/09/2017 RSV Patients and Patients Aged 60 years [...] Most Recently Relevant to Health Maintenance Insurance [facility] PPO
== END 2024-11-24 11:50 | disposition home or self-care (01) ==
LOC: HO.HMCFM 10:54
PROVIDERS: PCP Physician Assistant; Visit Provider Physician Assistant
DX: E11.9 Type 2 diabetes mellitus without complications (principal); I10 Essential (primary) hypertension; D64.9 Anemia, unspecified

== ENCOUNTER → 2024-11-24 10:53 | Outpatient (BNVA) | payer MEDICARE, SELFPAY | PROVIDERS: PCP Physician Assistant; Visit Provider Physician Assistant | DX: E11.9 Type 2 diabetes mellitus without complications (principal); D64.9 Anemia, unspecified; I10 Essential (primary) hypertension | CPT/HCPCS: 99212 ==

== ENCOUNTER 2024-12-16 11:14 | Outpatient (REF) | payer MEDICARE, SELFPAY ==
--- OUTSIDE RECORDS SUMMARY | 2024-12-16 11:20 | XMS_ITS | Clinical Summary ---
Author Organization [address] [place] [address] [place] [phone] Phone Care Team Providers Care Precision Assembler Bench Name Role Phone Marianela Parks MD Primary [...] Date Diagnosed Date PAD (peripheral artery disease) ([facility] V24) Pelvic pain 02/18/2021 Overview [...] I explained there is no evidence of Chief Accounting Officer pathology from her CT scan either. I [...] 2 diabetes mellitus wit h neurological manifestation ([facility] V24, [facility] V28) 11/02/2019 Overview (01/25/2024): Burning [...] (01/25/2024): IMO update Obesity 07/21/2005 Asthma 04/08/2005 Immunizations Name Administration Dates Next Due Hepatitis A Adult (Havrix; V aqta) 19yo and older 05/02/2019 Hepatitis B (Lepnfjz-I-Msgdc , Recombivax HB-Adult) 19yo and older 03/30/2001,11/06/2000,10/07/2000 [...] complication, without long-term current use of insulin ([facility] V24, [facility] V28) 02/02/2017 DX:Controlled type 2 diabet es mellitus without complication, without long-term current use of insulin ([facility]) PAD (peripheral artery disea se) ([facility] V24) 09/10/2023 DX:PAD (peripheral artery di sease) ([facility]) Family History Medical History Relation [...] Screening 04/27/2024 05/19/2023 Breast Cancer Screening 12/01/2024 12/02/19, 11/29/2021, 11/27/2020, Additional history exists Diabetes: Annual [...] Results * Annual BMP Blood Test (07/13/2023) Annual BMP Blood Test Abstracted Historical Provider MD HEALTH MAINTENANCE Final Result * (ABNORMAL) Hemoglobin A1c (07/13/2023) [facility] Hemoglobin A1C 6.8(A) <=6.5 % Blood Venous blood specimen / Unknown Result [facility] LAB BLOOD ORDERABLES Maira l Result * Lipid panel (07/13/2023) [facility] LDL/HDL Ratio 2 0 - 4 Triglycerides 72 0 - 150 mg/dL Cholesterol 170 0 - 200 mg/dL HDL 76 >=40 mg/dL LDL Cholesterol 80 0 - 100 mg/dL Blood Venous blood specimen / Unknown Result [facility] LAB BLOOD ORDERABLES Maira l Result * Depression Screening (05/19/2023) [facility] Depression Screening Abstracted Result [facility] HEALTH MAINTENANCE Final Result * Diabetes Eye Exam (02/12/2023) [facility] Diabetes: Annual Retina Eye Exam Abstracted Result [facility] HEALTH MAINTENANCE Final Result * Urine Albumin Creatinine Ratio (01/20/2023) [facility] Urine Albumin Creatinine Ratio Abstracted Result [facility] HEALTH MAINTENANCE Final Result * DXA BONE [...] bone mineral density by WHO criteria. [facility] Department of Internal Medicine recommends using [...] alternative screening schedule based on dmitri Tadeo., [facility] May 15, 2011 for patients with [...] bone mineral density by WHO criteria. [facility] Department of Internal Medicine recommendsusing National [...] testingevery 15 years us Marianela Parks MD IMG DXA PROCEDURES Final [...] Most Recently Relevant to Health Maintenance Insurance MEDICARE Care Teams Precision Assembler Bench Relationship Specialty Start Date End Date Marianela Parks MD [address] [place] [phone] PCP - General Internal Medicine 11/02/21
--- OUTSIDE RECORDS SUMMARY | 2024-12-16 11:20 | XMS_ITS | Clinical Summary ---
Author Organization [facility] Address [address] [address] Phone Care Team Providers Care Newspaper Editor Name Role Phone Petra Garcia MD Primary Care Provider [phone] Allergies Active Allergy Reactions Criticality Noted Date [...] EDT) SODIUM 141 133 - 146 mmol/L [facility] POTASSIUM 4.4 3.3 - 5.1 mmol/L [facility] CHLORIDE 103 96 - 108 mmol/L [facility] CO2 29 21 - 35 mmol/L [facility] BUN 14 6 - 19 mg/dL [facility] CREATININE 0.70 0.5 - 1.5 mg/dL [facility] GLUCOSE 118(H) 70 - 99 mg/dL [facility] ALBUMIN 4.2 3.9 - 4.8 g/dL [facility] TOTAL PROTEIN 7.5 6.5 - 8.0 g/dL [facility] CALCIUM 9.7 8.4 - 10.3 mg/dL [facility] ALKALINE PHOSPHATASE 56 39 - 117 U/L [facility] TOTAL BILIRUBIN 0.4 0.0 - 1.2 mg/dL [facility] AST 19 0 - 37 U/L [facility] ALT 11 0 - 40 U/L [facility] GLOBULIN 3.3 1 - 4.8 g/dL [facility] EGFR 94 >59 mL/min/1.7 3m2 [facility] Comment:Estimated glomerular filtration rate calculated using the CKD-EPI refit equation. ANION GAP 13 10 - 20 mmol/L [facility] Blood 12/04/2023 10:4 0 AM EDT 12/04/2023 10:42 AM EDT Jaylen Evans MD LAB BLOOD ORDERABLES nal Result [facility] [address] [place] [address] from Last 3 Months or Most Recently Relevant to Health Maintenance Insurance [facility] MEDICARE REPLACEMENT [facility] MEDICARE REPLACEMENT [place] [id number] [facility] MEDICARE [facility]PLACEMENT [facility] MEDICARE [facility]PLACEMENT [facility] MEDICARE REPLACEMENT [facility] MEDICARE REPLACEMENT [facility] MEDICARE REPLACEMENT [facility] MEDICARE REPLACEMENT [facility] MEDICARE REPLACEMENT [place] [id number] Care Teams Newspaper Editor Relationship Specialty Start Date End Date Petra Garcia MD [address] [place] [address] PCP - General Internal Medicine 03/29/21 Additional Source Comments The information contained in this document represents components of the legal health record. It is not the complete legal health record.[facility]
--- OUTSIDE RECORDS SUMMARY | 2024-12-16 11:20 | XMS_ITS | Clinical Summary ---
Author Organization [employer] Address [address] [facility] 7[address] [place] [address] Care Team Providers Care Endless Track Vehicle Mechanic Name Role Phone Unavailable Primary Care Provider [...] Description 12/28/2024 1:00 PM EDT Office Visit [facility] [address] [place] [address] [place] [address] Health Maintenance Due Date Last Done Comments [...] Most Recently Relevant to Health Maintenance Insurance [facility] PPO
--- OUTSIDE RECORDS SUMMARY | 2024-12-16 11:20 | XMS_ITS | Patient Health Record ---
Author Organization [facility] Address [address] [place] [address] Care Team Providers Care Data Transcriber Name Role Phone Christal Robison Primary Care Provider Martha Cevallos Unavailable [phone] Kurt Rodriguez Unavailable [phone] Allergies Allergen (clinical drug ingredient) Drug/Non Drug Allergy documented on EMR Reaction Allergy Type Onset Date Status cinnamon bark Cinnamon Unknown Drug Allergy Act raevn Shrimp Flavor Unknown Drug Allergy Act raven [...] Type 2 diabetes mellitus with peripheral angiopathy (269242640) Type 2 diabetes mellitus with diabetic peripheral angiopathy without gangrene (E11.51) Active confirmed Q7(A), Q8(2B), Q9(1B,2C ) Problem Polyneuropathy due to type 2 diabetes mellitus (925435233) 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) Active confirmed Vital Signs Blood pressure diastolic 62 mm Hg 10/13/2024 Height 5ft 6in in 10/13/2024 Blood pressure systolic 120 mm Hg 10/13/2024 Weight 195 lbs 10/13/2024 BMI 31.47 kg/m2 10/13/2024 Procedures Procedure Date Ordered Date Performed Result Body Sit e 74258-DYPSGOP NAIL, 1-5 04/14/2024 N/A [id number] DYSTROPHIC NAILS ANY # 04/14/2024 N/A [id number] NAIL, 1-5 07/14/2024 N/A [id number] DYSTROPHIC NAILS ANY # 07/14/2024 N/A Encounters Encounter Location Date Provider Diagnosis [address] [place] [address] 04/14/2024 Kurt Rodriguez Type 2 diabetes mellitus with diabetic peripheral angiopathy without gangrene E11.51 ; Tinea unguium B35.1 ; Pain in right toe(s) M79.674 and Pain in left toe(s) M79.675 [facility] [place] [facility] [address] 07/14/2024 Kurt Rodriguez Tinea unguium B35.1 ; Pain in right toe(s) M79.674 ; Pain in left toe(s) M79.675 and Type 2 diabetes mellitus with diabetic peripheral angiopathy without gangrene E11.51 [facility] [address] [address] 10/13/2024 Martha Harrison Tinea unguium B35.1 ; Achilles tendinitis of right lower extremity M76.61 ; Type 2 diabetes mellitus with diabetic peripheral angiopathy without gangrene E11.51 ; Pain of right heel M79.671 ; Short Achilles tendon (acquired), right ankle M67.01 ; DM type 2 with diabetic peripheral neuropathy E11.42 and Calcaneal spur, right M77.31 [facility] [address] [address] 03/30/2024 Kurt Rodriguez Assessments Encounter Date Diagnosis [...] X ray : Foot, right 3V 10/13/2024 [id number] NAIL, 1-5 04/14/2024 [id number] NAIL, 1-5 07/14/2024 [id number] DYSTROPHIC NAILS ANY # [id number] DYSTROPHIC NAILS ANY # Next Appt Details Provider Name:Martha manzanares, 01/16/2025 11:15:00 AM, [address] [facility], [place], [address], Insurance Providers Payer Name Payer Address Payer Phone Subscriber Number Group Number Insured Name Patient Relationship to Insured Coverage Start Date Coverage End Date [facility] [id number] [address] [address] [place] [address] [phone] [id number] Viv Pham Self - patient is the insured Medical (General) History Medical History History ICD Code Anemia asthma Diabetic High Blood Pressure thyroid Surgical History Surgery Date(Month/Year) 1981/1983/1986 Hospitalization History Reason Date(Month/Year) coloscopy 2024
== END 2024-12-16 11:15 | disposition home or self-care (01) ==
LOC: HO.MAMMO 11:14
PROVIDERS: PCP Physician Assistant; Visit Provider Internal Medicine
DX: Z12.31 Encounter for screening mammogram for malignant neoplasm of breast (principal)
CPT/HCPCS: 77063; 77067

== ENCOUNTER → 2024-12-16 11:30 | Outpatient (BNV) | payer MEDICARE, SELFPAY | PROVIDERS: PCP Physician Assistant; Visit Provider Internal Medicine | DX: Z12.31 Encounter for screening mammogram for malignant neoplasm of breast (principal) | CPT/HCPCS: 77063; 77067 ==

== ENCOUNTER 2025-02-01 13:15 | Outpatient (AMB) | payer MEDICARE, SELFPAY ==
[2025-02-01 13:22] VITALS: BP 124/78
--- NOTE | 2025-02-01 13:22 | A.OFFVIS_ITS ---
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 Rt breast does have pain when touching area Camera Operator Required: No Camera Operator Services: Camera Operator Offered & Declined Information Interpreted: non-clinical & clinical Architectural Draftsperson: Architectural Draftsperson Present (kem) Accompanied by: Self / Same As Patient Allergies seafood Allergy (Severe, Verified 02/01/25 13:26) Anaphylaxis cinnamon Allergy (Intermediate, Verified 02/01/25 13:26) Swelling latex Allergy (Intermediate, Verified 02/01/25 13:26) Rash Penicillins (PENICILLINS) Allergy (Unknown, Verified 02/01/25 13:26) HIVES flu vaccine Allergy (Unknown, Uncoded 02/01/25 13:26) Rash, skin peeling Medication List - Last Reconciled 02/01/25 by Katie Montenegro LPN blood sugar diagnostic (Accu-Chek Guide test strips) use daily As directed to monitor blood sugars blood-glucose meter (Accu-Chek Guide Glucose Meter) Use daily As directed to monitor blood sugars calcium carb,lactat-vitamin D3 200 mg-6.25 mcg (250 unit) 200 tabs PO DAILY diclofenac sodium 1% (Voltaren Arthritis Pain) 4 grams topical QID folic acid 1 mg PO DAILY hydrocortisone 2.5% (Proctosol HC) 1 appl CO BID-QID PRN lancets (Accu-Chek Softclix Lancets) use daily As directed to monitor blood sugars levalbuterol tartrate 45 mcg/actuation 2 puffs inhalation Q6H 30 days levothyroxine 50 mcg PO DAILY loratadine (Claritin) 10 mg PO DAILY meclizine 25 mg PO DAILY PRN metformin ER 1,500 mg PO ONCE multivitamin with iron 1 tab PO DAILY simvastatin 40 mg PO BEDTIME valsartan 80 mg PO DAILY Do you need a note to return to daycare/school/sports/work: No HPI Comments Details: Patient is a 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 Currently not sexually active in over 9 yrs. Denies any vaginal dryness or irritation. STI testing offered; she declines. Attempting to eat a healthy diet with calcium and vitamin D and stays active with exercise. Last pap smear; 2022, negative history. Last mammogram; 2024. Colonoscopy is UTD. Family history of breast cancer. [facility] Medical History Diabetes mellitus Chronic restrictive lung disease Pneumonitis Surgical History Hx of section Hx of cholecystectomy H/O colonoscopy (~2013) Family History Mother Asthma Anemia Diabetes HTN (hypertension) Glaucoma Father Stroke Sister Diabetes HTN (hypertension) Asthma Myocardial infarct Stroke Breast cancer Brother Diabetes Glaucoma Asthma Cancer Pancreatic cancer Sister Liver cancer Social History Household Members: Spouse and Family Housing: House Alcohol intake: never Patient Tobacco Use Status: Never used Tobacco e-Cigarette/Vaping Use: Never Used Second Hand Smoke Exposure: No service: No Current occupational status: retired Gender identity: Female Cognitive needs: No Hearing needs: No Vision needs: Yes (cataracts) Female Reproductive History Menstrual Total pregnancies: 3 Number of Living Children: 3 Date of Mammogram: 12/16/24 History of abnormal mammogram: No Review of Systems Const All systems reviewed & are unremarkable except as noted in HPI and below Reports as per HPI Eyes Reports no additional complaints ENT Reports no additional complaints Card Reports no additional complaints Resp Reports no additional complaints GI Reports as per HPI and Reports no additional complaints Reports as per HPI Musc Reports no additional complaints Skin/Breast Reports as per HPI Neuro Reports no additional complaints Psych Reports no additional complaints Endo Reports no additional complaints Vernon/Lymph Reports no additional complaints Aller/Immun Reports no additional complaints Physical Exam Vital Signs: Last Vital Signs BP 124/78 02/01/25 13:22 BMI result Body Mass Index 30.0 Const General: cooperative, healthy appearing, no acute distress, well developed and alert Orientation/consciousness: patient oriented x3 HEENT Head: Yes normal to inspection Eyes General: appearance normal, both eyes and all related structures Neck Neck: Yes normal visual inspection Thyroid: Thyroid normal Chest Chest palpation & inspection: normal inspection of the chest and other (no puckering, dimpling, peau de orange, retraction, discharge, masses) Breast/axilla inspection: normal inspection of the breasts Breast/axilla palpation: normal palpation of the breasts Resp Effort & Inspection: normal respiratory effort GI Inspection: Yes normal to inspection Palpation (GI): Soft to palpation Rectal Exam - Female: deferred General: Yes bladder normal to palpation External Female Exam: normal external appearance and normal appearance of the urethra Speculum Exam - Vagina: normal appearance of the vagina, normal palpation, normal vaginal discharge and vagina atrophic Speculum Exam - Cervix: normal appearance of the cervix and normal palpation Bimanual exam- vagina & uterus: normal bimanual exam, normal palpation, uterine size normal, bladder normal to palpation, normal palpation and non-tender Bimanual Exam- Adnexa, other: no masses Skin General skin exam: no rashes or lesions noted Rashes: no rashes Neuro General: patient oriented x3 Cognition (Neuro): normal cognition Extrem General: Yes normal to inspection Psych Attitude: cooperative Thought process: Normal thought process present Assessment & Plan Assessment & Plan (1) Encounter for well woman exam with routine gynecological exam: Code(s): Z01.419 - Encounter for gynecological examination (general) (routine) without abnormal findings Category: Medical Plan: Discussed: Current recommendations for pap smears per ASCCP guidelines. Breast awareness, periodic self breast exams and yearly mammogram. Maintain a healthy lifestyle, well balanced diet including Calcium 1,200 mg and Vitamin D 600 IU daily, and routine exercise. Contact the office with any postmenopausal bleeding. Patient verbalizes understanding and agrees to the plan of care. She was given opportunity to ask questions and all questions were answered to the best of my ability. 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 This note is constructed using voice recognition software. While every effort has been made to ensure accuracy, adjunct spanish instructor errors may have been included. (2) FH: breast cancer in first degree relative: Code(s): Z80.3 - Family history of malignant neoplasm of breast Category: Medical Plan Discuss referral to breast surgeon for genetic screening, BRCA testing due to family history of breast cancer. The patient expressed understanding and agreement with the plan of care. All of her questions and concerns were addressed to the best of my ability. Orders: Referrals Breast Surgery Referral Z80.3 - Family history of malignant neoplasm of breast Coding Level of Care Code New Pt Prev Care >65yr (82173) Diagnoses Encounter for well woman exam with routine gynecological exam Z01.419 FH: breast cancer in first degree relative Z80.3
== END 2025-02-01 14:17 | disposition home or self-care (01) ==
LOC: HO.HWS 13:15
PROVIDERS: PCP Physician Assistant; Visit Provider Advanced Practice Midwife
DX: Z01.419 Encounter for gynecological examination (general) (routine) without abnormal findings (principal); Z80.3 Family history of malignant neoplasm of breast
CPT/HCPCS: 99387; 99459

== ENCOUNTER → 2025-02-01 13:15 | Outpatient (BNVA) | payer MEDICARE, SELFPAY | PROVIDERS: PCP Physician Assistant; Visit Provider Advanced Practice Midwife | DX: Z01.419 Encounter for gynecological examination (general) (routine) without abnormal findings (principal); Z80.3 Family history of malignant neoplasm of breast | CPT/HCPCS: 99387 ==

== ENCOUNTER 2025-03-15 10:14 | Outpatient (REF) | payer MEDICARE, SELFPAY ==
[2025-03-15 10:39] LABS: MANUAL DIFF FLAG NO
[2025-03-15 11:38] LABS: Hematocrit 35.8 % (37.0-47.0); Hemoglobin 10.8 g/dl (12.0-16.0); Imm Gran Abs Auto 0.05 X10*3/uL (0.00-0.03); Imm Gran Pct Auto 1.0 % (0.0-0.4); Lymphocytes Absolute Auto 1.3 X10*3/uL (1.2-4.9); Mean Corpuscular HGB Conc 30.2 g/dl (31.0-35.0); Mean Corpuscular Hemoglobin 23.5 pg (27.0-33.0); Mean Corpuscular Volume 78.0 fL (80.0-98.0); NRBC Abs Auto 0.000 X10*3/uL (0.0-0.012); NRBC Pct Auto 0.0 /100WBC (0.0-0.2); Platelet Count 292 X10*3/uL (160-400); Red Blood Count 4.59 X10*6/uL (4.20-5.50); White Blood Count 5.1 X10*3/uL (4.8-10.8)
[2025-03-15 14:00] LABS: Alanine Aminotransferase 19 U/L (0-31); Albumin Level 4.3 g/dL (3.5-5.0); Anion Gap 11 (12-20); Aspartate Amino Transferase 21 U/L (5-31); Blood Urea Nitrogen 17 mg/dL (9-16); Calcium 9.4 mg/dL (8.4-10.2); Carbon Dioxide 31 mmol/L (22-29); Chloride 103 mmol/L (96-108); Estimated Glomerular Filt Rate > 60; Potassium 3.9 mmol/L (3.3-5.1); Sodium 141 mmol/L (135-145); Total Protein 6.9 g/dL (6.5-8.0)
[2025-03-15 14:11] LABS: Alkaline Phosphatase 52 U/L (39-117)
--- OUTSIDE RECORDS SUMMARY | 2025-03-15 19:42 | XMS_ITS | Clinical Summary ---
Author Organization [address] [place] [address] [place] [phone] Phone Care Team Providers Care Bolt Sawyer Name Role Phone Marianela Parks MD Primary [...] Date Diagnosed Date PAD (peripheral artery disease) ([facility] V24) Pelvic pain 02/18/2021 Overview [...] I explained there is no evidence of Land Acquisition Analyst pathology from her CT scan either. I [...] 2 diabetes mellitus wit h neurological manifestation ([facility] V24, [facility] V28) 11/02/2019 Overview (01/25/2024): Burning [...] IMO update Obesity 07/21/2005 Asthma 04/08/2005 Immunizations Immunization Administration Dates Next Due Hepatitis A Adult (Havrix; V aqta) 19yo and older 05/02/2019 Hepatitis B (Uqzwvyh-X-Uthuj , Recombivax HB-Adult) 19yo and older 03/30/2001,11/06/2000,10/07/2000 [...] complication, without long-term current use of insulin ([facility] V24, [facility] V28) 02/02/2017 DX:Controlled type 2 diabet es mellitus without complication, without long-term current use of insulin ([facility]) PAD (peripheral artery disea se) ([facility] V24) 09/10/2023 DX:PAD (peripheral artery di sease) ([facility]) Family History Medical History Relation [...] RSV Immunization Adult Patients (1 - Risk 50-74 years 1-dose series) 2004 Zoster Vaccines (2 of 3) 06/20/2015 04/25/2015 Falls Risk Assessment 04/05/2022 Medicare Annual Wellness Visit 04/05/2022 Social Influencers of Health Screening 04/05/2022 Colorectal Cancer Screening: Colonoscopy 09/22/2023 09/21/2013 Diabetes: Blood Sugar Control Test (HGBA1C) 01/13/2024 07/13/2023 Diabetes: Annual Urine Albumin-Creatinine Ratio (uACR) 01/21/2024 01/20/2023 Diabetes: Annual Retina Eye Exam 02/13/2024 02/12/2023 Depression Screening 04/27/2024 05/19/2023 Breast Cancer Screening 12/01/2024 12/02/19 23, 11/29/2021, 11/27/2020, Additional history exists Diabetes: Annual GFR (Glomerular Filtration Rate) 12/03/2024 12/04/2023, 07/13/2023 Hypertension/CHF/CAD Annual BMP Blood Test 12/03/2024 12/04/2023, 07/13/2023 COVID-19 Vaccine ( - season) 2024 05/22/2021, 09/05/2020, 08/08/2020 Influenza Vaccine (#1) 2024 Cholesterol Screening (Lipid [...] Final Result * (ABNORMAL) Hemoglobin A1c (07/13/2023) [facility] Hemoglobin A1C 6.8(A) <=6.5 % Blood Venous blood specimen / Unknown Result [facility] LAB BLOOD ORDERABLES Maira l Result * Lipid panel (07/13/2023) [facility] LDL/HDL Ratio 2 0 - 4 Triglycerides 72 0 - 150 mg/dL Cholesterol 170 0 - 200 mg/dL HDL 76 >=40 mg/dL LDL Cholesterol 80 0 - 100 mg/dL Blood Venous blood specimen / Unknown Result [facility] LAB BLOOD ORDERABLES Maira l Result * Depression Screening (05/19/2023) [facility] Depression Screening Abstracted Result [facility] HEALTH MAINTENANCE Final Result * Diabetes Eye Exam (02/12/2023) [facility] Diabetes: Annual Retina Eye Exam Abstracted Result [facility] HEALTH MAINTENANCE Final Result * Urine Albumin Creatinine Ratio (01/20/2023) [facility] Urine Albumin Creatinine Ratio Abstracted Result [facility] HEALTH MAINTENANCE Final Result * DXA BONE [...] bone mineral density by WHO criteria. [facility] Department of Internal Medicine recommends [...] alternative screening schedule based on dmitri Tadeo., [facility] May 15, 2011 for patients with osteopenia [...] bone mineral density by WHO criteria. [facility] Department of Internal Medicine recommendsusing [...] to Health Maintenance Insurance MEDICARE Care Teams Bolt Sawyer Relationship Specialty Start Date End Date Marianela Parks MD [address] [place] [phone] PCP - General Internal Medicine 11/02/21
--- OUTSIDE RECORDS SUMMARY | 2025-03-15 19:42 | XMS_ITS | Clinical Summary ---
Author Organization [employer] Address [address] [facility] [address] [place] [address] Care Team Providers Care Road Crossing Guard Name Role Phone Unavailable Primary Care Provider Unavailabl e Allergies Active Allergy Reactions Criticality Noted Date Comments Influenza Virus Vaccine 11/20/2023 Latex 06/30/2017 Penicillin G 06/30/2017 Shellfish Protein-Containing Drug Products Rash Low 05/21/2022 Medications albuterol (ProAir HFA) 108 (90 Base) [...] Active Problems Problem Noted Date Diagnosed Date Dental plaque 12/28/2024 Arthralgia of multiple joints 12/06/2023 Overview (12/15/2023): [...] Encounters Date Type Department Care Team Description 12/28/2024 1:00 PM EDT Office Visit [facility] [address] [place] [address] Jeanette Piedra Dental plaque (Primary Dx); Encounter for dental examination from Last 3 Months Social History Tobacco [...] Sign Reading Time Taken Comments Blood Pressure 128/76 12/28/2024 1:06 PM EDT Pulse 69 01/07/2024 10:10 AM EDT Temperature - - Respiratory Rate - - Oxygen Saturation - - Inhaled Oxygen Concentration - - Weight - - Height - - Body Mass Index - - Plan of Treatment Upcoming Encounters Date Type Department Care Team (Late st Contact Info) Description 07/04/2025 8:00 AM EDT Office Visit [facility] [address] [place] [address] Jeanette Piedra [address] [place] [address] Health Maintenance Due Date Last Done Comments CT Colonography 1954 Colonoscopy 1954 Colorectal Cancer Screening 1954 Depression Screening 1954 FIT DNA/Cologuard 1954 FIT 1954 FOBT 1954 Lipid Panel 1954 SDOH Screening 1954 Sigmoidoscopy 1954 Alcohol/Substance Use Screening 1966 Hepatitis C Screening 1972 Mammogram 1994 RSV Patients and Patients Aged 60 years or older (1 - Risk 50-74 years 1-dose series) 2004 Zoster Vaccines (2 of 3) 06/20/2015 04/25/2015 COVID-19 Vaccine ( season) 2024 05/22/2021, 09/05/2020, 08/08/2020 Influenza Vaccine (#1) 2024 Dental Oral Exam 06/28/2025 12/28/2024, , 05/29/2023, Additional history exists Dental Prophylaxis 06/28/2025 12/28/2024, 0 06/22/2024, 12/18/2023, Additional history exists Tobacco Screening 12/28/2025 12/28/2024 Dental X-Ray: Bitewings 12/29/2025 12/29/19, 12/15/2023, 05/29/2023, Additional history exists Dental X-Ray: Full Mouth 05/30/2026 05/29/2023, 0309/2017 DTaP/Tdap/Td Vaccines (3 - Td or Tdap) 10/06/2032 10/06/2022, 10/04/2012, 06/06/2005 Hepatitis B Vaccines Completed 03/30/2001, 11/06/2000, 10/07/2000 Hepatitis A Vaccines Aged Out 05/02/2019 No long er eligible based on patient's age to complete this topic Pneumococcal Vaccine: 50+ Years Completed 10/06/2022, 11/29/2020, 03/30/2014 HIB Vaccines Aged Out No longer [...] Procedure Name Priority Date/Time Associated Diagnosis Comments PERIODIC ORAL EVALUATION - ESTABLISHED PATIENT Routine 12/28/2024 1:00 PM EDT Dental plaque Encounter for dental examination ORAL HYGIENE INSTRUCTIONS Routine 12/28/2024 1:00 PM EDT Dental plaque PROPHYLAXIS - ADULT Routine 12/28/2024 1 :00 PM EDT Dental plaque INTRAORAL - PERIAPICAL EACH ADDITIONAL RADIOGRAPHIC IMAGE Routine 12/28/2024 1:00 PM EDT Dental plaque INTRAORAL - PERIAPICAL FIRST RADIOGRAPHIC IMAGE Routine 12/28/2024 1:00 PM EDT Dental plaque BITEWINGS - 4 RADIOGRAPHIC IMAGES Routine 12/28/2024 1:00 PM EDT Dental plaque INTRAORAL - COMPLETE SERIES OF RADIOGRAPHIC IMAGES Routine 05/29/2023 1:00 PM EST History of periodontal disease Localized gingival recession Encounter for dental examination from Last 3 Months or Most Recently Relevant to Health Maintenance Insurance DENTAL - [facility] PPO
--- OUTSIDE RECORDS SUMMARY | 2025-03-15 19:42 | XMS_ITS | Patient Health Record ---
Author Organization [facility] Address [address] [place] [address] Care Team Providers Care Securities Research Analyst Name Role Phone Christal Robison Primary Care Provider Martha Cevallos Unavailable [phone] Kurt Rodriguez Unavailable [phone] Allergies Allergen (clinical drug ingredient) Drug/Non Drug [...] Duration) Notes Start Date End Date Status Albuterol Active Valsartan Active Simvastatin 40 MG/5ML 5 mL in the evenin g Orally Once a day Active metFORMIN HCl Active Levothyroxine Sodium 50 MCG 1 capsule in the morning on an empty stomach Orally Once a day Active Loratadine Active Meclizine HCl Active Breztri Aerosphere N ot-Taking Trulicity 0.75 MG/0.5ML as directed Subcutaneous Not-Taking Immunizations Vaccine Route Administration Date Status Comme [...] Type 2 diabetes mellitus with peripheral angiopathy (977735008) Type 2 diabetes mellitus with diabetic peripheral angiopathy without gangrene (E11.51) Active confirmed Q7(A), Q8(2B), Q9(1B,2C ) Problem Polyneuropathy due to type 2 diabetes mellitus (996593864) 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) Active confirmed Vital Signs Blood pressure diastolic 62 mm Hg 01/16/2025 Height 5ft 6in in 01/16/2025 Blood pressure systolic 120 mm Hg 01/16/2025 Weight 195 lbs 01/16/2025 BMI 31.47 kg/m2 01/16/2025 Procedures Procedure Date Ordered Date Performed Result Body Sit e [id number] NAIL, 1-5 04/14/2024 N/A [id number] DYSTROPHIC NAILS ANY # 04/14/2024 N/A [id number] NAIL, 1-5 07/14/2024 N/A [id number] DYSTROPHIC NAILS ANY # 07/14/2024 N/A Encounters Encounter Location Date Provider Diagnosis [address] [address] 04/14/2024 Kurt Rodriguez Type 2 diabetes mellitus with diabetic peripheral angiopathy without gangrene E11.51 ; Tinea unguium B35.1 ; Pain in right toe(s) M79.674 and Pain in left toe(s) M79.[address] [address] 07/14/2024 Kurt Rodriguez Tinea unguium B35.1 ; Pain in right toe(s) M79.674 ; Pain in left toe(s) M79.675 and Type 2 diabetes mellitus with diabetic peripheral angiopathy without gangrene E11.[address] [address] 10/13/2024 Martha Harrison Tinea unguium B35.1 ; Achilles tendinitis of right lower extremity M76.61 ; Type 2 diabetes mellitus with diabetic peripheral angiopathy without gangrene E11.51 ; Pain of right heel M79.671 ; Short Achilles tendon (acquired), right ankle M67.01 ; DM type 2 with diabetic peripheral neuropathy E11.42 and Calcaneal spur, right M77.[address] [address] 01/16/2025 Martha Harrison Tinea unguium B35.1 ; Achilles tendinitis of right lower extremity M76.61 ; Type 2 diabetes mellitus with diabetic peripheral angiopathy without gangrene E11.51 ; Pain of right heel M79.671 ; Short Achilles tendon (acquired), right ankle M67.01 ; DM type 2 with diabetic peripheral neuropathy E11.42 and Calcaneal spur, right M77.[address] [address] 03/30/2024 Kurt Rodriguez Assessments Encounter Date Diagnosis [...] Patient Educated with: RICE [email or web address].pdf (RICE THERAPY.pdf) 01/16/2025 Tinea unguium (ICD-10 - B35.1) 01/16/2025 Achilles tendinitis of right lower extremity (ICD-10 - M76.61) 01/16/2025 Type 2 diabetes mellitus with diabetic peripheral angiopathy without gangrene (ICD-10 - E11.51) Q7(A), Q8(2B), Q9(1B,2C) 10/13/2024 Type 2 diabetes mellitus with diabetic peripheral angiopathy without gangrene (ICD-10 - E11.51) Q7(A), Q8(2B), Q9(1B,2C) 07/14/2024 Pain in left toe(s) (ICD-10 - M79.675) 04/14/2024 Pain in right toe(s) (ICD-10 - M79.674) 07/14/2024 Type 2 diabetes mellitus with diabetic peripheral angiopathy without gangrene (ICD-10 - E11.51) Q7(A), Q8(2B), Q9(1B,2C) 04/14/2024 Pain in left toe(s) (ICD-10 - M79.675) 01/16/2025 Pain of right heel (ICD-10 - M79.671) 10/13/2024 Pain of right heel (ICD-10 - M79.671) 01/16/2025 Short Achilles tendon (acquired), right ankle (ICD-10 - M67.01) 10/13/2024 Short Achilles tendon (acquired), right ankle (ICD-10 - M67.01) 10/13/2024 DM type 2 with diabetic peripheral neuropathy (ICD-10 - E11.42) 01/16/2025 DM type 2 with diabetic peripheral neuropathy (ICD-10 - E11.42) 01/16/2025 Calcaneal spur, right (ICD-10 - M77.31) 10/13/2024 Calcaneal spur, right (ICD-10 - M77.31) Plan Of Treatment Pending Test Test Name Order Date X ray : Foot, right 3V 10/13/2024 [id number] NAIL, 1-5 04/14/2024 [id number] NAIL, 1-5 07/14/2024 [id number] DYSTROPHIC NAILS ANY # [id number] DYSTROPHIC NAILS ANY # Next Appt Details Provider Name:Martha Jesus manzanares, 04/17/2025 01:00:00 PM, [address], [place], [address], Insurance Providers Payer Name Payer Address Payer Phone Subscriber Number Group Number Insured Name Patient Relationship to Insured Coverage Start Date Coverage End Date [id number] [address] [place] [address] [id number] Viv Pham Self - patient is the insured Medical (General) History Medical History History ICD Code Anemia asthma Diabetic High Blood Pressure thyroid Surgical History Surgery Date(Month/Year) 1981/1983/1986 Hospitalization History Reason Date(Month/Year) coloscopy 2024
--- OUTSIDE RECORDS SUMMARY | 2025-03-15 19:42 | XMS_ITS | Encounter Summary ---
Author Organization [employer] Address [address] [facility] 7t [place] [address] Care Team Providers Care Youth Director Name Role Phone Unavailable Primary Care Provider Unavailabl e Encounter Details Date Type Department Care Team (Latest Contact Info) Description 11/22/2018 Abstract [facility] CONVERSIONS Dental, Provider, DDS Social [...] Description 07/04/2025 8:00 AM EDT Office Visit [facility] ADULT DENTAL [address] [place] [address] Luis Piedraaris [address] [place] [address] documented as of this encounter Visit Diagnoses Not on filedocumented in this encounter
--- OUTSIDE RECORDS SUMMARY | 2025-03-15 19:42 | XMS_ITS | Encounter Summary ---
Author Organization [employer] [facility] Address [address] [place] [address] 7 [place] [address] Care Team Providers Care Clinical Nurse Occupational Medicine Name Role Phone Unavailable Primary Care Provider Unavailabl e Reason for Referral * Consultation - Closed Specialty Diagnoses / Procedures Referred By Radha james Referred To Contact Dentistry Diagnoses completed Procedures LR PERIODONTAL SCALING AND ROOT PLANING - 1 TO 3 TEETH PER QUADRANT [facility] ADULT DENTAL [address] [place] [address] Phone: tel: fax: [facility] ADULT DENT[facility] [address] [place] [address] Phone: tel: fax: Referral ID Status Reason Start Date Expiration Date Visits Re quested Visits Authorized [id number] Closed 03/26/2022 09/22/2022 1 1 * Consultation - Closed Specialty Diagnoses / Procedures Referred By Radha james Referred To Contact Dentistry Diagnoses completed Procedures UR PERIODONTAL SCALING AND ROOT PLANING - 1 TO 3 TEETH PER QUADRANT [facility] ADULT DENT[facility] [address] [place] [address] Phone: tel: fax: [facility] ADULT [facility] [address] [place] [address] Phone: tel: fax: Referral ID Status Reason Start Date Expiration Date Visits Re quested Visits Authorized [id number] Closed 03/26/2022 09/22/2022 1 1 Encounter Details Date Type Department Care Team (Late st Contact Info) Description 03/26/2022 Abstract [facility] ADULT DENTAL [address] [place] [address] Dental, Provider, DDS Social History Tobacco Use [...] Description 07/04/2025 8:00 AM EDT Office Visit [facility] ADULT DENTAL [address] [place] [address] Dorothea, Jeanette [address] [place] [address] documented as of this encounter Procedures Procedure [...]
--- OUTSIDE RECORDS SUMMARY | 2025-03-15 19:42 | XMS_ITS | Clinical Summary ---
Author Organization [facility] Address [address] [address] Phone Care Team Providers Care Cake Cutter Machine Name Role Phone Petra Garcia MD Primary Care Provider [phone] Allergies Active Allergy Reactions Criticality Noted Date [...] of 2 - PCV) 11/29/2021 11/29/2020, 03/30/2014 CREATININE LEVEL 12/03/2024 12/04/2023 POTASSIUM LEVEL 12/03/2024 12/04/2023 COVID-19 VACCINE (4 - 2024-2 6 season) 2024 05/22/2021, 09/05/2020, 08/08/2020 RSV VACCINE (1 - 1-dose 75+ series) 2029 Adult Td,Tdap Booster 10/06/2032 10/06/2022 , 10/04/2012, 06/06/2005 HEPATITIS A VACCINES Aged Out 05/02/2019 No long er eligible based on patient's age to complete this topic SMOKING STATUS SCREENING (On ce After 26 Yrs) Completed 12/04/2023 HIB VACCINES Aged Out No longer eligi ble based on patient's age to complete this topic IPV VACCINES Aged Out No longer eligi ble [...] Date/Time Associated Diagnosis Comments COMPREHENSIVE METABOLIC PANEL (CMP) Routine 12/04/2023 10:40 AM EDT Arthralgia of multiple joints from Last 3 Months or Most Recently Relevant to Health Maintenance Results * (ABNORMAL) Comprehensive metabolic panel (12/04/2023 10:40 AM EDT) SODIUM 141 133 - 146 mmol/L [facility] POTASSIUM 4.4 3.3 - 5.1 mmol/L [facility] CHLORIDE 103 96 - 108 mmol/L [facility] CO2 29 21 - 35 mmol/L [facility] BUN 14 6 - 19 mg/dL [facility] CREATININE 0.70 0.5 - 1.5 mg/dL [facility] GLUCOSE 118(H) 70 - 99 mg/dL [facility] ALBUMIN 4.2 3.9 - 4.8 g/dL [facility] TOTAL PROTEIN 7.5 6.5 - 8.0 g/dL [facility] CALCIUM 9.7 8.4 - 10.3 mg/dL [facility] ALKALINE PHOSPHATASE 56 39 - 117 U/L [facility] TOTAL BILIRUBIN 0.4 0.0 - 1.2 mg/dL [facility] AST 19 0 - 37 U/L [facility] ALT 11 0 - 40 U/L [facility] GLOBULIN 3.3 1 - 4.8 g/dL [facility] EGFR 94 >59 mL/min/1.7 3m2 [facility] Comment:Estimated glomerular filtration rate calculated using the CKD-EPI refit equation. ANION GAP 13 10 - 20 mmol/L [facility] Blood 12/04/2023 10:4 0 AM EDT 12/04/2023 10:42 AM EDT us Jaylen Evans MD LAB BLOOD BKR ORDERABLE S Final Result Performing Organization Address City/State/[facility] Co de Phone Number [address] [address] from Last 3 Months or Most Recently Relevant to Health Maintenance Insurance [facility] MEDICARE REPLACEMENT [place] [id number] [facility] MEDIC[facility]ACEMENT [facility] MEDICARE REPLACEMENT [place] [id number] [place] [id number] [facility] MEDIC[facility]EMENT [facility]IC[facility]EMENT [facility] MEDICARE REPLACEMENT Member Subscriber Plan / Payer (Ef fective 2020-Present) Name:Vero Viv Relation to Subscriber:Self Name:Vero Viv Payer ID:[id number] (NAIC) Type:Medicare Address: [place] [id number] Care Teams Cake Cutter Machine Relationship Specialty Start Date End Date Petra Garcia MD [address] [place] [address] PCP - General Internal Medicine 03/29/21 Additional Source Comments The information contained in this document represents components of the legal health record. It is not the complete legal health record.[facility]
--- OUTSIDE RECORDS SUMMARY | 2025-03-15 19:42 | XMS_ITS | Encounter Summary ---
Author Organization [employer] Address [address] [facility] [address] [place] [address] Care Team Providers Care Insecticide Supervisor Name Role Phone Unavailable Primary Care Provider Unavailabl e Encounter Details Date Type Department Care Team (Latest Contact Info) Description 02/12/2022 Abstract [facility] CONVERSIONS Dental, Provider, DDS Social History Tobacco [...] Description 07/04/2025 8:00 AM EDT Office Visit [facility] [address] [place] [address] Jeanette Piedra [address] [place] [address] documented as of this encounter Visit Diagnoses Not on filedocumented in this encounter
== END 2025-03-15 10:15 | disposition home or self-care (01) ==
LOC: HO.LAB 10:14
PROVIDERS: PCP Physician Assistant; Visit Provider Physician Assistant
DX: E11.9 Type 2 diabetes mellitus without complications (principal); I10 Essential (primary) hypertension; D64.9 Anemia, unspecified
CPT/HCPCS: 36415; 80053; 83036; 84443; 85025

== ENCOUNTER 2025-04-04 10:33 | Outpatient (AMB) | payer MEDICARE, SELFPAY ==
--- NOTE | 2025-04-04 10:35 | MHC.PC.OV ---
Vital Signs 04/04/25 10:39 Height 5 ft 6 in Weight 188 lb 4 oz BMI 30.4 BP 144/68 H Blood Pressure Location Lt brachial Position Sitting Respiration 16 Pulse 76 Pulse Source Pulse Oximeter Temp 98.0 F Temp Source Oral Pulse Oximetry (%) 99 Oxygen Delivery Method Room Air Intake Visit Reasons: meds and labs Intake Note: patient here for follow up meds and labs. patient said she sees foam in her urine and wants to ask you about it. Senior Firewall Engineer Required: No Is last menstrual period known: No Post menopausal: No Patient : No Allergies seafood Allergy (Severe, Verified 04/04/25 10:38) Anaphylaxis cinnamon Allergy (Intermediate, Verified 04/04/25 10:38) Swelling latex Allergy (Intermediate, Verified 04/04/25 10:38) Rash Penicillins (PENICILLINS) Allergy (Unknown, Verified 04/04/25 10:38) HIVES flu vaccine Allergy (Unknown, Uncoded 04/04/25 10:38) Rash, skin peeling Medication List - Last Reconciled 04/04/25 by Christal Robison PA-C blood sugar diagnostic (Accu-Chek Guide test strips) use daily As directed to monitor blood sugars blood-glucose meter (Accu-Chek Guide Glucose Meter) Use daily As directed to monitor blood sugars calcium carb,lactat-vitamin D3 200 mg-6.25 mcg (250 unit) 200 tabs PO DAILY diclofenac sodium 1% (Voltaren Arthritis Pain) 4 grams topical QID dulaglutide (Trulicity) 0.75 mg (0.5 mL) subcut QWEEK folic acid 1 mg PO DAILY hydrocortisone 2.5% (Proctosol HC) 1 appl AK BID-QID PRN lancets (Accu-Chek Softclix Lancets) use daily As directed to monitor blood sugars levalbuterol tartrate 45 mcg/actuation 2 puffs inhalation Q6H 30 days levothyroxine 50 mcg PO DAILY loratadine (Claritin) 10 mg PO DAILY meclizine 25 mg PO DAILY PRN metformin ER 1,500 mg (3 x 500 mg) PO DAILY 90 days multivitamin with iron 1 tab PO DAILY simvastatin 40 mg PO BEDTIME valsartan 80 mg PO DAILY Tobacco use date assessed: 04/04/25 Fall risk assessment: No Falls in past year Last assessed Fall Risk: 04/04/25 Dental Screening Dental Screen Date: 04/04/25 Did you have a dental visit in the last 12 months?: Yes Did you have a dental problem in the last 6 months where you did not have access to dental care?: No Was dental information given to patient?: Patient has dentist HPI meds and labs HPI Details Patient is a 69-year-old female with a significant past medical history of type 2 diabetes, hypertension, hyperlipidemia, obesity, asthma, joint pains, fibromyalgia, PVD, rheumatoid lung presenting today for a follow up. Endo: She is currently on metformin 500 mg 3 times a day. She was diagnosed with diabetes around 2019. She has had diabetic Education. She is followed with a administrative services officer. Her last A1c was 6.8 but she states she was eating more foods in [facility]. trulicity was too expensive, Jardiance too expensive Her recent TSH was normal. She is taking the levothyroxine 50 mcg daily. -She states most of her family has t2dm. -denies hyper/hypoglycemic events -up-to-date with eye exams -she is on an Arb and a statin. CV: Blood pressure is well controlled. She is currently on valsartan 80 mg. Cholesterol is managed with simvastatin 40 mg. Since I increased her simvastatin she states that the muscle aches are more prevalent. She wants to stop her cholesterol medication to see if this completely resolves. She states that she would be interested in trying a different brand if it does resolve. Stress test- no ischemia following annually with cardiology for Pulm: has a hx of asthma but recent PFTs from apr 2022 (scanned in) were normal. Followed with pulmonology. Uro: has noted intermittent foamy urine. No dysuria, malodorous urine or flank/abdominal pain. No fever or chills. No n/v. She noted it improved wiht increase water intake. Heme: Persistent anemia. Following with Hematology. Mammogram: UTD, November 2024 Colonoscopy: UTD 2024, Repeat Colonoscopy in 5 years or earlier if clinically indicated Bone density: Not due until 2025 upon review from [place] records. Pap: Up-to-date Eyes: booked 01.31.26 [facility] Medical History (Updated 04/04/25 @ 11:03 by Christal Robison PA-C) FH: breast cancer in first degree relative Diabetes mellitus Chronic restrictive lung disease Pneumonitis Surgical History Hx of section Hx of cholecystectomy H/O colonoscopy (~2013) Family History Mother Asthma Anemia Diabetes HTN (hypertension) Glaucoma Father Stroke Sister Diabetes HTN (hypertension) Asthma Myocardial infarct Stroke Breast cancer Brother Diabetes Glaucoma Asthma Cancer Pancreatic cancer Sister Liver cancer Social History Household Members: Spouse and Family Housing: House Alcohol intake: never Patient Tobacco Use Status: Never used Tobacco e-Cigarette/Vaping Use: Never Used Second Hand Smoke Exposure: No service: No Current occupational status: retired Gender identity: Female Cognitive needs: No Hearing needs: No Vision needs: Yes (cataracts) Questionnaire Thrive Questionnaire Date Thrive assessed: 05/26/24 I am a: Patient What is your living situation today?: I have a steady place to live Within the past 12 months, did the food you bought not last and you didn't have the money to get more?: Never true Within the past 12 months, did you worry whether your food would run out before you got money to buy more?: Never true Do you have trouble paying for medicines?: No Do you have trouble getting transportation to medical appointments?: No Do you have trouble paying your heating and electricity bill?: No Do you have trouble taking care of your child, family member or friend?: No Do you have trouble with day-to-day activities such as bathing, preparing meals, shopping, managing finances, etc.?: No Are you currently unemployed and looking for a job?: No Are you interested in more education?: No Please select the resources that you would like help with: None Currently or been in a relationship where the following occur: No concerns reported THRIVE Score: 0 DEA-7 AMB Questionnaire DEA-7 Date DEA - 7 assessed: 09/08/24 Source: Developed by Drs. Jamin Hillman, Latonya Boone, Jasvir Zuniga and colleagues, with an educational federico from [employer]. Physical exam (Primary Care) Vital Signs: Last Vital Signs Temp 98.0 F 04/04/25 10:39 Pulse 76 04/04/25 10:39 Resp 16 04/04/25 10:39 BP 144/68 H 04/04/25 10:39 Pulse Ox 99 04/04/25 10:39 Oxygen Delivery Method Room Air 04/04/25 10:39 BMI result Body Mass Index 30.4 Tobacco/Smoking Status: Tobacco use Status Tobacco use date assessed 04/04/25 04/04/25 10:43 Patient Tobacco Use Status Never used Tobacco 04/04/25 10:35 e-Cigarette/Vaping Use Never Used 04/04/25 10:35 Thrive Assessment: Date of Thrive Assessment Date Thrive assessed 05/26/24 04/04/25 10:35 Currently or been in a relationship where the following occur: No concerns reported Const Orientation/consciousness: patient oriented x3 HENMT Ears: hearing grossly normal bilaterally Neck Thyroid: Thyroid normal Lymphatic: no lymphadenopathy noted Resp Auscultation: clear to auscultation bilaterally Cardio Rate: regular rate Rhythm: regular rhythm Heart sounds: S1 normal heart sound present and S2 normal heart sound present GI Inspection: Yes normal to inspection Palpation (GI): Soft to palpation and Other GI palpation findings present (nontender, no cva tenderness) Auscultation: normoactive bowel sounds Rectal Exam - Female: deferred Skin General skin exam: no rashes or lesions noted Neuro General: patient oriented x3, gait normal and no focal motor deficits Results Reviewed Results Reviewed: Laboratory Tests 09/15/24 11/16/24 03/15/25 09:03 09:29 10:38 Sodium 141 141 Potassium 4.4 3.9 Chloride 103 103 Carbon Dioxide 32 H 31 H Anion Gap 10 L 11 L BUN 13 17 H Creatinine 0.76 0.71 Estimated GFR > 60 > 60 Random Glucose 122 H Fasting Glucose 135 H Hemoglobin A1c % 7.1 H 6.8 H Calcium 9.4 9.4 Total Bilirubin 0.5 AST 21 ALT 19 Alkaline Phosphatase 52 Total Protein 6.9 Albumin 4.3 Triglycerides 102 Cholesterol 190 LDL Cholesterol, Calc 104 H HDL Cholesterol 66 TSH 1.90 Urine Creatinine 87.21 Urine Microalbumin 9.0 Microalb/Creat Ratio 10.3 Coding Level of Care Code Est Pt Level 4 (61873) Complex visit Add On G2211 Diagnoses Type 2 diabetes mellitus without complication, without long-term current use of insulin E11.9 Diabetes mellitus shelter insulin use: without shelter use Diabetes mellitus complication status: without complication Hypertension I10 Anemia, unspecified type D64.9 Anemia type: unspecified type Hypothyroid E03.9 Hyperlipidemia E78.5 Leg cramps R25.2 Assessment & Plan Assessment & Plan (1) T2DM (type 2 diabetes mellitus): Code(s): E11.9 - Type 2 diabetes mellitus without complications Category: Medical Qualifiers: Diabetes mellitus shelter insulin use: without shelter use Diabetes mellitus complication status: without complication Qualified Code(s): E11.9 - Type 2 diabetes mellitus without complications Plan: continue metformin. will start trulicity .75 mg weekly. will let me know if this is too expensive. will recheck labs in 3 months f/u in 3 months advised diet changes (2) Hypertension: Code(s): I10 - Essential (primary) hypertension Category: Medical Plan: continue current plan (3) Anemia: Code(s): D64.9 - Anemia, unspecified Category: Medical Qualifiers: Anemia type: unspecified type Qualified Code(s): D64.9 - Anemia, unspecified Plan: We will monitor. She will continue following with Hematology (4) Hypothyroid: Code(s): E03.9 - Hypothyroidism, unspecified Category: Medical Plan: continue levothyroxine (5) Hyperlipidemia: Code(s): E78.5 - Hyperlipidemia, unspecified Category: Medical Plan: has not had lipids rechecked cholesterol since increased dosage of simvastatin. Advised to complete today (6) Leg cramps: Code(s): R25.2 - Cramp and spasm Category: Medical Plan: ? Related to statin. Labs ordered. She wants to hold her statin to see if this improves. She will hold it for 2 weeks and let me know. If no improvement we will work this up further. Plan will check urine no sx of foam right now advised to increase fluid intake and let me know if any sx return Orders: Orders UA CC w/rflx Micro + Cult Today E03.9 - Hypothyroidism, unspecified, E11.9 - Type 2 diabetes mellitus without complications, I10 - Essential (primary) hypertension, R30.0 - Dysuria, R82.998 - Other abnormal findings in urine Microalbumin, Random (w Creat) Today E03.9 - Hypothyroidism, unspecified, E11.9 - Type 2 diabetes mellitus without complications, I10 - Essential (primary) hypertension, R82.998 - Other abnormal findings in urine Comprehensive [place]. Panel Fast Today E03.9 - Hypothyroidism, unspecified, E11.9 - Type 2 diabetes mellitus without complications, E78.5 - Hyperlipidemia, unspecified, I10 - Essential (primary) hypertension Hemoglobin A1c Today E03.9 - Hypothyroidism, unspecified, E11.9 - Type 2 diabetes mellitus without complications, E78.5 - Hyperlipidemia, unspecified, I10 - Essential (primary) hypertension, R73.01 - Impaired fasting glucose Lipid Panel Today E03.9 - Hypothyroidism, unspecified, E11.9 - Type 2 diabetes mellitus without complications, E78.5 - Hyperlipidemia, unspecified, I10 - Essential (primary) hypertension Creatine Kinase Total Today R25.2 - Cramp and spasm Medications: New dulaglutide (Trulicity) 0.75 mg (0.5 mL) subcut QWEEK 2 mL 1RF clobetasol 0.05% 1 appl topical BID 45 grams 0RF 2 weeks Patient Instructions: HOLD the simvastatin for a couple weeks to see if the muscle aches improve, if not call me get labs Check urine test today start trulicity for diabetes, continue metformin 2 month follow up
[2025-04-04 10:39] VITALS: BP 144/68; PULSE 76; RESP 16; TEMP 36.7; O2SAT 99; BMI 30.4
== END 2025-04-04 11:10 | disposition home or self-care (01) ==
LOC: HO.HMCFM 10:34
PROVIDERS: PCP Physician Assistant; Visit Provider Physician Assistant
DX: E11.9 Type 2 diabetes mellitus without complications (principal); I10 Essential (primary) hypertension; D64.9 Anemia, unspecified; E03.9 Hypothyroidism, unspecified; E78.5 Hyperlipidemia, unspecified; R25.2 Cramp and spasm

== ENCOUNTER 2025-04-04 10:33 | Outpatient (REF) | payer MEDICARE, SELFPAY ==
[2025-04-04 14:29] LABS: Appearance Urine Clear; Glucose Urine UA Negative (Negative); PH 5.5 (5.0-9.0); Specific Gravity - Urine 1.010 (1.005-1.025)
== END 2025-04-04 10:34 | disposition home or self-care (01) ==
LOC: HO.WFDLDS 10:33
PROVIDERS: PCP Physician Assistant; Visit Provider Physician Assistant
DX: R30.0 Dysuria (principal); I10 Essential (primary) hypertension; E11.9 Type 2 diabetes mellitus without complications; E03.9 Hypothyroidism, unspecified; R82.998 Other abnormal findings in urine; D64.9 Anemia, unspecified; E78.5 Hyperlipidemia, unspecified; R25.2 Cramp and spasm
CPT/HCPCS: 81003; 82043; 82570; 99212

== ENCOUNTER 2025-04-11 09:50 | Outpatient (REF) | payer MEDICARE, SELFPAY ==
[2025-04-11 10:52] LABS: Alanine Aminotransferase 18 U/L (0-31); Albumin Level 4.4 g/dL (3.5-5.0); Alkaline Phosphatase 60 U/L (39-117); Anion Gap 11 (12-20); Aspartate Amino Transferase 20 U/L (5-31); Blood Urea Nitrogen 12 mg/dL (9-16); Calcium 10.1 mg/dL (8.4-10.2); Carbon Dioxide 32 mmol/L (22-29); Chloride 103 mmol/L (96-108); Cholesterol 235 mg/dL (<200); Estimated Glomerular Filt Rate > 60; HDL Cholesterol 73 mg/dL (>40); Potassium 4.2 mmol/L (3.3-5.1); Sodium 142 mmol/L (135-145); Total Protein 7.1 g/dL (6.5-8.0); Triglycerides 93 mg/dL (<150)
--- OUTSIDE RECORDS SUMMARY | 2025-04-11 11:52 | XMS_ITS | Clinical Summary ---
Author Organization [employer] Address [address] [facility] 7t [place] [address] Care Team Providers Care Hide Shaker Name Role Phone Unavailable Primary Care Provider [...] Description 07/04/2025 8:00 AM EDT Office Visit [facility]ULT [facility] [address] [facility], [place] [id number] Jeanette Piedra [address] [place] [address] Health Maintenance Due Date Last Done Comments [...] of 3) 06/20/2015 04/25/2015 COVID-19 Vaccine ( - season) 2024 05/22/2021, 09/05/2020, 08/08/2020 Influenza Vaccine (#1) 2024 Dental Oral Exam 06/28/2025 12/28/2024, , 05/29/2023, Additional history exists Dental Prophylaxis 06/28/2025 12/28/2024, 0 06/22/2024, 12/18/2023, Additional history exists Tobacco Screening 12/28/2025 12/28/2024 Dental X-Ray: Bitewings 12/29/2025 12/29/19, 12/15/2023, 05/29/2023, Additional history exists Dental X-Ray: Full Mouth 05/30/2026 05/29/2023, 03/09/2017 DTaP/Tdap/Td Vaccines (3 - Td or Tdap) [...] Associated Diagnosis Comments PROPHYLAXIS - ADULT Routine 12/28/2024 1 :00 PM EDT Dental plaque BITEWINGS - 4 RADIOGRAPHIC IMAGES Routine 12/28/2024 1:00 PM EDT Dental plaque PERIODIC ORAL EVALUATION - ESTABLISHED PATIENT Routine 12/28/2024 1:00 PM EDT Dental plaque Encounter for dental examination INTRAORAL - COMPLETE SERIES OF RADIOGRAPHIC IMAGES Routine 05/29/2023 1:00 PM EST History of periodontal disease Localized gingival recession Encounter for dental examination from Last 3 Months or Most Recently Relevant to Health Maintenance Insurance DENTAL - [facility] PPO
--- OUTSIDE RECORDS SUMMARY | 2025-04-11 11:52 | XMS_ITS | Encounter Summary ---
Author Organization [email or web address] Address [address] [facility] 7[address] [place] [address] Care Team Providers Care Awning Assembler Name Role Phone Unavailable Primary Care Provider Unavailabl e Encounter Details Date Type Department Care Team (Latest Contact Info) Description 11/22/2018 Abstract [facility] CONVERSIONS Dental, Provider, DDS Social History [...] Description 07/04/2025 8:00 AM EDT Office Visit [facility] ADULT DENTAL [address] [place] [address] Luis Piedraaris [address] [place] [address] documented as of this encounter Visit Diagnoses Not on filedocumented in this encounter
--- OUTSIDE RECORDS SUMMARY | 2025-04-11 11:52 | XMS_ITS | Patient Health Record ---
Author Organization [facility] Address [address] [place] [address] Care Team Providers Care Svp Programmatic Tv Name Role Phone Christal Robison Primary Care Provider Martha Cevallos Unavailable [phone] Kurt Rodriguez Unavailable [phone] Allergies Allergen (clinical drug ingredient) Drug/Non Drug [...] Type 2 diabetes mellitus with peripheral angiopathy (885990613) Type 2 diabetes mellitus with diabetic peripheral angiopathy without gangrene (E11.51) Active confirmed Q7(A), Q8(2B), Q9(1B,2C ) Problem Polyneuropathy due to type 2 diabetes mellitus (554632439) 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) Active confirmed Vital Signs Blood pressure diastolic 62 mm Hg 01/16/2025 Height 5ft 6in in 01/16/2025 Blood pressure systolic 120 mm Hg 01/16/2025 Weight 195 lbs 01/16/2025 BMI 31.47 kg/m2 01/16/2025 Procedures Procedure Date Ordered Date Performed Result Body Sit e 46054-UPHFAFF NAIL, 1-5 04/14/2024 N/A C9981-[id number] DYSTROPHIC NAILS ANY # 04/14/2024 N/A 31600-FTCWVAI NAIL, 1-5 07/14/2024 N/A Z6419-POTZJMUS DYSTROPHIC NAILS ANY # 07/14/2024 N/A Encounters Encounter Location Date Provider Diagnosis [address] [address] 04/14/2024 Kurt Rodriguez Type 2 diabetes mellitus with diabetic peripheral angiopathy without gangrene E11.51 ; Tinea unguium B35.1 ; Pain in right toe(s) M79.674 and Pain in left toe(s) M79.[address] [address] 07/14/2024 Kurt Rodriguez Tinea unguium B35.1 ; Pain in right toe(s) M79.674 ; Pain in left toe(s) M79.675 and Type 2 diabetes mellitus with diabetic peripheral angiopathy without gangrene E11.[address] [address] 10/13/2024 Martha Harrison Tinea unguium B35.1 ; Achilles tendinitis of right lower extremity M76.61 ; Type 2 diabetes mellitus with diabetic peripheral angiopathy without gangrene E11.51 ; Pain of right heel M79.671 ; Short Achilles tendon (acquired), right ankle M67.01 ; DM type 2 with diabetic peripheral neuropathy E11.42 and Calcaneal spur, right M77.[address] [address] 01/16/2025 Martha Harrison Tinea unguium B35.1 ; Achilles tendinitis of right lower extremity M76.61 ; Type 2 diabetes mellitus with diabetic peripheral angiopathy without gangrene E11.51 ; Pain of right heel M79.671 ; Short Achilles tendon (acquired), right ankle M67.01 ; DM type 2 with diabetic peripheral neuropathy E11.42 and Calcaneal spur, right M77.31 Assessments Encounter Date Diagnosis (ICD Code) Assessment [...] X ray : Foot, right 3V 10/13/2024 [id number]-[id number] NAIL, 1-5 04/14/2024 60544-QOPIUYH NAIL, 1-5 07/14/2024 W3131-[id number] DYSTROPHIC NAILS ANY # Z3351-[id number] DYSTROPHIC NAILS ANY # Next Appt Details Provider Name:Martha manzanares, 04/17/2025 01:00:00 PM, [address] [place] [address] Rd, [place], [address], Insurance Providers Payer Name Payer Address Payer Phone Subscriber Number Group Number Insured Name Patient Relationship to Insured Coverage Start Date Coverage End Date [facility] [address] [address] [place] [address] [id number] Viv Pham Self - patient is the insured Medical (General) History Medical History History ICD Code Anemia asthma Diabetic High Blood Pressure thyroid Surgical History Surgery Date(Month/Year) /1986 Hospitalization History Reason Date(Month/Year) coloscopy 2024
--- OUTSIDE RECORDS SUMMARY | 2025-04-11 11:52 | XMS_ITS | Clinical Summary ---
Author Organization [address] [place] [address] [place] [phone] Phone Care Team Providers Care Sub Plant Manager Name Role Phone Marianela Parks MD [...] Date Diagnosed Date PAD (peripheral artery disease) 09/10/2023 Pelvic pain 02/18/2021 Overview (01/25/2024): Last Assessment [...] I explained there is no evidence of [place] pathology from her CT scan either. 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 Overview (01/25/2024): Burning sensation in feet [...] aqta) 19yo and older 05/02/2019 Hepatitis B (Pjdpvhm-T-Bfymx , Recombivax HB-Adult) 19yo and older 03/30/2001,11/06/2000,10/07/2000 [...] complication, without long-term current use of insulin ([facility] V24, [facility] V28) 02/02/2017 DX:Controlled type 2 diabet es mellitus without complication, without long-term current use of insulin ([facility]) PAD (peripheral artery disea se) ([facility] V24) 09/10/2023 DX:PAD (peripheral artery di sease) ([facility]) Family History Medical History Relation Name Comments [...] Results * Annual BMP Blood Test (07/13/2023) Pathologist [facility] Annual BMP Blood Test Abstracted us Historical Provider HEALTH MAINTENANCE Final Result * (ABNORMAL) Hemoglobin A1c (07/13/2023) Pathologist [facility] Hemoglobin A1C 6.8(A) <=6.5 % Blood Venous blood specimen / Unknown Result [facility] LAB BLOOD ORDERABLES Maira l Result * Lipid panel (07/13/2023) [facility] LDL/HDL Ratio 2 0 - 4 Triglycerides 72 0 - 150 mg/dL Cholesterol 170 0 - 200 mg/dL HDL 76 >=40 mg/dL LDL Cholesterol 80 0 - 100 mg/dL Blood Venous blood specimen / Unknown Result [facility] LAB BLOOD ORDERABLES Maira l Result * Depression Screening (05/19/2023) [facility] Depression Screening Abstracted Result [facility] HEALTH MAINTENANCE Final Result * Diabetes Eye Exam (02/12/2023) [facility] Diabetes: Annual Retina Eye Exam Abstracted Result [facility] Provider HEALTH MAINTENANCE Final Result * Urine Albumin Creatinine Ratio (01/20/2023) [facility] Urine Albumin Creatinine Ratio Abstracted Result [facility] HEALTH MAINTENANCE Final Result * DXA [...] bone mineral density by WHO criteria. [facility] Department of Internal Medicine recommends using [...] screening schedule based on dmitri Tadeo., [facility] May 15, 2011 for patients [...] bone mineral density by WHO criteria. [facility] Department of Internal Medicine recommendsusing National [...] Maintenance Insurance [employer] MEDICARE Care Teams Sub Plant Manager Relationship Specialty Start Date End Date Marianela Parks MD [address] [place] [phone] PCP - General Internal Medicine 11/02/21
--- OUTSIDE RECORDS SUMMARY | 2025-04-11 11:52 | XMS_ITS | Encounter Summary ---
Author Organization [email or web address] Address [address] [facility] 7t [place] [address] Care Team Providers Care Radiologic Technician Name Role Phone Unavailable Primary Care Provider Unavailabl e Encounter Details Date Type Department Care Team (Latest Contact Info) Description 02/12/2022 Abstract [facility] CONVERSIONS Dental, Provider, DDS Social History Tobacco [...] Visit [facility] ADULT DENTAL [address] [place] [address] Jeanette Piedra [address] [place] [address] documented as of this encounter Visit Diagnoses Not on filedocumented in this encounter
--- OUTSIDE RECORDS SUMMARY | 2025-04-11 11:52 | XMS_ITS | Clinical Summary ---
Author Organization [facility] Address [address] [address] Phone Care Team Providers Care Transit Planner Name Role Phone Petra Garcia MD Primary Care Provider [phone] Allergies Active Allergy Reactions Criticality Noted Date [...] EDT) SODIUM 141 133 - 146 mmol/L [facility] POTASSIUM 4.4 3.3 - 5.1 mmol/L [facility] CHLORIDE 103 96 - 108 mmol/L [facility] CO2 29 21 - 35 mmol/L [facility] BUN 14 6 - 19 mg/dL [facility] CREATININE 0.70 0.5 - 1.5 mg/dL [facility] GLUCOSE 118(H) 70 - 99 mg/dL [facility] ALBUMIN 4.2 3.9 - 4.8 g/dL [facility] TOTAL PROTEIN 7.5 6.5 - 8.0 g/dL [facility] CALCIUM 9.7 8.4 - 10.3 mg/dL [facility] ALKALINE PHOSPHATASE 56 39 - 117 U/L [facility] TOTAL BILIRUBIN 0.4 0.0 - 1.2 mg/dL [facility] AST 19 0 - 37 U/L [facility] ALT 11 0 - 40 U/L [facility] GLOBULIN 3.3 1 - 4.8 g/dL [facility] EGFR 94 >59 mL/min/1.7 3m2 [facility] Comment:Estimated glomerular filtration rate calculated using the CKD-EPI refit equation. ANION GAP 13 10 - 20 mmol/L [facility] Blood 12/04/2023 10:4 0 AM EDT 12/04/2023 10:42 AM EDT Jaylen Evans MD LAB BLOOD BKR ORDERABLE S Final Result Performing Organization Address City/State/[facility] Co de Phone Number [facility] [address] [place] [address] from Last 3 Months or Most Recently Relevant to Health Maintenance Insurance [facility] MEDICARE REPLACEMENT Member Subscriber Plan / Payer ( fective 2020-Present) Name:Viv Pham Relation to Subscriber:Self Name:Viv Pham Payer ID:[id number] (NAIC) Type:Medicare Address: [place] [id number] [place] [id number] [facility] MEDICARE REPLACEMENT Member Subscriber Plan / Payer (Ef fective 2020-Present) Name:Viv Pham Relation to Subscriber:Self Name:Viv Pham Payer ID:[id number] (NAIC) Type:Medicare Address: [place] [id number] [place] [id number] [facility] MEDICARE REPLACEMENT [facility] MEDICARE REPLACEMENT [facility] MEDICARE REPLACEMENT [facility] MEDICARE REPLACEMENT [facility] MEDICARE REPLACEMENT [facility] MEDICARE REPLACEMENT [facility] MEDICARE REPLACEMENT [place] [id number] Care Teams Transit Planner Relationship Specialty Start Date End Date Petra Garcia MD [address] [place] [address] PCP - General Internal Medicine 03/29/21 Additional Source Comments The information contained in this document represents components of the legal health record. It is not the complete legal health record.[facility]
--- OUTSIDE RECORDS SUMMARY | 2025-04-11 11:52 | XMS_ITS | Encounter Summary ---
Author Organization [employer] [facility] Address [address] [place] [address] 7 [place] [address] Care Team Providers Care Abattoir Supervisor Name Role Phone Unavailable Primary Care Provider Unavailabl e Reason for Referral * Consultation - Closed Specialty Diagnoses / Procedures Referred By Radha james Referred To Contact Dentistry Diagnoses completed Procedures LR PERIODONTAL SCALING AND ROOT PLANING - 1 TO 3 TEETH PER QUADRANT [facility] [address] [place] [address] Phone: tel: fax: [facility] [address] [place] [address] Phone: tel: fax: Referral ID Status Reason Start Date Expiration Date Visits Re quested Visits Authorized [id number] Closed 03/26/2022 09/22/2022 1 1 * Consultation - Closed Specialty Diagnoses / Procedures Referred By Radha james Referred To Contact Dentistry Diagnoses completed Procedures UR PERIODONTAL SCALING AND ROOT PLANING - 1 TO 3 TEETH PER QUADRANT [facility] [address] [place] [address] Phone: tel: fax: [facility] [address] [place] [address] Phone: tel: fax: Referral ID Status Reason Start Date Expiration Date Visits Re quested Visits Authorized [id number] Closed 03/26/2022 09/22/2022 1 1 Encounter Details Date Type Department Care Team (Late st Contact Info) Description 03/26/2022 Abstract [facility] [address] [place] [address] Dental, Provider, DDS Social History Tobacco Use [...] Description 07/04/2025 8:00 AM EDT Office Visit [facility] [address] [place] [address] Dorothea, Jeanette [address] [place] [address] documented as of this encounter Procedures Procedure [...]
== END 2025-04-11 09:51 | disposition home or self-care (01) ==
LOC: HO.LAB 09:50
PROVIDERS: PCP Physician Assistant; Visit Provider Physician Assistant
DX: I10 Essential (primary) hypertension (principal); E11.9 Type 2 diabetes mellitus without complications; E03.9 Hypothyroidism, unspecified; E78.5 Hyperlipidemia, unspecified; R25.2 Cramp and spasm
CPT/HCPCS: 36415; 80053; 80061; 82550; 83036